=== PATIENT | male | born 1985 | race Caucasian/White ===

== ENCOUNTER 2023-01-31 13:05 | Outpatient (REF) | payer MEDICAID, SELFPAY | END 2023-01-31 13:06 | disposition home or self-care (01) | LOC: HO.HHCL 13:05 | PROVIDERS: Visit Provider Internal Medicine | DX: Z13.89 Encounter for screening for other disorder (principal) ==

== ENCOUNTER 2023-02-03 09:51 | Outpatient (REF) | payer MEDICAID, SELFPAY ==
[2023-02-03 11:49] LABS: MANUAL DIFF FLAG NO
[2023-02-03 12:18] LABS: Basophils Absolute Auto 0.1 X10*3/uL (0.0-0.2); Basophils Percent Auto 0.7 % (0-2); Eosinophils Absolute Auto 0.2 X10*3/uL (0.0-0.4); Eosinophils Percent Auto 1.9 % (0-4); Hematocrit 39.2 % (42.0-52.0); Hemoglobin 13.3 g/dl (14.0-18.0); Imm Gran Abs Auto 0.04 X10*3/uL (0.00-0.03); Imm Gran Pct Auto 0.3 % (0.0-0.4); Lymphocytes Absolute Auto 1.2 X10*3/uL (1.2-4.9); Mean Corpuscular HGB Conc 33.9 g/dl (31.0-36.0); Mean Corpuscular Volume 88.3 fL (80.0-98.0); Mean Platelet Volume 9.7 fL (9.4-12.4); Monocytes Absolute Auto 0.7 X10*3/uL (0.1-1.2); Neutrophils Absolute Auto 9.8 x10*3/uL (2.0-8.3); Neutrophils Percent Auto 81.1 % (45-73); Platelet Count 313 X10*3/uL (160-400); Red Blood Count 4.44 X10*6/uL (4.60-5.80); Red Cell Distribution Width 12.4 % (11.0-16.0); White Blood Count 12.1 X10*3/uL (4.8-10.8)
[2023-02-03 12:51] LABS: Alanine Aminotransferase 31 U/L (0-40); Albumin Level 4.6 g/dL (3.5-5.0); Alkaline Phosphatase 79 U/L (39-117); Anion Gap 15 (12-20); Aspartate Amino Transferase 34 U/L (5-37); Bilirubin Direct 0.1 mg/dL (0.0-0.5); Bilirubin Total 0.4 mg/dL (0.0-1.0); Blood Urea Nitrogen 9 mg/dL (9-16); Calcium 9.4 mg/dL (8.4-10.2); Carbon Dioxide 24 mmol/L (22-29); Chloride 104 mmol/L (96-108); Estimated Glomerular Filt Rate > 60; Glucose Random 86 mg/dL (60-115); Potassium 4.4 mmol/L (3.3-5.1); Sodium 139 mmol/L (135-145); Total Protein 7.5 g/dL (6.5-8.0)
[2023-02-03 13:10] LABS: Vitamin D 25-OH Total 78.5 ng/mL (>30)
[2023-02-04 03:43] LABS: Syphilis Screen Nonreactive (Nonreactive)
[2023-02-04 03:58] LABS: HIV AB/AG Nonreactive (Nonreactive); HIV Num 1 0.09 S/CO (0.00-0.99)
[2023-02-05 19:38] LABS: TS Negative Control Passed; TS Panel A 0; TS Panel B 0; TS Positive Control Passed; TSpotTB Negative (Negative)
== END 2023-02-03 09:52 | disposition home or self-care (01) ==
LOC: HO.HHCL 09:51
PROVIDERS: Visit Provider Internal Medicine
DX: J44.9 Chronic obstructive pulmonary disease, unspecified (principal); F41.1 Generalized anxiety disorder
CPT/HCPCS: 36415; 80053; 82248; 82306; 85025; 86481; 86780; 87389

== ENCOUNTER 2023-06-10 13:26 | Outpatient (AMB) | payer MEDICAID, SELFPAY ==
--- NOTE | 2023-06-10 13:08 | MHC.OFFVIS ---
Intake Vital Signs 06/10/23 13:34 Weight 125 lb BP 110/60 Blood Pressure Location Rt brachial Position Sitting Pulse 101 H Pulse Source Pulse Oximeter Pulse Oximetry (%) 92 Oxygen Delivery Method Nasal Cannula Oxygen Flow Rate 5 Intake Visit Reasons: COPD Business Reporting Developer Required: No Outside Cutter: Outside Cutter offered & declined Accompanied by: Celeste/ HUMAN RESOURCES PROFESSIONAL Allergies No Known Allergies [No Known Allergies*] Allergy (Unverified 06/10/23 13:39) Medication List - Last Reconciled 06/10/23 by Dolores Snow LPN albuterol sulfate 90 mcg/actuation 2 puffs inhalation Q4-6H PRN amlodipine 5 mg PO DAILY clonidine HCl 0.1 mg PO BID doxycycline hyclate 100 mg PO BID famotidine 20 mg PO DAILY nugniiqhcff-gbcbojtjj-gkngzyyp 200-62.5-25 mcg (Trelegy Ellipta) 1 inh inhalation DAILY hydromorphone (Dilaudid) 4 mg PO .Q12 hours ipratropium-albuterol 0.5 mg-3 mg(2.5 mg base)/3 mL 3 mL inhalation Q6H PRN lorazepam (Ativan) 0.5 mg PO TID PRN methadone (Methadone Intensol) 120 mg PO DAILY nicotine (Nicotrol) 1 inh inhalation Q2-4H PRN sertraline (Zoloft) 150 mg PO DAILY trazodone 75 mg PO BEDTIME PRN HPI COPD HPI Details Mat is a pleasant 37 year old male, former smoker with 30 pack year history, with underlying COPD requiring 5-6 L supplemental oxygen, h/o polysubstance abuse, h/o hepatitis B and C, pseudomonas PNA and h/o respiratory failure with prolonged hospitalization/intubation. He is accompanied by his HUMAN RESOURCES PROFESSIONAL. He was under the care of prior information technology administrator. There was question of pulmonary hypertension and possibility of referral for lung transplant once patient discontinued illicit substance use. He is currently on methadone. He was lost to follow up and presents today for pulmonary evaluation. He is suboptimally controlled on Dulera, duoneb TID-QID. He currently receives oxygen through [employer]. He reports history of asthma as a child. Father, smoker, had COPD and other underlying conditions, unknown. Denies any other pertinent family history. 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 Does admit to history of crack cocaine use as well as IV heroin and h/o homelessness. [facility] Social History (Updated 06/10/23 @ 13:45 by Dolores Snow LPN) Patient Tobacco Use Status: Former Tobacco user Tobacco use type: Cigarette Cigarette Packs Per Day: 2 Years Smoked: 15 Review of Systems Const Denies chills, Denies excessive sweating, Denies fever(s), Denies headache(s) and Denies night sweats Eyes Denies dry eyes, Denies irritation and Denies itchy eyes ENT Reports Normal hearing present, Denies headache(s), Reports nasal congestion, Denies nasal discharge, Reports post nasal drip and Denies sore throat Card Denies chest pain, Denies chest pain at rest, Denies chest pain with activity, Denies claudication, Denies leg edema, Reports dyspnea, Denies orthopnea and Denies paroxysmal nocturnal dyspnea Resp Reports chest congestion, Reports cough, Reports excessive phlegm production, Denies pain on inspiration, Denies pain with cough, Reports dyspnea, Denies stridor and Reports wheezing Neuro Reports Normal hearing present and Denies headache(s) Endo Denies excessive sweating Michael/Lymph Denies lymphadenopathy Aller/Immun Denies itchy eyes, Denies seasonal rhinorrhea and Reports wheezing Physical Exam Vital Signs: Last Vital Signs Pulse 101 H 06/10/23 13:34 BP 110/60 06/10/23 13:34 Pulse Ox 92 06/10/23 13:34 Oxygen Delivery Method Nasal Cannula 06/10/23 13:34 Oxygen Flow Rate 5 06/10/23 13:34 Const Other: wearing supplemental oxygen, ambulating with cane General: cooperative, comfortable, no acute distress and alert Nutritional Appearance: thin Orientation/consciousness: patient oriented x3 Limitations: ambulation with cane HEENT Head: Yes normal to inspection, Yes normocephalic and Yes atraumatic Ears: hearing grossly normal bilaterally and external ears normal Eyes General: appearance normal, both eyes and all related structures Eyelids: Yes eyelids normal Sclerae: sclerae normal EOM: EOMs intact bilaterally Neck Neck: Yes normal visual inspection and Yes no lymphadenopathy Lymphatic: no lymphadenopathy noted Chest Chest palpation & inspection: normal inspection of the chest Resp Effort & Inspection: normal respiratory effort, able to speak in complete sentences, no audible wheezes, no cough, no stridor, not tachypneic, no tripod positioning and no use of accessory muscles Auscultation: diminished lung sounds Cardio Jugular venous distension: no JVD Rate: regular rate Rhythm: regular rhythm Back/Spine/Pelvis Other: kyphosis Skin Other: warm, dry General skin exam: no rashes or lesions noted Neuro General: patient oriented x3 Cranial nerves: Yes Normal hearing present Cognition (Neuro): normal cognition Gait exam (Neuro): Normal gait present Extrem General: Yes normal to inspection, Yes capillary refill normal, Yes no clubbing, cyanosis or edema and Yes no pedal edema Psych Appearance: grossly normal and well kempt Speech and movement: Normal speech and movement present and Clear speech present Affect: normal affect Attitude: cooperative Thought process: Normal thought process present Thought content: Normal thought content present Insight: Good insight present (Psych) Judgement: Good judgement present (Psych) Assessment & Plan Assessment & Plan (1) COPD (chronic obstructive pulmonary disease): Code(s): J44.9 - Chronic obstructive pulmonary disease, unspecified (2) History of acute respiratory failure: Code(s): Z87.09 - Personal history of other diseases of the respiratory system (3) Supplemental oxygen dependent: Code(s): Z99.81 - Dependence on supplemental oxygen Plan Mat's symptoms are likely multifactorial with contribution from pulmonary, cardiac and deconditioning etiologies as well as history of polysubstance abuse. Will send for PFT to assess severity of COPD. Will change Dulera to Trelegy. Inhaler technique and importance of oral hygiene reviewed. Patient aware if unable to obtain, he will call the office. Patient also reported productive cough with yellow to brown sputum, will send doxycycline for bronchitic symptoms. Will send for chest CT to assess for parenchymal disease. Will send for echo to assess for pulmonary hypertension. Given patient's age and prior history of severe COPD with emphysema, will also evaluate for alpha-1 anti-trypsin deficiency. 6MWT attempted. When patient came off supplemental oxygen patient desaturated to 86%, with 2L of supplemental oxygen increased to 91%. However once he stood with 2L he desaturated to 84%. He then recovered while sitting with 3L supplemental oxygen to 93%. Patient with quite labored breathing, so did not ambulate and complete 6MWT. Will follow up to review results or sooner if needed. All questions were answered and patient is in agreement of plan. Orders: Orders Alpha 1 Anti-trypsin Today J44.9 - Chronic obstructive pulmonary disease, unspecified PFT pulmonary function test Today J44.9 - Chronic obstructive pulmonary disease, unspecified CT chest wo IV con Today J44.9 - Chronic obstructive pulmonary disease, unspecified, R06.09 - Other forms of dyspnea CA echo transthoracic complete Today R06.09 - Other forms of dyspnea, Z99.81 - Dependence on supplemental oxygen Medications: New doxycycline hyclate 100 mg PO BID 20 caps 0RF ipratropium-albuterol 0.5 mg-3 mg(2.5 mg base)/3 mL 3 mL inhalation Q6H PRN 180 mL 3RF wheezing whorpscudpu-onxxfoihk-vsstyctz 200-62.5-25 mcg (Trelegy Ellipta) 1 inh inhalation DAILY 60 ea 3RF albuterol sulfate 90 mcg/actuation 2 puffs inhalation Q4-6H PRN 1 ea 3RF shortness of breath or wheezing Coding Level of Care Code New Pt Level 5 (44552) Diagnoses COPD (chronic obstructive pulmonary disease) J44.9 History of acute respiratory failure Z87.09 Supplemental oxygen dependent Z99.81
[2023-06-10 13:34] VITALS: BP 110/60; PULSE 101; O2SAT 92
== END 2023-06-10 15:26 | disposition home or self-care (01) ==
PROVIDERS: PCP Internal Medicine; Referring Provider Internal Medicine; Visit Provider Nurse Practitioner Family
DX: J44.9 Chronic obstructive pulmonary disease, unspecified (principal); Z99.81 Dependence on supplemental oxygen; Z87.09 Personal history of other diseases of the respiratory system
CPT/HCPCS: 99204

== ENCOUNTER → 2023-06-10 13:26 | Outpatient (BNVA) | payer MEDICAID, SELFPAY | PROVIDERS: PCP Internal Medicine; Visit Provider Nurse Practitioner Family | DX: J44.9 Chronic obstructive pulmonary disease, unspecified (principal); Z87.09 Personal history of other diseases of the respiratory system; Z87.891 Personal history of nicotine dependence; Z99.81 Dependence on supplemental oxygen | CPT/HCPCS: 99212 ==

== ENCOUNTER → 2023-07-10 14:37 | Outpatient (REF) | payer MEDICAID, SELFPAY ==
--- NOTE | 2023-07-10 14:49 | CA_ITS ---
Transthoracic Echocardiogram Patient (Last, First, Middle): Mat Martin, Gender: Male Date of : 1985 Age: 37 Procedure Date: 07/10/2023 Procedure Type: Transthoracic Echocardiogram Location: OP Height: 162.56 cm Weight: 56.7 kg BSA: 1.60 m2 Heart Rate: bpm BP: 110 / 60 mmHg [employer] Operator: CLOVER Referring MD: Tanisha Smith SAPPHIRE STYLUS GRINDER Symptoms: R06.09 - Other forms of dyspnea Study Quality: Fair ECG Rhythm: Sinus tachycardia Conclusions: - The left ventricular systolic function is normal. The calculated ejection fraction is 68% by biplane method. - No obvious valvular pathology seen on this study. - There is no evidence of pulmonary hypertension. - There is no evidence of pericardial effusion. Findings Procedure Information The study quality is limited by patients body habitus. Left Ventricle Normal left ventricular cavity size. There is normal left ventricular wall thickness. The left ventricular systolic function is normal. The calculated ejection fraction is 68% by biplane method. There is no evidence of regional wall motion abnormalities. Diastolic function is normal for age. Normal left ventricular filling pressures. Right Ventricle Normal right ventricular cavity size and systolic function. Atria Both atria are normal in size. Aortic Valve The aortic valve was not well visualized. There is no aortic valve stenosis. There is no aortic valve regurgitation. Mitral Valve The mitral valve appears normal. There is no mitral valve regurgitation. There is no mitral valve stenosis. Pulmonic Valve The pulmonic valve is likely normal. Tricuspid Valve Normal tricuspid valve structure. There is trace tricuspid valve regurgitation. There is no evidence of pulmonary hypertension. Great Vessels The aorta was not well visualized. Venous The inferior vena cava is normal in size and collapses greater than 50% with inspiration. Pericardium/Pleural There is no evidence of pericardial effusion. Prior Study Comparison No prior study available for comparison. Recommendations, Care & Conclusions No obvious valvular pathology seen on this study. Measurements 2D Linear Measurements IVSd: 0.99 0.6-0.9/0.6-1.0 cm LVIDd: 3.72 3.9-5.3/4.2-5.9 cm LVIDd Index: 2.33 2.4-3.2/2.2-3.1 cm/m2 LVIDs: 2.44 2.0-3.6 cm LVPWd: 0.97 0.7-1.1 cm LA Diam: 2.80 2.7-3.8/3.0-4.0 cm LAIDs Index: 1.75 1.5-2.3 cm/m2 LV Mass: 137.45 67-162/88-224 g LV Mass Index: 85.90 43-95/49-115 g/m2 LVOT Diam: 1.90 3.0+(-)1.3 cm 2D Systolic Function EF 4C: 67.20 >55% EF 2C: 69.30 >55% EF BiP: 68.00 >55% Mitral Valve MV Pk E: 0.91 MV PK A: 0.99 MV Decel Time: 91.00 E/A: 0.90 E'Lateral: 14.50 E'Medial: 12.90 E/E' Med: 7.10 E/E' Lat: 6.30 PHT: 27.00 MVA PHT: 8.15 Decel Hinds: 10.02 Aortic Valve AoV Pk Margarito: 1.56 AoV Mn Margarito: 1.08 AoV VTI: 0.26 AoV Pk Grad: 10.00 Aov Mn Grad: 5.00 KAELYN Cont.VTI: 2.19 LVOT LVOT Pk Margarito: 1.28 LVOT Mn Margarito: 0.81 LVOT VTI: 0.20 LVOT Pk Grad: 7.00 LVOT Mn Grad: 3.00 LVOT Diam: 1.90 LVOT Area: 2.84 Diastolic Function MV Pk E: 0.91 MV Pk A: 0.99 E/A: 0.90 E'Medial: 12.90 E/E' Med: 7.10 E' Laterial: 14.50 E/E' Lat: 6.30 Right Ventricle TAPSE (mm): 20.40 TVS' Margarito: 14.30 Tricuspid Valve TR Pk Margarito: 2.40 TR Pk Grad: 23.00 RA Press: 8.00 RVSP: 31.00 Great Vessels Aorta Sinus of Valsalva: 3.71 2.0-3.5 cm Updated in Other Vendor System with Status of Final Claudio Cantor MD electronically signed on 07/11/2023 8:57:50 AM with status of Final
== END ==
LOC: HO.CARD 14:37
PROVIDERS: PCP Internal Medicine; Visit Provider Nurse Practitioner Family
DX: R06.09 Other forms of dyspnea (principal); Z99.81 Dependence on supplemental oxygen
CPT/HCPCS: 93306

== ENCOUNTER → 2023-07-10 14:49 | Outpatient (BNV) | payer MEDICAID, SELFPAY | PROVIDERS: PCP Internal Medicine; Visit Provider Internal Medicine | DX: R00.0 Tachycardia, unspecified (principal); R06.09 Other forms of dyspnea; Z99.81 Dependence on supplemental oxygen | CPT/HCPCS: 93306 ==

== ENCOUNTER 2023-07-22 15:32 | Outpatient (REF) | payer MEDICAID, SELFPAY ==
--- NOTE | ~2023-07-22 | CT_ITS ---
EXAMINATION: CT CHEST WITHOUT CONTRAST CLINICAL INFORMATION: COPD COMPARISON: None available. TECHNIQUE: Multidetector volumetric CT imaging of the chest was done. Axial MIP volume rendering provided. Sagittal and coronal reformatted images were obtained. This CT examination was performed using dose optimization techniques as appropriate, variously including the following: *Automated exposure control *Adjustment of mA and/or kV according to patient size (this includes techniques or standardized protocols for targeted exams where dose is matched to indication/reason for exam; i.e. extremities or head) *Use of iterative reconstruction technique DLP: 142 mGy-cm FINDINGS: LUNGS: Background parenchymal emphysema. Bronchial wall thickening of the bilateral lower lobes and left lingular region may reflect small airways inflammation or infection. Right upper lobe 3 mm nodule (5:211). Right upper lobe subpleural 3 mm nodule (5:214). Right upper lobe 4 mm nodule (5:273). Central airways are patent. PLEURA: No pleural effusion. MEDIASTINUM: No cardiomegaly. Aorta and pulmonary artery are normal in caliber. No mediastinal adenopathy. Lack of IV contrast limits evaluation for hilar adenopathy. CORONARY ARTERY CALCIFICATION: No coronary artery calcification appreciated. CHEST WALL/AXILLA: No axillary or internal mammary lymphadenopathy. UPPER ABDOMEN: Unremarkable. OSSEOUS STRUCTURES: Degenerative changes of the spine. CT/CT chest wo IV con IMPRESSION: * Background parenchymal emphysema. Bronchial wall thickening of the bilateral lower lobes and left lingular region may reflect small airways inflammation or infection. Right upper lobe pulmonary nodules measuring up to 4 mm. According to the UPDATED 2017 Fleischner Society recommendations, the advised followup imaging for solid nodules < 6 mm is: LOW RISK PATIENT: No routine follow up. HIGH RISK PATIENT: Optional CT at 12 months.
== END 2023-07-22 15:33 | disposition home or self-care (01) ==
LOC: HO.CT 15:32
PROVIDERS: PCP Internal Medicine; Visit Provider Nurse Practitioner Family
DX: J44.9 Chronic obstructive pulmonary disease, unspecified (principal); R06.09 Other forms of dyspnea
CPT/HCPCS: 71250

== ENCOUNTER → 2023-10-21 15:19 | Outpatient (BNVA) | payer MEDICAID, SELFPAY | PROVIDERS: PCP Internal Medicine; Visit Provider Nurse Practitioner Family | DX: J44.9 Chronic obstructive pulmonary disease, unspecified (principal); Z87.09 Personal history of other diseases of the respiratory system; Z99.81 Dependence on supplemental oxygen | CPT/HCPCS: 99212 ==

== ENCOUNTER 2023-10-21 15:20 | Outpatient (AMB) | payer MEDICAID, SELFPAY ==
--- NOTE | 2023-10-21 15:21 | A.OFFVIS_ITS ---
Vital Signs 10/21/23 15:22 Weight 110 lb 4 oz BP 140/80 H Blood Pressure Location Rt brachial Position Sitting Pulse 92 Pulse Source Pulse Oximeter Pulse Oximetry (%) 86 L Oxygen Delivery Method Nasal Cannula Oxygen Flow Rate 8 Intake Visit Reasons: COPD Allergies No Known Allergies [No Known Allergies*] Allergy (Unverified 10/21/23 15:26) HPI HPI COPD: Details: Mat is a pleasant 38 year old male, former smoker with 30 pack year history, with underlying COPD requiring 5-6 L supplemental oxygen, childhood asthma, h/o polysubstance abuse, h/o hepatitis B and C, pseudomonas PNA and h/o respiratory failure with prolonged hospitalization/intubation. He is accompanied by his COPY CUTTER and mother today. He was under the care of prior forensic psychologist and transferred care here. There was question of pulmonary hypertension, at the last visit patient sent for echo. Of note, prior pulmonary provider discussed possibility of referral for lung transplant once patient discontinued illicit substance use, however continues to be maintained on methadone and dilaudid. He was suboptimally controlled on Dulera, duoneb TID-QID and switched to Breo and Incruse with moderate improvements, however has difficulties with inspiratory effort, likely not receiving full dose of medication. Discussed switching to nebulized therapy to ensure optimal response to regimen. He continues to report significant dyspnea with any exertion, productive cough with clear to white sputum, intermittent wheezing and occasional chest tightness. He denies any visits to urgent care or hospitalizations since last visit. He was supposed to be evaluated shortly after his last appointment however continued to push appointments back. Today he presents to review PFT, chest CT and echo. Of note, sent for alpha 1 swab which was negative. Upon arrival to exam room, patient ambulated from waiting room to exam room approximately 15-20 yards, desatting to 86% on 8L supplemental oxygen. Heart rate elevated to 170s. After resting for 3-4 minutes patient's HR decreased to 100, staying between 90-110 the rest of the visit. With any continued talking p atient persisted to desaturate to 84-86%, lowest 78%. Instructed patient to cease talking and breathe through nose using nasal cannula. With continued rest, patient maintained 88-90% on 8L. Advised to be emergently evaluated and patient became anxious, stating he wanted to leave the office and go home. On exam patient tripod positioning, use of accessory muscles and tachypneic. Respiratory exam revealed significantly diminished lung sounds, no wheezing or crackles appreciated. Attempted to educate patient on importance of being evaluated in ED, need for ABGs, steroids and likely further respiratory support however he adamantly refused, stating he has PTSD from prior admission and would consider going at another time. [facility] Social History Patient Tobacco Use Status: Former Tobacco user Tobacco use type: Cigarette Cigarette Packs Per Day: 2 Years Smoked: 15 Review of Systems Const Denies chills, Denies excessive sweating, Denies fever(s), Denies headache(s) and Denies night sweats Eyes Denies dry eyes, Denies irritation and Denies itchy eyes ENT Reports Normal hearing present, Denies headache(s), Reports nasal congestion, Denies nasal discharge, Reports post nasal drip and Denies sore throat Card Denies chest pain, Denies chest pain at rest, Denies chest pain with activity, Denies claudication, Denies leg edema, Reports dyspnea, Denies orthopnea and Denies paroxysmal nocturnal dyspnea Resp Denies chest congestion, Reports cough, Denies excessive phlegm production, Denies pain on inspiration, Denies pain with cough, Reports dyspnea, Denies stridor and Reports wheezing Neuro Reports Normal hearing present and Denies headache(s) Endo Denies excessive sweating Michael/Lymph Denies lymphadenopathy Aller/Immun Denies itchy eyes, Denies seasonal rhinorrhea and Reports wheezing Physical Exam Vital Signs: Last Vital Signs Pulse 92 10/21/23 15:22 BP 140/80 H 10/21/23 15:22 Pulse Ox 86 L 10/21/23 15:22 Oxygen Delivery Method Nasal Cannula 10/21/23 15:22 Oxygen Flow Rate 8 10/21/23 15:22 Const Other: wearing supplemental oxygen, ambulating with wheelchair, oximyzer General: alert, awake, anxious and tired appearing; No diaphoretic Nutritional Appearance: thin Orientation/consciousness: patient oriented x3 Limitations: ambulation with cane and wheelchair HEENT Head: Yes normal to inspection, Yes normocephalic and Yes atraumatic Ears: hearing grossly normal bilaterally and external ears normal Eyes General: appearance normal, both eyes and all related structures Eyelids: Yes eyelids normal Sclerae: sclerae normal EOM: EOMs intact bilaterally Neck Neck: Yes normal visual inspection and Yes no lymphadenopathy Lymphatic: no lymphadenopathy noted Chest Chest palpation & inspection: normal inspection of the chest Resp Effort & Inspection: no audible wheezes, no cough, labored, no stridor, tachypneic, tripod positioning, uses accessory muscles and prolonged expiratory phase Auscultation: no crackles, no rales, no rhonchi, no wheezes and diminished lung sounds Cardio Jugular venous distension: no JVD Rate: regular rate Rhythm: regular rhythm Back/Spine/Pelvis Other: kyphosis Skin Other: warm, dry General skin exam: no rashes or lesions noted Neuro General: patient oriented x3 Cranial nerves: Yes Normal hearing present Cognition (Neuro): normal cognition Gait exam (Neuro): Normal gait present Extrem General: Yes normal to inspection, Yes capillary refill normal, Yes no clubbing, cyanosis or edema and Yes no pedal edema Psych Appearance: grossly normal Speech and movement: Normal speech and movement present and Clear speech present Affect: Anxious affect present Attitude: Guarded attititude/behavior present Thought process: Perseverating thought process present Insight: Limited insight present (Psych) Judgement: Limited judgement present (Psych) Results Reviewed Results Reviewed: [address] [address] [address] Scan Report Signed Patient: Mat Martin MR#: [id number] : 1985 Acct:[id number] Age/Sex: 37 / M ADM Date: 07/22/23 Loc: HO.CT Attending Dr: Tanisha Smith NP Ordering Physician: Tanisha Smith NP Date of Service: 07/22/23 Procedure(s): CT chest wo IV con Accession Number(s): [id number] cc: Quiana Giron MD; Tanisha Smith NP~ EXAMINATION: CT CHEST WITHOUT CONTRAST CLINICAL INFORMATION: COPD COMPARISON: None available. TECHNIQUE: Multidetector volumetric CT imaging of the chest was done. Axial MIP volume rendering provided. Sagittal and coronal reformatted images were obtained. This CT examination was performed using dose optimization techniques as appropriate, variously including the following: *Automated exposure control *Adjustment of mA and/or kV according to patient size (this includes techniques or standardized protocols for targeted exams where dose is matched to indication/reason for exam; i.e. extremities or head) *Use of iterative reconstruction technique DLP: 142 mGy-cm FINDINGS: LUNGS: Background parenchymal emphysema. Bronchial wall thickening of the bilateral lower lobes and left lingular region may reflect small airways inflammation or infection. Right upper lobe 3 mm nodule (5:211). Right upper lobe subpleural 3 mm nodule (5:214). Right upper lobe 4 mm nodule (5:273). Central airways are patent. PLEURA: No pleural effusion. MEDIASTINUM: No cardiomegaly. Aorta and pulmonary artery are normal in caliber. No mediastinal adenopathy. Lack of IV contrast limits evaluation for hilar adenopathy. CORONARY ARTERY CALCIFICATION: No coronary artery calcification appreciated. CHEST WALL/AXILLA: No axillary or internal mammary lymphadenopathy. UPPER ABDOMEN: Unremarkable. OSSEOUS STRUCTURES: Degenerative changes of the spine. CT/CT chest wo IV con IMPRESSION: * Background parenchymal emphysema. Bronchial wall thickening of the bilateral lower lobes and left lingular region may reflect small airways inflammation or infection. Right upper lobe pulmonary nodules measuring up to 4 mm. According to the UPDATED 2017 Fleischner Society recommendations, the advised followup imaging for solid nodules < 6 mm is: LOW RISK PATIENT: No routine follow up. HIGH RISK PATIENT: Optional CT at 12 months. Dictated By: Carlene Byrne MD Signed By: <Electronically signed by Carlene Byrne MD in OV> 07/30/23 0227 DD/ 1606 TD/TT: Network Support Analyst: Assessment & Plan Assessment & Plan (1) COPD (chronic obstructive pulmonary disease): Code(s): J44.9 - Chronic obstructive pulmonary disease, unspecified Category: Medical (2) History of acute respiratory failure: Code(s): Z87.09 - Personal history of other diseases of the respiratory system Category: Medical (3) Supplemental oxygen dependent: Code(s): Z99.81 - Dependence on supplemental oxygen Category: Medical Plan Mat presents with worsening respiratory status, requiring 8-10L of supplemental oxygen to maintain 88-90% and persistently desaturated with any exertion or continued talking. Explained to patient the adverse effects of not agreeing to emergent evaluation and likely need for further respiratory support, if not could result in respiratory failure and . He adamantly refused at this time but would consider going at another time. PFT revealed severe COPD, FEV1/FVC 47%, FEV1 16% , DLCO 17%, TCL 109% and RV 371%. Chest CT revealed extensive emphysema, with nodules <4mm. Will send for repeat chest CT in one year. Echo negative for pulmonary hypertension at this time, will reassess in one year. Alpha 1 swab negative. Patient with poor inspiratory effort, likely not receiving full dose of inhaled therapies. Discussed switching to all nebulized therapies to ensure optimal respiratory regimen. Advised to continue duoneb and will attempt to send in Yupelri. Had discussion regarding lung transplant reviewing criteria, including cessation of opioids and methadone versus a formal addiction medicine program. He expressed significant hesitancy and would like time to consider moving forward with the process. Will discuss again at next visit. All questions were answered and patient is in agreement of plan. Will plan for close follow up. Orders: Orders CT chest wo IV con 9 Months R91.1 - Solitary pulmonary nodule CA echo transthoracic complete 9 Months R06.09 - Other forms of dyspnea Medications: New revefenacin (Yupelri) 175 mcg (3 mL) inhalation DAILY 90 mL 3RF Refilled ipratropium-albuterol 0.5 mg-3 mg(2.5 mg base)/3 mL 3 mL inhalation Q6H PRN 180 mL 3RF wheezing Coding Level of Care Code Est Pt Level 5 (95384) Diagnoses COPD (chronic obstructive pulmonary disease) J44.9 History of acute respiratory failure Z87.09 Supplemental oxygen dependent Z99.81
[2023-10-21 15:22] VITALS: BP 140/80; PULSE 92; O2SAT 86
== END 2023-10-21 16:26 | disposition home or self-care (01) ==
PROVIDERS: PCP Internal Medicine; Visit Provider Nurse Practitioner Family
DX: J44.9 Chronic obstructive pulmonary disease, unspecified (principal); Z87.09 Personal history of other diseases of the respiratory system; Z99.81 Dependence on supplemental oxygen
CPT/HCPCS: 99215

== ENCOUNTER 2024-02-27 11:03 | Outpatient (AMB) | payer MEDICAID, SELFPAY ==
--- NOTE | 2024-02-27 11:06 | MHC.OFFVIS ---
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 He is accompanied by his cousin Camilo, his QUALITY REVIEW TRAINER. He was suboptimally controlled on Dulera, duoneb TID-QID and switched to Breo and Incruse with moderate improvements, however has difficulties with inspiratory effort, likely not receiving full dose of medication. Discussed switching to nebulized therapy to ensure optimal response to regimen however insurance denied. He continues to report significant dyspnea with any exertion, productive cough with clear to white sputum, intermittent wheezing and occasional chest tightness. He denies any visits to urgent care or hospitalizations since last visit. [facility] Social History Patient Tobacco Use Status: Former Tobacco user Tobacco use type: Cigarette Cigarette Packs Per Day: 2 Years Smoked: 15 Review of Systems Const Denies chills, Denies excessive sweating, Denies fever(s), Denies headache(s) and Denies night sweats Eyes Denies dry eyes, Denies irritation and Denies itchy eyes ENT Reports Normal hearing present, Denies headache(s), Reports nasal congestion, Denies nasal discharge, Reports post nasal drip and Denies sore throat Card Denies chest pain, Denies chest pain at rest, Denies chest pain with activity, Denies claudication, Denies leg edema, Reports dyspnea, Reports dyspnea on exertion, Denies orthopnea and Denies paroxysmal nocturnal dyspnea Resp Denies chest congestion, Reports cough, Denies excessive phlegm production, Denies pain on inspiration, Denies pain with cough, Reports dyspnea, Reports dyspnea on exertion, Denies stridor and Reports wheezing Neuro Reports Normal hearing present and Denies headache(s) Endo Denies excessive sweating Michael/Lymph Denies lymphadenopathy Aller/Immun Denies itchy eyes, Denies seasonal rhinorrhea and Reports wheezing Physical Exam Vital Signs: Last Vital Signs Pulse 96 02/27/24 11:22 BP 110/82 02/27/24 11:22 Pulse Ox 92 02/27/24 11:22 Oxygen Delivery Method Nasal Cannula 02/27/24 11:22 Oxygen Flow Rate 6 02/27/24 11:22 Const Other: wearing supplemental oxygen, ambulating with wheelchair General: cooperative, comfortable, no acute distress, alert, awake and tired appearing; No diaphoretic Nutritional Appearance: thin Orientation/consciousness: patient oriented x3 Limitations: wheelchair HEENT Head: Yes normal to inspection, Yes normocephalic and Yes atraumatic Ears: hearing grossly normal bilaterally and external ears normal Eyes General: appearance normal, both eyes and all related structures Eyelids: Yes eyelids normal Sclerae: sclerae normal EOM: EOMs intact bilaterally Neck Neck: Yes normal visual inspection and Yes no lymphadenopathy Lymphatic: no lymphadenopathy noted Chest Chest palpation & inspection: normal inspection of the chest Resp Effort & Inspection: no audible wheezes, no cough, labored, no stridor, not tachypneic, no tripod positioning, no use of accessory muscles and prolonged expiratory phase Auscultation: no crackles, no rales, no rhonchi, no wheezes and diminished lung sounds Cardio Jugular venous distension: no JVD Rate: regular rate Rhythm: regular rhythm Back/Spine/Pelvis Other: kyphosis Skin Other: warm, dry General skin exam: no rashes or lesions noted Neuro General: patient oriented x3 Cranial nerves: Yes Normal hearing present Cognition (Neuro): normal cognition Gait exam (Neuro): Normal gait present Extrem General: Yes normal to inspection, Yes capillary refill normal, Yes no clubbing, cyanosis or edema and Yes no pedal edema Psych Appearance: grossly normal Speech and movement: Normal speech and movement present and Clear speech present Affect: normal affect Attitude: cooperative Thought process: Normal thought process present Thought content: Normal thought content present Insight: Fair insight present (Psych) Judgement: Fair judgement present (Psych) Assessment & Plan Assessment & Plan (1) COPD (chronic obstructive pulmonary disease): Code(s): J44.9 - Chronic obstructive pulmonary disease, unspecified Category: Medical (2) Supplemental oxygen dependent: Code(s): Z99.81 - Dependence on supplemental oxygen Category: Medical (3) Chronic respiratory failure with hypoxia: Code(s): J96.11 - Chronic respiratory failure with hypoxia Category: Medical (4) Pulmonary nodule: Code(s): R91.1 - Solitary pulmonary nodule Category: Medical Plan Mat presents with suboptimal control on Breo and Incruse, will switch to Breztri and trial spacer to ensure optimal dose of medication. Advised to continue DuoNeb PRN and will trial acapella valve after nebulized therapy. We discussed attempting to trial other nebulized medications given poor inspiratory effort however he would like to hold off at this time. Today he reports symptoms suggestive of sinusitis, will treat with doxycyline. Again reviewed severity of COPD with prior PFT revealing severe COPD, FEV1/FVC 47%, FEV1 16% , DLCO 17%, TCL 109% and RV 371%. Chest CT revealed extensive emphysema, with nodules <4mm. Repeat chest CT ordered. Prior echo not suggestive of pulmonary HTN at this time, will repeat in one year. We had long discussion regarding need to pursue lung transplant reviewing criteria, including cessation of opioids and methadone versus a formal addiction medicine program. He previously expressed significant hesitancy but today was motivated to move forward with proceeding. Will gather information regarding criteria and further workup that needs to be performed. All questions were answered and patient is in agreement of plan. Will follow up in 4-6 weeks or sooner if needed. Medications: New grjzjarfxy-dtdspjws-szqxdymttq 160-9-4.8 mcg/actuation (Breztri Aerosphere) 2 inhalations inhalation BID 10.7 grams 6RF doxycycline hyclate 100 mg PO BID 20 caps 0RF Coding Level of Care Code Est Pt Level 4 (79267) Complex EM visit Add On G2211 Diagnoses COPD (chronic obstructive pulmonary disease) J44.9 Supplemental oxygen dependent Z99.81 Chronic respiratory failure with hypoxia J96.11 Pulmonary nodule R91.1
[2024-02-27 11:22] VITALS: BP 110/82; PULSE 96; O2SAT 92
== END 2024-02-27 12:07 | disposition home or self-care (01) ==
PROVIDERS: PCP Internal Medicine; Visit Provider Nurse Practitioner Family
DX: J44.9 Chronic obstructive pulmonary disease, unspecified (principal); Z99.81 Dependence on supplemental oxygen; J96.11 Chronic respiratory failure with hypoxia; R91.1 Solitary pulmonary nodule
CPT/HCPCS: 99214

== ENCOUNTER → 2024-02-27 11:03 | Outpatient (BNVA) | payer MEDICAID, SELFPAY | PROVIDERS: PCP Internal Medicine; Visit Provider Nurse Practitioner Family | DX: J44.9 Chronic obstructive pulmonary disease, unspecified (principal); J96.11 Chronic respiratory failure with hypoxia; R91.1 Solitary pulmonary nodule; Z99.81 Dependence on supplemental oxygen | CPT/HCPCS: 99212 ==

== ENCOUNTER 2024-04-23 13:03 | Outpatient (AMB) | payer MEDICAID, SELFPAY ==
--- NOTE | 2024-04-23 13:04 | A.OFFVIS_ITS ---
Vital Signs 04/23/24 13:06 Weight 109 lb 2 oz Pulse 71 Pulse Source Pulse Oximeter Pulse Oximetry (%) 84 L Oxygen Delivery Method Nasal Cannula Oxygen Flow Rate 8 Intake Visit Reasons: COPD Allergies No Known Allergies [No Known Allergies*] Allergy (Unverified 02/27/24 11:17) HPI HPI COPD: Details: Mat is a pleasant 38 year old male, former smoker with 30 pack year history, with underlying COPD requiring 5-6 L supplemental oxygen, childhood asthma, h/o polysubstance abuse, h/o hepatitis B and C, pseudomonas PNA and h/o respiratory failure with prolonged hospitalization/intubation. He is accompanied by his cousin Camilo, his PRINTER MAINTAINER. He reports moderate control of symptoms on Breo, Incruse, and Duoneb. Previously attempted to switch over to all nebulized therapies however insurance denied. At the last visit, an acapella valve was sent in however he has not used yet.He continues to report significant dyspnea with any exertion, productive cough with clear to white sputum, intermittent wheezing and occasional chest tightness. He denies any visits to urgent care or hospitalizations since last visit. [facility] Social History Patient Tobacco Use Status: Former Tobacco user Tobacco use type: Cigarette Cigarette Packs Per Day: 2 Years Smoked: 15 Review of Systems Const Denies chills, Denies excessive sweating, Denies fever(s), Denies headache(s) and Denies night sweats Eyes Denies dry eyes, Denies irritation and Denies itchy eyes ENT Reports Normal hearing present, Denies headache(s), Reports nasal congestion, Denies nasal discharge, Reports post nasal drip and Denies sore throat Card Denies chest pain, Denies chest pain at rest, Denies chest pain with activity, Denies claudication, Denies leg edema, Reports dyspnea, Reports dyspnea on exertion, Denies orthopnea and Denies paroxysmal nocturnal dyspnea Resp Denies chest congestion, Reports cough, Denies excessive phlegm production, Denies pain on inspiration, Denies pain with cough, Reports dyspnea, Reports dys pnea on exertion, Denies stridor and Reports wheezing Neuro Reports Normal hearing present and Denies headache(s) Endo Denies excessive sweating Michael/Lymph Denies lymphadenopathy Aller/Immun Denies itchy eyes, Denies seasonal rhinorrhea and Reports wheezing Physical Exam Vital Signs: Last Vital Signs Pulse 71 04/23/24 13:06 Pulse Ox 84 L 04/23/24 13:06 Oxygen Delivery Method Nasal Cannula 04/23/24 13:06 Oxygen Flow Rate 8 04/23/24 13:06 Const Other: wearing supplemental oxygen, ambulating with wheelchair General: cooperative, comfortable, no acute distress, alert, awake and tired appearing; No diaphoretic Nutritional Appearance: thin Orientation/consciousness: patient oriented x3 Limitations: wheelchair HEENT Head: Yes normal to inspection, Yes normocephalic and Yes atraumatic Ears: hearing grossly normal bilaterally and external ears normal Eyes General: appearance normal, both eyes and all related structures Eyelids: Yes eyelids normal Sclerae: sclerae normal EOM: EOMs intact bilaterally Neck Neck: Yes normal visual inspection and Yes no lymphadenopathy Lymphatic: no lymphadenopathy noted Chest Chest palpation & inspection: normal inspection of the chest Resp Effort & Inspection: no audible wheezes, no cough, labored, no stridor, not tachypneic, no tripod positioning, no use of accessory muscles and prolonged expiratory phase Auscultation: no crackles, no rales, no rhonchi, no wheezes and diminished lung sounds Cardio Jugular venous distension: no JVD Rate: regular rate Rhythm: regular rhythm Back/Spine/Pelvis Other: kyphosis Skin Other: warm, dry General skin exam: no rashes or lesions noted Neuro General: patient oriented x3 Cranial nerves: Yes Normal hearing present Cognition (Neuro): normal cognition Gait exam (Neuro): Normal gait present Extrem General: Yes normal to inspection, Yes capillary refill normal, Yes no clubbing, cyanosis or edema and Yes no pedal edema Psych Appearance: grossly normal Speech and movement: Normal speech and movement present and Clear speech present Affect: normal affect Attitude: cooperative Thought process: Normal thought process present Thought content: Normal thought content present Insight: Fair insight present (Psych) Judgement: Fair judgement present (Psych) Office Procedures Nebulizer Treatment Nebulizer Treatment [id number]-Afherczis/MDI RX initial, or Nebulizer Subsequent Treatment Office Meds ipratropium 0.5 mg-albuterol 3 mg (2.5 mg base)/3 mL nebulization soln Performing Provider: Tanisha Smith NP [place] [facility] Administered by: Dolores Snow LPN on 04/23/24 13:48 Dose Route Admin Location Dispensed Lot Number Expiration Date [facility] 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 mL inhalation 3 mL [id number] 08/09/25 77042-506-98 [employer] Assessment & Plan Assessment & Plan (1) COPD (chronic obstructive pulmonary disease): Code(s): J44.9 - Chronic obstructive pulmonary disease, unspecified Category: Medical (2) Supplemental oxygen dependent: Code(s): Z99.81 - Dependence on supplemental oxygen Category: Medical (3) Chronic respiratory failure with hypoxia: Code(s): J96.11 - Chronic respiratory failure with hypoxia Category: Medical (4) Pulmonary nodule: Code(s): R91.1 - Solitary pulmonary nodule Category: Medical Plan Mat presents with moderate control on current regimen, advised to continue and trial acapella valve after nebulized therapy. We again had long discussion regarding need to pursue lung transplant reviewing criteria, including cessation of opioids and methadone versus a formal addiction medicine program. At this time, he would like to defer moving forward with the process. He was agreeable to attempt pulmonary rehab, preferably at [facility] if possible, [facility]. Upon arrival to room patient 84% on 8L, when rechecked patient 90-96% on 5- 6L at rest. We have previously discussed need for ED evaluation given his increasing oxygen requirements, however he adamantly refuses going to the hospital. All questions were answered and patient is in agreement of plan. Will follow up in 4-6 weeks or sooner if needed. Orders: Orders AMB Nebulizer Treatment 04/23/24 J44.9 - Chronic obstructive pulmonary disease, unspecified Pulmonary Rehab Today J44.9 - Chronic obstructive pulmonary disease, unspecified, J96.11 - Chronic respiratory failure with hypoxia Medications: Discontinued glycopyrrolate-formoterol 9-4.8 mcg (Bevespi Aerosphere) Discontinued Reason: Patient Completed Course 2 puffs inhalation Q12H 10.7 grams 6RF fluticasone propionate 220 mcg/actuation Discontinued Reason: Patient Completed Course 2 puffs inhalation BID 12 grams 6RF doxycycline hyclate Discontinued Reason: Patient Completed Course 100 mg PO BID 20 caps 0RF Coding Level of Care Code Est Pt Level 4 (14381) Complex EM visit Add On G2211 Diagnoses COPD (chronic obstructive pulmonary disease) J44.9 Supplemental oxygen dependent Z99.81 Chronic respiratory failure with hypoxia J96.11 Pulmonary nodule R91.1 CPT Codes Nebulizer Treatment - Nebulizer Treatment, initial or subsequent: 16734- Nebulizer/MDI RX initial, or Nebulizer Subsequent Treatment ([id number])
[2024-04-23 13:06] VITALS: PULSE 71; O2SAT 84
--- OUTSIDE RECORDS SUMMARY | 2024-04-23 13:06 | XMS_ITS | Clinical Summary ---
Author Organization Unknown Care Team Providers Care Liquor Inspector Name Role Phone LUIS CARLOS MCCORD, ROBERTA Unavailable Unavailable ALYSE WOLF, GI Unavailable Unavailable TISH WOLF, RISHI Unavailable Unavailable Payers Payer Name Policy Type Policy Number Effective Date Expira tion Date MEDICAID [facility] [id number] Problems Condition Name Condition Details Condition Category Status Onset Date Resolution Date Last Treatment Date Treating Clinician Comments GENERALIZED ANXIETY DISORDER Active 05-30 00:00: 00 OPIOID ABUSE, UNCOMPLICATE D Active 2020-05 00:00: 00 CHRONIC OBSTRUCTIVE PULMONARY DISEASE, UNSPECIFIED Active 01-29 00:00: 00 Allergies, Adverse Reactions, Alerts Allergy Name Allergy Type Status Severity Reaction(s) Onset Date Inactive Date Treating Clinician Comments NKA Propensity to adverse reactions Active 2023-01 13:29:5 1 Medications Ordered Medication Name Filled Medication Name Start Date Stop Date Current Medication? Ordering Clinician Indication Dosage Frequency Signature (SIG) Comments Components acetaminoph en 325 mg capsule 02-03 00:00: 00 11-04 15:03 :21.2 73 No [id number] 2 capsule 4 TIMES A WEEK 2 capsule 4 TIMES A WEEK (route: oral) Med Classific ation: Analgesic , Anti-infl ammatory or Antipyret ic acetylcyste ine 200 mg/mL (20 %) solution 02-03 00:00: 00 07-01 23:59 :00 No [id number] 3 mL DAILY 3 mL DAILY (route: miscellane ous) Alternate Route: NEBULIZER . Med Classific ation: Respirato ry Therapy Agents albuterol sulfate 0.63 mg/3 mL solution for nebulizatio n 02-03 00:00: 00 09-14 23:59 :00 No [id number] 3 mL EVERY 4 HOURS 3 mL EVERY 4 HOURS (route: inhalation ) Alternate Route: NEBULIZER . Med Classific ation: Respirato ry Therapy Agents amlodipine 5 mg tablet 02-03 00:00: 00 Yes [id number] 5 mg DAILY 5 mg IAN Y (route: oral) Med Classific ation: Cardiovas cular Therapy Agents bisacodyl 10 mg rectal suppository 02-03 00:00: 00 09-14 23:59 :00 No [id number] 1 supposi tory, rectal DAILY 1 suppositor y, rectal DAILY (route: rectal) Med Classific ation: Gastroint estinal Therapy Agents clonidine HCl 0.1 mg tablet 02-03 00:00: 00 Yes [id number] 0.1 mg 2 TIMES DAILY 0.1 mg 2 TIMES DAILY (route: oral) Med Classific ation: Cardiovas cular Therapy Agents Dilaudid 2 mg tablet 02-03 00:00: 00 04-30 23:59 :00 No [id number] 2 mg DAILY 2 mg DAILY (route: oral) Med Classific ation: Analgesic , Anti-infl ammatory or Antipyret ic Dilaudid 2 mg tablet 02-03 00:00: 00 04-30 23:59 :00 No [id number] 2 mg 2 TIMES DAILY 2 mg 2 TIMES DAILY (route: oral) Med Classific ation: Analgesic , Anti-infl ammatory or Antipyret ic Dulera 200 mcg-5 mcg/actuati on HFA aerosol inhaler 02-03 00:00: 00 07-27 23:59 :00 No [id number] 2 puff EVERY 12 HOURS 2 puff EVERY 12 HOURS (route: inhalation ) Med Classific ation: Respirato ry Therapy Agents famotidine 20 mg tablet 02-03 00:00: 00 Yes [id number] 20 mg DAILY 20 mg DAILY (route: oral) Med Classific ation: Gastroint estinal Therapy Agents Fleet Enema 19 gram-7 gram/118 mL 02-03 00:00: 00 09-14 23:59 :00 No [id number] Per instruc tions DAILY Per instructio ns DAILY (route: rectal) Med Classific ation: Gastroint estinal Therapy Agents guaifenesin 400 mg tablet 02-03 00:00: 00 03-03 23:59 :00 No [id number] 400 mg 4 TIMES DAILY 400 mg 4 TIMES DAILY (route: oral) Med Classific ation: Respirato ry Therapy Agents ipratropium 0.5 mg-albutero l 3 mg (2.5 mg base)/3 mL nebulizatio n soln 02-03 00:00: 00 Yes [id number] 3 mL EVERY 6 HOURS 3 mL EVERY 6 HOURS (route: inhalation ) Med Classific ation: Respirato ry Therapy Agents lorazepam 0.5 mg tablet 02-03 00:00: 00 03-09 23:59 :00 No [id number] 0.5 mg DAILY 0.5 mg DAILY (route: oral) Med Classific ation: Central Nervous System Agents Methadose 10 mg/mL oral concentrate 02-03 00:00: 00 Yes [id number] 110 mg DAILY 110 mg DAILY (route: oral) Med Classific ation: Analgesic , Anti-infl ammatory or Antipyret ic naloxone 4 mg/actuatio n nasal spray 02-03 00:00: 00 Yes [id number] Per instruc tions NEEDED Per instructio ns NEEDED (route: nasal) Med Classific ation: Antidotes and other Reversal Agents Nicoderm CQ 21 mg/24 hr daily transdermal patch 02-03 00:00: 00 07-27 23:59 :00 No [id number] 1 patch, transde rmal 24 hours DAILY 1 patch, transderma l 24 hours DAILY (route: transderma l) Med Classific ation: Chemical Dependenc y, Agents to Treat Nicotrol 10 mg inhalation cartridge 02-03 00:00: 00 09-25 23:59 :00 No [id number] 10 mg EVERY 4 HOURS 10 mg EVERY 4 HOURS (route: inhalation ) Med Classific ation: Chemical Dependenc y, Agents to Treat sertraline 100 mg tablet 02-03 00:00: 00 03-11 14:40 :08 No [id number] 150 mg DAILY 150 mg DAILY (route: oral) Med Classific ation: Central Nervous System Agents trazodone 150 mg tablet 02-03 00:00: 00 04-30 23:59 :00 No [id number] 75 mg BEDTIME 75 mg BEDTIME (route: oral) Med Classific ation: Central Nervous System Agents trazodone 50 mg tablet 02-03 00:00: 00 Yes [id number] 25 mg 2 TIMES DAILY 25 mg 2 TIMES DAILY (route: oral) Med Classific ation: Central Nervous System Agents O2 - OXYGEN 02-03 00:00: 00 03-01 00:00 :00 No [id number] 5-6 Liter DAILY 5-6 Liter DAILY (route: Oxygen) Med Classific ation: Medical Oxygen lorazepam 0.5 mg tablet 01-10 00:00: 00 Yes [id number] 0.5 mg 4 TIMES DAILY 0.5 mg 4 TIMES DAILY (route: oral) Med Classific ation: Central Nervous System Agents sertraline 20 mg/mL oral concentrate 01-29 00:00: 00 Yes [id number] 7.5 mg DAILY 7.5 mg DAILY (route: oral) Med Classific ation: Central Nervous System Agents clotrimazol e-betametha sone 1 %-0.05 % topical cream 2022-05 00:00: 00 Yes [id number] Per instruc tions 2 TIMES DAILY Per instructio ns 2 TIMES DAILY (route: topical) Med Classific ation: Dermatolo gical triamcinolo ne acetonide 0.1 % topical cream 2022-05 00:00: 00 Yes [id number] Per instruc tions 2 TIMES DAILY Per instructio ns 2 TIMES DAILY (route: topical) Med Classific ation: Dermatolo gical Dilaudid 4 mg tablet 2022-05 00:00: 00 09-04 23:59 :00 No [id number] 2 tablet 2 TIMES DAILY 2 tablet 2 TIMES DAILY (route: oral) Med Classific ation: Analgesic , Anti-infl ammatory or Antipyret ic Dilaudid 4 mg tablet 2022-05 2- 00:00: 00 09-04 23:59 :00 No [id number] 2 tablet DAILY 2 tablet DAILY (route: oral) Med Classific ation: Analgesic , Anti-infl ammatory or Antipyret ic trazodone 150 mg tablet 2022-05 2- 00:00: 00 Yes [id number] 1 tablet BEDTIME 1 tablet BEDTIME (route: oral) Med Classific ation: Central Nervous System Agents Ventolin HFA 90 mcg/actuati on aerosol inhaler 1-30 00:00: 00 Yes [id number] 2 puff EVERY 4 HOURS 2 puff EVERY 4 HOURS (route: inhalation ) Med Classific ation: Respirato ry Therapy Agents fluticasone propionate 50 mcg/actuati on nasal spray,suspe nsion 2-05 00:00: 00 Yes [id number] 1 spray EVERY AM 1 spray EVERY AM (route: nasal) Med Classific ation: Respirato ry Therapy Agents acetylcyste ine 200 mg/mL (20 %) solution 07-01 00:00: 00 Yes [id number] 3 mL DAILY 3 mL IAN Y (route: miscellane ous) Alternate Route: NEBULIZER . Med Classific ation: Respirato ry Therapy Agents Breo Ellipta 200 mcg-25 mcg/dose powder for inhalation 18 00:00: 00 Yes [id number] 1 inhalat ion DAILY 1 inhalation DAILY (route: inhalation ) Med Classific ation: Respirato ry Therapy Agents Incruse Ellipta 62.5 mcg/actuati on powder for inhalation 18 00:00: 00 Yes [id number] 1 inhalat ion DAILY 1 inhalation DAILY (route: inhalation ) Med Classific ation: Respirato ry Therapy Agents nicotine 14 mg/24 hr daily transdermal patch 18 00:00: 00 Yes [id number] 1 patch, transde rmal 24 hours DAILY 1 patch, transderma l 24 hours DAILY (route: transderma l) Med Classific ation: Chemical Dependenc y, Agents to Treat duloxetine 20 mg capsule,del ayed release 4-12 00:00: 00 09-04 23:59 :00 No [id number] 1 capsule DAILY 1 capsule DAILY (route: oral) Med Classific ation: Central Nervous System Agents fluocinolon e 0.01 % scalp oil and shower cap 08-13 00:00: 00 Yes [id number] Per instruc tions DAILY Per instructio ns DAILY (route: scalp) Med Classific ation: Dermatolo gical ketoconazol e 2 % shampoo 08-13 00:00: 00 Yes [id number] Per instruc tions 3 TIMES A WEEK Per instructio ns 3 TIMES A WEEK (route: topical) Med Classific ation: Dermatolo gical duloxetine 20 mg capsule,del ayed release 09-05 00:00: 00 11-03 23:59 :00 No [id number] 1 capsule 2 TIMES DAILY 1 capsule 2 TIMES DAILY (route: oral) Med Classific ation: Central Nervous System Agents hydromorpho ne 8 mg tablet 09-04 00:00: 00 10-02 23:59 :00 No [id number] 1 tablet 3 TIMES DAILY 1 tablet 3 TIMES DAILY (route: oral) Med Classific ation: Analgesic , Anti-infl ammatory or Antipyret ic methocarbam ol 750 mg tablet 09-25 00:00: 00 Yes [id number] 1 tablet EVERY 12 HOURS 1 tablet EVERY 12 HOURS (route: oral) Med Classific ation: Locomotor System ondansetron HCl 4 mg tablet 09-25 00:00: 00 Yes [id number] 1 tablet EVERY 6 HOURS 1 tablet EVERY 6 HOURS (route: oral) Med Classific ation: Gastroint estinal Therapy Agents hydromorpho ne 4 mg tablet 10-02 00:00: 00 Yes [id number] 0.5 tablet 2 TIMES DAILY 0.5 tablet 2 TIMES DAILY (route: oral) Med Classific ation: Analgesic , Anti-infl ammatory or Antipyret ic acetaminoph en 500 mg tablet 11-04 00:00: 00 Yes [id number] for pain 2 tablet EVERY 8 HOURS 2 tablet EVERY 8 HOURS (route: oral) Med Classific ation: Analgesic , Anti-infl ammatory or Antipyret ic oxygen gas for inhalation 2023-05 0-21 00:00: 00 Yes [id number] 6 Liter O2 - CONTINUOUS 6 Liter O2 - CONTINUOUS (route: inhalation ) Med Classific ation: Medical Supplies and Durable Medical Equipment (DME) Vital Signs Vital Name Observation Time Observation Value Commen ts Pulse 2024-04-21 11:36:00.000 71 /min Pulse 2024-04-19 12:08:00.000 85 /min Pulse 2024-04-14 11:34:00.000 83 /min Pulse 2024-04-12 12:17:00.000 84 /min Pulse 2024-04-07 11:41:00.000 73 /min Pulse 2024-04-05 11:44:00.000 85 /min Pulse 2024-04-02 11:09:00.000 74 /min Pulse 2024-03-31 11:28:00.000 79 /min Pulse 2024-03-29 13:14:00.000 85 /min O2 Saturation (%) 2024-04-21 11:36:00.000 94 % O2 Saturation (%) 2024-04-19 12:08:00.000 91 % O2 Saturation (%) 2024-04-14 11:34:00.000 93 % O2 Saturation (%) 2024-04-12 12:17:00.000 94 % O2 Saturation (%) 2024-04-05 11:44:00.000 93 % O2 Saturation (%) 2024-04-02 11:10:00.000 90 % O2 Saturation (%) 2024-03-31 11:31:00.000 90 % O2 Saturation (%) 2024-03-29 13:14:00.000 93 % Systolic Blood Pressure 2024-04-21 11:36:00.000 129 mm [Hg] Systolic Blood Pressure 2024-04-19 12:08:00.000 130 mm [Hg] Systolic Blood Pressure 2024-04-14 11:34:00.000 115 mm [Hg] Systolic Blood Pressure 2024-04-12 12:17:00.000 112 mm [Hg] Systolic Blood Pressure 2024-04-07 11:41:00.000 103 mm [Hg] Systolic Blood Pressure 2024-04-05 11:44:00.000 116 mm [Hg] Systolic Blood Pressure 2024-04-02 11:09:00.000 130 mm [Hg] Systolic Blood Pressure 2024-03-31 11:28:00.000 127 mm [Hg] Systolic Blood Pressure 2024-03-29 13:17:00.000 109 mm [Hg] Diastolic Blood Pressure 2024-04-21 11:36:00.000 71 mm [Hg] Diastolic Blood Pressure 2024-04-19 12:08:00.000 78 mm [Hg] Diastolic Blood Pressure 2024-04-14 11:34:00.000 95 mm [Hg] Diastolic Blood Pressure 2024-04-12 12:17:00.000 92 mm [Hg] Diastolic Blood Pressure 2024-04-07 11:41:00.000 82 mm [Hg] Diastolic Blood Pressure 2024-04-05 11:44:00.000 96 mm [Hg] Diastolic Blood Pressure 2024-04-02 11:09:00.000 91 mm [Hg] Diastolic Blood Pressure 2024-03-31 11:28:00.000 76 mm [Hg] Diastolic Blood Pressure 2024-03-29 13:17:00.000 84 mm [Hg] Plan of Treatment Planned Activity Planned Date Details Comments Future Scheduled Test SKILLED NU RSE TO EVALUATE PATIENT, IDENTIFY PRIMARY AND CO-MORBID CONDITIONS CODED PER CODING GUIDELINES, AND DEVELOP PATIENT SPECIFIC PLAN OF CARE THAT INCLUDES PATIENT GOAL FOR HOME HEALTH. [code = SKILLED NURSE TO EVALUATE PATIENT, IDENTIFY PRIMARY AND CO-MORBID CONDITIONS CODED PER CODING GUIDELINES, AND DEVELOP PATIENT SPECIFIC PLAN OF CARE THAT INCLUDES PATIENT GOAL FOR HOME HEALTH.] Future Scheduled Test SKILLED NU RSE TO O/A OF PATIENTS MENTAL/BEHAVIORAL STATUS, ASSESS VITAL SIGNS THREE TIMES PER WEEK. ALLOW 2 PRNS FOR MEDICATION MANAGEMENT. [code = SKILLED NURSE TO O/A OF PATIENTS MENTAL/BEHAVIORAL STATUS, ASSESS VITAL SIGNS THREE TIMES PER WEEK. ALLOW 2 PRNS FOR MEDICATION MANAGEMENT.] Future Scheduled Test SKILLED NU RSE WILL MAINTAIN SITUATIONAL AWARENESS FOR SAFETY AND WILL NOTIFY CLINICAL CAFE TEAM MEMBER AND PHYSICIAN/PROVIDER WITH ANY CHANGE IN CONDITION. [code = SKILLED NURSE WILL MAINTAIN SITUATIONAL AWARENESS FOR SAFETY AND WILL NOTIFY CLINICAL CAFE TEAM MEMBER AND PHYSICIAN/PROVIDER WITH ANY CHANGE IN CONDITION.] Future Scheduled Test SKILLED NU RSE FOR O/A OF GENERAL HEALTH STATUS OF PAIN, CARDIAC, RESPIRATORY, GASTROINTESTINAL, GENITOURINARY, SKIN, NEUROLOGIC, ENDOCRINE SYSTEMS TO IDENTIFY CHANGES ASSOCIATED WITH EXACERBATION FOR EARLY INTERVENTION OF COMPLICATIONS [code = SKILLED NURSE FOR O/A OF GENERAL HEALTH STATUS OF PAIN, CARDIAC, RESPIRATORY, GASTROINTESTINAL, GENITOURINARY, SKIN, NEUROLOGIC, ENDOCRINE SYSTEMS TO IDENTIFY CHANGES ASSOCIATED WITH EXACERBATION FOR EARLY INTERVENTION OF COMPLICATIONS ] Future Scheduled Test SKILLED NU RSE TO REVIEW PATIENT MEDICATIONS. INSTRUCT PATIENT/CAREGIVER ON MONITORING OF EFFECTIVENESS, ADVERSE DRUG REACTIONS, SIDE EFFECTS OF ALL MEDICATIONS (PRESCRIPTION/-OTC), AND HOW AND WHEN TO REPORT PROBLEMS. [code = SKILLED NURSE TO REVIEW PATIENT MEDICATIONS. INSTRUCT PATIENT/CAREGIVER ON MONITORING OF EFFECTIVENESS, ADVERSE DRUG REACTIONS, SIDE EFFECTS OF ALL MEDICATIONS (PRESCRIPTION/-OTC), AND HOW AND WHEN TO REPORT PROBLEMS.] Future Scheduled Test SKILLED NU RSE TO PRE-POUR MEDICATION PER MEDICATION LIST THREE TIMES PER WEEK. [code = SKILLED NURSE TO PRE-POUR MEDICATION PER MEDICATION LIST THREE TIMES PER WEEK. ] Future Scheduled Test PATIENT MA Y HAVE ONE SET OF EMERGENCY MEDICATION NOT TO BE PRE-POURED ANY SOONER THAN 24 HOURS BEFORE SEVERE INCLEMENT WEATHER OR EMERGENT EVENT AND FOLLOWING SKILLED NURSE EVALUATION OF PATIENT SAFETY. [code = PATIENT MAY HAVE ONE SET OF EMERGENCY MEDICATION NOT TO BE PRE-POURED ANY SOONER THAN 24 HOURS BEFORE SEVERE INCLEMENT WEATHER OR EMERGENT EVENT AND FOLLOWING SKILLED NURSE EVALUATION OF PATIENT SAFETY.] Future Scheduled Test SKILLED NU RSE FOR O/A AND SKILLED TEACHING OF COPING SKILLS TO MANAGE ANXIETY AND MAINTAIN SAFETY. [code = SKILLED NURSE FOR O/A AND SKILLED TEACHING OF COPING SKILLS TO MANAGE ANXIETY AND MAINTAIN SAFETY.] Future Scheduled Test SKILLED NU RSE FOR O/A AND SKILLED TEACHING RELATED TO MANAGEMENT OF DEPRESSIVE SYMPTOMS AND/OR DEPRESSION. SN TO REPORT SIGNIFICANT CHANGE IN DEPRESSIVE SYMPTOMS TO CLINICAL PROVIDER FOR EARLY INTERVENTION. [code = SKILLED NURSE FOR O/A AND SKILLED TEACHING RELATED TO MANAGEMENT OF DEPRESSIVE SYMPTOMS AND/OR DEPRESSION. SN TO REPORT SIGNIFICANT CHANGE IN DEPRESSIVE SYMPTOMS TO CLINICAL PROVIDER FOR EARLY INTERVENTION.] Future Scheduled Test MEDICATION S WILL BE HELD AND STORED IN LOCKBOX [code = MEDICATIONS WILL BE HELD AND STORED IN LOCKBOX] Future Scheduled Test SKILLED NU RSE MAY PICKUP AND TRANSPORT MEDICATIONS [code = SKILLED NURSE MAY PICKUP AND TRANSPORT MEDICATIONS] Future Scheduled Test SKILLED NU RSE TO INSTRUCT PATIENT/CAREGIVER ON COPD TO INCLUDE TEACHING AND SELF-MANAGEMENT RELATED TO COPD DISEASE PROCESS, SIGNS AND SYMPTOMS, AND COMPLICATIONS. [code = SKILLED NURSE TO INSTRUCT PATIENT/CAREGIVER ON COPD TO INCLUDE TEACHING AND SELF-MANAGEMENT RELATED TO COPD DISEASE PROCESS, SIGNS AND SYMPTOMS, AND COMPLICATIONS.] Goal 2023-03-31 Patient Goal - TO STAY RITA NG ON MY OWN Goal 2023-05-30 Patient Goal - TO STAY RITA NG ON MY OWN Goal 2023-07-30 Patient Goal - TO STAY RITA NG ON MY OWN Goal 2023-11-27 Patient Goal - TO STAY RITA NG ON MY OWN Goal 2024-01-28 Patient Goal - TO STAY RITA NG ON MY OWN Goal 2024-03-24 Patient Goal - TO STAY RITA NG ON MY OWN Goal Patient Goal - TO STAY RITA NG ON MY OWN Goal 2023-09-26 Patient Goal - TO STAY RITA NG ON MY OWN Goal Provider Goal - A PLAN OF CARE WILL BE ESTABLISHED THAT MEETS PATIENT'S HALFWAY NEEDS AND INCLUDES PATIENT GOAL FOR HOME HEALTH. Goal Provider Goal - ALTERED MENTAL/BEHAVIORAL STATUS WILL BE IDENTIFIED PROMPTLY AND INTERVENTION INITIATED QUICKLY TO MINIMIZE ASSOCIATED RISKS THROUGHOUT CERTIFICATION PERIOD. Goal Provider Goal - PATIENT WILL REMAIN SAFE IN THE COMMUNITY AND WILL BE FREE OF DANGER TO SELF AND OTHERS THROUGHOUT THE CERTIFICATION PERIOD. Goal Provider Goal - CHANGE IN GENERAL HEALTH STATUS WILL BE IDENTIFIED AND REPORTED TO PHYSICIAN FOR PROMPT INTERVENTION TO MINIMIZE ASSOCIATED RISKS THROUGHOUT CERTIFICATION PERIOD. Goal Provider Goal - PATIENT/CAREGIVER WILL VERBALIZE UNDERSTANDING OF EDUCATION PROVIDED ON MEDICATIONS BY THE END OF THE CERTIFICATION PERIOD. Goal Provider Goal - PATIENT WILL COMPLY WITH MEDICATION WHEN SKILLED NURSE PRE-POURS MEDICATION THROUGHOUT CERTIFICATION PERIOD. Goal Provider Goal - MEDICATION WILL BE AVAILABLE DURING INCLEMENT WEATHER OR EMERGENT EVENT THROUGHOUT CERTIFICATION PERIOD. Goal Provider Goal - PATIENT WILL BE ABLE TO PERFORM DAILY FUNCTIONS AND HAVE OPTIMAL IMPROVEMENT IN LEVEL OF ANXIETY THROUGHOUT CERTIFICATION PERIOD. Goal Provider Goal - PATIENT WILL REMAIN SAFE WITHOUT DECOMPENSATION IN DEPRESSIVE CONDITION, WHILE MAINTAINING OPTIMAL LEVEL OF MENTAL HEALTH AND WELL BEING THROUGHOUT CERTIFICATION PERIOD. Goal Provider Goal - MEDICATION WILL BE STORED IN LOCKBOX FOR SAFETY. Goal Provider Goal - SKILLED NURSE PICKED UP AND TRANSPORTED MEDICATIONS FOR SAFETY. Goal Provider Goal - PATIENT/CAREGIVER WILL VERBALIZE/DEMONSTRATE KNOWLEDGE AND MANAGEMENT OF COPD BY END OF EPISODE. Progress Notes Progress Notes <paragraph>[Visit Date: 2023 by GI CULLEN RN]:</paragraph><paragraph>RN PREPOURED MEDIPLANNER THROUGH FRIDAY 12 NOON (NEXT SNV), NOT THROUGH BEDTIME. PTS MEDIPLANNER SLEEVE FOR TODAY EMPTY AT VISIT- EVENING AND BEDTIME DOSES MISSING. PT COULD NOT TELL RN WHAT HAPPENED TO THEM. DISCUSSED RISKS OF MEDICATION MISUSE, WITH RESPIRATORY DISEASE ON OXYGEN. PT VERBALIZED UNDERSTANDING. MAIRA ARROYO ACKNOWLEDGED UNDERSTANDING.</paragraph> Encounters Start Date/Time End Date/Time Encounter Type Admission Type Attending [facility] Care Department Encounter ID Discharge Date Discharge Status Discharge Condition Discharge Reason Percent Goals Met 2023-02-03 00:00:00 2024-05-27 00:00:00 Outpatient RECERTIFIC ATION GI CULLEN [facility] [id number] 37.04
== END 2024-04-23 20:01 | disposition home or self-care (01) ==
PROVIDERS: PCP Internal Medicine; Visit Provider Nurse Practitioner Family
DX: J44.9 Chronic obstructive pulmonary disease, unspecified (principal); Z99.81 Dependence on supplemental oxygen; J96.11 Chronic respiratory failure with hypoxia; R91.1 Solitary pulmonary nodule
CPT/HCPCS: 99214

== ENCOUNTER → 2024-04-23 13:03 | Outpatient (BNVA) | payer MEDICAID, SELFPAY | PROVIDERS: PCP Internal Medicine; Visit Provider Nurse Practitioner Family | DX: J44.9 Chronic obstructive pulmonary disease, unspecified (principal); J96.11 Chronic respiratory failure with hypoxia; R91.1 Solitary pulmonary nodule; Z99.81 Dependence on supplemental oxygen | CPT/HCPCS: 94640; 99212 ==

== ENCOUNTER 2024-08-27 12:50 | Outpatient (AMB) | payer MEDICAID, SELFPAY ==
--- NOTE | 2024-08-27 11:37 | MHC.OFFVIS ---
Vital Signs 08/27/24 13:05 Weight 112 lb BP 112/70 Pulse 88 Pulse Source Pulse Oximeter Pulse Oximetry (%) 90 L Oxygen Delivery Method Nasal Cannula Intake Visit Reasons: COPD recertify oxygen Hogshead Hand Required: No Accompanied by: Mother Allergies No Known Allergies [No Known Allergies*] Allergy (Unverified 08/27/24 13:07) Medication List - Last Reconciled 08/27/24 by Dolores Snow LPN acetaminophen 500 mg PO Q6H PRN albuterol sulfate 90 mcg/actuation (Ventolin HFA) 2 puffs inhalation Q4-6H PRN amlodipine 5 mg PO DAILY clonidine HCl 0.1 mg PO BID famotidine 20 mg PO DAILY fluticasone furoate-vilanterol 200-25 mcg/dose (Breo Ellipta) 1 inh inhalation DAILY hydromorphone (Dilaudid) 4 mg PO .Q12 hours ipratropium-albuterol 0.5 mg-3 mg(2.5 mg base)/3 mL 3 mL inhalation Q6H PRN lorazepam (Ativan) 0.5 mg PO TID PRN methadone (Methadone Intensol) 120 mg PO DAILY nicotine 1 patch topical ONCE nicotine (Nicotrol) 1 inh inhalation Q2-4H PRN ondansetron HCl 4 - 8 mg PO TID PRN sertraline (Zoloft) 150 mg PO DAILY trazodone 75 mg PO BEDTIME PRN umeclidinium 62.5 mcg/actuation (Incruse Ellipta) 1 inh inhalation DAILY HPI HPI COPD recertify oxygen: Details: Mat is a pleasant 38 year old male, former smoker with 30 pack year history, with underlying chronic respiratory failure, very severe COPD requiring 5-6 L supplemental oxygen, childhood asthma, h/o polysubstance abuse on methadone, h/o hepatitis B and C, pseudomonas PNA, colostomy s/p secondary to intestinal infection ?4yrs ago and h/o acute on chronic respiratory failure with prolonged hospitalization/intubation. We have discussed on multiple occasions lung transplant which he initially wanted to move forward with, referral had been entered to [facility] however he later called declining assessment for candidacy. PFT 09/2023 revealed very severe obstructive defect FEV1/FVC 40, FEV1 30, DLCO 17, with no response to bronchodilators. CT chest 08/02 revealed multiple pulmonary nodules <4mm with emphysematous changes. A chest CT was ordered to assess stability 07/2024, as well as echo to assess for pulmonary hypertension,patient no showed appointments. He states having issues with transportation. He is accompanied by his mother, ambulating with wheelchair. In the waiting room, his O2 tank ran out and switched over to a full tank, upon arrival to room he was 81% on 8L slowly recovering to 90%-93% on 8L. He reports using 8L continuously however can decrease if resting to 6L. He does not have a pulse oximeter at home, agreeable to obtain. He reports ongoing productive cough with hui tenacious sputum with associated dyspnea, wheezing and dry cough. He has been maintained on Breo, Incruse, DuoNeb q 6 hrs and flutter valve with suboptimal control of symptoms. Previously attempted to switch over to all nebulized therapies however insurance denied. We had discussed pulmonary rehab and referral was entered however never scheduled any appointments. Today he presents to recertify supplemental oxygen. DME is [facility]aim[facility]. [facility] Social History Patient Tobacco Use Status: Former Tobacco user Tobacco use type: Cigarette Cigarette Packs Per Day: 2 Years Smoked: 15 Review of Systems Const Denies chills, Denies excessive sweating, Denies fever(s), Denies headache(s) and Denies night sweats Eyes Denies dry eyes, Denies irritation and Denies itchy eyes ENT Reports Normal hearing present, Denies headache(s), Reports nasal congestion, Denies nasal discharge, Reports post nasal drip and Denies sore throat Card Denies chest pain, Denies chest pain at rest, Denies chest pain with activity, Denies claudication, Denies leg edema, Reports dyspnea, Reports dyspnea on exertion, Denies orthopnea and Denies paroxysmal nocturnal dyspnea Resp Reports change in phlegm color, Denies chest congestion, Reports cough, Denies hemoptysis, Denies excessive phlegm production, Denies pain on inspiration, Denies pain with cough, Reports dyspnea, Reports dyspnea on exertion, Denies stridor and Reports wheezing Neuro Reports Normal hearing present and Denies headache(s) Endo Denies excessive sweating Michael/Lymph Denies lymphadenopathy Aller/Immun Denies itchy eyes, Denies seasonal rhinorrhea and Reports wheezing Physical Exam Vital Signs: Last Vital Signs Pulse 88 08/27/24 13:05 BP 112/70 08/27/24 13:05 Pulse Ox 90 L 08/27/24 13:05 Oxygen Delivery Method Nasal Cannula 08/27/24 13:05 Const Other: wearing supplemental oxygen, ambulating with wheelchair General: cooperative, alert, awake and tired appearing; No diaphoretic Nutritional Appearance: thin Orientation/consciousness: patient oriented x3 Limitations: wheelchair HEENT Head: Yes normal to inspection, Yes normocephalic and Yes atraumatic Ears: hearing grossly normal bilaterally and external ears normal Eyes General: appearance normal, both eyes and all related structures Eyelids: Yes eyelids normal Sclerae: sclerae normal EOM: EOMs intact bilaterally Neck Neck: Yes normal visual inspection and Yes no lymphadenopathy Lymphatic: no lymphadenopathy noted Chest Chest palpation & inspection: normal inspection of the chest Resp Other: dry cough Effort & Inspection: no audible wheezes, no cough, labored, no stridor, tachypneic, no tripod positioning, no use of accessory muscles and prolonged expiratory phase Auscultation: no crackles, no rales, no rhonchi, no wheezes and diminished lung sounds Cardio Jugular venous distension: no JVD Rate: regular rate Rhythm: regular rhythm Back/Spine/Pelvis Other: kyphosis Skin Other: warm, dry Neuro General: patient oriented x3 Cranial nerves: Yes Normal hearing present Cognition (Neuro): normal cognition Extrem Other: increased erythema of BLE with trace BLE edema Psych Appearance: grossly normal Speech and movement: Normal speech and movement present and Clear speech present Affect: normal affect Attitude: cooperative Thought process: Normal thought process present Thought content: Normal thought content present Insight: Fair insight present (Psych) Judgement: Fair judgement present (Psych) Office Procedures Nebulizer Treatment Nebulizer Treatment [id number]/MDI RX initial, or Nebulizer Subsequent Treatment Office Meds ipratropium 0.5 mg-albuterol 3 mg (2.5 mg base)/3 mL nebulization teodoron Performing Provider: Tanisha Smith NP [place] [facility] Administered by: Dolores Snow LPN on 08/27/24 13:18 Dose Route Admin Location Dispensed Lot Number Expiration Date [facility] Content Editor 3 mL inhalation 3 mL [id number] 01/09/26 03345-624-28 [id number] Results Reviewed Results Reviewed: [address] [place] [address] CT Scan Report Signed Patient: Mat Martin MR#: [id number] : 1985 Acct:[id number] Age/Sex: 37 / M ADM Date: 07/22/23 Loc: HO.CT Attending Dr: Tanisha Smith NP Ordering Physician: Tanisha Smith NP Date of Service: 07/22/23 Procedure(s): CT chest wo IV con Accession Number(s): [id number] cc: Quiana Giron MD; Tanisha Smith NP~ EXAMINATION: CT CHEST WITHOUT CONTRAST CLINICAL INFORMATION: COPD COMPARISON: None available. TECHNIQUE: Multidetector volumetric CT imaging of the chest was done. Axial MIP volume rendering provided. Sagittal and coronal reformatted images were obtained. This CT examination was performed using dose optimization techniques as appropriate, variously including the following: *Automated exposure control *Adjustment of mA and/or kV according to patient size (this includes techniques or standardized protocols for targeted exams where dose is matched to indication/reason for exam; i.e. extremities or head) *Use of iterative reconstruction technique DLP: 142 mGy-cm FINDINGS: LUNGS: Background parenchymal emphysema. Bronchial wall thickening of the bilateral lower lobes and left lingular region may reflect small airways inflammation or infection. Right upper lobe 3 mm nodule (5:211). Right upper lobe subpleural 3 mm nodule (5:214). Right upper lobe 4 mm nodule (5:273). Central airways are patent. PLEURA: No pleural effusion. MEDIASTINUM: No cardiomegaly. Aorta and pulmonary artery are normal in caliber. No mediastinal adenopathy. Lack of IV contrast limits evaluation for hilar adenopathy. CORONARY ARTERY CALCIFICATION: No coronary artery calcification appreciated. CHEST WALL/AXILLA: No axillary or internal mammary lymphadenopathy. UPPER ABDOMEN: Unremarkable. OSSEOUS STRUCTURES: Degenerative changes of the spine. CT/CT chest wo IV con IMPRESSION: * Background parenchymal emphysema. Bronchial wall thickening of the bilateral lower lobes and left lingular region may reflect small airways inflammation or infection. Right upper lobe pulmonary nodules measuring up to 4 mm. According to the UPDATED 2017 Fleischner Society recommendations, the advised followup imaging for solid nodules < 6 mm is: LOW RISK PATIENT: No routine follow up. HIGH RISK PATIENT: Optional CT at 12 months. Dictated By: Carlene Byrne MD Signed By: <Electronically signed by Carlene Byrne MD in OV> 07/30/23 0227 DD/ 1606 TD/TT: Relations Mgr: Assessment & Plan Assessment & Plan (1) COPD (chronic obstructive pulmonary disease): Code(s): J44.9 - Chronic obstructive pulmonary disease, unspecified Category: Medical (2) Supplemental oxygen dependent: Code(s): Z99.81 - Dependence on supplemental oxygen Category: Medical (3) Chronic respiratory failure with hypoxia: Code(s): J96.11 - Chronic respiratory failure with hypoxia Category: Medical (4) Pulmonary nodule: Code(s): R91.1 - Solitary pulmonary nodule Category: Medical Plan Mat presents cachetic, frail and requiring increased supplemental oxygen to maintain 88-90% on 8L, previously 5-6L. Likely regimen is suboptimal despite his reports of moderate control, given the severity of his COPD and presentation. We again discussed the need for emergent evaluation however he adamantly refused and had recommended this at prior two visits. Reviewed the possibility of mucous plugs or PE contributing to symptoms. He also reports ongoing tenacious hui sputum with significant difficulty expectorating. Denies chest congestion, fevers or chills. He struggled to provide a sputum sample but was able to provide. We discussed the severity of condition his candidacy for lung transplant which he continues to decline, attending pulmonary rehab and obtaining repeat Chest CT/echo. He was agreeable to outpatient CT and echo. We also discussed NIV but unsure of ABGS and can not commit at this time to staying overnight for in lab sleep study, however agreeable to adding Ohtuvayre BID to regimen. Discussed potential side effects. All questions were answered and patient is in agreement of plan. Will follow up in 4-6 weeks or sooner if needed. Orders: Orders AMB Nebulizer Treatment Today J44.9 - Chronic obstructive pulmonary disease, unspecified, J96.11 - Chronic respiratory failure with hypoxia Sputum Cult + Gram stain Today J44.9 - Chronic obstructive pulmonary disease, unspecified Medications: New ensifentrine (Ohtuvayre) 3 mg (2.5 mL) inhalation BID 150 mL 6RF Refilled fluticasone furoate-vilanterol 200-25 mcg/dose (Breo Ellipta) 1 inh inhalation DAILY 60 ea 3RF ipratropium-albuterol 0.5 mg-3 mg(2.5 mg base)/3 mL 3 mL inhalation Q6H PRN 180 mL 3RF for wheezing Coding Diagnoses COPD (chronic obstructive pulmonary disease) J44.9 Supplemental oxygen dependent Z99.81 Chronic respiratory failure with hypoxia J96.11 Pulmonary nodule R91.1 CPT Codes Nebulizer Treatment - Nebulizer Treatment, initial or subsequent: [id number]/MDI RX initial, or Nebulizer Subsequent Treatment ([id number])
[2024-08-27 13:05] VITALS: BP 112/70; PULSE 88; O2SAT 90
--- OUTSIDE RECORDS SUMMARY | 2024-08-27 13:23 | XMS_ITS | Encounter Summary ---
Author Organization [employer] Address [address] [facility] 7t [place] [address] Care Team Providers Care Gypsum Block Setter Name Role Phone Quiana Giron MD Primary Care Provider + Reason for Visit * Reason Onset Date Comments PT1 06/10/2023 Encounter Details Date Type Department [facility] Team ([facility] Contact Info) Description 06/10/2023 Telephone [facility]INE [address] [place], [place] [phone] Quiana Giron MD [address] [place], [place] [phone] PT1 Social History Tobacco Use Types Packs/Day Years Used Date Smoking Tobacco: Never Smokeless Tobacco: Never Alcohol Use Standard Drinks/Week Comments Never 0 (1 standard drink = 0.6 oz pur e alcohol) PHQ-2 Answer Date Recorded Patient Health Questionnaire-2 Score 0 01/31/2023 Housing Stability Answer Date Recorded What is your housing situation today? I have jitendra ramsey 02/24/[address] you li ve. Do you have problems with any of the following? None of the above 02/24/2023 Food Insecurity Answer Date Recorded Within the past 12 months, y ou worried that your food would run out before you got money to buy more: Never True 02/24/2023 Within the past 12 months,th e food you bought just didn't last and you didn't have enough money to get more: Never True Transportation Answer Date Recorded In the past 12 months, has l ack of transportation kept you from medical appts, meetings, work or from getting things needed for daily living? Yes, it has kept me from medical appointments or getting medications. 03/11/2023 Utilities Answer Date Recorded In the past 12 months, has t he electric, gas, oil or water company threatened to shut off services in your home? No 02/24/2023 Depression Answer Date Recorded Patient Health Questionnaire-2 Score 0 01/31/2023 Sex and Gender Information Value Date Recorded Sex Assigned at Male 03/11/2022 10:35 AM EDT Legal Sex Male 10:35 AM EDT Gender Identity Male 03/11/2022 10:35 AM EDT Sexual Orientation Straight 03/11/2022 10 :35 AM EDT documented as of this encounter Miscellaneous Notes * Telephone Encounter - Roberto Wall - 06/10/2023 3:50 PM EST Tc from [facility] requesting separate and direct for all of pt's pt1's. If any questions please contact [facility]mina at [phone]. documented in this encounter Plan of Treatment Upcoming Encounters Date Type Department Care Team (Late st Contact Info) Description 11/05/2024 10:00 AM EDT Telemedicine [facility] MEDICINE [address] [place] [phone] Jackelin Nam RN 11/18/2024 11:45 AM EDT Office Visit [facility] [address] [place] [phone] Quiana Giron MD [address] [place] [phone] documented as of this encounter Visit Diagnoses Not on filedocumented in this encounter Care Teams Gypsum Block Setter Relationship Specialty Start Date End Date Quiana Giron MD [address] [place] [phone] PCP - General Family Medicine 11/09/18 Jackelin Perez Die Sinker Apprentice 03/25/23 06/25/23 Erasmo Martinez 02/03/23 documented as of this encounter
--- OUTSIDE RECORDS SUMMARY | 2024-08-27 13:23 | XMS_ITS | Encounter Summary ---
Author Organization [employer] Address [address] [place] [address] 7t [place] [address] Care Team Providers Care Supervisor Blueprinting And Photocopy Name Role Phone Quiana Giron MD Primary Care Provider + Reason for Visit * Reason Onset Date Comments Med Refill 02/10/2023 [facility] - [facility] plan 02/10/2023 Encounter Details Date Type Department Care Team ([facility] st Contact Info) Description 02/10/2023 Telephone [facility] MEDICINE [address] [place], [place] [phone] Quiana Giron MD [address] [place], [place] [phone] Med Refill; [facility] - [facility] plan Social History Tobacco Use Types Packs/Day Years Used Date Smoking Tobacco: Never Smokeless Tobacco: Never Alcohol Use Standard Drinks/Week Comments Never 0 (1 standard drink = 0.6 oz pur e alcohol) PHQ-2 Answer Date Recorded Patient Health Questionnaire-2 Score 0 01/31/2023 Depression Answer Date Recorded Patient Health Questionnaire-2 Score 0 01/31/2023 Sex and Gender Information Value Date Recorded Sex Assigned at Male 03/11/2022 10:35 AM EDT Legal Sex Male 10:35 AM EDT Gender Identity Male 03/11/2022 10:35 AM EDT Sexual Orientation Straight 03/11/2022 10 :35 AM EDT documented as of this encounter Miscellaneous Notes * Telephone Encounter - Jackelin Nam RN - 02/11/2023 12:22 PM EDT TC to [facility] Nurse/Erasmo Martinez - Thais @ [phone]. Thais will be seeing patient 3 x a week on Mondays, Friday and Fridays. She will be loading his pill box enough until his next appt with her. She states his medications are locked up and she accesses them. She will pickup his new RX's from [facility]. States that pt is currently taking his 6 pills of Dilaudid 4mg in a day. She also reports that patient has a NITRATE OPERATOR who is very active with assisting him in his care. * Telephone Encounter - Joselito Bailey - 02/10/2023 4:44 PM EDT Tc from [facility] with Erasmo Martinez requesting status on medication HYDROmorphone (Dilaudid) 4 MG tablet. She States pt is out of meds. Do see medication was requested today 02/10/2023 informed as well provider does have 72 hours to sent the script over to the pharmacy. Thais is requesting a call in regards to the status of the medication Please contact Thais at [phone] * Telephone Encounter - Annel Cruz - 02/10/2023 2:38 PM EDT TC from pt requesting med refill for medication HYDROmorphone (Dilaudid) 4 MG tablet. States is outof meds and would like a call back . documented in this encounter Plan of Treatment Upcoming Encounters Date Type Department Care Team (Late st Contact Info) Description 11/05/2024 10:00 AM EDT Telemedicine [facility] [address] [place] [phone] Jackelin Nam RN 11/18/2024 11:45 AM EDT Office Visit [facility] [address] [place] [phone] Quiana Giron MD [address] [place] [phone] documented as of this encounter Visit Diagnoses Not on filedocumented in this encounter Care Teams Supervisor Blueprinting And Photocopy Relationship Specialty Start Date End Date Quiana Giron MD [address] [place] [address] PCP - General Family Medicine 11/09/18 Jackelin Perez Curtain Supervisor 03/25/23 06/25/23 Erasmo Martinez 02/03/23 documented as of this encounter
--- OUTSIDE RECORDS SUMMARY | 2024-08-27 13:23 | XMS_ITS | Encounter Summary ---
Author Organization [employer] Address [address] [facility] [address]t [place] [address] Care Team Providers Care Emergency Dispatcher Name Role Phone Quiana Giron MD Primary Care Provider + Encounter Details Date Type Department Care Team ([facility] st Contact Info) Description 06/05/2023 Abstract [facility] MEDICINE [address] [place], [place] [phone] Quiana Giron MD [address] [place], [place] [phone] Social History Tobacco Use Types Packs/Day Years Used Date Smoking Tobacco: Never Smokeless Tobacco: Never Alcohol Use Standard Drinks/Week Comments Never 0 (1 standard drink = 0.6 oz pur e alcohol) PHQ-2 Answer Date Recorded Patient Health Questionnaire-2 Score 0 01/31/2023 Housing Stability Answer Date Recorded What is your housing situation today? I have jitendra braulio 02/24/[address] you li [...] AM EDT documented as of this encounter Plan of Treatment Upcoming Encounters Date Type Department Care Team (Late st Contact Info) Description 11/05/2024 10:00 AM EDT Telemedicine [facility] MEDICINE [address] [place] [phone] Jackelin Nam RN 11/18/2024 11:45 AM EDT Office Visit [facility] MEDICINE [address] [place] [phone] Quiana Giron MD [address] [place] [phone] documented as of this encounter Visit Diagnoses Not on filedocumented in this encounter Care Teams Emergency Dispatcher Relationship Specialty Start Date End Date Quiana Giron MD [address] [place] [phone] PCP - General Family Medicine 11/09/18 Jackelin Perez Surface Supply Breathing Apparatus 03/25/23 06/25/23 Erasmo Martinez 02/03/23 documented as of this encounter
--- OUTSIDE RECORDS SUMMARY | 2024-08-27 13:23 | XMS_ITS | Encounter Summary ---
Author Organization [employer] Address [address] [facility] [address] [place] [address] Care Team Providers Care Hog Sticker Name Role Phone Quiana Giron MD Primary Care Provider + Reason for Visit * Reason Comments Med Refill Encounter Details Date Type Department Care Team ([facility] Contact Info) Description 01/28/2024 Refill [facility] MEDICINE [address] [place], [place] [phone] Quiana Giron MD [address] [place], [place] [phone] Generalized anxiety disorder Social History Tobacco Use Types Packs/Day Years Used Date Smoking Tobacco: Never Smokeless Tobacco: Never Alcohol Use Standard Drinks/Week Comments Never 0 (1 standard drink = 0.6 oz pur e alcohol) Alcohol Answer Date Recorded Frequency of Alcohol Consumption Not on file 10/02/2023 Average Number of Drinks Not on file 024 Frequency of Binge Drinking Not on file 09/10 Score 0 10/02/2023 Depression Answer Date Recorded Patient Health Questionnaire-9 Score 9 07/23/2023 Patient Health Questionnaire-9 Score 9 07/23/2023 Last PHQ-9: Questionnaire Data Not on file 0 07/23/2023 Housing Stability Answer Date Recorded What is [...] Answer Date Recorded Patient Health Questionnaire-2 Score 4 07/23/2023 Sex and Gender Information Value Date Recorded Sex Assigned at Male 03/11/2022 10:35 AM EDT Legal Sex Male 10:35 AM EDT Gender Identity Male 03/11/2022 10:35 AM EDT Sexual Orientation Straight 03/11/2022 10 :35 AM EDT documented as of this encounter Plan of Treatment Upcoming Encounters Date Type Department Care Team (Late st Contact Info) Description 11/05/2024 10:00 AM EDT Telemedicine [facility] MEDICINE [address] [place] [phone] Jackelin Nam RN 11/18/2024 11:45 AM EDT Office Visit [facility] MEDICINE [address] [place] [phone] Quiana Giron MD [address] [place] [phone] documented as of this encounter Visit Diagnoses Diagnosis Generalized anxiety disorder documented in this encounter Additional Health Concerns Assessment Noted Time PHQ-9 Depression Total Score: 9 07/23/19 24 10:38 AM EDT documented as of this encounter Care Teams Hog Sticker Relationship Specialty Start Date End Date Quiana Giron MD [address] [place] [phone] PCP - General Family Medicine 11/09/18 Erasmo Martinez 02/03/23 documented as of this encounter
--- OUTSIDE RECORDS SUMMARY | 2024-08-27 13:23 | XMS_ITS | Encounter Summary ---
Author Organization [employer] Address [address] [facility] 7t [place] [address] Care Team Providers Care Cloud Administrator Name Role Phone Quiana Giron MD Primary Care Provider + Encounter Details Date Type Department Care Team (Late st Contact Info) Description 02/19/2023 Abstract [facility] MEDICINE [address] [place], [place] [phone] Quiana Giron MD 230 [place], [place] [phone] Social History Tobacco Use Types Packs/Day Years Used Date Smoking Tobacco: Never Smokeless Tobacco: Never Alcohol Use Standard Drinks/Week Comments Never 0 (1 standard drink = 0.6 oz pur e alcohol) PHQ-2 Answer Date Recorded Patient Health Questionnaire-2 Score 0 01/31/2023 Housing Stability Answer Date Recorded What is your housing situation today? I have jitendralori ramsey 02/18/[address] you li ve. Do you have problems with any of the following? None of the above 02/18/2023 Food Insecurity Answer Date Recorded Within the past 12 months, y ou worried that your food would run out before you got money to buy more: Never True 02/18/2023 Within the past 12 months,th e food you bought just didn't last and you didn't have enough money to get more: Never True 02/2023 Transportation Answer Date Recorded In the past 12 months, has l ack of transportation kept you from medical appts, meetings, work or from getting things needed for daily living? No 02/18/2023 Utilities Answer Date Recorded In the past 12 months, has t he electric, gas, oil or water company threatened to shut off services in your home? No 02/18/2023 Depression Answer Date Recorded Patient Health Questionnaire-2 [...] Info) Description 11/05/2024 10:00 AM EDT Telemedicine [facility] MEDICINE [address] [place] [address] Jackelin Nam RN 11/18/2024 11:45 AM EDT Office Visit [facility] MEDICINE [address] [place] [address] 29[address] Quiana Giron MD [address] [place] [address] documented as of this encounter Visit Diagnoses Not on filedocumented in this encounter Care Teams Cloud Administrator Relationship Specialty Start Date End Date Quiana Giron MD [address] [place] [address] [phone] PCP - General Family Medicine 11/09/18 Jackelin Perez Electrostatic Painter 03/25/23 06/25/23 Erasmo Martinez 02/03/23 documented as of this encounter
--- OUTSIDE RECORDS SUMMARY | 2024-08-27 13:23 | XMS_ITS | Encounter Summary ---
Author Organization [employer] Address [address] [place] [address] 7t [place] [address] Care Team Providers Care Entry Level Electrician Name Role Phone Quiana Giron MD Primary Care Provider + Reason for Visit * Reason Comments Med Refill Encounter Details Date Type Department Care Team (Late st Contact Info) Description 02/06/[address] [facility] MEDICINE [address] [place] [address] [phone] Quiana Giron MD [address] [place] [address] [phone] Generalized anxiety disorder; Body aches Social History Tobacco Use Types Packs/Day Years [...] Encounters Date Type Department Care Team (Late Contact Info) Description 11/05/2024 10:[address] [facility] MEDICINE [address] [place] [address] [phone] Jackelin Nam RN 11/18/2024 11:45 AM EDT Office Visit [facility] MEDICINE 230 [place] [address] Quiana Giron MD 230 [place], [place] [phone] documented as of this encounter Visit Diagnoses Diagnosis Generalized anxiety disorder Body aches Generalized pain documented in this encounter Care Teams Entry Level Electrician Relationship Specialty Start Date End Date Quiana Giron MD 230 [place] [address] PCP - General Family Medicine 11/09/18 Jackelin Perez Public Speaking Professor 03/25/23 06/25/23 Erasmo Martinez 02/03/23 documented as of this encounter
--- OUTSIDE RECORDS SUMMARY | 2024-08-27 13:23 | XMS_ITS | Encounter Summary ---
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[facility]) Social History Tobacco Use Types Packs/Day Years [...] the past 12 months, has t he [employer] gas, oil or water [employer] threatened to shut off services in your [...] Info) Description 11/05/2024 10:00 AM EDT Telemedicine [facility] MEDICINE [address] [place] [address] 8[address] Jackelin Nam RN 11/18/2024 11:45 AM EDT Office Visit [facility] MEDICINE [address] [place] [address] [phone] Quiana Giron MD [address] [place] [address] documented as of this encounter Visit Diagnoses Diagnosis Toxic megacolon (CMS/HCC) Unspecified ulcerative colitis documented in this encounter Additional Health Concerns Assessment Noted Time PHQ-9 Depression Total Score: 9 07/23/19 24 10:38 AM EDT documented as of this encounter Care Teams Branch Operations Coordinator Relationship Specialty Start Date End Date Quiana Giron MD [address] [place] [phone] PCP - General Family Medicine 11/09/18 Erasmo Martinez 02/03/23 documented as of this encounter
--- OUTSIDE RECORDS SUMMARY | 2024-08-27 13:23 | XMS_ITS | Encounter Summary ---
Author Organization [employer] Address [address] [facility] 7t [place] [address] Care Team Providers Care Bull Bucker Name Role Phone Quiana Giron MD Primary Care Provider + Reason for Visit * Reason Onset Date Comments Med Refill 07/07/2023 Encounter Details Date Type Department Care Team ([facility] st Contact Info) Description 07/07/2023 Telephone [facility] MEDICINE 230 [place], [place] [phone] Quiana Giron MD 230 [place], [place] [phone] Med Refill Social History Tobacco Use Types Packs/Day Years [...] encounter Miscellaneous Notes * Telephone Encounter - Cat Mendez - 07/07/2023 2:29 PM EST TC from pt requesting medication refill. Medications needing refill : LORazepam (Ativan) 0.5 MG tablet To be sent to: [facility]/pharmacy #[id number] - [place], [place] - [address] [facility] documented in this encounter Plan of Treatment Upcoming Encounters Date Type Department Care Team (Late st Contact Info) Description 11/05/2024 10:00 AM EDT Telemedicine [facility] MEDICINE [address] [place] [phone] Jackelin Nam RN 11/18/2024 11:45 AM EDT Office Visit [facility] MEDICINE [address] [place] [address] 477[address] Quiana Giron MD [address] [place] [address] documented as of this encounter Visit Diagnoses Not on filedocumented in this encounter Care Teams Bull Bucker Relationship Specialty Start Date End Date Quiana Giron MD [address] [place] [address] PCP - General Family Medicine 11/09/18 Erasmo Martinez 02/03/23 documented as of this encounter
--- OUTSIDE RECORDS SUMMARY | 2024-08-27 13:23 | XMS_ITS | Encounter Summary ---
Author Organization [employer] Address 75 [facility] 7t [place] [address] Care Team Providers Care Mammography Technician Name Role Phone Quiana Giron MD Primary Care Provider + Reason for Visit * Reason Onset Date Comments Durable Medical Equipment 05/20/2023 Nebuli zer Encounter Details Date Type Department Care Team ([facility] st Contact Info) Description 05/20/2023 Telephone [facility] MEDICINE 230 [place], [place] [phone] Quiana Giron MD 230 [place], [place] [phone] Durable Medical Equipment (Nebulizer) Social History Tobacco Use Types Packs/Day Years [...] encounter Miscellaneous Notes * Telephone Encounter - Jessica Wall - 05/21/2023 10:27 AM EST Order was generated and placed on provider desk for review and signature. * Telephone Encounter - Roberto Wall - 05/20/2023 2:41 PM EST Tc from [place] working with [facility] requesting Nebulizer machine and supplies. Piotr that faxed over to [employer] [facility]. Any questions please contact pt at [phone]. [facility] documented in this encounter Plan of Treatment Upcoming Encounters Date Type Department Care Team (Late st Contact Info) Description 11/05/2024 10:00 AM EDT Telemedicine [facility] MEDICINE [address] [place] [address] Jackelin Nam RN 11/18/2024 11:45 AM EDT Office Visit [facility] MEDICINE [address] [place] [phone] Quiana Giron MD 230 [place] [address] documented as of this encounter Visit Diagnoses Not on filedocumented in this encounter Care Teams Mammography Technician Relationship Specialty Start Date End Date Quiana Giron MD [address] [place] [address]285 PCP - General Family Medicine 11/09/18 Jackelin Perez Assistant Art Director 03/25/23 06/25/23 Erasmo Martinez 02/03/23 documented as of this encounter
--- OUTSIDE RECORDS SUMMARY | 2024-08-27 13:23 | XMS_ITS | Encounter Summary ---
Author Organization [employer] Address [address] [facility] 7t [place] [address] Care Team Providers Care Radiology Physician Assistant Name Role Phone Quiana Giron MD Primary Care Provider + Reason for Visit * Reason Onset Date Comments PT1 06/19/2023 Encounter Details Date Type Department Care Team ([facility] Contact Info) Description 06/19/2023 Telephone [facility] MEDICINE 230 [place], [place] [phone] Quiana Giron MD 230 [place], [place] [phone] PT1 Social History Tobacco Use Types Packs/Day [...] encounter Miscellaneous Notes * Telephone Encounter - Gypsyjewels Bird Lynn - 06/19/2023 3:48 PM EST PT1 needed Date: 07/10/2023 Time: 2:00 pm Visits: [facility] [employer] Address: [address] [place] [phone] Facility: [facility] Needed: YES Also requesting a Separate and direct transportation due to patient having the Oxygen. documented in this encounter Plan of Treatment Upcoming Encounters Date Type Department Care Team ([facility] Contact Info) Description 11/05/2024 10:00 AM EDT Telemedicine [facility] MEDICINE [address] [place] [address] [phone] Jackelin Nam RN 11/18/2024 11:45 AM EDT Office Visit [facility] MEDICINE [address] [place] [address] 10694 Quiana Giron MD [address] [place] [address] documented as of this encounter Visit Diagnoses Not on filedocumented in this encounter Care Teams Radiology Physician Assistant Relationship Specialty Start Date End Date Quiana Giron MD [address] [place] [address] 28033 PCP - General Family Medicine 11/09/18 Jackelin Cruz Manager 03/25/23 06/25/23 Er[facility] 02/03/23 documented as of this encounter
--- OUTSIDE RECORDS SUMMARY | 2024-08-27 13:23 | XMS_ITS | Encounter Summary ---
Author Organization [employer] Address [address] [facility] 7t [place] [address] Care Team Providers Care Sanitation Lead Name Role Phone Quiana Giron MD Primary Care Provider + Reason for Visit * Reason Comments Med Refill Encounter Details Date Type Department Care Team ([facility] Contact Info) Description 03/26/2024 Refill [facility] MEDICINE 230 [place], [place] [phone] Quiana Giron MD 230 [place] [address] Generalized anxiety disorder Social History Tobacco Use [...] Info) Description 11/05/2024 10:00 AM EDT Telemedicine [facility] MEDICINE [address] [place] [address]24 Jackelin Nam RN 11/18/2024 11:45 AM EDT Office Visit [facility] MEDICINE [address] [place] [address] 9[address] Quiana Giron MD [address] [place] [address] documented as of this encounter Visit Diagnoses Diagnosis Generalized anxiety disorder documented in this encounter Additional Health Concerns Assessment Noted Time PHQ-9 Depression Total Score: 9 07/23/19 24 10:38 AM EDT documented as of this encounter Care Teams Sanitation Lead Relationship Specialty Start Date End Date Quiana Giron MD [address] [place] [address]331 PCP - General Family Medicine 11/09/18 Erasmo Martinez 02/03/23 documented as of this encounter
--- OUTSIDE RECORDS SUMMARY | 2024-08-27 13:23 | XMS_ITS | Encounter Summary ---
Author Organization [employer] Address [address] [facility] 7t [place] [address] Care Team Providers Care Electrical Logger Name Role Phone Quiana Giron MD Primary Care Provider + Reason for Visit * Reason Onset Date Comments Appointment Request 08/16/2024 Encounter Details Date Type Department Care Team ([facility] Contact Info) Description 08/16/2024 Telephone [facility] MEDICINE 230 [place], [place] [phone] Quiana Giron MD 230 [place], [place] [phone] Appointment Request Social History Tobacco Use Types Packs/Day Years [...] the past 12 months, has t he [employer], gas, oil or water company threatened to [...] encounter Miscellaneous Notes * Telephone Encounter - Priya Allred - 08/16/2024 3:33 PM EDT Tc from pt visiting nurse Anna with [facility]. Requesting pt to follow up with provider. Denied triage. Contact Anna at [phone] documented in this encounter Plan of Treatment Upcoming Encounters Date Type Department Care Team (Late st Contact Info) Description 11/05/2024 10:00 AM EDT Telemedicine [facility] MEDICINE [address] [place] [address] 41610 Jackelin Nam RN 11/18/2024 11:45 AM EDT Office Visit [facility] MEDICINE [address] [place] [address] 15225 Quiana Giron MD [address] [place] [address] documented as of this encounter Visit Diagnoses Not on filedocumented in this encounter Additional Health Concerns Assessment Noted Time PHQ-9 Depression Total Score: 9 07/23/19 24 10:38 AM EDT documented as of this encounter Care Teams Electrical Logger Relationship Specialty Start Date End Date Quiana Giron MD [address] [place] [address] PCP - General Family Medicine 11/09/18 Erasmo Martinez 02/03/23 documented as of this encounter
--- OUTSIDE RECORDS SUMMARY | 2024-08-27 13:23 | XMS_ITS | Encounter Summary ---
Author Organization [facility] [employer] Address [address] [facility] 7t [place] [address] Care Team Providers Care Book Editor Name Role Phone Quiana Giron MD Primary Care Provider + Encounter Details Date Type Department Care Team (Late Contact Info) Description 02/10/2023 Telephone [facility] MEDICINE [address] [place] [address] [phone] Quiana Giron MD [address] [place] [address] [phone] Social History Tobacco Use Types Packs/Day Years [...] Info) Description 11/05/2024 10:00 AM EDT Telemedicine [address] [phone] Jackelin Nam RN 11/18/2024 11:45 AM EDT Office Visit [address] [phone] Quiana Giron MD 230 [place], [place] [phone] documented as of this encounter Visit Diagnoses Not on filedocumented in this encounter Care Teams Book Editor Relationship Specialty Start Date End Date Quiana Giron MD 230 [place] [address] PCP - General Family Medicine 11/09/18 Jackelin Perez Chief Juvenile Probation Officer 03/25/23 06/25/23 [facility] 02/03/23 documented as of this encounter
--- OUTSIDE RECORDS SUMMARY | 2024-08-27 13:23 | XMS_ITS | Encounter Summary ---
Author Organization [employer] Address [address] [facility] 7t [place] [address] Care Team Providers Care Car Jockey Name Role Phone Quiana Giron MD Primary Care Provider + Reason for Visit * Reason Comments Med Refill Encounter Details Date Type Department Care Team ([facility] Contact Info) Description 07/23/2023 Refill [facility] MEDICINE 230 [place], [place] [phone] Quiana Giron MD 230 [place] [address] Cigarette nicotine dependence with withdrawal Social History Tobacco Use Types Packs/Day Years Used Date Smoking Tobacco: Never Smokeless Tobacco: Never Alcohol Use Standard Drinks/Week Comments Never 0 (1 standard drink = 0.6 oz pur e alcohol) Depression Answer Date Recorded Patient Health Questionnaire-9 [...] Info) Description 11/05/2024 10:00 AM EDT Telemedicine [facility] MEDICINE [address] [place] [address] [phone] Jackelin Nam RN 11/18/2024 11:45 AM EDT Office Visit [facility] MEDICINE [address] [place] [address] 85822 Quiana Giron MD [address] [place] [phone] documented as of this encounter Visit Diagnoses Diagnosis Cigarette nicotine dependence with withdrawal documented in this encounter Additional Health Concerns Assessment Noted Time PHQ-9 Depression Total Score: 9 07/23/19 24 10:38 AM EDT documented as of this encounter Care Teams Car Jockey Relationship Specialty Start Date End Date Quiana Giron MD [address] [place] [address] 56277 PCP - General Family Medicine 11/09/18 Erasmo Martinez 02/03/23 documented as of this encounter
--- OUTSIDE RECORDS SUMMARY | 2024-08-27 13:23 | XMS_ITS | Encounter Summary ---
Author Organization [employer] Address [address] [place] [address] 7t [place] [address] Care Team Providers Care Instructional Support Specialist Name Role Phone Quiana Giron MD Primary Care Provider + Reason for Visit * Reason Comments Med Refill Encounter Details Date Type Department Care Team (Late st Contact Info) Description 02/05/2023 Refill [facility] MEDICINE [address] [place] [address] [phone] Quiana Giron MD [address] [place] [address] [phone] Generalized anxiety disorder Social History Tobacco Use [...] Description 11/05/2024 10:00 AM EDT Telemedicine [facility] MEDICINE [address] [place] [address] 50158 Jackelin Nam RN 11/18/2024 11:45 AM EDT Office Visit [facility] MEDICINE [address] [place] [address], [place] [address] Quiana Giron MD 230 [place] [address] documented as of this encounter Visit Diagnoses Diagnosis Generalized anxiety disorder documented in this encounter Care Teams Instructional Support Specialist Relationship Specialty Start Date End Date Quiana Giron MD 230 [place] [address] PCP - General Family Medicine 11/09/18 Jackelin Perez Binding Stitcher 03/25/23 06/25/23 Erasmo Martinez 02/03/23 documented as of this encounter
--- OUTSIDE RECORDS SUMMARY | 2024-08-27 13:23 | XMS_ITS | Clinical Summary ---
Author Organization [employer] Address [address] [place] [address] Care Team Providers Care Turning Sander Tender Name Role Phone Quiana Giron MD Primary Care Provider + Allergies No known active allergies Medications * This document contains information received from the source organization and may not represent a complete record from that organization. methadone (Dolophine) 10 MG/ML solution 110 mg DAILY (route: oral) 023 Active chlorhexidine (Peridex) 0.12 % solutionIndicat ions:Periodonta l disease SWISH 15 ML ONCE PER DAY FOR 1 MINUTE. SPIT, DO NOT SWALLOW. DO NOT EAT OR DRINK FOR 30 MINUTES FOLLOWING USE. DO NOT USE FOR MORE THAN 14 CONSECUTIVE DAYS. 473 mL 023 Active triamcinolone (Kenalog) 0.1 % cream Apply topically if needed in the morning and at bedtime (pain and swelling). 30 g 2 023 Active Hydrocortisone, Perianal, 1 % cream APPLY TO AFFECTED AREA TWICE A DAY NEEDED FOR ITCHING 28.4 g 1 024 Active Fluticasone Furoate-Vilante rol (Breo Ellipta) 200-25 MCG/ACT aerosol powder Inhale 1 Inhalation 2 times daily. Active Umeclidinium [place] (Incruse Ellipta) 62.5 MCG/ACT aerosol powder Inhale 1 Inhalation in the morning. Active ondansetron (Zofran) 4 MG tablet 1-2 tablets PO tid prn nausea/vomiting 42 tablet 024 Active methocarbamol (Robaxin) 750 MG tablet Take 1 tablet (750 mg) by mouth if needed in the morning, at noon, and at bedtime for muscle spasms for up to 20 days. 60 tablet 024 Active famotidine (Pepcid) 20 MG tabletIndicatio ns:Toxic megacolon (CMS/HCC) Take 1 tablet (20 mg) by mouth if needed each day for heartburn. 90 tablet 3 024 2024 Active ipratropium-alb uterol (Duo-Neb) 0.5-2.5 mg/3 mL nebulizer solutionIndicat ions:Advanced COPD (CMS/HCC) Take 3 mL by nebulization if needed in the morning, at noon, in the evening, and at bedtime for wheezing or shortness of breath. 360 mL 11 024 2024 Active amLODIPine (Norvasc) 5 MG tabletIndicatio ns:Primary hypertension TAKE 1 TABLET BY MOUTH EVERY DAY IN THE MORNING 90 tablet 1 025 Active nicotine (Nicoderm, Step 1) 21 MG/24HR patch PLACE 1 PATCH ON THE SKIN 1 TIME EACH DAY AT THE SAME TIME. 28 patch 3 025 Active traZODone (Desyrel) 150 MG tabletIndicatio ns:Generalized anxiety disorder TAKE 1 TABLET BY MOUTH EVERYDAY AT BEDTIME 90 tablet 1 025 Active ketoconazole (NIZOral) 2 % shampoo Apply topically 3 (three) times a week. 120 mL 3 025 Active triamcinolone (Kenalog) 0.1 % lotion Apply topically if needed at bedtime for irritation or rash (on scalp). 60 mL 2 025 Active naloxone (Narcan) 4 mg/0.1 mL nasal sprayIndication s:Uncomplicated opioid dependence (CMS/HCC) Administer 1 spray (4 mg) into affected nostril(s) if needed for opioid reversal. May repeat every 2-3 minutes if needed, alternating nostrils, until medical assistance becomes available. 2 each 11 025 2025 Active fluticasone (Flonase) 50 MCG/ACT nasal spray SPRAY 1 SPRAY INTO EACH NOSTRIL EVERY DAY 32 mL 1 025 Active traZODone (Desyrel) 50 MG tablet TAKE 1/2 TABLET (25MG) IN THE MORNING AND 1/2 TABLET WITH LUNCH (IN ADDITION TO AT BEDTIME DOSE) 90 tablet 3 025 Active sertraline (Zoloft) 20 MG/ML concentrated solutionIndicat ions:Generalize d anxiety disorder TAKE 7.5ML BY MOUTH IN THE MORNING. MIX WITH 4 OUNCES OF WATER. 240 mL 2 025 Active HYDROmorphone (Dilaudid) 4 MG tabletIndicatio ns:Multilevel degenerative joint disease of spine Take 0.5 tablets (2 mg) by mouth every 12 (twelve) hours if needed for severe pain for up to 28 days. 28 tablet 025 2024 Active LORazepam (Ativan) 0.5 MG tabletIndicatio ns:Generalized anxiety disorder TAKE 1 TABLET BY MOUTH 3 TIMES DAILY AND AN ADDITIONAL TABLET DAILY NEEDED 112 tablet 025 Active Acetaminophen Extra Strength 500 MG tablet TAKE 1 TABLET (500 MG) BY MOUTH EVERY 8 (EIGHT) HOURS IF NEEDED FOR MILD PAIN. 90 tablet 025 Active cloNIDine (Catapres) 0.1 MG tabletIndicatio ns:Generalized anxiety disorder TAKE 1 TABLET BY MOUTH 2 TIMES DAILY 120 tablet 025 Active acetaminophen (Tylenol Extra Strength) 500 MG tablet Take 1 tablet (500 mg) by mouth every 8 (eight) hours if needed for mild pain. 90 tablet 024 2024 Discontinued sertraline (Zoloft) 20 MG/ML concentrated solutionIndicat ions:Generalize d anxiety disorder TAKE 7.5ML BY MOUTH IN THE MORNING. MIX WITH 4 OUNCES OF WATER. 240 mL 2 024 2024 Discontinued(R eorder (will not trigger notification to Pharmacy)) cloNIDine (Catapres) 0.1 MG tabletIndicatio ns:Generalized anxiety disorder TAKE 1 TABLET BY MOUTH 2 TIMES DAILY 120 tablet 025 2024 Discontinued HYDROmorphone (Dilaudid) 4 MG tabletIndicatio ns:Multilevel degenerative joint disease of spine Take 0.5 tablets (2 mg) by mouth every 12 (twelve) hours if needed for severe pain for up to 28 days. Do not start before July 12, 2024. 28 tablet 025 2024 Discontinued(R eorder (will not trigger notification to Pharmacy)) LORazepam (Ativan) 0.5 MG tabletIndicatio ns:Generalized anxiety disorder Take 1 tablet by mouth 3 times daily and an additional tablet daily as needed. Do not start before July 21, 2024. 112 tablet 025 2024 Discontinued HYDROmorphone (Dilaudid) 4 MG tabletIndicatio ns:Multilevel degenerative joint disease of spine Take 0.5 tablets (2 mg) by mouth every 12 (twelve) hours if needed for severe pain for up to 28 days. 28 tablet 025 2024 Discontinued(R eorder (will not trigger notification to Pharmacy)) Active Problems Problem Noted Date Diagnosed Date Interstitial pulmonary disease, unspecified 04/11 Assessment & Plan (04/28/2024 2:15 PM EST): Due to toxic inhalation over time (smoking, drugs). He's O2 dependant, sees pulmonary Advised to use Inhalers as rx'd FU with pulmonary for lung rehab, he will be evaluated for lung transplant, will fu along pulmonary. Reminded to get updated Influenza and Covid vax. I advised to be evaluated CAROL at nearest Urgent care or ED duet o change in phlegm and recent fever. He agreed for me to call his mother or the VNAto fu on sxs. FU in 1m Viral upper respiratory tract infection 02/04/20 Assessment & Plan (02/04/2024 1:35 PM EDT): Advised to have covid test CAROL and call back prn POS results. Rest (sleep at least 8 hours a night). Use O2 as recommended. Hydrate with plenty of water (avoid caffeine and alcohol). Use saline nose drops to loosen mucus Take Acetaminophen (Tylenol??)/Ibuprofen as needed to reduce fever, headache, body aches or discomfort Gargle with salt water and use throat sprays/lozenges for throat pain. Use heated, humidified air. If you do not have a humidifier, take hot showers. Cover coughs and sneezes using the crook of your elbow. If you have a fever, stay home and away from others (self isolation) until fever-free for 72 hours (temperature should be less than 100??F without medication). We'll call VNA to fu on these measures and call back prn worsening sxs. Multilevel degenerative joint disease of spine 0 10/02/2023 Assessment & Plan (02/04/2024 12:26 PM EDT): - has significant pain due to this disease + kyphosis as above - it is treated with Dilaudid 2 mg BID which seems to be partially improve pain - symptoms have somewhat improved in the past 3 months which is consistent with a component of opiod hyperalgesia - pt has very limited ambulation due to kyphosis and oxygen requirement, needs walker for ambulation and wheelchair for longer transports Assessment & Plan (11/03/2023 5:14 PM EDT): Continue Dilaudid 2mg bid, he declined to be switched to fentanyl patch today. He's aware of Dilaudid shortage nationwide and agreed to be switched to what's available at next visit. He declined robaxin de to side effects, declined referral to chronic pain clinic (in house) today. He understands that pain could be exacerbated by chronic opiate use. Use tylenol prn pain He's due for Dilaudid next week, we'll send refill later this week. Assessment & Plan (10/09/2023 3:21 PM EDT): Advised to talk with the nurse about taking 2mg Dilaudid bid , not 1mg. Discussed again about future transition to fentanyl patch, likely 12.5 mg/72h once there's no more hydromorphone on the area bc of national shortage. His current MME = (total daily opioid dose in mg) x (conversion factor* for the particular opioid) is 20 (conversion factor for hydromorphone is 5 according to CDC guidelines). He will be switched to fentanyl patch 12 mcg/ 72 h (equianalgesic dose) once hydromorphone is exhausted in the area. The patch can be started 12h after last Dilaudid dose. He has a narcan rx at home. Take methocarbamol + Tylenol prn pain for now FU in 2-3w Assessment & Plan (10/02/2023 3:32 PM EDT): Will continue Tx with dilaudid 2mg twice /day, given that pt has not been using opioid for at least 2 days. POC discussed with Silvana Pfeiffer from [facility] service who will be picking up rx tomorrow at [facility] pharmacy and will coordinate with Mat's mom re future pick ups and management of daily pillboxes. She will continue with locked med box. I left a message at [facility] methadone program for his provider to call me back re POC (release of information had been obtained last month). He agreed to be referred to the chronic pain management clinic Continue using robaxin PRN for severe muscle spasms I discussed w/ pt importance of complying w/ opioid contract, I may decide to discontinue the contract if he breaks the contract once more. FU with me next week as scheduled, either TV or OV Opiate withdrawal 10/02/2023 Assessment & Plan (10/09/2023 3:22 PM EDT): Mild, he has mostly increased anxiety, back pain and nausea Use clonidine up to 4 x /day PRN anxiety Take zofran PRN nausea or vomiting Take robaxin PRN muscle spasm/pain along with tylenol Take Imodium PRN diarrhea (pt has liquid stools due to ileostomy). I told him to address opiate withdrawal with methadone program, I left a VM at [facility] program to speak with a clinician re potentially increasing methadone or opiate dependence so I can treat his pain only. Assessment & Plan (10/02/2023 3:33 PM EDT): Mild, he has mostly increased anxiety and nausea Use clonidine up to 4 x /day PRN anxiety Take zofran PRN nausea or vomiting Take robaxin PRN muscle spasm/pain Take Imodium PRN diarrhea (pt has liquid stools due to ileostomy) Anxiety attack 10/02/2023 Assessment & Plan (10/02/2023 2:44 PM EDT): Pt had an anxiety attack during the visit when he was unable to void urine and when we were talking about cutting down on opioids Tx w/ breathing techniques and visualizations Pt needed a brief albuterol Tx for less than 1 minute Acquired postural kyphosis 08/27/2023 Assessment & Plan (08/27/2023 3:43 PM EDT): - pt is given Dilaudid to treat back pain related to kyphosis and also OA - will switch from Dilaudid to Methadone for pain , will discuss with methadone program re a MED. Alternatively we may try [facility] [place] if Methadone not available - case was discussed with pt and his mother, questions were answered - will discuss with Methadone program Seborrheic dermatitis of scalp 08/14/2023 Assessment & Plan (06/17/2024 12:56 PM EST): Restart Nizoral shampoo + Fluocinolone solution/oil and re consult PRN. Assessment & Plan (08/14/2023 1:34 PM EDT): Start ketoconazole shampoo daily x 4 wks Use Fluocinolone oil on scalp PRN Eustachian tube dysfunction, bilateral Assessment & Plan (06/27/2023 3:53 PM EST): Use flonase prn Tinea corporis 04/09/2023 Assessment & Plan (04/09/2023 2:26 PM EST): On right leg/ankle Use lotrisone cream bid x 2w , fu prn Flexural eczema 04/09/2023 Assessment & Plan (06/27/2023 3:51 PM EST): Improving, continue Lac Hydrin + topical sterid Avoid constant hand washing, use moisturizer as above. Assessment & Plan (04/09/2023 2:27 PM EST): On both hands Counseled re moisturizer cream + triamcinolone cream bix x 1w then prn Wear gloves when outside in the cold weather. Decreased libido 04/09/2023 Assessment & Plan (06/27/2023 3:53 PM EST): I will order testosterone levels, however I discussed with patient that increased exertion may/not significantly affect oxygenation of vital organs. I advised to work on other risk factors for ED, including hypoxia, smoking, benzos and opiate use (prescription) and will address and w/u at future visits. I don't think he is a good candidate for viagra at this time. Assessment & Plan (04/09/2023 2:39 PM EST): It may be related to opiates? Opiate induced hypogonadism? Depression? I will check labs at future visits. Decreased appetite 04/09/2023 Assessment & Plan (04/09/2023 2:42 PM EST): Recommended to use nutritional supplement/Boost Nutrition referral either by VNA or here Cigarette nicotine dependence in remission 04/09 Assessment & Plan (04/28/2024 2:15 PM EST): Continues on nicotine patch 21 mg likely due to psychological dependence, hasn't smoked cigarettes in more than 3y. Will attempt again to cut down to 14 mg/d nicotine patch at next visit Assessment & Plan (06/27/2023 3:54 PM EST): Continue nicotine patch for now, dependence seems to be more psychological than physical as he ahs been using same patch dose for >3mo. Will fu prn Assessment & Plan (04/09/2023 2:43 PM EST): Cut down nicotine patch to 14mcg/d x 30d then 7mcg Use nicotrol inh prn Adjustment disorder with mix ed disturbance of emotions and conduct 03/13/2023 Assessment & Plan (07/23/2023 11:01 AM EDT): During IBH Consult Mat presenting with excessive worry/anxiety, difficulty controlling worry, restless/keyed up/On edge, difficulty concentrating/Mind going blank , and irritability; Mat has been in recovery for the last six years, for a period of 18+ mo, for all symptoms in the context of housing. Patient is currently doing the Methadone program in [place]. Patient reported having a hard time adjusting to new home setting environment after being in a custodial for three years. He reported this is the first time that he's living by himself. FANCY NEEDLEWORKER provides support and helps with medical appointments. PLAN: (check all that apply) New/Additional Services needed Off-site services for BH. Referral will be placed of OP individual therapy. Advanced COPD 01/31/2023 Assessment & Plan (06/17/2024 2:26 PM EST): He seems to be doing much better on Breo, Incruse and Duoneb nebs Continue O2 at 5-8L to keep O2 stat above 90%. FU with pulmonology for pulmonary rehab. He is a non-smoker and he is not inhaling any other recreational substances. Assessment & Plan (02/04/2024 12:24 PM EDT): - he is oxygen-dependent 6 liters NC, increases up to 8 PRN exertion - continue Incrus inhaler + Breo inhaler daily + Duo-Neb Q 6 hours PRN + Mucomyst inhaler nebs PRN congestion - .advised to have influenza and covid boosters and soon as URI symptoms are resolved - advised to avoid smoking, he insists on continuing to use nicotine patch Assessment & Plan (11/03/2023 5:10 PM EDT): Continue Breo inh bid They will fu with pulmonary this week re PA for inh solution instead of inh HFA device. He's not smoking, using nicotine patch. Continue O2 5-8 li NC and fu with pulmonary. We'll discuss about RSV at next appt. Assessment & Plan (10/02/2023 2:40 PM EDT): He's doing well on Breo + Incruse + albuterol PRN + nicotine patch Continue O2 6-8L NC Fu closely w/ pulmonology Albuterol updraft today Assessment & Plan (08/27/2023 3:34 PM EDT): FU by pulmonary. I will reorder PFTs which were scheduled for today and he will fu with pulmonary. Assessment & Plan (08/14/2023 1:32 PM EDT): Pt is O2 dependent, currently not smoking Continue Dulera (Breo may be covered by insurance) Continue combivent (may be better off on Spiriva, will call pulmonology office to verify medication dose) Assessment & Plan (06/27/2023 3:48 PM EST): Continue Trelegy (will call pulmonary for PA), use dulera for now. Use mucomyst 1x/d PRN only for increased phlegm/cough. Use O2 as above, 4-6 li NC FU with pulmonology Assessment & Plan (04/09/2023 2:16 PM EST): Continue Dulera + Duoneb or Albuterol prn. Add Acetylcystein x 1mo He quit smoking, continue O2 as above Referral info for pulmonary given to patient. I told him that if he wants to be seen by another specialist, he can call us with specialist infor and appt info so we can run it by his insurance. Counseled to get covid IZ today. Assessment & Plan (02/26/2023 1:36 PM EDT): Doing well On Dulera + Albuterol inh teodoro qid + O2 FU with pulmonology, infor for referral given to patient. Assessment & Plan (01/31/2023 2:44 PM EDT): Pt is oxygen dependent, history of long-term cig smoking + substance inhalation Refer to Pulmonary Cont O2 3-5L NC, to keep O2 sat 91%-95% Counseled to avoid relapsing cig Cont dulera 200 mg BID + albuterol 3 mL PRN FU 2-3 wks Requires daily assistance fo r activities of daily living (ADL) and comfort needs 01/31/2023 Assessment & Plan (04/09/2023 2:37 PM EST): Has SURFACE SUPERVISOR + transportation services arranged by [employer] 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 Patient wants Celeste to continue being his FANCY NEEDLEWORKER, he will address it with his company and CM. He felt safe to go home and figure things to as above. He will reach out to his mother if needed. Patient unable to drive at this time, needs meds and medical supplies delivered. Assessment & Plan (02/26/2023 1:40 PM EDT): Needs assistance for ADLs including cooking, grocery shopping, transportation etc. He would like his current FANCY NEEDLEWORKER to provider transportation, placard Handicap form to be filled out. I told him that I wouldn't know if insurance will directly pay his CPA for transportation services and time. We'll refer to CM to help manage this. PT1 With board certified behavioral analyst and space and time for special mobility needs (cane and O2 use) Assessment & Plan (01/31/2023 3:09 PM EDT): Pt is oxygen dependent with significantly decreased endurance Will evaluate home care and try to keep him independent May need PT/OT and will provide DME required to prevent falls. Ileostomy in place 01/31/2023 Assessment & Plan (06/17/2024 12:55 PM EST): Secondary to hemicolectomy. Continue ileostomy bags and supplies. Will consult with general surgery regarding possibility of ileocolic reconstruction, will review surgical hemicolectomy note. Assessment & Plan (01/31/2023 3:14 PM EDT): s/p hemicolectomy, procedure information not available Prescribed ostomy supplies PRN Body aches 01/31/2023 Assessment & Plan (11/03/2023 3:19 PM EDT): Multifactorial : chronic hypoxia, sedentarism, hyperalgesia from chronic opiate use, anxiety. We talked about alf management with pain and that I will not increase Dilaudid dose (also that he had previously broken narcotic contract x 2). He didn't want to change to Fentanyl patch yet, I will continue on Dilaudid 2mg bid until tablets are exhausted ion the area (he's aware of the national shortage of medication). He declined referral to in house chronic pain management clinic. He declined rx robaxin due to increased somnolence with recent use for withdrawals. He declined to use duloxetine, wants to continue on sertraline (liquid form is easier for him due to throat pain when swallowing many pills.). Use Tylenol tid prn Assessment & Plan (02/01/2023 2:42 PM EDT): May be because of oxygen dependence, multiple conditions, chronic O2 use, depression, ?hyperalgesia from opioids? Counseled to avoid recreational substances and use opiates as prescribed only Counseled to remain hydrated and will provide nutritional supplement for pulmonary condition. 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 Continue ileostomy care, must use a barrier cream to prevent zakia ostomal dermatitis, [facility]. Assessment & Plan (05/21/2023 12:30 PM EST): Pt has C.difficile while in hospital He had a hemicolectomy + Ileostomy In place Will obtain hospital information Dependence on supplemental oxygen 01/30/2023 Assessment & Plan (04/28/2024 12:24 PM EST): Continue O2 4-6 li NC and fu with pulmonary. He should use a concentrator/portable O2 when going out. He's not smoking for few years now. FU with pulmonary, advised to cutdown to off THC use Patient is aware of risk of smoking ANY substances when using O2, including risk of fire, burn or even . Assessment & Plan (06/27/2023 3:47 PM EST): Continue O2 4-6 li NC and fu with pulmonary. He should use a concentrator/portable O2 when going out. He's not smoking for few months now. Assessment & Plan (04/09/2023 2:13 PM EST): Due to ILD + advanced COPD, he quit smoking few months ago. Continue 4-5 li NC O2 at rest to keep O2 >90%, it can be increased up to 6li NC on ambulation. He needs to be on O2 permanently and needs a portable O2 for his medical appts and other outings (concentrator can be rx to improve patient's mobility). Counseled to avoid smoking FU with pulmonology Assessment & Plan (02/26/2023 1:35 PM EDT): Continue O2 at 3-5 li NC FU with pulmonology O2 concentrator apparently not covered by insurance. Assessment & Plan (01/31/2023 2:44 PM EDT): See above Continue O2 3-5L and keep O2 sat 91%-94% Will order evaluation by VNA for a portable oxygen concentration FU 2-3 wks Generalized anxiety disorder 01/30/2023 Assessment & Plan (06/17/2024 12:58 PM EST): Reminded pt about importance of scheduling appointment with mental health provider, I will mail information regarding [facility] clinic where he was referred to 2 months ago. Continue Sertraline 150 mg per day + Lorazepam 3 times per day + Trazodone PRN anxiety + QHS. Continue Methadone as per methadone clinic and reach out to recovery manager. He feels safe at home and he can reach out to safety to relatives or VNA. Continue medications administered by VNA in a locked box. Assessment & Plan (04/28/2024 12:30 PM EST): Fairly stable on Sertraline 150mg/d + Lorazepam, hasn't had recent panic attacks. Advised to cut down on THC use and connect with BH provider at [facility] or here who called him last month. Meds by VNA in a locked box Continue sertraline + lorazepam Assessment & Plan (02/04/2024 1:33 PM EDT): He didn't tolerate Duloxetine, doing better on sertraline dose of 150mg/d Use clonidine bid prn anxiety. Continue trazodone at night for insomnia and 25mg bid for anxiety. Continue lorazepam 4x/d, referral to team again as patient hasn't received calls from clinic ( referred to [facility] in [place] back on 10/2023) , needs long term care phlebotomist fu by therapist and a prescriber. He feels safe at home and is able to reach out for safety, they have crisis number. Meds are managed in a locked box by VNA. Corwin ross in . Advised to avoid using recreational drugs/meds not rx for him. Assessment & Plan (11/03/2023 5:18 PM EDT): He didn't tolerate Duloxetine, will dc and continue sertraline, consider maximizing up to 200mg/d next appt if needed Use clonidine bid prn anxiety. Continue trazodone at night for insomnia and 25mg bid for anxiety. Continue lorazepam 4x/d, referral to team, needs close fu by therapist and a prescriber. He feels safe at home and is able to reach out for safety, they have crisis number. Meds are managed in a locked box by VNA. Corwin ross in Assessment & Plan (10/02/2023 2:44 PM EDT): We had a lengthy discission about importance of psychotherapy and behavioral Tx of panic attacks including behavioral therapy, visualization (he will think about his kittens + will be able to pet his kittens PRN panic attacks), breathing, and advised to go to psychotherapy, will consult w/ BH Start duloxetine 20mg qHS Continue clonidine 0.1 mg BID Continue sertraline + trazodone same dose I will discuss case w/ Silvana Pfeiffer his visiting nurse Corwin w/ in one wk TV Assessment & Plan (08/14/2023 1:35 PM EDT): Pt needs to be seen by psychiatrist, I will check w/ regarding appropriate referral Continue lorazepam 0.5mg TID (Pt is benzodiazapine dependent) Continue Sertraline 150mg /day + trazadone 150mg qHS and 25mg BID + clonidine 0.5mg BID Assessment & Plan (07/23/2023 11:00 AM EDT): During IBH Consult Mat presenting with excessive worry/anxiety, difficulty controlling worry, restless/keyed up/On edge, difficulty concentrating/Mind going blank , and irritability; Mat has been in recovery for the last six years, for a period of 18+ mo, for all symptoms in the context of housing. Patient is currently doing the Methadone program in [place]. Patient reported having a hard time adjusting to new home setting environment after being in a custodial for three years. He reported this is the first time that he's living by himself. FANCY NEEDLEWORKER provides support and helps with medical appointments. PLAN: (check all that apply) New/Additional Services needed Off-site services for . Referral will be placed of OP individual therapy. Assessment & Plan (03/13/2023 4:07 PM EDT): Mat reports being in recovery for the past 6-8 years. He actively engaged in a Methadone clinic in [place]. Mat reports difficulty adjusting to new environment, on his own; and far from where he is accustom to living. He has contacted his FANCY NEEDLEWORKER in the night time, due to feeling alone and sad; especially when he is not taking Zoloft. FANCY NEEDLEWORKER Celeste, informed him, she cannot speak over the phone with him, when she is off work hours, but provided support at the moment. She has been supportive in finding alternatives for him to keep busy, even when no one is at his home. He has been increasingly anxious, not being able to control worrying, worrying about different things, trouble to relax, restlessness, irritability and fearfulness. He is currently on Zoloft and Lorazapam and reports it has been beneficial. When on medication he reports feeling better, and is able to manage symptoms. He would like to engage in f/u BE's and decide if he would like a referral for long term care phlebotomist OP therapy. Mat agrees to follow up 03/24 @ 1030am, via telehealth. GAD7: 19 Assessment & Plan (02/01/2023 2:39 PM EDT): Underline with previous PTSD, probably exacerbation from trauma of long hospitalization with severe conditions Cont clonidine 0.1 mg BID + trazodone 75 mg QHS + lorazepam 0.5 mg TID + sertraline 30 mg daily. Rx lorazepam sent to pharmacy x 4d only until VNA goes home for evaluation,, will need locked med box due to hx S.abuse/ODs. Dose was verified with Nurse supervisor cellars at [facility] and confirmed that they only gave him rx until today. Cont [facility] program Will refer to program Pt feels safe at home and is able to reach out to safety Edema of lower extremity 01/30/2023 Severe opioid use disorder, in sustained remissi on 10/19/2018 Assessment & Plan (02/04/2024 12:27 PM EDT): - pt currently on Methadone 120 mg a day, take home bottles - continue f/u closely with Methadone clinic Assessment & Plan (08/27/2023 12:29 PM EDT): - he is on Methadone 160 mg Assessment & Plan (07/23/2023 11:01 AM EDT): During IBH Consult Mat presenting with excessive worry/anxiety, difficulty controlling worry, restless/keyed up/On edge, difficulty concentrating/Mind going blank , and irritability; Mat has been in recovery for the last six years, for a period of 18+ mo, for all symptoms in the context of housing. Patient is currently doing the Methadone program in [place]. Patient reported having a hard time adjusting to new home setting environment after being in a custodial for three years. He reported this is the first time that he's living by himself. FANCY NEEDLEWORKER provides support and helps with medical appointments. PLAN: (check all that apply) New/Additional Services needed Off-site services for . Referral will be placed of OP individual therapy. Assessment & Plan (02/01/2023 2:41 PM EDT): On methdaone by [facility]. He's also on Diluadid daily, dose confirmed with nurse supervisor cellars at [facility] and that he was given rx until today only. New rx x 4d sent to pharmacy, VNA to reconciliate next week and put on locked box. Will eventually discuss with methadone program to address body aches/hyepralgesia from opioids Resolved Problems Problem Noted Date Diagnosed Date Resolved Date Cigarette nicotine dependence with withdrawal 02/01/20 23 04/09/2023 Assessment & Plan (01/31/2023 3:15 PM EDT): Pt still with nicotine withdrawal symptoms, unsure if pt ceased smoking Will prescribe nicotine patch 21 mg and will taper down over 3 months FU with him 2-3 weeks Elevated blood pressure reading 01/30/2023 06/16/2023 Assessment & Plan (02/26/2023 1:37 PM EDT): Repeated is 140/80 Continue to fu Recently quit smoking Encounters Date Type Department Care Team Description 08/18/2024 Refill [facility] MEDICINE [address] [place] [address] Quiana Giron MD Generalized anxiety disorder 08/18/2024 Refill [facility] MEDICINE [address] [place] [address] Quiana Giron MD Generalized anxiety disorder 08/17/2024 Telephone C MEDICINE [address] [place] [address] Quiana Giron MD Appointment Request 08/16/2024 Telephone C MEDICINE [address] [place] [address] Quiana Giron MD Appointment Request 08/09/2024 Refill [facility] [address] [place] [address] Quiana Giron MD Multilevel degenerative joint disease of spine 08/09/2024 Refill [facility] [address] [place] [address] Quiana Giron MD Multilevel degenerative joint disease of spine 08/05/2024 Telephone C MEDICINE [address] [place] [address] Quiana Giron MD telephone call 08/04/2024 Refill [facility] [address] [place] [address] Quiana Giron MD Multilevel degenerative joint disease of spine 08/04/2024 Refill [facility] MEDICINE [address] [place] [address] Quiana Giron MD Generalized anxiety disorder 07/23/2024 Population Health Risk Score [facility] (C3) Department [address] [place] [phone] Provider, Population Health Generic 07/22/2024 Refill [facility] [address] [place] [address] Quiana Giron MD 07/16/2024 Refill [facility] [address] [place] [address] Quiana Giron MD Generalized anxiety disorder 07/07/2024 Refill [facility] [address] [place] [address] Quiana iGron MD Multilevel degenerative joint disease of spine 07/03/2024 Refill [facility] [address] [place] [address] Quiana Giron MD 06/27/2024 Refill [facility] [address] [place] [address] Quiana Giron MD Generalized anxiety disorder 06/21/2024 Refill [facility] [address] [place] [address] Quiana Giron MD Generalized anxiety disorder 06/17/2024 11:45 AM EST Telemedicine [facility] MEDICINE [address] [place] [address] Quiana Giron MD Advanced COPD (CMS/HCC) (Primary Dx); Seborrheic dermatitis of scalp; Ileostomy in place (CMS/HCC); Generalized anxiety disorder; Uncomplicated opioid dependence (CMS/HCC) 06/16/2024 Telephone [facility] MEDICINE [address] [place] [address] Quiana Giron MD Medication Question; FYI 06/16/2024 Telephone [facility] MEDICINE [address] [place] [address] Kitty Pratt MA Chart prep 06/08/2024 Refill [facility] MEDICINE [address] [place] [address] Quiana Giron MD Multilevel degenerative joint disease of spine 06/04/2024 Refill [facility] MEDICINE [address] [place] [address] Quiana Giron MD Generalized anxiety disorder from Last 3 Months Immunizations Name Administration Dates Next Due Influenza injectable quadriv alent preservative free 02/26/2023,02/18/2022,02/07/2021,05/03 Influenza, IIV3, injectable 05/03/2019, 7 Elvie SARS-CoV-2 Vaccination 01/01/2021 Pfizer Covid-19 Vaccine 12+ 06/16/2023 Pfizer Covid-19 Vaccine 12+ Bivalent 04/17/2022 Pneumococcal Conjugate PCV 20 06/16/2023 Pneumococcal Polysaccharide PPSV23 06/08/2016 Td (adult), 5 Lf tetanus tox oid, preservative free, adsorbed 10/20/2014 Td (adult), unspecified 10/20/2014 Social History Tobacco Use Types Packs/Day Years Used Date Smoking Tobacco: Never Smokeless Tobacco: Never Tobacco Cessation:Counseling Given: Not Answered Alcohol Use Standard Drinks/Week Comments Never 0 [...] Orientation Straight 03/11/2022 10 :35 AM EDT Last Filed Vital Signs Vital Sign Reading Time Taken Comments Blood Pressure 126/92 10/02/2023 1:30 PM EDT Pulse 90 10/02/2023 1:30 PM EDT Temperature 36.4 ??C (97.5 ??F) 10/02/2023 1:30 PM ED T Respiratory Rate 20 10/02/2023 1:30 PM EDT Oxygen Saturation 82% 10/02/2023 1:30 PM EDT Inhaled Oxygen Concentration - - Weight 49.3 kg (108 lb 9.6 oz) 10/02/2023 1:30 P M EDT Height 161.3 cm (5' 3.5 ) 10/02/2023 1:30 PM EDT Body Mass Index 18.94 10/02/2023 1:30 PM EDT Plan of Treatment Upcoming Encounters Date Type Department Care Team (Late st Contact Info) Description 11/05/2024 10:00 AM EDT Telemedicine [facility] MEDICINE [address] [place] [address] [phone] Jackelin Nam RN 11/18/2024 11:45 AM EDT Office Visit [facility] MEDICINE [address] [place] [phone] Quiana Giron MD [address] [place] [phone] Health Maintenance Due Date Last Done Comments Dental Prophylaxis 1983 Lipid Panel 1983 Family Planning (PISQ) 10/02/1998 Hepatitis C Screening 10/02/2001 Hepatitis B Vaccines (1 of 3 - 19+ 3-dose series) 10/02/2002 DTaP/Tdap/Td Vaccines (1 - Tdap) 10/21/2014 10/20/2014, 10/20/2014 Dental Oral Exam 08/27/2023 02/24/2023 Depression Monitoring 01/23/2024 07/23/2023, 024 Dental X-Ray: Bitewings 02/26/2024 02/24/2023 SDOH Screening 03/11/2024 03/11/2023 Depression Screening 07/22/2024 07/23/2023, 07/23/19 24 Alcohol/Substance Use Screening 10/01/2024 10/02/2023 Tobacco Screening 10/01/2024 10/02/2023 Dental X-Ray: Full Mouth 02/25/2026 02/24/2023 Zoster Vaccines (1 of 2) 10/02/2033 RSV Patients and Patients Aged 60 years or older (1 - 1-dose 75+ series) 10/02/2058 HIV Screening Completed 02/03/2023 Pneumococcal Vaccine: Pediatrics (0 to 5 Years) and At-Risk Patients (6 to 49) Years) Completed 06/16/2023, 06/08/2016 COVID-19 Vaccine Completed 05/29/2024, 09/2023, 04/17/2022, Additional history exists Influenza Vaccine Completed 05/29/2024, , 02/18/2022, Additional history exists HIB Vaccines Aged Out No longer eligi ble based on patient's age to complete this topic HPV Vaccines Aged Out No longer eligi ble based on patient's age to complete this topic Hepatitis A Vaccines Aged Out No long er eligible based on patient's age to complete this topic IPV Vaccines Aged Out No longer eligi ble based on patient's age to complete this topic Meningococcal Vaccine Aged Out No kanwal xu eligible based on patient's age to complete this topic RSV under 20 months Aged Out No longe r eligible based on patient's age to complete this topic Rotavirus Vaccines Aged Out No longer eligible based on patient's age to complete this topic Procedures Procedure Name Priority Date/Time Associated Diagnosis Comments INTRAORAL - COMPLETE SERIES OF RADIOGRAPHIC IMAGES Routine 02/24/2023 10:00 AM EDT Periodontal disease Severe dental caries COMPREHENSIVE ORAL EVALUATION - NEW OR ESTABLISHED PATIENT Routine 02/24/2023 10:00 AM EDT Periodontal disease Severe dental caries HIV ANTIBODY/ANTIGEN ([place] DPH) Routine 02/03/2023 10:13 AM EDT from Last 3 Months or Most Recently Relevant to Health Maintenance Results * HIV Ab/Ag ([place] DPH) (02/03/2023 10:13 AM EDT) Pathologist [facility] HIV AB/AG Nonreactive Nonreactive [facility] Comment:HIV-1 p24 Ag and/or HIV-1/HIV-2 Ab not detected.A test result that is nonreactive does not exclude thepossibility of exposure to or infection with HIV-1 and/orHIV-2. Nonreactive results in this assay for individualswith prior exposure to HIV-1 and/or HIV-2 may be due toantigen and antibody levels that are below the limit ofdetection of this assay.The Vaccibody HIV Ag/Ab Combo assay result andsupplemental assay results should be interpreted inconjunction with the patient's clinical presentation,history and other laboratory results. If the results areinconsistent with clinical evidence, additional testing issuggested to confirm the result. 02/03/2023 10:1 3 AM EDT 02/03/2023 11:57 AM EDT us Quiana Giron MD LAB BLOOD ORDERABLES Fin al Result [facility] [address] [place] [phone] [phone] from Last 3 Months or Most Recently Relevant [place] [id number] [facility] C3 DENTAL-[facility] MEDICAID STAND ADULT Care Teams Turning Sander Tender Relationship Specialty Start Date End Date Quiana Giron MD [address] [place] [phone] PCP - General Family Medicine 11/09/18 Erasmo Martinez 02/03/23
--- OUTSIDE RECORDS SUMMARY | 2024-08-27 13:23 | XMS_ITS | Encounter Summary ---
Author Organization [employer] Address [address] [facility] 7t [place] [address] Care Team Providers Care Glass Mould Cleaner Name Role Phone Quiana Giron MD Primary Care Provider + Reason for Visit * Reason Onset Date Comments Error 06/10/2023 Encounter Details Date Type Department Care Team ([facility] Contact Info) Description 06/10/2023 Telephone [facility] MEDICINE [address] [place], [place] [phone] Quiana Giron MD [address] [place], [place] [phone] Error Social History Tobacco Use Types Packs/Day Years [...] Info) Description 11/05/2024 10:00 AM EDT Telemedicine [facility] MEDICINE [address] [place] [phone] Jackelin Nma RN 11/18/2024 11:45 AM EDT Office Visit [facility] MEDICINE [address] [place] [phone] Quiana Giron MD [address] [place] [address] documented as of this encounter Visit Diagnoses Not on filedocumented in this encounter Care Teams Glass Mould Cleaner Relationship Specialty Start Date End Date Quiana Giron MD [address] [place] [phone] PCP - General Family Medicine 11/09/18 Jackelin Perez Adjunct Communications Faculty Member 03/25/23 06/25/23 Erasmo Martinez 02/03/23 documented as of this encounter
--- OUTSIDE RECORDS SUMMARY | 2024-08-27 13:23 | XMS_ITS | Encounter Summary ---
Author Organization [employer] Address [address] [facility] 7t [place] [address] Care Team Providers Care Airline Radio Operator Name Role Phone Quiana Giron MD Primary Care Provider + Reason for Visit * Reason Onset Date Comments Med Refill 03/24/2024 Encounter Details Date Type Department Care Team ([facility] st Contact Info) Description 03/24/2024 Telephone [facility] MEDICINE [address] [place], [place] [phone] Quiana Giron MD [address] [place] [address] Med Refill Social History Tobacco Use Types [...] the past 12 months, has t he Versie Christian [employer]ion, [employer], oil or water [employer] threatened to shut off services in your [...] encounter Miscellaneous Notes * Telephone Encounter - Lindsey Rodriguez LPN - 03/24/2024 11:29 AM EST Medication pended to PCP. * Telephone Encounter - Priya Allred - 03/24/2024 11:25 AM EST TC from pt requesting medication refill. Medications needing refill : famotidine (Pepcid) 20 MG tablet To be sent to: [facility]/pharmacy #[id number] - [place] - [address] documented in this encounter Plan of Treatment Upcoming Encounters Date Type Department Care Team (Late st Contact Info) Description 11/05/2024 10:00 AM EDT Telemedicine [facility] MEDICINE [address] [place] [phone] Jackelin Nam RN 11/18/2024 11:45 AM EDT Office Visit [facility] MEDICINE [address] [place] [address] [phone] Quiana Giron MD [address] [place], [place] [phone] documented as of this encounter Visit Diagnoses Not on filedocumented in this encounter Additional Health Concerns Assessment Noted Time PHQ-9 Depression Total Score: 9 07/23/19 24 10:38 AM EDT documented as of this encounter Care Teams Airline Radio Operator Relationship Specialty Start Date End Date Quiana Giron MD [address] [place] [address] PCP - General Family Medicine 11/09/18 Erasmo Martinez 02/03/23 documented as of this encounter
--- OUTSIDE RECORDS SUMMARY | 2024-08-27 13:23 | XMS_ITS | Encounter Summary ---
Author Organization [employer] Address [address] [place] [address] 7t [place] [address] Care Team Providers Care Inspector Bullet Slugs Name Role Phone Quiana Giron MD Primary Care Provider + Reason for Visit * Reason Comments Med Refill Encounter Details Date Type Department Care Team (Late Contact Info) Description 02/07/2023 Refill [facility] MEDICINE [address] [place] [address] [phone] Quiana Giron MD [address] [place] [phone] Generalized anxiety disorder Social History Tobacco Use [...] Info) Description 11/05/2024 10:00 AM EDT Telemedicine [facility] MEDICINE [address] [place] [phone] Jackelin Nam RN 11/18/2024 11:45 AM EDT Office Visit [facility] MEDICINE [address] [place] [address], [place] [address] Quiana Giron MD [address] [place] [address] documented as of this encounter Visit Diagnoses Diagnosis Generalized anxiety disorder documented in this encounter Care Teams Inspector Bullet Slugs Relationship Specialty Start Date End Date Quiana Giron MD [address] [place] [address] PCP - General Family Medicine 11/09/18 Jackelin Perez Cnc Service Engineer 03/25/23 06/25/23 Erasmo Martinez 02/03/23 documented as of this encounter
--- OUTSIDE RECORDS SUMMARY | 2024-08-27 13:24 | XMS_ITS | Encounter Summary ---
Author Organization [employer] Address [address] [facility] 7t [place] [address] Care Team Providers Care Homemaking Rehabilitation Consultant Name Role Phone Quiana Giron MD Primary Care Provider + Encounter Details Date Type Department Care Team ([facility] st Contact Info) Description 08/06/2023 Telephone [facility] MEDICINE [address] [place], [place] [phone] Quiana Giron MD [address] [place], [place] [phone] Social History Tobacco Use Types Packs/Day Years [...] Info) Description 11/05/2024 10:00 AM EDT Telemedicine [facility] MEDICINE [address] [place] [phone] Jackelin Nam RN 11/18/2024 11:45 AM EDT Office Visit [facility] MEDICINE [address] [place] [address] Quiana Giron MD [address] [place] [phone] documented as of this encounter Visit Diagnoses Not on filedocumented in this encounter Additional Health Concerns Assessment Noted Time PHQ-9 Depression Total Score: 9 07/23/19 24 10:38 AM EDT documented as of this encounter Care Teams Homemaking Rehabilitation Consultant Relationship Specialty Start Date End Date Quiana Giron MD [address] [place] [phone] PCP - General Family Medicine 11/09/18 Erasmo Martinez 02/03/23 documented as of this encounter
--- OUTSIDE RECORDS SUMMARY | 2024-08-27 13:24 | XMS_ITS | Encounter Summary ---
Author Organization [employer] Address [address] [facility] 7t [place] [address] Care Team Providers Care Call Center Director Name Role Phone Quiana Giron MD Primary Care Provider + Reason for Visit * Reason Onset Date Comments Med Refill 07/28/2023 Encounter Details Date Type Department Care Team ([facility] st Contact Info) Description 07/28/2023 Telephone [facility] MEDICINE [address] [place], [place] [phone] Quiana Giron MD [address] [place], [place] [phone] Med Refill Social History Tobacco Use Types [...] Telephone Encounter - Lindsey Rodriguez LPN - 07/28/2023 1:35 PM EDT Medication sent to [facility] #[id number] today. * Telephone Encounter - Annel Cruz - 07/28/2023 12:04 PM EDT TC from pt requesting medication refill. Medications needing refill : nicotine (Nicoderm CQ) 14 MG/24HR patch To be sent to: [facility]/pharmacy #[id number] - [place] - [address] [facility] documented in this encounter Plan of Treatment Upcoming Encounters Date Type Department Care Team (Late st Contact Info) Description 11/05/2024 10:00 AM EDT Telemedicine [facility] MEDICINE [address] [place] [address] [phone] Jackelin Nam RN 11/18/2024 11:45 AM EDT Office Visit [facility] MEDICINE [address] [place] [address] Quiana Giron MD [address] [place], [place] [phone] documented as of this encounter Visit Diagnoses Not on filedocumented in this encounter Additional Health Concerns Assessment Noted Time PHQ-9 Depression Total Score: 9 07/23/19 24 10:38 AM EDT documented as of this encounter Care Teams Call Center Director Relationship Specialty Start Date End Date Quiana Giron MD [address] [place] [address] PCP - General Family Medicine 11/09/18 Erasmo Martinez 02/03/23 documented as of this encounter
--- OUTSIDE RECORDS SUMMARY | 2024-08-27 13:24 | XMS_ITS | Encounter Summary ---
Author Organization [employer] Address [address] [facility] 7t [place] [address] Care Team Providers Care Law Office Manager Name Role Phone Quiana Giron MD Primary Care Provider + Reason for Visit * Reason Comments Med Refill Encounter Details Date Type Department Care Team ([facility] Contact Info) Description 03/31/2023 Refill [facility] ADULT DENTAL [address] [place], [place] [phone] Lazaro Parker, ANETA [address] [place] [address] Periodontal disease Social History Tobacco Use Types Packs/Day Years [...] encounter Miscellaneous Notes * Telephone Encounter - Lazaro Parker DMD - 03/31/2023 3:55 PM EST Approving, but needs appt for additional refills. documented in this encounter Plan of Treatment Upcoming Encounters Date Type Department Care Team (Late st Contact Info) Description 11/05/2024 10:00 AM EDT Telemedicine [facility] MEDICINE [address] [place] [phone] Jackelin Nam RN 11/18/2024 11:45 AM EDT Office Visit [facility] MEDICINE [address] [place] [phone] Quiana Giron MD [address] [place] [phone] documented as of this encounter Visit Diagnoses Diagnosis Periodontal disease Unspecified gingival and periodontal disease documented in this encounter Care Teams Law Office Manager Relationship Specialty Start Date End Date Quiana Giron MD [address] [place] [phone] PCP - General Family Medicine 11/09/18 Jackelin Perez Magnetic Tape Composer Operator 03/25/23 06/25/23 Erasmo Martinez 02/03/23 documented as of this encounter
--- OUTSIDE RECORDS SUMMARY | 2024-08-27 13:24 | XMS_ITS | Encounter Summary ---
Author Organization [employer] Address [address] [facility] 7t [place] [address] Care Team Providers Care Electrical System Specialist Name Role Phone Quiana Giron MD Primary Care Provider + Reason for Visit * Reason Comments Med Refill Encounter Details Date Type Department Care Team ([facility] Contact Info) Description 05/07/2024 Refill [facility] MEDICINE [address] [place], [place] [phone] Quiana Giron MD [address] [place] [address] Generalized anxiety disorder Social History Tobacco Use [...] Info) Description 11/05/2024 10:00 AM EDT Telemedicine [facility] MEDICINE [address] [place] [address] [phone] Jackelin Nam RN 11/18/2024 11:45 AM EDT Office Visit [facility] MEDICINE [address] [place] [phone] Quiana Giron MD [address] [place] [phone] documented as of this encounter Visit Diagnoses Diagnosis Generalized anxiety disorder documented in this encounter Additional Health Concerns Assessment Noted Time PHQ-9 Depression Total Score: 9 07/23/19 24 10:38 AM EDT documented as of this encounter Care Teams Electrical System Specialist Relationship Specialty Start Date End Date Quiana Giron MD [address] [place] [address] PCP - General Family Medicine 11/09/18 Erasmo Martinez 02/03/23 documented as of this encounter
--- OUTSIDE RECORDS SUMMARY | 2024-08-27 13:24 | XMS_ITS | Encounter Summary ---
Author Organization [employer] Address [address] [facility] 7t [place] [address] Care Team Providers Care Spinning Lathe Operator Hydraulic Name Role Phone Quiana Giron MD Primary Care Provider + Encounter Details Date Type Department Care Team ([facility] st Contact Info) Description 05/08/2023 Abstract [facility] MED[facility]INE [address] [place], [place] [phone] Quiana Giron MD [address] [place], [place] [phone] Social History Tobacco Use Types Packs/Day Years [...] EDT Telemedicine [facility] MED[facility]INE [address] [place] [address] Jackelin Nam RN 11/18/2024 11:45 AM EDT Office Visit [facility]INE [address] [place] [address] Quiana Giron MD [address] [place] [address] documented as of this encounter Visit Diagnoses Not on filedocumented in this encounter Care Teams Spinning Lathe Operator Hydraulic Relationship Specialty Start Date End Date Quiana Giron MD [address] [place] [address] PCP - General Family Medicine 11/09/18 Jackelin Perez Pulley Worker 03/25/23 06/25/23 Erasmo Martinez 02/03/23 documented as of this encounter
--- OUTSIDE RECORDS SUMMARY | 2024-08-27 13:24 | XMS_ITS | Encounter Summary ---
Author Organization [employer] Address [address] [facility] 7t [place] [address] Care Team Providers Care Supervisor Pullet Farm Name Role Phone Quiana Giron MD Primary Care Provider + Reason for Visit * Reason Onset Date Comments Med Refill 05/17/2024 Encounter Details Date Type Department Care Team ([facility] st Contact Info) Description 05/17/2024 Telephone [facility] MED[facility]INE [address] [place], [place] [phone] Quiana Giron MD 230 [place], [place] [phone] Med Refill Social History Tobacco Use Types [...] the past 12 months, has t he [employer], gas, oil or water [employer] threatened to shut off services in your [...] Telephone Encounter - Jackelin Nam RN - 05/17/2024 10:59 AM EST TC to [facility], spoke with Gabriela confirmed Dilaudid RX sent 05/14/24 was filled and picked up same day@ 7:010pm. Spoke with pharmacist Julio Cesar, who also confirmed the RX was picked up. By someone withinitials M.catherine TC to patient, patient confirms that his mother did pickup his dilaudid refill on 05/14/24. Pt statedhe had his pain medication all weekend and has no issue currently. * Telephone Encounter - Raji Palencia - 05/17/2024 10:47 AM EST TC from pt requesting medication refill. Medications needing refill : HYDROmorphone (Dilaudid) 4 MG tablet To be sent to: [facility] documented in this encounter Plan of Treatment Upcoming Encounters Date Type Department Care Team (Late st Contact Info) Description 11/05/2024 10:00 AM EDT Telemedicine [facility] [address] [place] [address] Jackelin Nam RN 11/18/2024 11:45 AM EDT Office Visit [facility] [address] [place] [address] Quiana Giron MD [address] [place] [address] documented as of this encounter Visit Diagnoses Not on filedocumented in this encounter Additional Health Concerns Assessment Noted Time PHQ-9 Depression Total Score: 9 07/23/19 24 10:38 AM EDT documented as of this encounter Care Teams Supervisor Pullet Farm Relationship Specialty Start Date End Date Quiana Giron MD [address] [place] [address] PCP - General Family Medicine 11/09/18 Erasmo Martinez 02/03/23 documented as of this encounter
--- OUTSIDE RECORDS SUMMARY | 2024-08-27 13:24 | XMS_ITS | Encounter Summary ---
Author Organization [employer] Address [address] [facility] 7t [place] [address] Care Team Providers Care Rehabilitation Center Manager Name Role Phone Quiana Giron MD Primary Care Provider + Reason for Visit * Reason Comments Med Refill Encounter Details Date Type Department Care Team ([facility] Contact Info) Description 05/17/2024 Refill [facility] MED[facility]INE [address] [place], [place] [phone] Quiana Giron MD 230 [place], [place] [phone] Multilevel degenerative joint disease of spine Social History Tobacco Use Types Packs/Day Years [...] Description 11/05/2024 10:00 AM EDT Telemedicine [facility] [address] [place] [address] Jackelin Nam RN 11/18/2024 11:45 AM EDT Office Visit [facility] [address] [place] [address] Quiana Giron MD [address] [place] [address] documented as of this encounter Visit Diagnoses Diagnosis Multilevel degenerative joint disease of spine documented in this encounter Additional Health Concerns Assessment Noted Time PHQ-9 Depression Total Score: 9 07/23/19 24 10:38 AM EDT documented as of this encounter Care Teams Rehabilitation Center Manager Relationship Specialty Start Date End Date Quiana Giron MD [address] [place] [address]683 PCP - General Family Medicine 11/09/18 Erasmo Martinez 02/03/23 documented as of this encounter
--- OUTSIDE RECORDS SUMMARY | 2024-08-27 13:24 | XMS_ITS | Encounter Summary ---
Author Organization [employer] Address [address] [facility] 7t [place] [address] Care Team Providers Care Wireless Communications Engineer Name Role Phone Quiana Giron MD Primary Care Provider + Reason for Visit * Reason Onset Date Comments Med Refill 09/03/2023 Encounter Details Date Type Department Care Team ([facility] st Contact Info) Description 09/03/2023 Telephone [facility]INE 230 [place], [place] [phone] Quiana Giron MD 230 [place], [place] [phone] Med Refill Social History Tobacco Use Types [...] encounter Miscellaneous Notes * Telephone Encounter - Jing Norris - 09/03/2023 12:17 PM EDT TC from pt requesting medication refill. Pt will run out tomorrow Medications needing refill : LORazepam (Ativan) 0.5 MG tablet To be sent to: [facility] #[id number] - [place] - [address] [facility] documented in this encounter Plan of Treatment Upcoming Encounters Date Type Department Care Team (Late st Contact Info) Description 11/05/2024 10:00 AM EDT Telemedicine [facility] MED[facility]INE [address] [place] [address] Jackelin Nam RN 11/18/2024 11:45 AM EDT Office Visit [facility] [address] [place] [address] Quiana Giron MD [address] [place] [phone] documented as of this encounter Visit Diagnoses Not on filedocumented in this encounter Additional Health Concerns Assessment Noted Time PHQ-9 Depression Total Score: 9 07/23/19 10:38 AM EDT documented as of this encounter Care Teams Wireless Communications Engineer Relationship Specialty Start Date End Date Quiana Giron MD [address] [place] [phone] PCP - General Family Medicine 11/09/18 Erasmo Martinez 02/03/23 documented as of this encounter
--- OUTSIDE RECORDS SUMMARY | 2024-08-27 13:24 | XMS_ITS | Encounter Summary ---
Author Organization [employer] Address [address] [facility] 7t [place] [address] Care Team Providers Care Surgical Garment Assembler Name Role Phone Quiana Giron MD Primary Care Provider + Reason for Visit * Reason Comments Med Refill Encounter Details Date Type Department Care Team ([facility] Contact Info) Description 05/13/2024 Refill [facility]INE 230 [place], [place] [phone] Quiana Giron MD 230 [place], [place] [phone] Multilevel degenerative joint disease of spine Social [...] Description 11/05/2024 10:00 AM EDT Telemedicine [facility] [address] [place] [phone] Jackelin Nam RN 11/18/2024 11:45 AM EDT Office Visit [facility] [address] [place] [address] Quiana Giron MD [address] [place] [phone] documented as of this encounter Visit Diagnoses Diagnosis Multilevel degenerative joint disease of spine documented in this encounter Additional Health Concerns Assessment Noted Time PHQ-9 Depression Total Score: 9 07/23/19 24 10:38 AM EDT documented as of this encounter Care Teams Surgical Garment Assembler Relationship Specialty Start Date End Date Quiana Giron MD [address] [place] [address] PCP - General Family Medicine 11/09/18 Erasmo Martinez 02/03/23 documented as of this encounter
--- OUTSIDE RECORDS SUMMARY | 2024-08-27 13:24 | XMS_ITS | Encounter Summary ---
Author Organization [employer] Address [address] [facility] [address] 7t [place] [address] Care Team Providers Care Chain Builder Loom Control Name Role Phone Quiana Giron MD Primary Care Provider + Encounter Details Date Type Department Care Team ([facility] st Contact Info) Description 03/07/[address] [facility] MEDICINE 230 [place], [place] [phone] Quiana Giron MD 230 [place], [place] [phone] Social History Tobacco Use Types Packs/Day Years [...] 11/05/2024 10:00 AM EDT Telemedicine [facility] MEDICINE [address] [place] [phone] Jackelin Nam RN 11/18/2024 11:45 AM EDT Office Visit [facility]INE [address] [place] [address] Quiana Giron MD [address] [place] [address] documented as of this encounter Visit Diagnoses Not on filedocumented in this encounter Care Teams Chain Builder Loom Control Relationship Specialty Start Date End Date Quiana Giron MD [address] [place] [address] PCP - General Family Medicine 11/09/18 Jackelin Perez Insurance Inspector 03/25/23 06/25/23 Erasmo Martinez 02/03/23 documented as of this encounter
--- OUTSIDE RECORDS SUMMARY | 2024-08-27 13:24 | XMS_ITS | Encounter Summary ---
Author Organization [employer] Address [address] [facility] 7t [place] [address] Care Team Providers Care Mill And Coal Transport Operator Name Role Phone Quiana Giron MD Primary Care Provider + Reason for Visit * Reason Onset Date Comments PT 1 03/04/2023 Encounter Details Date Type Department Care Team ([facility] Contact Info) Description 03/04/2023 Telephone [facility] MEDICINE 230 [place], [place] [phone] Quiana Giron MD 230 [place], [place] [phone] PT 1 Social History Tobacco Use Types Packs/Day Years [...] getting things needed for daily living? No 02/24/2023 Utilities Answer Date Recorded In the past [...] encounter Miscellaneous Notes * Telephone Encounter - Angel Shi - 03/04/2023 12:20 PM EDT Tc from Maria from [facility] on [facility] the home care scheduler requesting script for PT 1. *Please call Maria at [phone] or at documented in this encounter Plan of Treatment Upcoming Encounters Date Type Department Care Team (Late st Contact Info) Description 11/05/2024 10:00 AM EDT Telemedicine [facility] MEDICINE [address] [place] [phone] Jackelin Nam RN 11/18/2024 11:45 AM EDT Office Visit [facility] MED[facility]INE [address] [place] [address] Quiana Giron MD [address] [place] [address] documented as of this encounter Visit Diagnoses Not on filedocumented in this encounter Care Teams Mill And Coal Transport Operator Relationship Specialty Start Date End Date Quiana Giron MD [address] [place] [phone] PCP - General Family Medicine 11/09/18 Jackelin Perez Salvage Laborer 03/25/23 06/25/23 Erasmo Martinez 02/03/23 documented as of this encounter
--- OUTSIDE RECORDS SUMMARY | 2024-08-27 13:24 | XMS_ITS | Encounter Summary ---
Author Organization [employer] Address [address] [facility] 7t [place] [address] Care Team Providers Care Clinical Operations Leader Name Role Phone Quiana Giron MD Primary Care Provider + Encounter Details Date Type Department Care Team ([facility] st Contact Info) Description 05/17/2024 Orders Only [facility] MEDICINE [address] [place], [place] [phone] Quiana Giron MD 230 [place], [place] [phone] Social History Tobacco Use Types Packs/Day Years [...] 11/05/2024 10:00 AM EDT Telemedicine [facility] MEDICINE [address] [place] [address] Jackelin Nam RN 11/18/2024 11:45 AM EDT Office Visit [facility] MEDICINE [address] [place] [address] Quiana Giron MD [address] [place] [address] documented as of this encounter Visit Diagnoses Not on filedocumented in this encounter Additional Health Concerns Assessment Noted Time PHQ-9 Depression Total Score: 9 07/23/19 24 10:38 AM EDT documented as of this encounter Care Teams Clinical Operations Leader Relationship Specialty Start Date End Date Quiana Giron MD [address] [place] [address]32 PCP - General Family Medicine 11/09/18 Erasmo Martinez 02/03/23 documented as of this encounter
--- OUTSIDE RECORDS SUMMARY | 2024-08-27 13:24 | XMS_ITS | Clinical Summary ---
Author Organization Unknown Care Team Providers Care Director Of Integrated Marketing Name Role Phone LUIS ACRLOS MCCORD, ROBERTA Unavailable Unavailable ALYSE WOLF, GI Unavailable Unavailable TISH WOLF, RISHI Unavailable Unavailable Payers Payer Name Policy Type Policy Number Effective Date Expira tion Date MEDICAID [facility] [id number] Problems Condition Name Condition Details Condition Category [...] 00:00: 00 11-04 15:03 :21.2 73 No [id number] 2 capsule 4 TIMES A WEEK 2 capsule 4 TIMES A WEEK (route: oral) Med Classific ation: Analgesic , Anti-infl ammatory or Antipyret ic acetylcyste ine 200 mg/mL (20 %) solution 02-03 00:00: 00 07-01 23:59 :00 No [id number] 3 mL DAILY 3 mL DAILY (route: miscellane ous) Alternate Route: NEBULIZER . Med Classific ation: Respirato ry Therapy Agents albuterol sulfate 0.63 mg/3 mL solution for nebulizatio n 02-03 00:00: 00 09-14 23:59 :00 No [id number] 3 mL EVERY 4 HOURS 3 mL EVERY 4 HOURS (route: inhalation ) Alternate Route: NEBULIZER . Med Classific ation: Respirato ry Therapy Agents amlodipine 5 mg tablet 02-03 00:00: 00 Yes [id number] 5 mg DAILY 5 mg IAN Y (route: oral) Med Classific ation: Cardiovas cular Therapy Agents bisacodyl 10 mg rectal suppository 02-03 00:00: 00 09-14 23:59 :00 No [id number] 1 supposi tory, rectal DAILY 1 suppositor y, rectal DAILY (route: rectal) Med Classific ation: Gastroint estinal Therapy Agents clonidine HCl 0.1 mg tablet 02-03 00:00: 00 Yes [id number] 0.1 mg 2 TIMES DAILY 0.1 mg 2 TIMES DAILY (route: oral) Med Classific ation: Cardiovas cular Therapy Agents Dilaudid 2 mg tablet 02-03 00:00: 00 04-30 23:59 :00 No [id number] 2 mg DAILY 2 mg DAILY (route: oral) Med Classific ation: Analgesic , Anti-infl ammatory or Antipyret ic Dilaudid 2 mg tablet 02-03 00:00: 00 04-30 23:59 :00 No [id number] 2 mg 2 TIMES DAILY 2 mg 2 TIMES DAILY (route: oral) Med Classific ation: Analgesic , Anti-infl ammatory or Antipyret ic Dulera 200 mcg-5 mcg/actuati on HFA aerosol inhaler 02-03 00:00: 00 07-27 23:59 :00 No [id number] 2 puff EVERY 12 HOURS 2 puff EVERY 12 HOURS (route: inhalation ) Med Classific ation: Respirato ry Therapy Agents famotidine 20 mg tablet 02-03 00:00: 00 Yes [id number] 20 mg DAILY 20 mg DAILY (route: oral) Med Classific ation: Gastroint estinal Therapy Agents Fleet Enema 19 gram-7 gram/118 mL 02-03 00:00: 00 09-14 23:59 :00 No [id number] Per instruc tions DAILY Per instructio ns DAILY (route: rectal) Med Classific ation: Gastroint estinal Therapy Agents guaifenesin 400 mg tablet 02-03 00:00: 00 03-03 23:59 :00 No [id number] 400 mg 4 TIMES DAILY 400 mg 4 TIMES DAILY (route: oral) Med Classific ation: Respirato ry Therapy Agents ipratropium 0.5 mg-albutero l 3 mg (2.5 mg base)/3 mL nebulizatio n soln 02-03 00:00: 00 Yes [id number] 3 mL EVERY 6 HOURS 3 mL EVERY 6 HOURS (route: inhalation ) Med Classific ation: Respirato ry Therapy Agents lorazepam 0.5 mg tablet 02-03 00:00: 00 03-09 23:59 :00 No [id number] 0.5 mg DAILY 0.5 mg DAILY (route: oral) Med Classific ation: Central Nervous System Agents Methadose 10 mg/mL oral concentrate 02-03 00:00: 00 Yes [id number] 110 mg DAILY 110 mg DAILY (route: oral) Med Classific ation: Analgesic , Anti-infl ammatory or Antipyret ic naloxone 4 mg/actuatio n nasal spray 02-03 00:00: 00 Yes [id number] Per instruc tions NEEDED Per instructio ns NEEDED (route: nasal) Med Classific ation: Antidotes and other Reversal Agents Nicoderm CQ 21 mg/24 hr daily transdermal patch 02-03 00:00: 00 07-27 23:59 :00 No [id number] 1 patch, transde rmal 24 hours DAILY 1 patch, transderma l 24 hours DAILY (route: transderma l) Med Classific ation: Chemical Dependenc y, Agents to Treat Nicotrol 10 mg inhalation cartridge 02-03 00:00: 00 09-25 23:59 :00 No [id number] 10 mg EVERY 4 HOURS 10 mg EVERY 4 HOURS (route: inhalation ) Med Classific ation: Chemical Dependenc y, Agents to Treat sertraline 100 mg tablet 02-03 00:00: 00 03-11 14:40 :08 No [id number] 150 mg DAILY 150 mg DAILY (route: oral) Med Classific ation: Central Nervous System Agents trazodone 150 mg tablet 02-03 00:00: 00 04-30 23:59 :00 No [id number] 75 mg BEDTIME 75 mg BEDTIME (route: oral) Med Classific ation: Central Nervous System Agents trazodone 50 mg tablet 02-03 00:00: 00 Yes [id number] 25 mg 2 TIMES DAILY 25 mg 2 TIMES DAILY (route: oral) Med Classific ation: Central Nervous System Agents O2 - OXYGEN 02-03 00:00: 00 03-01 00:00 :00 No [id number] 5-6 Liter DAILY 5-6 Liter DAILY (route: Oxygen) Med Classific ation: Medical Oxygen lorazepam 0.5 mg tablet 01-10 00:00: 00 07-27 23:59 :00 No [id number] 0.5 mg 4 TIMES DAILY 0.5 mg 4 TIMES DAILY (route: oral) Med Classific ation: Central Nervous System Agents sertraline 20 mg/mL oral concentrate 01-29 00:00: 00 Yes [id number] 7.5 mg DAILY 7.5 mg DAILY (route: oral) Med Classific ation: Central Nervous System Agents clotrimazol e-betametha sone 1 %-0.05 % topical cream 2022-05 00:00: 00 Yes [id number] Per instruc tions 2 TIMES DAILY Per instructio ns 2 TIMES DAILY (route: topical) Med Classific ation: Dermatolo gical triamcinolo ne acetonide 0.1 % topical cream 2022-05 00:00: 00 Yes [id number] Per instruc tions 2 TIMES DAILY Per instructio ns 2 TIMES DAILY (route: topical) Med Classific ation: Dermatolo gical Dilaudid 4 mg tablet 2022-05 00:00: 00 09-04 23:59 :00 No [id number] 2 tablet 2 TIMES DAILY 2 tablet 2 TIMES DAILY (route: oral) Med Classific ation: Analgesic , Anti-infl ammatory or Antipyret ic Dilaudid 4 mg tablet 2022-05 2- 00:00: 00 09-04 23:59 :00 No [id number] 2 tablet DAILY 2 tablet DAILY (route: oral) Med Classific ation: Analgesic , Anti-infl ammatory or Antipyret ic trazodone 150 mg tablet 2022-05 2- 00:00: 00 Yes [id number] 1 tablet BEDTIME 1 tablet BEDTIME (route: oral) Med Classific ation: Central Nervous System Agents Ventolin HFA 90 mcg/actuati on aerosol inhaler 1-30 00:00: 00 Yes [id number] 2 puff EVERY 4 HOURS 2 puff EVERY 4 HOURS (route: inhalation ) Med Classific ation: Respirato ry Therapy Agents fluticasone propionate 50 mcg/actuati on nasal spray,suspe nsion 205 00:00: 00 Yes [id number] 1 spray EVERY AM 1 spray EVERY AM (route: nasal) Med Classific ation: Respirato ry Therapy Agents acetylcyste ine 200 mg/mL (20 %) solution 07-01 00:00: 00 Yes [id number] 3 mL DAILY 3 mL IAN Y (route: miscellane ous) Alternate Route: NEBULIZER . Med Classific ation: Respirato ry Therapy Agents Breo Ellipta 200 mcg-25 mcg/dose powder for inhalation 07-27 00:00: 00 Yes [id number] 1 inhalat ion DAILY 1 inhalation DAILY (route: inhalation ) Med Classific ation: Respirato ry Therapy Agents Incruse Ellipta 62.5 mcg/actuati on powder for inhalation 07-27 00:00: 00 Yes [id number] 1 inhalat ion DAILY 1 inhalation DAILY (route: inhalation ) Med Classific ation: Respirato ry Therapy Agents nicotine 14 mg/24 hr daily transdermal patch 18 00:00: 00 Yes [id number] 1 patch, transde rmal 24 hours DAILY 1 patch, transderma l 24 hours DAILY (route: transderma l) Med Classific ation: Chemical Dependenc y, Agents to Treat duloxetine 20 mg capsule,del ayed release 08-21 00:00: 00 09-04 23:59 :00 No [id number] 1 capsule DAILY 1 capsule DAILY (route: oral) Med Classific ation: Central Nervous System Agents fluocinolon e 0.01 % scalp oil and shower cap 08-13 00:00: 00 Yes [id number] Per instruc tions DAILY Per instructio ns DAILY (route: scalp) Med Classific ation: Dermatolo gical ketoconazol e 2 % shampoo 08-13 00:00: 00 Yes [id number] Per instruc tions 3 TIMES A WEEK Per instructio ns 3 TIMES A WEEK (route: topical) Med Classific ation: Dermatolo gical duloxetine 20 mg capsule,del ayed release 09-05 00:00: 00 11-03 23:59 :00 No [id number] 1 capsule 2 TIMES DAILY 1 capsule 2 TIMES DAILY (route: oral) Med Classific ation: Central Nervous System Agents hydromorpho ne 8 mg tablet 09-04 00:00: 00 10-02 23:59 :00 No [id number] 1 tablet 3 TIMES DAILY 1 tablet 3 TIMES DAILY (route: oral) Med Classific ation: Analgesic , Anti-infl ammatory or Antipyret ic methocarbam ol 750 mg tablet 09-25 00:00: 00 Yes [id number] 1 tablet EVERY 12 HOURS 1 tablet EVERY 12 HOURS (route: oral) Med Classific ation: Locomotor System ondansetron HCl 4 mg tablet 09-25 00:00: 00 Yes [id number] 1 tablet EVERY 6 HOURS 1 tablet EVERY 6 HOURS (route: oral) Med Classific ation: Gastroint estinal Therapy Agents hydromorpho ne 4 mg tablet 10-02 00:00: 00 06-11 23:59 :00 No [id number] 0.5 tablet 2 TIMES DAILY 0.5 tablet 2 TIMES DAILY (route: oral) Med Classific ation: Analgesic , Anti-infl ammatory or Antipyret ic acetaminoph en 500 mg tablet 11-04 00:00: 00 Yes [id number] for pain 2 tablet EVERY 8 HOURS 2 tablet EVERY 8 HOURS (route: oral) Med Classific ation: Analgesic , Anti-infl ammatory or Antipyret ic oxygen gas for inhalation 2023-05 0 00:00: 00 Yes [id number] 6 Liter O2 - CONTINUOUS 6 Liter O2 - CONTINUOUS (route: inhalation ) Med Classific ation: Medical Supplies and Durable Medical Equipment (DME) hydromorpho ne 4 mg tablet - 00:00: 00 Yes 0.5 tablet EVERY 12 HOURS 0.5 tablet EVERY 12 HOURS (route: oral) Med Classific ation: Analgesic , Anti-infl ammatory or Antipyret ic lorazepam 0.5 mg tablet 07-27 00:00: 00 Yes anxiety 1 tablet 3 TIMES DAILY 1 tablet 3 TIMES DAILY (route: oral) Med Classific ation: Central Nervous System Agents Vital Signs Vital Name Observation Time Observation Value Commen ts Temperature 2024-08-06 16:39:00.000 98.2 [degF] Pulse 2024-08-26 12:26:00.000 81 /min Pulse 2024-08-25 12:36:00.000 80 /min Pulse 2024-08-23 13:03:00.000 71 /min Pulse 2024-08-20 12:33:00.000 85 /min Pulse 2024-08-18 12:47:00.000 84 /min Pulse 2024-08-15 12:38:00.000 85 /min Pulse 2024-08-11 12:51:00.000 72 /min Pulse 2024-08-09 12:45:00.000 71 /min Pulse 2024-08-06 16:39:00.000 78 /min Pulse 2024-08-04 11:13:00.000 86 /min Pulse 2024-08-02 12:18:00.000 86 /min Pulse 2024-07-30 13:01:00.000 76 /min Pulse 2024-07-28 12:34:00.000 85 /min O2 Saturation (%) 2024-08-26 12:26:00.000 91 % O2 Saturation (%) 2024-08-25 12:36:00.000 92 % O2 Saturation (%) 2024-08-23 13:03:00.000 92 % O2 Saturation (%) 2024-08-20 12:33:00.000 91 % O2 Saturation (%) 2024-08-18 12:50:00.000 90 % O2 Saturation (%) 2024-08-15 12:38:00.000 91 % O2 Saturation (%) 2024-08-11 12:51:00.000 91 % O2 Saturation (%) 2024-08-09 12:45:00.000 91 % O2 Saturation (%) 2024-08-06 16:39:00.000 92 % O2 Saturation (%) 2024-08-04 11:13:00.000 91 % O2 Saturation (%) 2024-08-02 12:18:00.000 93 % O2 Saturation (%) 2024-07-28 12:34:00.000 93 % Systolic Blood Pressure 2024-08-26 12:26:00.000 125 mm [Hg] Systolic Blood Pressure 2024-08-25 12:36:00.000 119 mm [Hg] Systolic Blood Pressure 2024-08-23 13:03:00.000 101 mm [Hg] Systolic Blood Pressure 2024-08-20 12:33:00.000 117 mm [Hg] Systolic Blood Pressure 2024-08-18 12:47:00.000 117 mm [Hg] Systolic Blood Pressure 2024-08-15 12:38:00.000 108 mm [Hg] Systolic Blood Pressure 2024-08-11 12:51:00.000 106 mm [Hg] Systolic Blood Pressure 2024-08-09 12:45:00.000 117 mm [Hg] Systolic Blood Pressure 2024-08-06 16:39:00.000 114 mm [Hg] Systolic Blood Pressure 2024-08-04 11:13:00.000 119 mm [Hg] Systolic Blood Pressure 2024-08-02 12:18:00.000 114 mm [Hg] Systolic Blood Pressure 2024-07-30 13:01:00.000 108 mm [Hg] Systolic Blood Pressure 2024-07-28 12:34:00.000 131 mm [Hg] Diastolic Blood Pressure 2024-08-26 12:26:00.000 88 mm [Hg] Diastolic Blood Pressure 2024-08-25 12:36:00.000 87 mm [Hg] Diastolic Blood Pressure 2024-08-23 13:03:00.000 78 mm [Hg] Diastolic Blood Pressure 2024-08-20 12:33:00.000 70 mm [Hg] Diastolic Blood Pressure 2024-08-18 12:47:00.000 98 mm [Hg] Diastolic Blood Pressure 2024-08-15 12:38:00.000 69 mm [Hg] Diastolic Blood Pressure 2024-08-11 12:51:00.000 80 mm [Hg] Diastolic Blood Pressure 2024-08-09 12:45:00.000 72 mm [Hg] Diastolic Blood Pressure 2024-08-06 16:39:00.000 91 mm [Hg] Diastolic Blood Pressure 2024-08-04 11:13:00.000 83 mm [Hg] Diastolic Blood Pressure 2024-08-02 12:18:00.000 84 mm [Hg] Diastolic Blood Pressure 2024-07-30 13:01:00.000 82 mm [Hg] Diastolic Blood Pressure 2024-07-28 12:34:00.000 88 mm [Hg] Plan of Treatment Planned Activity [...] OF PATIENTS MENTAL/BEHAVIORAL STATUS, ASSESS VITAL SIGNS ALLOW 2 PRNS FOR MEDICATION MANAGEMENT. [code = SKILLED NURSE TO O/A OF PATIENTS MENTAL/BEHAVIORAL STATUS, ASSESS VITAL SIGNS ALLOW 2 PRNS FOR MEDICATION MANAGEMENT.] Future Scheduled Test SKILLED NU RSE MAY PICKUP AND TRANSPORT MEDICATIONS [code = SKILLED NURSE MAY PICKUP AND TRANSPORT MEDICATIONS] Future Scheduled Test MEDICATION S WILL BE HELD AND STORED IN LOCKBOX [code = MEDICATIONS WILL BE HELD AND STORED IN LOCKBOX] Future Scheduled Test SKILLED NU RSE FOR [...] Future Scheduled Test SKILLED NU RSE TO ADMINISTER MEDICATIONS PRN AND PRE-POUR MEDICATIONS DAILY M-, COVER WEEKEND PER MEDICATION LIST. [code = SKILLED NURSE TO ADMINISTER MEDICATIONS PRN AND PRE-POUR MEDICATIONS DAILY M-F, COVER WEEKEND PER MEDICATION LIST.] Future Scheduled Test SKILLED NU RSE FOR O/A OF SIGNS AND SYMPTOMS OF SUBSTANCE USE INCLUDING PARTICIPATION IN [facility] SPECIALTY PROGRAM. NURSE TO COLLABORATE WITH PATIENT AND COMMUNITY PROVIDERS IN THE DEVELOPMENT AND IMPLEMENTATION OF A TARGETED RECOVERY PLAN. [code = SKILLED NURSE FOR O/A OF SIGNS AND SYMPTOMS OF SUBSTANCE USE INCLUDING PARTICIPATION IN [facility] SPECIALTY PROGRAM. NURSE TO COLLABORATE WITH PATIENT AND COMMUNITY PROVIDERS IN THE DEVELOPMENT AND IMPLEMENTATION OF A TARGETED RECOVERY PLAN.] Future Scheduled Test SKILLED NU RSE TO PERFORM HOME SAFETY AND FALL ASSESSMENT AND PROVIDE INSTRUCTION TO IMPLEMENT HOME SAFETY AND FALL PREVENTION STRATEGIES. [code = SKILLED NURSE TO PERFORM HOME SAFETY AND FALL ASSESSMENT AND PROVIDE INSTRUCTION TO IMPLEMENT HOME SAFETY AND FALL PREVENTION STRATEGIES.] Future Scheduled Test SKILLED NU RSE FOR OBSERVATION AND ASSESSMENT OF PATIENTS PAIN LEVEL AND EFFECTIVENESS OF PAIN MANAGEMENT REGIMEN. SKILLED NURSE TO INSTRUCT PATIENT/CAREGIVER REGARDING PHARMACOLOGIC AND NON-PHARMACOLOGIC PAIN CONTROL MEASURES. SKILLED NURSE TO REPORT TO PHYSICIAN IF PAIN IS UNCONTROLLED WITH CURRENT PAIN MANAGEMENT REGIMEN. [code = SKILLED NURSE FOR OBSERVATION AND ASSESSMENT OF PATIENTS PAIN LEVEL AND EFFECTIVENESS OF PAIN MANAGEMENT REGIMEN. SKILLED NURSE TO INSTRUCT PATIENT/CAREGIVER REGARDING PHARMACOLOGIC AND NON-PHARMACOLOGIC PAIN CONTROL MEASURES. SKILLED NURSE TO REPORT TO PHYSICIAN IF PAIN IS UNCONTROLLED WITH CURRENT PAIN MANAGEMENT REGIMEN.] Future Scheduled Test SKILLED NU RSE TO INSTRUCT PATIENT/CAREGIVER ON COPD TO INCLUDE TEACHING AND SELF-MANAGEMENT RELATED TO COPD DISEASE PROCESS, SIGNS AND SYMPTOMS, AND COMPLICATIONS. [code = SKILLED NURSE TO INSTRUCT PATIENT/CAREGIVER ON COPD TO INCLUDE TEACHING AND SELF-MANAGEMENT RELATED TO COPD DISEASE PROCESS, SIGNS AND SYMPTOMS, AND COMPLICATIONS.] Future Scheduled Test SKILLED NU RSE WILL MAINTAIN SITUATIONAL AWARENESS FOR SAFETY AND WILL NOTIFY CLINICAL CHIEF OF STAFF AND PHYSICIAN/PROVIDER WITH ANY CHANGE IN CONDITION. [code = SKILLED NURSE WILL MAINTAIN SITUATIONAL AWARENESS FOR SAFETY AND WILL NOTIFY CLINICAL CHIEF OF STAFF AND PHYSICIAN/PROVIDER WITH ANY CHANGE IN CONDITION.] Goal 2023-03-31 Patient Goal - TO STAY [...] STAY RITA NG ON MY OWN Goal 2024-05-24 Patient Goal - TO STAY RITA NG ON MY OWN Goal 2024-07-23 Patient Goal - TO STAY RITA NG ON MY OWN Goal Patient Goal - TO STAY RITA NG ON MY OWN Goal Provider Goal - A PLAN OF CARE WILL BE ESTABLISHED THAT MEETS PATIENT'S DETENTION NEEDS AND INCLUDES PATIENT GOAL FOR HOME HEALTH. Goal Provider Goal - ALTERED MENTAL/BEHAVIORAL STATUS WILL BE IDENTIFIED PROMPTLY AND INTERVENTION INITIATED QUICKLY TO MINIMIZE ASSOCIATED RISKS THROUGHOUT CERTIFICATION PERIOD. Goal Provider Goal - SKILLED NURSE PICKED UP AND TRANSPORTED MEDICATIONS FOR SAFETY. Goal Provider Goal - MEDICATION WILL BE STORED IN LOCKBOX FOR SAFETY. Goal Provider Goal - CHANGE IN GENERAL HEALTH STATUS WILL BE IDENTIFIED AND REPORTED TO PHYSICIAN FOR PROMPT INTERVENTION TO MINIMIZE ASSOCIATED RISKS THROUGHOUT CERTIFICATION PERIOD. Goal Provider Goal - PATIENT WILL COMPLY WITH MEDICATION WHEN SKILLED NURSE ADMINISTERS AND PRE-POURS MEDICATION THROUGHOUT CERTIFICATION PERIOD. Goal Provider Goal - PATIENT WILL ACTIVELY PARTICIPATE IN AN ONGOING TARGETED RECOVERY PLAN THROUGHOUT CERTIFICATION PERIOD. Goal Provider Goal - PATIENT/CAREGIVER WILL VERBALIZE/DEMONSTRATE EFFECTIVE HOME SAFETY AND FALL PREVENTION STRATEGIES THROUGHOUT CERTIFICATION PERIOD. Goal Provider Goal - PATIENT/CAREGIVER WILL DEMONSTRATE UNDERSTANDING OF PHARMACOLOGIC AND NONPHARMACOLOGIC PAIN CONTROL MEASURES AND PATIENT WILL HAVE IMPROVEMENT IN PAIN INTERFERING WITH ACTIVITY EVIDENCED BY PAIN CONTROLLED AT LEVEL OF 5 OR LESS BY END OF CERTIFICATION PERIOD. Goal Provider Goal - PATIENT/CAREGIVER WILL VERBALIZE/DEMONSTRATE KNOWLEDGE AND MANAGEMENT OF COPD BY END OF EPISODE. Goal Provider Goal - PATIENT WILL REMAIN SAFE IN THE COMMUNITY AND WILL BE FREE OF DANGER TO SELF AND OTHERS THROUGHOUT THE CERTIFICATION PERIOD. Progress Notes Progress Notes <paragraph>[Visit Date: 2024 by GI CULLEN RN]:</paragraph><paragraph>PULMONOLOGY APPT ON 08/27/24</paragraph> Encounters Start Date/Time End Date/Time Encounter Type Admission Type Attending [facility] Facility Care Department Encounter ID Discharge Date Discharge Status Discharge Condition Discharge Reason Percent Goals Met 2023-02-03 00:00:00 2024-09-24 00:00:00 Outpatient RECERTIFIC ATION GI CULLEN [facility] [id number] 37.50
--- OUTSIDE RECORDS SUMMARY | 2024-08-27 13:24 | XMS_ITS | Encounter Summary ---
Author Organization [employer] Address [address] [facility] [address] [place] [address] Care Team Providers Care Pre Wave Assembler Name Role Phone Quiana Giron MD Primary Care Provider + Reason for Visit * Reason Onset Date Comments Med Refill 05/07/2023 Encounter Details Date Type Department Care Team ([facility] st Contact Info) Description 05/07/2023 Telephone [facility] [address] [place], [place] [phone] Quiana Giron MD [address] [place], [place] [phone] Med Refill Social History Tobacco Use Types [...] Telephone Encounter - Lindsey Rodriguez LPN - 05/07/2023 1:10 PM EST Pended request to PCP to review. * Telephone Encounter - Joselito Bailey - 05/07/2023 12:34 PM EST TC from pt requesting medication refill. Medications needing refill : traZODone (Desyrel) 50 MG tablet traZODone (Desyrel) 150 MG tablet ( states that medication was increased from 1/2 a tablet toa Full Tablet) sertraline (Zoloft) 20 MG/ML concentrated solution To be sent to: [facility]/pharmacy #[id number] - [place] - [address] [facility] documented in this encounter Plan of Treatment Upcoming Encounters Date Type Department Care Team ([facility] st Contact Info) Description 11/05/2024 10:00 AM EDT Telemedicine [facility] [address] [place] [phone] Jackelin Nam RN 11/18/2024 11:45 AM EDT Office Visit [facility] [address] [place] [address] [phone] Quiana Giron MD [address] [place], [place] [phone] documented as of this encounter Visit Diagnoses Not on filedocumented in this encounter Care Teams Pre Wave Assembler Relationship Specialty Start Date End Date Quiana Giron MD [address] [place] [phone] PCP - General Family Medicine 11/09/18 Jackelin Perez Ampoule Examiner 03/25/23 06/25/23 Erasmo Martinez 02/03/23 documented as of this encounter
--- OUTSIDE RECORDS SUMMARY | 2024-08-27 13:24 | XMS_ITS | Encounter Summary ---
Author Organization [employer] Address [address] [facility] [address] [place] [address] Care Team Providers Care Customs Broker Name Role Phone Quiana Giron MD Primary Care Provider + Reason for Visit * Reason Comments Med Refill Encounter Details Date Type Department Care Team ([facility] Contact Info) Description 07/28/2023 Refill [facility] [address] [place], [place] [phone] Quiana Giron MD [address] [place] [phone] Cigarette nicotine dependence with withdrawal Social History [...] [facility] [address] [place] [phone] Jackelin Nam RN 11/18/2024 11:45 AM EDT Office Visit [facility] [address] [place] [phone] Quiana Giron MD [address] [place] [phone] documented as of this encounter Visit Diagnoses Diagnosis Cigarette nicotine dependence with withdrawal documented in this encounter Additional Health Concerns Assessment Noted Time PHQ-9 Depression Total Score: 9 07/23/19 24 10:38 AM EDT documented as of this encounter Care Teams Customs Broker Relationship Specialty Start Date End Date Quiana Giron MD [address] [place] [phone] PCP - General Family Medicine 11/09/18 Erasmo Martinez 02/03/23 documented as of this encounter
--- OUTSIDE RECORDS SUMMARY | 2024-08-27 13:24 | XMS_ITS | Encounter Summary ---
Author Organization [employer] Address [address] [facility] [address] [place] [address] Care Team Providers Care Rolled Gold Plater Name Role Phone Quiana Giron MD Primary Care Provider + Reason for Visit * Reason Onset Date Comments Medication Question 09/01/2023 Encounter Details Date Type Department Care Team ([facility] Contact Info) Description 09/01/2023 Telephone [facility] [address] [place], [place] [phone] Quiana Giron MD [address] [place], [place] [phone] Medication Question Social History Tobacco Use Types Packs/Day Years [...] Telephone Encounter - Jackelin Nam RN - 09/01/2023 11:45 AM EDT TC to Mat. Patient was reminded of our conversation Friday regarding Dilaudid RX being sent to [facility]. Notified that the pharmacy has Dilaudid RX #21 tablets ready for him to pickup, which should last him until 09/05/23. Patient stated he will call his [facility] nurse Rhiannon and discuss who will pick it up him or her. * Telephone Encounter - Jackelin Nam RN - 09/01/2023 11:37 AM EDT TC to pharmacy, spoke with Tanisha, confirmed that Dilaudid from 08/29/23 was filled on 08/29/23 # 21 pills and has not been picked up yet. Requested pharmacy alert patient RX is ready for pickup. * Telephone Encounter - Roberto Wall - 09/01/2023 11:16 AM EDT Tc from Rhiannon with [facility] requesting call back regarding Dilaudid RX. Rhiannon stated there is an outage on Dilaudid RX and is requesting approval for methadone (Dolophine) 10 MG/ML solution or an alternative. Rhiannon also stated she needs a call back by today wants to make sure thereis no lapse In medication. Please contact Rhiannon at [phone]. documented in this encounter Plan of Treatment Upcoming Encounters Date Type Department Care Team (Late st Contact Info) Description 11/05/2024 10:00 AM EDT Telemedicine [facility] [address] [place] [phone] Jackelin Nam RN 11/18/2024 11:45 AM EDT Office Visit [facility] [address] [place] [phone] Quiana Giron MD [address] [place] [phone] documented as of this encounter Visit Diagnoses Not on filedocumented in this encounter Additional Health Concerns Assessment Noted Time PHQ-9 Depression Total Score: 9 07/23/19 24 10:38 AM EDT documented as of this encounter Care Teams Rolled Gold Plater Relationship Specialty Start Date End Date Quiana Giron MD [address] [place] [phone] PCP - General Family Medicine 11/09/18 Erasmo Martinez 02/03/23 documented as of this encounter
--- OUTSIDE RECORDS SUMMARY | 2024-08-27 13:24 | XMS_ITS | Encounter Summary ---
Author Organization [email or web address] Address 75 [facility] 7t [place] [address] Care Team Providers Care Room Clerk Name Role Phone Quiana Giron MD Primary Care Provider + Reason for Visit * Reason Comments Med Refill Encounter Details Date Type Department Care Team ([facility] Contact Info) Description 08/09/[address] [facility] MEDICINE [address] [place], [place] [phone] Quiana Giron MD [address] [place] [address] Multilevel degenerative joint disease of spine Social [...] 11/05/2024 10:00 AM EDT Telemedicine [facility] MEDICINE [address] [place] [address] [phone] Jackelin Nam RN 11/18/2024 11:45 AM EDT Office Visit [facility] MEDICINE [address] [place] [address] [phone] Quiana Giron MD [address] [place] [address] documented as of this encounter Visit Diagnoses Diagnosis Multilevel degenerative joint disease of spine documented in this encounter Additional Health Concerns Assessment Noted Time PHQ-9 Depression Total Score: 9 07/23/19 24 10:38 AM EDT documented as of this encounter Care Teams Room Clerk Relationship Specialty Start Date End Date Quiana Giron MD [address] [place] [phone] PCP - General Family Medicine 11/09/18 Erasmo Martinez 02/03/23 documented as of this encounter
--- OUTSIDE RECORDS SUMMARY | 2024-08-27 13:24 | XMS_ITS | Encounter Summary ---
Author Organization [employer] Address 75 [facility] 7t [place] [address] Care Team Providers Care Audio Video Repairer Name Role Phone Quiana Giron MD Primary Care Provider + Reason for Visit * Reason Onset Date Comments Call Back Request 03/26/2023 Encounter Details Date Type Department Care Team ([facility] Contact Info) Description 03/26/2023 Telephone [facility] MEDICINE [address] [place], [place] [phone] Quiana Giron MD [address] [place] [address] Call Back Request Social History Tobacco Use Types Packs/Day [...] * Telephone Encounter - Cat Mendez - 03/26/2023 4:15 PM EST Tc from pt requesting a call back in regards paperwork. documented in this encounter Plan of Treatment Upcoming Encounters Date Type Department Care Team (Late st Contact Info) Description 11/05/2024 10:00 AM EDT Telemedicine [facility] MEDICINE [address] [place] [address] [phone] Jackelin Nam RN 11/18/2024 11:45 AM EDT Office Visit [facility] MEDICINE [address] [place] [phone] Quiana Giron MD [address] [place] [phone] documented as of this encounter Visit Diagnoses Not on filedocumented in this encounter Care Teams Audio Video Repairer Relationship Specialty Start Date End Date Quiana Giron MD [address] [place] [address] PCP - General Family Medicine 11/09/18 Jackelin Perez Technical Rep 03/25/23 06/25/23 Erasmo Martinez 02/03/23 documented as of this encounter
--- OUTSIDE RECORDS SUMMARY | 2024-08-27 13:24 | XMS_ITS | Clinical Summary ---
Author Organization Unknown Care Team Providers Care Rickshaw Driver Name Role Phone LUIS CARLOS MCCORD, ROBERTA Unavailable Unavailable ALYSE WOLF, GI Unavailable Unavailable TISH WOLF, RISHI Unavailable Unavailable Payers Payer Name Policy Type Policy Number Effective Date Expira tion Date MEDICAID [facility] [id number] Problems Condition Name Condition Details Condition Category [...] 00:00: 00 11-04 15:03 :21.2 73 No [id number] 2 capsule 4 TIMES A WEEK 2 capsule 4 TIMES A WEEK (route: oral) Med Classific ation: Analgesic , Anti-infl ammatory or Antipyret ic acetylcyste ine 200 mg/mL (20 %) solution 02-03 00:00: 00 07-01 23:59 :00 No [id number] 3 mL DAILY 3 mL DAILY (route: miscellane ous) Alternate Route: NEBULIZER . Med Classific ation: Respirato ry Therapy Agents albuterol sulfate 0.63 mg/3 mL solution for nebulizatio n 02-03 00:00: 00 09-14 23:59 :00 No [id number] 3 mL EVERY 4 HOURS 3 mL EVERY 4 HOURS (route: inhalation ) Alternate Route: NEBULIZER . Med Classific ation: Respirato ry Therapy Agents amlodipine 5 mg tablet 02-03 00:00: 00 Yes [id number] 5 mg DAILY 5 mg IAN Y (route: oral) Med Classific ation: Cardiovas cular Therapy Agents bisacodyl 10 mg rectal suppository 02-03 00:00: 00 09-14 23:59 :00 No [id number] 1 supposi tory, rectal DAILY 1 suppositor y, rectal DAILY (route: rectal) Med Classific ation: Gastroint estinal Therapy Agents clonidine HCl 0.1 mg tablet 02-03 00:00: 00 Yes [id number] 0.1 mg 2 TIMES DAILY 0.1 mg 2 TIMES DAILY (route: oral) Med Classific ation: Cardiovas cular Therapy Agents Dilaudid 2 mg tablet 02-03 00:00: 00 04-30 23:59 :00 No [id number] 2 mg DAILY 2 mg DAILY (route: oral) Med Classific ation: Analgesic , Anti-infl ammatory or Antipyret ic Dilaudid 2 mg tablet 02-03 00:00: 00 04-30 23:59 :00 No [id number] 2 mg 2 TIMES DAILY 2 mg 2 TIMES DAILY (route: oral) Med Classific ation: Analgesic , Anti-infl ammatory or Antipyret ic Dulera 200 mcg-5 mcg/actuati on HFA aerosol inhaler 02-03 00:00: 00 07-27 23:59 :00 No [id number] 2 puff EVERY 12 HOURS 2 puff EVERY 12 HOURS (route: inhalation ) Med Classific ation: Respirato ry Therapy Agents famotidine 20 mg tablet 02-03 00:00: 00 Yes [id number] 20 mg DAILY 20 mg DAILY (route: oral) Med Classific ation: Gastroint estinal Therapy Agents Fleet Enema 19 gram-7 gram/118 mL 02-03 00:00: 00 09-14 23:59 :00 No [id number] Per instruc tions DAILY Per instructio ns DAILY (route: rectal) Med Classific ation: Gastroint estinal Therapy Agents guaifenesin 400 mg tablet 02-03 00:00: 00 03-03 23:59 :00 No [id number] 400 mg 4 TIMES DAILY 400 mg 4 TIMES DAILY (route: oral) Med Classific ation: Respirato ry Therapy Agents ipratropium 0.5 mg-albutero l 3 mg (2.5 mg base)/3 mL nebulizatio n soln 02-03 00:00: 00 Yes [id number] 3 mL EVERY 6 HOURS 3 mL EVERY 6 HOURS (route: inhalation ) Med Classific ation: Respirato ry Therapy Agents lorazepam 0.5 mg tablet 02-03 00:00: 00 03-09 23:59 :00 No [id number] 0.5 mg DAILY 0.5 mg DAILY (route: oral) Med Classific ation: Central Nervous System Agents Methadose 10 mg/mL oral concentrate 02-03 00:00: 00 Yes [id number] 110 mg DAILY 110 mg DAILY (route: oral) Med Classific ation: Analgesic , Anti-infl ammatory or Antipyret ic naloxone 4 mg/actuatio n nasal spray 02-03 00:00: 00 Yes [id number] Per instruc tions NEEDED Per instructio ns NEEDED (route: nasal) Med Classific ation: Antidotes and other Reversal Agents Nicoderm CQ 21 mg/24 hr daily transdermal patch 02-03 00:00: 00 07-27 23:59 :00 No [id number] 1 patch, transde rmal 24 hours DAILY 1 patch, transderma l 24 hours DAILY (route: transderma l) Med Classific ation: Chemical Dependenc y, Agents to Treat Nicotrol 10 mg inhalation cartridge 02-03 00:00: 00 09-25 23:59 :00 No [id number] 10 mg EVERY 4 HOURS 10 mg EVERY 4 HOURS (route: inhalation ) Med Classific ation: Chemical Dependenc y, Agents to Treat sertraline 100 mg tablet 02-03 00:00: 00 03-11 14:40 :08 No [id number] 150 mg DAILY 150 mg DAILY (route: oral) Med Classific ation: Central Nervous System Agents trazodone 150 mg tablet 02-03 00:00: 00 04-30 23:59 :00 No [id number] 75 mg BEDTIME 75 mg BEDTIME (route: oral) Med Classific ation: Central Nervous System Agents trazodone 50 mg tablet 02-03 00:00: 00 Yes [id number] 25 mg 2 TIMES DAILY 25 mg 2 TIMES DAILY (route: oral) Med Classific ation: Central Nervous System Agents O2 - OXYGEN 02-03 00:00: 00 03-01 00:00 :00 No [id number] 5-6 Liter DAILY 5-6 Liter DAILY (route: Oxygen) Med Classific ation: Medical Oxygen lorazepam 0.5 mg tablet 01-10 00:00: 00 07-27 23:59 :00 No [id number] 0.5 mg 4 TIMES DAILY 0.5 mg 4 TIMES DAILY (route: oral) Med Classific ation: Central Nervous System Agents sertraline 20 mg/mL oral concentrate 01-29 00:00: 00 Yes [id number] 7.5 mg DAILY 7.5 mg DAILY (route: oral) Med Classific ation: Central Nervous System Agents clotrimazol e-betametha sone 1 %-0.05 % topical cream 2022-05 00:00: 00 Yes [id number] Per instruc tions 2 TIMES DAILY Per instructio ns 2 TIMES DAILY (route: topical) Med Classific ation: Dermatolo gical triamcinolo ne acetonide 0.1 % topical cream 2022-05 00:00: 00 Yes [id number] Per instruc tions 2 TIMES DAILY Per instructio ns 2 TIMES DAILY (route: topical) Med Classific ation: Dermatolo gical Dilaudid 4 mg tablet 2022-05 00:00: 00 09-04 23:59 :00 No [id number] 2 tablet 2 TIMES DAILY 2 tablet 2 TIMES DAILY (route: oral) Med Classific ation: Analgesic , Anti-infl ammatory or Antipyret ic Dilaudid 4 mg tablet 2022-05 2- 00:00: 00 09-04 23:59 :00 No [id number] 2 tablet DAILY 2 tablet DAILY (route: oral) Med Classific ation: Analgesic , Anti-infl ammatory or Antipyret ic trazodone 150 mg tablet 2022-05 2- 00:00: 00 Yes [id number] 1 tablet BEDTIME 1 tablet BEDTIME (route: oral) Med Classific ation: Central Nervous System Agents Ventolin HFA 90 mcg/actuati on aerosol inhaler 1-30 00:00: 00 Yes [id number] 2 puff EVERY 4 HOURS 2 puff EVERY 4 HOURS (route: inhalation ) Med Classific ation: Respirato ry Therapy Agents fluticasone propionate 50 mcg/actuati on nasal spray,suspe nsion 205 00:00: 00 Yes [id number] 1 spray EVERY AM 1 spray EVERY AM (route: nasal) Med Classific ation: Respirato ry Therapy Agents acetylcyste ine 200 mg/mL (20 %) solution 07-01 00:00: 00 Yes [id number] 3 mL DAILY 3 mL IAN Y (route: miscellane ous) Alternate Route: NEBULIZER . Med Classific ation: Respirato ry Therapy Agents Breo Ellipta 200 mcg-25 mcg/dose powder for inhalation 07-27 00:00: 00 Yes [id number] 1 inhalat ion DAILY 1 inhalation DAILY (route: inhalation ) Med Classific ation: Respirato ry Therapy Agents Incruse Ellipta 62.5 mcg/actuati on powder for inhalation 07-27 00:00: 00 Yes [id number] 1 inhalat ion DAILY 1 inhalation DAILY (route: inhalation ) Med Classific ation: Respirato ry Therapy Agents nicotine 14 mg/24 hr daily transdermal patch 18 00:00: 00 Yes [id number] 1 patch, transde rmal 24 hours DAILY 1 patch, transderma l 24 hours DAILY (route: transderma l) Med Classific ation: Chemical Dependenc y, Agents to Treat duloxetine 20 mg capsule,del ayed release 08-21 00:00: 00 09-04 23:59 :00 No [id number] 1 capsule DAILY 1 capsule DAILY (route: oral) Med Classific ation: Central Nervous System Agents fluocinolon e 0.01 % scalp oil and shower cap 08-13 00:00: 00 Yes [id number] Per instruc tions DAILY Per instructio ns DAILY (route: scalp) Med Classific ation: Dermatolo gical ketoconazol e 2 % shampoo 08-13 00:00: 00 Yes [id number] Per instruc tions 3 TIMES A WEEK Per instructio ns 3 TIMES A WEEK (route: topical) Med Classific ation: Dermatolo gical duloxetine 20 mg capsule,del ayed release 09-05 00:00: 00 11-03 23:59 :00 No [id number] 1 capsule 2 TIMES DAILY 1 capsule 2 TIMES DAILY (route: oral) Med Classific ation: Central Nervous System Agents hydromorpho ne 8 mg tablet 09-04 00:00: 00 10-02 23:59 :00 No [id number] 1 tablet 3 TIMES DAILY 1 tablet 3 TIMES DAILY (route: oral) Med Classific ation: Analgesic , Anti-infl ammatory or Antipyret ic methocarbam ol 750 mg tablet 09-25 00:00: 00 Yes [id number] 1 tablet EVERY 12 HOURS 1 tablet EVERY 12 HOURS (route: oral) Med Classific ation: Locomotor System ondansetron HCl 4 mg tablet 09-25 00:00: 00 Yes [id number] 1 tablet EVERY 6 HOURS 1 tablet EVERY 6 HOURS (route: oral) Med Classific ation: Gastroint estinal Therapy Agents hydromorpho ne 4 mg tablet 10-02 00:00: 00 06-11 23:59 :00 No [id number] 0.5 tablet 2 TIMES DAILY 0.5 tablet 2 TIMES DAILY (route: oral) Med Classific ation: Analgesic , Anti-infl ammatory or Antipyret ic acetaminoph en 500 mg tablet 11-04 00:00: 00 Yes [id number] pain 2 tablet EVERY 8 HOURS 2 tablet EVERY 8 HOURS (route: oral) Med Classific ation: Analgesic , Anti-infl ammatory or Antipyret ic oxygen gas for inhalation 2023-05 0 00:00: 00 Yes [id number] 6 Liter O2 - CONTINUOUS 6 Liter [...] SYMPTOMS OF SUBSTANCE USE INCLUDING PARTICIPATION IN [facility] SPECIALTY PROGRAM. NURSE TO COLLABORATE WITH PATIENT AND COMMUNITY PROVIDERS IN THE DEVELOPMENT AND IMPLEMENTATION OF A TARGETED RECOVERY PLAN. [code = SKILLED NURSE FOR O/A OF SIGNS AND SYMPTOMS OF SUBSTANCE USE INCLUDING PARTICIPATION IN [facility] SPECIALTY PROGRAM. NURSE TO COLLABORATE WITH PATIENT [...] AWARENESS FOR SAFETY AND WILL NOTIFY CLINICAL FIRE ENGINE PUMP OPERATOR AND PHYSICIAN/PROVIDER WITH ANY CHANGE IN CONDITION. [code = SKILLED NURSE WILL MAINTAIN SITUATIONAL AWARENESS FOR SAFETY AND WILL NOTIFY CLINICAL FIRE ENGINE PUMP OPERATOR AND PHYSICIAN/PROVIDER WITH ANY CHANGE IN CONDITION.] [...] CARE WILL BE ESTABLISHED THAT MEETS PATIENT'S JAIL NEEDS AND INCLUDES PATIENT GOAL FOR HOME [...] End Date/Time Encounter Type Admission Type Attending [facility] Facility Care Department Encounter ID Discharge Date Discharge Status Discharge Condition Discharge Reason Percent Goals Met 2023-02-03 00:00:00 2024-09-24 00:00:00 Outpatient RECERTIFIC ATION [facility] [id number] 37.50
--- OUTSIDE RECORDS SUMMARY | 2024-08-27 13:24 | XMS_ITS | Encounter Summary ---
Author Organization [employer] Address 75 [facility] 7t [place] [address] Care Team Providers Care Fiber Optic Technician Name Role Phone Quiana Giron MD Primary Care Provider + Reason for Visit * Reason Comments Med Refill Encounter Details Date Type Department Care Team ([facility] Contact Info) Description 11/27/2023 Refill [facility] MEDICINE [address] [place], [place] [phone] Quiana Giron MD [address] [place], [place] [phone] Generalized anxiety disorder Social History Tobacco Use [...] AM EDT Telemedicine [facility] MEDICINE [address] [place] [phone] Jackelin Nam RN 11/18/2024 11:45 AM EDT Office Visit [facility] MEDICINE [address] [place] [address] Quiana Giron MD [address] [place] [address] 6[address] documented as of this encounter Visit Diagnoses Diagnosis Generalized anxiety disorder documented in this encounter Additional Health Concerns Assessment Noted Time PHQ-9 Depression Total Score: 9 07/23/19 24 10:38 AM EDT documented as of this encounter Care Teams Fiber Optic Technician Relationship Specialty Start Date End Date Quiana Giron MD [address] [place] [address] [phone] PCP - General Family Medicine 11/09/18 Erasmo Martinez 02/03/23 documented as of this encounter
--- OUTSIDE RECORDS SUMMARY | 2024-08-27 13:24 | XMS_ITS | Encounter Summary ---
Author Organization [employer] Address 75 [facility] 7t [place] [address] Care Team Providers Care Shipping/Receiving Manager Name Role Phone Quiana Giron MD Primary Care Provider + Reason for Visit * Reason Comments Med Refill Encounter Details Date Type Department Care Team ([facility] Contact Info) Description 04/18/2023 Refill [facility] MEDICINE [address] [place], [place] [phone] Quiana Giron MD [address] [place] [address] Cigarette nicotine dependence in remission Social History Tobacco Use Types Packs/Day Years [...] Info) Description 11/05/2024 10:00 AM EDT Telemedicine [facility] MEDICINE [address] [place] [address] [phone] Jackelin Nam RN 11/18/2024 11:45 AM EDT Office Visit [facility] MEDICINE [address] [place] [address] 69859 Quiana Giron MD [address] [place] [address] 52817 documented as of this encounter Visit Diagnoses Diagnosis Cigarette nicotine dependence in remission documented in this encounter Care Teams Shipping/Receiving Manager Relationship Specialty Start Date End Date Quiana Giron MD [address] [place] [address] [phone] PCP - General Family Medicine 11/09/18 Jackelin Perez Field Training Manager 03/25/23 06/25/23 Erasmo Martinez 02/03/23 documented as of this encounter
--- OUTSIDE RECORDS SUMMARY | 2024-08-27 13:24 | XMS_ITS | Encounter Summary ---
Author Organization [employer] Address 75 [facility] 7t [place] [address] Care Team Providers Care Teachers Assistant Name Role Phone Quiana Giron MD Primary Care Provider + Reason for Visit * Reason Comments Med Refill Encounter Details Date Type Department Care Team ([facility] Contact Info) Description 04/26/2024 Refill [facility] MEDICINE [address] [place], [place] [phone] Quiana Giron MD [address] [place] [address] Generalized anxiety disorder Social History Tobacco Use [...] Info) Description 11/05/2024 10:00 AM EDT Telemedicine [facility] MEDICINE [address] [place] [phone] Jackelin Nam RN 11/18/2024 11:45 AM EDT Office Visit [facility] MEDICINE [address] [place] [address] Quiana Giron MD [address] [place] [address] 8[address] documented as of this encounter Visit Diagnoses Diagnosis Generalized anxiety disorder documented in this encounter Additional Health Concerns Assessment Noted Time PHQ-9 Depression Total Score: 9 07/23/19 24 10:38 AM EDT documented as of this encounter Care Teams Teachers Assistant Relationship Specialty Start Date End Date Quiana Giron MD [address] [place] [phone] PCP - General Family Medicine 11/09/18 Erasmo Martinez 02/03/23 documented as of this encounter
--- OUTSIDE RECORDS SUMMARY | 2024-08-27 13:24 | XMS_ITS | Encounter Summary ---
Author Organization [employer] Address 75 [facility] 7t [place] [address] Care Team Providers Care Diesel Tractor Engine Mechanic Name Role Phone Quiana Giron MD Primary Care Provider + Reason for Visit * Reason Comments Med Refill Encounter Details Date Type Department Care Team ([facility] st Contact Info) Description 03/07/2023 Refill [facility] [address] [place] [address] Reagan Espinoza, DMD [address] [place] [address] Periodontal disease Social History Tobacco Use Types [...] Telephone Encounter - Lazaro Parker DMD - 03/07/2023 1:02 PM EDT Approving, but needs appt for additional refills. documented in this encounter Plan of Treatment Upcoming Encounters Date Type Department Care Team (Late st Contact Info) Description 11/05/2024 10:00 AM EDT Telemedicine [facility] MEDICINE [address] [place] [address] [phone] Jackelin Nam RN 11/18/2024 11:45 AM EDT Office Visit [facility] MEDICINE [address] [place] [address] [phone] Quiana Giron MD [address] [place] [phone] documented as of this encounter Visit Diagnoses Diagnosis Periodontal disease Unspecified gingival and periodontal disease documented in this encounter Care Teams Diesel Tractor Engine Mechanic Relationship Specialty Start Date End Date Quiana Giron MD [address] [place] [phone] PCP - General Family Medicine 11/09/18 Jackelin Perez Teller Vault 03/25/23 06/25/23 Erasmo Martinez 02/03/23 documented as of this encounter
--- OUTSIDE RECORDS SUMMARY | 2024-08-27 13:24 | XMS_ITS | Encounter Summary ---
Author Organization [employer] Address 75 [facility] 7t [place] [address] Care Team Providers Care Player Piano Technician Name Role Phone Quiana Giron MD Primary Care Provider + Encounter Details Date Type Department Care Team (Late st Contact Info) Description 03/03/2023 Abstract [facility] MED[facility] 230 [place], [place] [phone] Quiana Giron MD [address] [place], [place] [phone] Social History Tobacco Use Types Packs/Day Years Used Date Smoking Tobacco: Never Smokeless Tobacco: Never Alcohol Use Standard Drinks/Week Comments Never 0 (1 standard drink = 0.6 oz pur e alcohol) PHQ-2 Answer Date Recorded Patient Health Questionnaire-2 Score 0 01/31/2023 Housing Stability Answer Date Recorded What is your housing situation today? I have jitendralori ramsey 02/24/[address] you [...] Info) Description 11/05/2024 10:00 AM EDT Telemedicine [facility] [address] [place] [phone] Jackelin Nam RN 11/18/2024 11:45 AM EDT Office Visit [facility] [address] [place] [phone] Quiana Giron MD [address] [place] [phone] documented as of this encounter Visit Diagnoses Not on filedocumented in this encounter Care Teams Player Piano Technician Relationship Specialty Start Date End Date Quiana Giron MD [address] [place] [address] [phone] PCP - General Family Medicine 11/09/18 Jackelin Perez Extension Edger 03/25/23 06/25/23 Erasmo Martinez 02/03/23 documented as of this encounter
== END 2024-08-27 14:03 | disposition home or self-care (01) ==
LOC: HO.HPSW 12:51
PROVIDERS: PCP Internal Medicine; Visit Provider Nurse Practitioner Family
DX: J96.11 Chronic respiratory failure with hypoxia (principal); J44.9 Chronic obstructive pulmonary disease, unspecified

== ENCOUNTER 2024-08-27 12:50 | Outpatient (REF) | payer MEDICAID, SELFPAY | END 2024-08-27 12:51 | disposition home or self-care (01) | LOC: HO.LNP 12:50 | PROVIDERS: PCP Internal Medicine; Visit Provider Nurse Practitioner Family | DX: J44.9 Chronic obstructive pulmonary disease, unspecified (principal); Z99.81 Dependence on supplemental oxygen; J96.11 Chronic respiratory failure with hypoxia; R91.1 Solitary pulmonary nodule | CPT/HCPCS: 87070; 87205; 94640; 99212 ==

== ENCOUNTER 2024-11-19 14:18 | Outpatient (REF) | payer MEDICAID, SELFPAY ==
--- OUTSIDE RECORDS SUMMARY | 2024-11-19 14:21 | XMS_ITS | Encounter Summary ---
Author Organization [employer] Address [address] [facility] 7t [place] [address] Care Team Providers Care Director Of Content And Programming Name Role Phone Quiana Giron MD Primary Care Provider + Reason for Visit * Reason Comments Med Refill Encounter Details Date Type Department Care Team ([facility] st Contact Info) Description 07/23/2023 Refill [facility] [address] [place], [place] [phone] Quiana Giron MD [address] [place], [place] [phone] Cigarette nicotine dependence with withdrawal Social History [...] AM EDT documented as of this encounter Functional Status * Over the past 2 weeks, how often have you been bothered by any of the following problems? Question Answer Date of Assessment Author Patient Health Questionnaire -2 Score 4 07/23/2023 10:38 AM EDT Satnam Morales * If you checked off any problems on this questionnaire so far, Question Answer Date of Assessment Author How difficult have these problems made it for you to do your work, take care of things at home, or get along with other people? Very difficult 07/23/2023 10:38 AM JASWINDERT Andree Morales * Over the past 2 weeks, how often have you been bothered by any of the following problems? Question Answer Date of Assessment Author Little interest or pleasure in doing things More than half the days 07/23/2023 10:38 AM Andree Agudelo Feeling down, depressed, or hopeless More than half the days 07/23/2023 10:38 AM Andree Agudelo Trouble falling or staying asleep, or sleeping too much Several days 07/23/2023 10:38 AM Andree Agudelo Feeling tired or having little energy More than half the days 07/23/2023 10:38 AM Andree Agudelo Poor appetite or overeating Not at all 07/23/2023 10:38 AM Andree Agudelo Feeling bad about yourself - or that you are a failure or have let yourself or your family down Not at all 07/23/2023 10:38 AM EDT Andree Morales Trouble concentrating on things, such as reading the newspaper or watching television Several days 07/23/2023 10:38 AM EDT Andree Morales Moving or speaking so slowly that other people could have noticed? Or the opposite - being so fidgety or restless that you have been moving around a lot more than usual. Several days 07/23/2023 10:38 AM EDT Andree Morales Thoughts that you would be better off or hurting yourself in some way Not at all 07/23/2023 10:38 AM EDT Andree Morales Patient Health Questionnaire-9 Score 9 07/23/2023 10:38 AM EDT Andree Morales documented as of this encounter Plan of Treatment Upcoming Encounters Date Type Department Care Team (Late st Contact Info) Description 12/20/2024 1:00 PM EDT Clinical Support [facility] [address] [place] [phone] Jackelin Nam RN 12/31/2024 9:15 AM EDT Office Visit [facility] [address] [place] [phone] Quiana Giron MD [address] [place] [phone] documented as of this encounter Visit Diagnoses Diagnosis Cigarette nicotine dependence with withdrawal documented in this encounter Additional Health Concerns Assessment Noted Time PHQ-9 Depression Total Score: 9 07/23/19 24 10:38 AM EDT documented as of this encounter Care Teams Director Of Content And Programming Relationship Specialty Start Date End Date Quiana Giron MD [address] [place] [address] PCP - General Family Medicine 11/09/18 Erasmo Martinez 02/03/23 documented as of this encounter
[2024-11-19 16:16] LABS: Hematocrit 35.3 % (42.0-52.0); Hemoglobin 11.6 g/dl (14.0-18.0); Mean Corpuscular HGB Conc 32.9 g/dl (31.0-36.0); Mean Corpuscular Hemoglobin 28.2 pg (27.0-33.0); Mean Corpuscular Volume 85.9 fL (80.0-98.0); NRBC Abs Auto 0.000 X10*3/uL (0.0-0.012); NRBC Pct Auto 0.0 /100WBC (0.0-0.2); Platelet Count 210 X10*3/uL (160-400); Red Blood Count 4.11 X10*6/uL (4.60-5.80); White Blood Count 6.0 X10*3/uL (4.8-10.8)
[2024-11-19 16:42] LABS: Alanine Aminotransferase 44 U/L (0-40); Albumin Level 4.4 g/dL (3.5-5.0); Alkaline Phosphatase 106 U/L (39-117); Anion Gap 9 (12-20); Aspartate Amino Transferase 39 U/L (5-37); Blood Urea Nitrogen 12 mg/dL (9-16); Calcium 9.0 mg/dL (8.4-10.2); Carbon Dioxide 37 mmol/L (22-29); Chloride 95 mmol/L (96-108); Estimated Glomerular Filt Rate > 60; Potassium 4.9 mmol/L (3.3-5.1); Sodium 136 mmol/L (135-145); Total Protein 7.4 g/dL (6.5-8.0)
[2024-11-20 08:27] LABS: Syphilis Screen Nonreactive (Nonreactive)
[2024-11-20 08:57] LABS: HBsAGNum1 0.29 S/CO (0.00-0.99); HIV Num 1 0.09 S/CO (0.00-0.99); Hepatitis B Surface Antigen Negative (Negative); ~HepC Num1 13.10 S/CO (0.00-0.79); ~Hepatitis C Antibody Reactive (Nonreactive)
[2024-11-22 16:51] LABS: Iron 31 mcg/dL (45-160); Percent Iron Saturation 11 % (15-50); Total Iron Binding Capacity 286 mcg/dL (228-428); Unsaturated Iron Binding 255 ug/dL
[2024-11-22 17:06] LABS: Ferritin 143 ng/mL (20-250)
[2024-11-22 18:48] LABS: Folate 12.4 ng/mL (> or = 4.0); Vitamin B12 453 pg/mL (200-900)
[2024-11-24 12:18] LABS: HCV Log PCR 3.99 Log IU/mL (NOT DETECTED); HepC Viral Load 9700 IU/mL (NOT DETECTED)
[2024-11-27 21:59] LABS: Varicella Zoster Rapid Culture NOT ISOLATED; Varicella Zoster Source SWAB
== END 2024-11-19 14:19 | disposition home or self-care (01) ==
LOC: HO.HHCL 14:18
PROVIDERS: PCP Internal Medicine; Visit Provider Student in an Organized Health Care Education/Training Program
DX: L13.0 Dermatitis herpetiformis (principal)
CPT/HCPCS: 36415; 80053; 82607; 82728; 82746; 83540; 85027; 86780; 86803; 87254; 87255; 87340; 87389; 87522

== ENCOUNTER 2024-12-20 13:47 | Outpatient (REF) | payer MEDICAID, SELFPAY ==
--- OUTSIDE RECORDS SUMMARY | 2024-12-20 14:12 | XMS_ITS | Encounter Summary ---
Author Organization [employer] Address [address] [facility] 7t [place] [address] Care Team Providers Care Instant Print Operator Name Role Phone Quiana Giron MD Primary Care Provider + Reason for Visit * Reason Comments Med Refill Encounter Details Date Type Department Care Team ([facility] st Contact Info) Description 07/23/2023 Refill [facility] [address] [place], [place] [phone] Quiana Giron MD [address] [place], [place] [phone] Cigarette nicotine dependence with withdrawal Social History [...] Care Team (Late st Contact Info) Description 12/31/2024 9:15 AM EDT Office Visit [facility] [address] [place] [phone] Quiana Giron MD [address] [place] [phone] 02/25/2025 10:30 AM EDT Telemedicine [facility] [address] [place] [phone] Jackelin Nam, RN documented as of this encounter Visit Diagnoses Diagnosis Cigarette nicotine dependence with withdrawal documented in this encounter Additional Health Concerns Assessment Noted Time PHQ-9 Depression Total Score: 9 07/23/19 24 10:38 AM EDT documented as of this encounter Care Teams Instant Print Operator Relationship Specialty Start Date End Date Quiana Giron MD [address] [place] [phone] PCP - General Family Medicine 11/09/18 Erasmo Martinez 02/03/23 documented as of this encounter
[2024-12-20 16:20] LABS: INTERNATIONAL NORM RATIO 0.9 (0.9-1.1); Prothrombin Time 10.6 SEC (10.9-12.4)
[2024-12-20 16:46] LABS: Iron 54 mcg/dL (45-160); Percent Iron Saturation 19 % (15-50); Total Iron Binding Capacity 289 mcg/dL (228-428); Unsaturated Iron Binding 235 ug/dL
[2024-12-20 16:48] LABS: Ferritin 122 ng/mL (20-250)
[2024-12-21 08:53] LABS: HBS Num1 442.86 mIU/mL (0-7.99); HBc Num1 0.25 S/CO (0.00-0.79); ~Hepatitis B Surface Antibody REACTIVE (Nonreactive)
[2024-12-24 03:35] LABS: ~Hepatitis A Antibody IgG 0.48 S/CO (0.00-0.99)
[2024-12-24 15:08] LABS: FIB-ALT 25 U/L (9-46); FIB-Alpha-2-Macroglobulin 137 mg/dL (106-279); FIB-Apolipoprotein A1 175 mg/dL (94-176); FIB-GGT 12 U/L (3-95); FIB-Haptoglobin 105 mg/dL (43-212); FIB-Total Bilirubin 0.3 mg/dL (0.2-1.2); Liver Fibrosis Score 0.04; Liver Fibrosis Stage F0; Nec Inflam Act Grade A0; Nec Inflam Act Score 0.08
--- OUTSIDE RECORDS SUMMARY | 2025-01-21 20:00 | XMS_ITS | Clinical Summary ---
Author Organization Unknown Care Team Providers Care Boiler Coverer Name Role Phone LUIS CARLOS MCCORD, ROBERTA Unavailable Unavailable ALYSE WOLF, GI Unavailable Unavailable TISH WOLF, RISHI Unavailable Unavailable Payers Payer Name Policy Type Policy Number Effective Date Expira tion Date MEDICAID [facility] [id number] Problems Condition Name Condition Details Condition Category [...] 00:00: 00 11-04 15:03 :21.2 73 No [id number] 2 capsule 4 TIMES A WEEK 2 capsule 4 TIMES A WEEK (route: oral) Med Classific ation: Analgesic , Anti-infl ammatory or Antipyret ic acetylcyste ine 200 mg/mL (20 %) solution 02-03 00:00: 00 07-01 23:59 :00 No [id number] 3 mL DAILY 3 mL DAILY (route: miscellane ous) Alternate Route: NEBULIZER . Med Classific ation: Respirato ry Therapy Agents albuterol sulfate 0.63 mg/3 mL solution for nebulizatio n 02-03 00:00: 00 09-14 23:59 :00 No [id number] 3 mL EVERY 4 HOURS 3 mL EVERY 4 HOURS (route: inhalation ) Alternate Route: NEBULIZER . Med Classific ation: Respirato ry Therapy Agents amlodipine 5 mg tablet 02-03 00:00: 00 Yes [id number] 5 mg DAILY 5 mg IAN Y (route: oral) Med Classific ation: Cardiovas cular Therapy Agents bisacodyl 10 mg rectal suppository 02-03 00:00: 00 09-14 23:59 :00 No [id number] 1 supposi tory, rectal DAILY 1 suppositor y, rectal DAILY (route: rectal) Med Classific ation: Gastroint estinal Therapy Agents clonidine HCl 0.1 mg tablet 02-03 00:00: 00 Yes [id number] 0.1 mg 2 TIMES DAILY 0.1 mg 2 TIMES DAILY (route: oral) Med Classific ation: Cardiovas cular Therapy Agents Dilaudid 2 mg tablet 02-03 00:00: 00 04-30 23:59 :00 No [id number] 2 mg DAILY 2 mg DAILY (route: oral) Med Classific ation: Analgesic , Anti-infl ammatory or Antipyret ic Dilaudid 2 mg tablet 02-03 00:00: 00 04-30 23:59 :00 No [id number] 2 mg 2 TIMES DAILY 2 mg 2 TIMES DAILY (route: oral) Med Classific ation: Analgesic , Anti-infl ammatory or Antipyret ic Dulera 200 mcg-5 mcg/actuati on HFA aerosol inhaler 02-03 00:00: 00 07-27 23:59 :00 No [id number] 2 puff EVERY 12 HOURS 2 puff EVERY 12 HOURS (route: inhalation ) Med Classific ation: Respirato ry Therapy Agents famotidine 20 mg tablet 02-03 00:00: 00 Yes [id number] 20 mg DAILY 20 mg DAILY (route: oral) Med Classific ation: Gastroint estinal Therapy Agents Fleet Enema 19 gram-7 gram/118 mL 02-03 00:00: 00 09-14 23:59 :00 No [id number] Per instruc tions DAILY Per instructio ns DAILY (route: rectal) Med Classific ation: Gastroint estinal Therapy Agents guaifenesin 400 mg tablet 02-03 00:00: 00 03-03 23:59 :00 No [id number] 400 mg 4 TIMES DAILY 400 mg 4 TIMES DAILY (route: oral) Med Classific ation: Respirato ry Therapy Agents ipratropium 0.5 mg-albutero l 3 mg (2.5 mg base)/3 mL nebulizatio n soln 02-03 00:00: 00 Yes [id number] 3 mL EVERY 6 HOURS 3 mL EVERY 6 HOURS (route: inhalation ) Med Classific ation: Respirato ry Therapy Agents lorazepam 0.5 mg tablet 02-03 00:00: 00 03-09 23:59 :00 No [id number] 0.5 mg DAILY 0.5 mg DAILY (route: oral) Med Classific ation: Central Nervous System Agents Methadose 10 mg/mL oral concentrate 02-03 00:00: 00 Yes [id number] 110 mg DAILY 110 mg DAILY (route: oral) Med Classific ation: Analgesic , Anti-infl ammatory or Antipyret ic naloxone 4 mg/actuatio n nasal spray 02-03 00:00: 00 Yes [id number] Per instruc tions NEEDED Per instructio ns NEEDED (route: nasal) Med Classific ation: Antidotes and other Reversal Agents Nicoderm CQ 21 mg/24 hr daily transdermal patch 02-03 00:00: 00 07-27 23:59 :00 No [id number] 1 patch, transde rmal 24 hours DAILY 1 patch, transderma l 24 hours DAILY (route: transderma l) Med Classific ation: Chemical Dependenc y, Agents to Treat Nicotrol 10 mg inhalation cartridge 02-03 00:00: 00 09-25 23:59 :00 No [id number] 10 mg EVERY 4 HOURS 10 mg EVERY 4 HOURS (route: inhalation ) Med Classific ation: Chemical Dependenc y, Agents to Treat sertraline 100 mg tablet 02-03 00:00: 00 03-11 14:40 :08 No [id number] 150 mg DAILY 150 mg DAILY (route: oral) Med Classific ation: Central Nervous System Agents trazodone 150 mg tablet 02-03 00:00: 00 04-30 23:59 :00 No [id number] 75 mg BEDTIME 75 mg BEDTIME (route: oral) Med Classific ation: Central Nervous System Agents trazodone 50 mg tablet 02-03 00:00: 00 Yes [id number] 25 mg 2 TIMES DAILY 25 mg 2 TIMES DAILY (route: oral) Med Classific ation: Central Nervous System Agents O2 - OXYGEN 02-03 00:00: 00 03-01 00:00 :00 No [id number] 5-6 Liter DAILY 5-6 Liter DAILY (route: Oxygen) Med Classific ation: Medical Oxygen lorazepam 0.5 mg tablet 01-10 00:00: 00 07-27 23:59 :00 No [id number] 0.5 mg 4 TIMES DAILY 0.5 mg 4 TIMES DAILY (route: oral) Med Classific ation: Central Nervous System Agents sertraline 20 mg/mL oral concentrate 01-29 00:00: 00 Yes [id number] 7.5 mg DAILY 7.5 mg DAILY (route: oral) Med Classific ation: Central Nervous System Agents clotrimazol e-betametha sone 1 %-0.05 % topical cream 2022-05 00:00: 00 Yes [id number] Per instruc tions 2 TIMES DAILY Per instructio ns 2 TIMES DAILY (route: topical) Med Classific ation: Dermatolo gical triamcinolo ne acetonide 0.1 % topical cream 2022-05 00:00: 00 Yes [id number] Per instruc tions 2 TIMES DAILY Per instructio ns 2 TIMES DAILY (route: topical) Med Classific ation: Dermatolo gical Dilaudid 4 mg tablet 2022-05 00:00: 00 09-04 23:59 :00 No [id number] 2 tablet 2 TIMES DAILY 2 tablet 2 TIMES DAILY (route: oral) Med Classific ation: Analgesic , Anti-infl ammatory or Antipyret ic Dilaudid 4 mg tablet 2022-05 2- 00:00: 00 09-04 23:59 :00 No [id number] 2 tablet DAILY 2 tablet DAILY (route: oral) Med Classific ation: Analgesic , Anti-infl ammatory or Antipyret ic trazodone 150 mg tablet 2022-05 2- 00:00: 00 Yes [id number] 1 tablet BEDTIME 1 tablet BEDTIME (route: oral) Med Classific ation: Central Nervous System Agents Ventolin HFA 90 mcg/actuati on aerosol inhaler 1-30 00:00: 00 Yes [id number] 2 puff EVERY 4 HOURS 2 puff EVERY 4 HOURS (route: inhalation ) Med Classific ation: Respirato ry Therapy Agents fluticasone propionate 50 mcg/actuati on nasal spray,suspe nsion 205 00:00: 00 Yes [id number] 1 spray EVERY AM 1 spray EVERY AM (route: nasal) Med Classific ation: Respirato ry Therapy Agents acetylcyste ine 200 mg/mL (20 %) solution 07-01 00:00: 00 Yes [id number] 3 mL DAILY 3 mL IAN Y (route: miscellane ous) Alternate Route: NEBULIZER . Med Classific ation: Respirato ry Therapy Agents Breo Ellipta 200 mcg-25 mcg/dose powder for inhalation 07-27 00:00: 00 Yes [id number] 1 inhalat ion DAILY 1 inhalation DAILY (route: inhalation ) Med Classific ation: Respirato ry Therapy Agents Incruse Ellipta 62.5 mcg/actuati on powder for inhalation 07-27 00:00: 00 Yes [id number] 1 inhalat ion DAILY 1 inhalation DAILY (route: inhalation ) Med Classific ation: Respirato ry Therapy Agents nicotine 14 mg/24 hr daily transdermal patch 18 00:00: 00 Yes [id number] 1 patch, transde rmal 24 hours DAILY 1 patch, transderma l 24 hours DAILY (route: transderma l) Med Classific ation: Chemical Dependenc y, Agents to Treat duloxetine 20 mg capsule,del ayed release 08-21 00:00: 00 09-04 23:59 :00 No [id number] 1 capsule DAILY 1 capsule DAILY (route: oral) Med Classific ation: Central Nervous System Agents fluocinolon e 0.01 % scalp oil and shower cap 08-13 00:00: 00 Yes [id number] Per instruc tions DAILY Per instructio ns DAILY (route: scalp) Med Classific ation: Dermatolo gical ketoconazol e 2 % shampoo 08-13 00:00: 00 Yes [id number] Per instruc tions 3 TIMES A WEEK Per instructio ns 3 TIMES A WEEK (route: topical) Med Classific ation: Dermatolo gical duloxetine 20 mg capsule,del ayed release 09-05 00:00: 00 11-03 23:59 :00 No [id number] 1 capsule 2 TIMES DAILY 1 capsule 2 TIMES DAILY (route: oral) Med Classific ation: Central Nervous System Agents hydromorpho ne 8 mg tablet 09-04 00:00: 00 10-02 23:59 :00 No 1 tablet 3 TIMES DAILY 1 tablet 3 TIMES DAILY (route: oral) Med Classific ation: Analgesic , Anti-infl ammatory or Antipyret ic methocarbam ol 750 mg tablet 09-25 00:00: 00 Yes [id number] 1 tablet EVERY 12 HOURS 1 tablet EVERY 12 HOURS (route: oral) Med Classific ation: Locomotor System ondansetron HCl 4 mg tablet 09-25 00:00: 00 Yes [id number] 1 tablet EVERY 6 HOURS 1 tablet EVERY 6 HOURS (route: oral) Med Classific ation: Gastroint estinal Therapy Agents hydromorpho ne 4 mg tablet 10-02 00:00: 00 06-11 23:59 :00 No [id number] 0.5 tablet 2 TIMES DAILY 0.5 tablet 2 TIMES DAILY (route: oral) Med Classific ation: Analgesic , Anti-infl ammatory or Antipyret ic acetaminoph en 500 mg tablet 11-04 00:00: 00 Yes [id number] for pain 2 tablet EVERY 8 HOURS 2 tablet EVERY 8 HOURS (route: oral) Med Classific ation: Analgesic , Anti-infl ammatory or Antipyret ic oxygen gas for inhalation 2023-05 0 00:00: 00 Yes [id number] 6 Liter O2 - CONTINUOUS 6 Liter O2 - CONTINUOUS (route: inhalation ) Med Classific ation: Medical Supplies and Durable Medical Equipment (DME) hydromorpho ne 4 mg tablet 1- 00:00: 00 Yes [id number] 0.5 tablet EVERY 12 HOURS 0.5 tablet EVERY 12 HOURS (route: oral) Med Classific ation: Analgesic , Anti-infl ammatory or Antipyret ic lorazepam 0.5 mg tablet 07-27 00:00: 00 Yes [id number] anxiety 1 tablet 3 TIMES DAILY 1 tablet 3 TIMES DAILY (route: oral) Med Classific ation: Central Nervous System Agents ferrous gluconate 324 mg (37.5 mg iron) tablet 12-13 00:00: 00 Yes [id number] 1 tablet DAILY 1 tablet DAILY (route: oral) Med Classific ation: Electroly te Balance-N utritiona l Products Vitamin C 250 mg tablet 12-13 00:00: 00 Yes [id number] 1 tablet DAILY 1 tablet DAILY (route: oral) Med Classific ation: Electroly te Balance-N utritiona l Products Vital Signs Vital Name Observation Time Observation Value Commen ts Temperature 2024-12-10 13:09:00.000 98.8 [degF] Pulse 2024-12-17 12:56:00.000 81 /min Pulse 2024-12-13 12:55:00.000 72 /min Pulse 2024-12-10 13:09:00.000 67 /min Pulse 2024-12-06 10:26:00.000 84 /min Pulse 2024-12-03 13:53:00.000 93 /min Pulse 2024-11-26 13:58:00.000 84 /min O2 Saturation (%) 2024-12-17 12:56:00.000 92 % O2 Saturation (%) 2024-12-13 12:55:00.000 93 % O2 Saturation (%) 2024-12-10 13:09:00.000 92 % O2 Saturation (%) 2024-12-03 13:52:00.000 98 % O2 Saturation (%) 2024-11-29 14:34:00.000 98 % O2 Saturation (%) 2024-11-26 13:58:00.000 94 % Respirations 2024-12-06 10:26:00.000 16 /min Respirations 2024-11-29 14:34:00.000 12 /min Respirations 2024-11-26 13:58:00.000 12 /min Systolic Blood Pressure 2024-12-17 12:56:00.000 107 mm [Hg] Systolic Blood Pressure 2024-12-13 12:55:00.000 106 mm [Hg] Systolic Blood Pressure 2024-12-10 13:09:00.000 99 mm[ Hg] Systolic Blood Pressure 2024-12-06 10:26:00.000 110 mm [Hg] Systolic Blood Pressure 2024-11-26 13:58:00.000 130 mm [Hg] Diastolic Blood Pressure 2024-12-17 12:56:00.000 81 mm [Hg] Diastolic Blood Pressure 2024-12-13 12:55:00.000 82 mm [Hg] Diastolic Blood Pressure 2024-12-10 13:09:00.000 76 mm [Hg] Diastolic Blood Pressure 2024-12-06 10:26:00.000 68 mm [Hg] Diastolic Blood Pressure 2024-11-26 13:58:00.000 80 mm [Hg] Plan of Treatment Planned Activity [...] Future Scheduled Test SKILLED NU RSE TO ASSESS PATIENT'S SKIN INTEGRITY AND INSTRUCT PATIENT/CAREGIVER ON MEASURES TO PREVENT PRESSURE ULCERS. [code = SKILLED NURSE TO ASSESS PATIENT'S SKIN INTEGRITY AND INSTRUCT PATIENT/CAREGIVER ON MEASURES TO PREVENT PRESSURE ULCERS.] Future Scheduled Test PATIENT MANCILLA S A RISK OF HOSPITALIZATION AND ED USE. SKILLED NURSE TO ESTABLISH SUPPORT MEASURES TO MINIMIZE RISK OF HOSPITALIZATION AND ED USE, AND INSTRUCT PATIENT/CAREGIVER ON METHODS TO REDUCE AVOIDABLE HOSPITALIZATION AND ED USE. [code = PATIENT HAS A RISK OF HOSPITALIZATION AND ED USE. SKILLED NURSE TO ESTABLISH SUPPORT MEASURES TO MINIMIZE RISK OF HOSPITALIZATION AND ED USE, AND INSTRUCT PATIENT/CAREGIVER ON METHODS TO REDUCE AVOIDABLE HOSPITALIZATION AND ED USE.] Future Scheduled Test SKILLED NU RSE TO O/A OF PATIENTS MENTAL/BEHAVIORAL STATUS, ASSESS VITAL SIGNS EVERY VISIT 2 TIMES A WEEK ALLOW 2 PRNS FOR MEDICATION MANAGEMENT. [code = SKILLED NURSE TO O/A OF PATIENTS MENTAL/BEHAVIORAL STATUS, ASSESS VITAL SIGNS EVERY VISIT 2 TIMES A WEEK ALLOW 2 PRNS FOR MEDICATION MANAGEMENT.] Future Scheduled Test SKILLED NU RSE WILL MAINTAIN SITUATIONAL AWARENESS FOR SAFETY AND WILL NOTIFY CLINICAL PIPE FITTINGS MOLDER AND PHYSICIAN/PROVIDER WITH ANY CHANGE IN CONDITION. [code = SKILLED NURSE WILL MAINTAIN SITUATIONAL AWARENESS FOR SAFETY AND WILL NOTIFY CLINICAL PIPE FITTINGS MOLDER AND PHYSICIAN/PROVIDER WITH ANY CHANGE IN CONDITION.] [...] PROBLEMS.] Future Scheduled Test SKILLED NU RSE PRE-POUR MEDICATIONS TWICE WEEKLY PER MEDICATION LIST. [code = SKILLED NURSE PRE-POUR MEDICATIONS TWICE WEEKLY PER MEDICATION LIST.] Future Scheduled Test PATIENT NAVI Y HAVE ONE SET OF EMERGENCY MEDICATION [...] SAFETY.] Future Scheduled Test SKILLED NU RSE TO ASSESS PATIENTS PSYCHOSOCIAL STATUS TO IDENTIFY POTENTIAL ISSUES THAT MAY COMPLICATE THE PROVISION OF THE PLAN OF CARE INCLUDING THE PATIENTS ABILITY TO ACCESS COMMUNITY RESOURCES AND PSYCHOSOCIAL SUPPORT SERVICES. [code = SKILLED NURSE TO ASSESS PATIENTS PSYCHOSOCIAL STATUS TO IDENTIFY POTENTIAL ISSUES THAT MAY COMPLICATE THE PROVISION OF THE PLAN OF CARE INCLUDING THE PATIENTS ABILITY TO ACCESS COMMUNITY RESOURCES AND PSYCHOSOCIAL SUPPORT SERVICES.] Future Scheduled Test MEDICATION S WILL BE HELD AND STORED IN LOCKBOX [code = MEDICATIONS WILL BE HELD AND STORED IN LOCKBOX] Future Scheduled Test OXYGEN VIA NASAL CANNULA @ 6L CONTINUOUS. SKILLED NURSE FOR O/A AND SKILLED TEACHING OF SAFE OXYGEN USE IN THE HOME. [code = OXYGEN VIA NASAL CANNULA @ 6L CONTINUOUS. SKILLED NURSE FOR O/A AND SKILLED TEACHING OF SAFE OXYGEN USE IN THE HOME.] Goal 2024-03-24 Patient Goal - TO STAY RITA NG ON MY OWN Goal 2024-05-24 Patient Goal - TO STAY RITA NG ON MY OWN Goal 2024-07-23 Patient Goal - TO STAY RITA NG ON MY OWN Goal 2024-09-20 Patient Goal - TO STAY RITA NG ON MY OWN Goal 2024-11-19 Patient Goal - TO STAY RITA NG [...] STAY RITA NG ON MY OWN Goal 2023-03-31 Patient Goal - TO STAY RITA NG ON MY OWN Goal Provider Goal - A PLAN OF CARE WILL BE ESTABLISHED THAT MEETS PATIENT'S INTERMEDIATE NEEDS AND INCLUDES PATIENT GOAL FOR HOME HEALTH. Goal Provider Goal - PATIENT/CAREGIVER WILL VERBALIZE/DEMONSTRATE EFFECTIVE HOME SAFETY AND FALL PREVENTION STRATEGIES THROUGHOUT CERTIFICATION PERIOD. Goal Provider Goal - PATIENT/CAREGIVER WILL DEMONSTRATE UNDERSTANDING OF PHARMACOLOGIC AND NONPHARMACOLOGIC PAIN CONTROL MEASURES AND PATIENT WILL HAVE IMPROVEMENT IN PAIN INTERFERING WITH ACTIVITY EVIDENCED BY PAIN AT A LEVEL THAT IS ACCEPTABLE TO THE PATIENT AND PAIN LEVEL WITHIN ESTABLISHED PARAMETERS BY END OF CERTIFICATION PERIOD. Goal Provider Goal - PATIENT/CAREGIVER WILL VERBALIZE UNDERSTANDING OF PRESSURE ULCER PREVENTION BY END OF THE EPISODE. Goal Provider Goal - PATIENT WILL HAVE SUPPORT MEASURES ESTABLISHED TO PREVENT HOSPITALIZATION AND ED USE AND PATIENT/CAREGIVER WILL VERBALIZE/DEMONSTRATE METHODS TO REDUCE AVOIDABLE HOSPITALIZATION AND ED USE BY END OF EPISODE. Goal Provider Goal - ALTERED MENTAL/BEHAVIORAL STATUS [...] THROUGHOUT CERTIFICATION PERIOD. Goal Provider Goal - PSYCHOSOCIAL NEEDS WILL BE IDENTIFIED AND PLAN IMPLEMENTED TO MINIMIZE RISK THROUGHOUT CERTIFICATION PERIOD. Goal Provider Goal - MEDICATION WILL BE STORED IN LOCKBOX FOR SAFETY. Goal Provider Goal - PATIENT/CAREGIVER WILL VERBALIZE/DEMONSTRATE UNDERSTANDING OF SAFE OXYGEN USE IN THE HOME THROUGHOUT THE EPISODE. Progress Notes Progress Notes <paragraph>[Visit Date: 2024 by GI CULLEN RN]:</paragraph><paragraph>RN CALLED [facility]QUESTING LORAZEPAM REFILL.</paragraph> Encounters Start Date/Time End Date/Time Encounter Type Admission Type Attending [facility] Care Department Encounter ID Discharge Date Discharge Status Discharge Condition Discharge Reason Percent Goals Met 2024-11-24 00:00:00 2025-01-22 00:00:00 Outpatient [facility] [id number] 33.33
== END 2024-12-20 13:48 | disposition home or self-care (01) ==
LOC: HO.HHCL 13:47
PROVIDERS: Student in an Organized Health Care Education/Training Program; PCP Internal Medicine; Visit Provider Internal Medicine
DX: Z11.59 Encounter for screening for other viral diseases (principal); B18.2 Chronic viral hepatitis C; L13.0 Dermatitis herpetiformis
CPT/HCPCS: 36415; 81596; 82728; 83540; 85610; 86704; 86706; 86708; 87902

== ENCOUNTER 2025-01-28 13:06 | Outpatient (AMB) | payer MEDICAID, SELFPAY ==
--- OUTSIDE RECORDS SUMMARY | 2025-01-25 11:00 | XMS_ITS | Encounter Summary ---
Author Organization [employer] Address [address] [facility] 7t [place] [address] Care Team Providers Care Importer Or Exporter Name Role Phone Quiana Giron MD Primary Care Provider + Encounter Details Date Type Department Care Team ([facility] st Contact Info) Description 01/25/2025 11:00 AM EDT Telemedicine [facility] MEDICINE [address] [place], [place] [phone] Margo Mclaughlin RN [address] [place] [address] Chronic hepatitis C without hepatic coma (CMS/HCC) Social History Tobacco Use Types Packs/Day Years [...] AM EDT documented as of this encounter Progress Notes * Margo Mclaughlin RN - 01/25/2025 11:00 AM EDT 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 Pt diagnosed: about 10 years ago, via sharing needles via IVDU. Diagnostics: HCV genotype: 1a HCV viral load: 9700 Fibrosis score: F0 Hep A status: NOT IMMUNE-needs IZ Hep B status (core antibody, surface antibody, core antigen): COMPLETED HIV ag/ab: Non-reactive PT/INR: PT 10.6 CBC, GFR, LFTs completed: test: N/A HLA [id number] if pt is F4, genotype 3: F0 Ultrasound completed: not needed Previous Hep C treatment: No hx, always wanted to, but always put it off Is willing to do tx now. 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 Uses condoms- N/A . Discussed safer sex with patient, pt encouraged to use condoms with partner prior to completion of treatment, condoms given today. current medications reviewed. Taking everything as prescribed, but occassionally misses Iron, has VNA- 3X/Week, helps manage medicine, Mom is also very supportive. Hep C Intake complete, pt reports understanding of treatment plan and importance of medication adherence. Pt is motivated to begin treatment. Plan: Message sent to Pharmacy to do med rec. Appointment with Dr. Suarez: televisit scheduled 02/07/25 1pm documented in this encounter Plan of Treatment Upcoming Encounters Date Type Department Care Team (Late st Contact Info) Description 02/07/2025 1:00 PM EDT Telemedicine [address] [address] Patt Suarez MD [address] [place] [phone] 02/25/2025 10:30 AM EDT Telemedicine [address] [address] Jackelin Nam RN 02/28/2025 1:30 PM EDT Office Visit [address] [address] Quiana Giron MD [address] [place] [phone] documented as of this encounter Visit Diagnoses Diagnosis Chronic hepatitis C without hepatic coma (CMS/HCC) documented in this encounter Additional Health Concerns Assessment Noted Time PHQ-9 Depression Total Score: 9 07/23/19 24 10:38 AM EDT documented as of this encounter Care Teams Importer Or Exporter Relationship Specialty Start Date End Date Quiana Giron MD [address] [place] [phone] PCP - General Family Medicine 11/09/18 Erasmo Martinez 02/03/23 documented as of this encounter
--- NOTE | 2025-01-28 13:08 | MHC.OFFVIS ---
Vital Signs 01/28/25 13:09 Weight 129 lb 6 oz BP 98/66 Blood Pressure Location Rt brachial Position Sitting Pulse 87 Pulse Source Pulse Oximeter Pulse Oximetry (%) 91 L Oxygen Delivery Method Nasal Cannula Oxygen Flow Rate 8 Intake Visit Reasons: COPD Allergies No Known Allergies (No Known Allergies*) Allergy (Unverified 01/28/25 13:19) HPI HPI COPD: Details: Mat is a pleasant 39 year old male, former 30 year smoker, with underlying chronic respiratory failure, very severe COPD requiring 5-6 L supplemental oxygen, childhood asthma, h/o polysubstance abuse on methadone, h/o hepatitis B and C, pseudomonas PNA, colostomy s/p secondary to intestinal infection ?4yrs ago and h/o acute on chronic respiratory failure with prolonged hospitalization/intubation. We have discussed on multiple occasions lung transplant which he initially wanted to move forward with, referral had been entered to [facility] however he later called declining assessment for candidacy, continues to refuse. PFT 09/2023 revealed very severe obstructive defect FEV1/FVC 40, FEV1 30, DLCO 17, with no response to bronchodilators. CT chest 08/02 revealed multiple pulmonary nodules <4mm with emphysematous changes. Echo 2023 revealed LVEF 68% without pulmonary hypertension. A chest CT was ordered to assess stability 07/2024, as well as echo to assess for pulmonary hypertension,patient no showed appointments. He states having issues with transportation.We also discussed sleep study with possible NIV as well as pulmonary rehab however patient declined. He is accompanied by his mother, ambulating without assistance. He reports that breathing is laborious and requires frequent breaks during activities. He has been using Incruse and Breo, recently has decreased excessive use of DuoNeb to only BID, suggestive of improved control. He reports ongoing productive cough for the last few weeks with tenacious hui sputum and difficulty exporating with associated intermittent chest congestion. Denies fevers or chills. He denies any recent abx/steroids or urgent care/hospitalizations related to respiratory distress. He continues to use 8L of supplemental oxygen continously. During visit, decreased to 4L with rest and patient was able to maintain oxygen saturation >90%. He expresses anxiety regarding decreased use and encouraged him to obtain pulse oximeter to ensure proper oxygenation.. The patient also reports symptoms suggestive of sleep apnea, including headaches upon waking and excessive daytime fatigue. He experiences difficulty staying awake during the day and feels unrefreshed after sleep. A sleep study has been recommended to further evaluate these symptoms which he was agreeable to. Chronic sinusitis is another concern, with the patient experiencing persistent headaches and facial pressure, particularly behind the nose and eyes. These symptoms have been ongoing for approximately three weeks, with some improvement noted recently. He continues with nasal congestion, which has been attributed to a deviated nasal septum however patient uses continuous oxygen and discussed need to use humidified oxygen. He reports humidifier at home however has had issues setting up. Encouraged patient to reach out to [facility] to set up. He has a referral placed to ENT scheduled for July 2025. Additionally, the patient has skin irritation and infection, particularly around the ears, with pus discharge noted in the past. This condition is exacerbated by the use of oxygen tubing, and he has been advised to use foam pads to alleviate pressure. [facility] Social History Patient Tobacco Use Status: Former Tobacco user Tobacco use type: Cigarette Cigarette Packs Per Day: 2 Years Smoked: 15 Review of Systems Const Denies chills, Denies excessive sweating, Denies fever(s), Denies headache(s) and Denies night sweats Eyes Denies dry eyes, Denies irritation and Denies itchy eyes ENT Reports Normal hearing present, Denies headache(s), Reports nasal congestion, Denies nasal discharge, Reports post nasal drip and Denies sore throat Card Denies chest pain, Denies chest pain at rest, Denies chest pain with activity, Denies claudication, Denies leg edema, Reports dyspnea, Reports dyspnea on exertion, Denies orthopnea and Denies paroxysmal nocturnal dyspnea Resp Reports change in phlegm color, Denies chest congestion, Reports cough, Denies hemoptysis, Denies excessive phlegm production, Denies pain on inspiration, Denies pain with cough, Reports dyspnea, Reports dyspnea on exertion, Denies stridor and Reports wheezing Neuro Reports Normal hearing present and Denies headache(s) Endo Denies excessive sweating Michael/Lymph Denies lymphadenopathy Aller/Immun Denies itchy eyes, Denies seasonal rhinorrhea and Reports wheezing Physical Exam Vital Signs: Last Vital Signs Pulse 87 01/28/25 13:09 BP 98/66 01/28/25 13:09 Pulse Ox 91 L 01/28/25 13:09 Oxygen Delivery Method Nasal Cannula 01/28/25 13:09 Oxygen Flow Rate 8 01/28/25 13:09 Const Other: wearing supplemental oxygen, ambulating with wheelchair General: cooperative, alert, awake and tired appearing; No diaphoretic Nutritional Appearance: thin Orientation/consciousness: patient oriented x3 Limitations: wheelchair HEENT Head: Yes normal to inspection, Yes normocephalic and Yes atraumatic Ears: hearing grossly normal bilaterally and external ears normal Eyes General: appearance normal, both eyes and all related structures Eyelids: Yes eyelids normal Sclerae: sclerae normal EOM: EOMs intact bilaterally Neck Neck: Yes normal visual inspection and Yes no lymphadenopathy Lymphatic: no lymphadenopathy noted Chest Chest palpation & inspection: normal inspection of the chest Resp Other: dry cough Effort & Inspection: no audible wheezes, no cough, labored, no stridor, tachypneic, no tripod positioning, no use of accessory muscles and prolonged expiratory phase Auscultation: no crackles, no rales, no rhonchi, no wheezes and diminished lung sounds Cardio Jugular venous distension: no JVD Rate: regular rate Rhythm: regular rhythm Back/Spine/Pelvis Other: kyphosis Skin Other: warm, dry Neuro General: patient oriented x3 Cranial nerves: Yes Normal hearing present Cognition (Neuro): normal cognition Extrem Other: increased erythema of BLE with trace BLE edema Psych Appearance: grossly normal Speech and movement: Normal speech and movement present and Clear speech present Affect: normal affect Attitude: cooperative Thought process: Normal thought process present Thought content: Normal thought content present Insight: Fair insight present (Psych) Judgement: Fair judgement present (Psych) Assessment & Plan Assessment & Plan (1) COPD (chronic obstructive pulmonary disease): Code(s): J44.9 - Chronic obstructive pulmonary disease, unspecified Category: Medical (2) Supplemental oxygen dependent: Code(s): Z99.81 - Dependence on supplemental oxygen Category: Medical (3) Chronic respiratory failure with hypoxia: Code(s): J96.11 - Chronic respiratory failure with hypoxia Category: Medical (4) Pulmonary nodule: Code(s): R91.1 - Solitary pulmonary nodule Category: Medical (5) Daytime somnolence: Code(s): R40.0 - Somnolence Category: Medical (6) Non-restorative sleep: Code(s): G47.8 - Other sleep disorders Category: Medical Plan Will treat bronchitic symptoms with Augmentin. Patient requesting chewable or liquid form as he notes when he has any pills they tend to be completely intact in colostomy bag. Will send chewable form. He is aware to call if symptoms do not improve or if worsen seek emergent care. Reviewed the possibility of mucous plugs contributing to symptoms and discussed importance of using flutter valve to improve airway clearance after using DuoNeb. Advised to continue Breo and Incruse. Previously had offered switching to all nebulized therapy vs trialing alternative medications such as theophylline however patient not interested. During visit, patient able to maintain oxygen saturation >90% with 4L at rest and discussed oxygen saturation goal of 90-92%. Will hold off on 6MWT today as patient expresses significant anxiety revolving around decreased oxygen use and will reattempt at the next visit. We did review the adverse effects of receiving too much supplemental oxygen given the severity of COPD and patient agreeable to obtain pulse oximeter to maintain oxygen saturation of 90-92%. We also talked about the importance of conducting a sleep study to evaluate for sleep apnea, emphasizing the benefits of obtaining accurate data for treatment planning with an in lab PSG given chronic respiratory failure. Advised on the use of foam pads to alleviate skin irritation caused by oxygen tubing and discussed the possibility of further dermatological evaluation if needed. In regards to ongoing nasal congestion discussed importance of reaching out to [employer] to set up humidified oxygen as he reports issues with supplies he has been given previously. We discussed the severity of condition his candidacy for lung transplant and pulmonary rehab which he continues to decline. He was agreeable to obtaining repeat Chest CT/echo. All questions were answered and patient is in agreement of plan. Will follow up in 4-6 weeks or sooner if needed. Orders: Orders CA echo transthoracic complete Today R06.09 - Other forms of dyspnea CT chest wo IV con Today R91.1 - Solitary pulmonary nodule RT PSG in-lab sleep study Today G47.8 - Other sleep disorders, R40.0 - Somnolence, Z99.81 - Dependence on supplemental oxygen Medications: New amoxicillin-pot clavulanate 400-57 mg 2 tabs PO BID 40 tabs 0RF amoxicillin-pot clavulanate 400-57 mg 2 tabs PO BID 20 tabs 0RF Coding Level of Care Code Est Pt Level 5 (60754) Complex EM visit Add On G2211 Diagnoses COPD (chronic obstructive pulmonary disease) J44.9 Supplemental oxygen dependent Z99.81 Chronic respiratory failure with hypoxia J96.11 Pulmonary nodule R91.1 Daytime somnolence R40.0 Non-restorative sleep G47.8 Time Spent (min) 50
[2025-01-28 13:09] VITALS: BP 98/66; PULSE 87; O2SAT 91
--- OUTSIDE RECORDS SUMMARY | 2025-01-28 13:10 | XMS_ITS | Encounter Summary ---
Author Organization [employer] Address [address] [place] [address] 7 [place] [address] Care Team Providers Care Acid Mixer Name Role Phone Quiana Giron MD Primary Care Provider + Reason for Visit * Reason Onset Date Comments Med Refill 02/10/2023 [facility] - [facility] plan 02/10/2023 Encounter Details Date Type Department Care Team (Late st Contact Info) Description 02/10/2023 Telephone [facility] MEDICINE [address] [place] [address] Quiana Giron MD [address] [place] [address] Med Refill; [facility] - [facility] plan Social [...] - 02/11/2023 12:22 PM EDT TC to [facility] Nurse/Erasmo Martinez - Thais @ [phone]. Thais will be seeing patient 3 x a week on Mondays, Friday and Fridays. She will be loading his pill box enough until his next appt with her. She states his medications are locked up and she accesses them. She will pickup his new RX's from [facility]. States that pt is currently taking his 6 pills of Dilaudid 4mg in a day. She also reports that patient has a TRACK MANAGER who is very active with assisting him in his care. * Telephone Encounter - Joselito Bailey - 02/10/2023 4:44 PM EDT Tc from [facility] with Erasmo Martinez requesting status on medication HYDROmorphone (Dilaudid) 4 MG tablet. She States pt is out of meds. Do see medication was requested today 02/10/2023 informed as well provider does have 72 hours to sent the script over to the pharmacy. Thais is requesting a call in regards to the status of the medication Please contact Thais at [phone] * Telephone Encounter - Annel Cruz - 02/10/2023 2:38 PM EDT TC from pt requesting med refill for medication HYDROmorphone (Dilaudid) 4 MG tablet. States is outof meds and would like a call back . documented in this encounter Plan of Treatment Upcoming Encounters Date Type Department Care Team (Late st Contact Info) Description 02/07/2025 1:00 PM EDT Telemedicine [facility] MEDICINE [address] [place] [phone] Patt Sosa MD [address] [place] [address] 02/25/2025 10:30 AM EDT Telemedicine [facility] MEDICINE [address] [place] [phone] Jackelin Nam, RN 02/28/2025 1:30 PM EDT Office Visit [facility] MEDICINE [address] [place] [address] Quiana Giron MD [address] [place] [address] documented as of this encounter Visit Diagnoses Not on filedocumented in this encounter Care Teams Acid Mixer Relationship Specialty Start Date End Date Quiana Giron MD [address] [place] [phone] PCP - General Family Medicine 11/09/18 Jackelin Perez Warping Mill Operator 03/25/23 06/25/23 Erasmo Martinez 02/03/23 documented as of this encounter
--- OUTSIDE RECORDS SUMMARY | 2025-01-28 13:10 | XMS_ITS | Encounter Summary ---
Author Organization [employer] Address [address] [place] [address] 7 [place] [address] Care Team Providers Care Dog Food Shredder Operator Name Role Phone Quinaa Giron MD Primary Care Provider + Encounter Details Date Type Department Care Team (Late Contact Info) Description 02/10/2023 Telephone [facility] MEDICINE [address] [place] [address] [phone] Quiana Giron MD [address] [place] [address] [phone] Social History Tobacco Use Types Packs/Day Years [...] Department Care Team (Late Contact Info) Description 02/07/2025 1:00 PM EDT Telemedicine [facility] MEDICINE [address] [place] [address] [phone] Patt Sosa MD [address] [place] [address] [phone] 02/25/2025 10:30 AM EDT Telemedicine [facility] MEDICINE [address] [place] [phone] Jackelin Nam, RN 02/28/2025 1:30 PM EDT Office Visit [facility] MEDICINE [address] [place] [address] Quiana Giron MD [address] [place] [address] [phone] documented as of this encounter Visit Diagnoses Not on filedocumented in this encounter Care Teams Dog Food Shredder Operator Relationship Specialty Start Date End Date Quiana Giron MD [address] [place] [phone] PCP - General Family Medicine 11/09/18 Jackelin Perez Rn Radiology 03/25/23 06/25/23 Erasmo Martinez 02/03/23 documented as of this encounter
--- OUTSIDE RECORDS SUMMARY | 2025-01-28 13:10 | XMS_ITS | Encounter Summary ---
Author Organization [employer] Address [address] [facility] 7t [place] [address] Care Team Providers Care Hospitality House Supervisor Name Role Phone Quiana Giron MD Primary Care Provider + Encounter Details Date Type Department Care Team ([facility] st Contact Info) Description 02/19/2023 Abstract [facility] MEDICINE [address] [place], [place] [phone] Quiana Giron MD [address] [place], [place] [phone] Social History Tobacco Use Types Packs/Day Years Used Date Smoking Tobacco: Never Smokeless Tobacco: Never Alcohol Use Standard Drinks/Week Comments Never 0 (1 standard drink = 0.6 oz pur e alcohol) PHQ-2 Answer Date Recorded Patient Health Questionnaire-2 Score 0 01/31/2023 Housing Stability Answer Date Recorded What is your housing situation today? I have jitendra ramsey 02/18/[address] you [...] Info) Description 02/07/2025 1:00 PM EDT Telemedicine [facility] MEDICINE [address] [place] [phone] Patt Sosa MD [address] [place] [phone] 02/25/2025 10:30 AM EDT Telemedicine [facility] MEDICINE [address] [place] [phone] Jackelin Nam, LUCIANO 02/28/2025 1:30 PM EDT Office Visit [facility] MEDICINE [address] [place] [address] Quiana Giron MD [address] [place] [phone] documented as of this encounter Visit Diagnoses Not on filedocumented in this encounter Care Teams Hospitality House Supervisor Relationship Specialty Start Date End Date Quiana Giron MD [address] [place] [phone] PCP - General Family Medicine 11/09/18 Jackelin Perez Patternmaker Metal Bench 03/25/23 06/25/23 Erasmo Martinez 02/03/23 documented as of this encounter
--- OUTSIDE RECORDS SUMMARY | 2025-01-28 13:10 | XMS_ITS | Encounter Summary ---
Author Organization [employer] Address [address] [place] [address] 7 [place] [address] Care Team Providers Care Orthopedic Nurse Practitioner Name Role Phone Quiana Giron MD Primary Care Provider + Reason for Visit * Reason Comments Med Refill Encounter Details Date Type Department Care Team (Late st Contact Info) Description 02/07/2023 Refill [facility] MEDICINE [address] [place] [address] [phone] Quiana Giron MD [address] [place] [address] [phone] Generalized anxiety disorder Social History Tobacco Use [...] Info) Description 02/07/2025 1:00 PM EDT Telemedicine [facility] MEDICINE [address] [place] [address] [phone] Patt Sosa MD [address] [place], [place] [phone] 02/25/2025 10:30 AM EDT Telemedicine [facility] MEDICINE [address] [place] [address] [phone] Jackelin Nam, RN 02/28/2025 1:30 PM EDT Office Visit [facility] MEDICINE [address] [place] [address] [phone] Quiana Giron MD [address] [place] [address] [phone] documented as of this encounter Visit Diagnoses Diagnosis Generalized anxiety disorder documented in this encounter Care Teams Orthopedic Nurse Practitioner Relationship Specialty Start Date End Date Quiana Giron MD [address] [place] [address] [phone] PCP - General Family Medicine 11/09/18 Jackelin Perez Template Inspector 03/25/23 06/25/23 Erasmo [facility] 02/03/23 documented as of this encounter
--- OUTSIDE RECORDS SUMMARY | 2025-01-28 13:10 | XMS_ITS | Encounter Summary ---
Author Organization [employer] Address [address] [place] [address] 7 [place] [address] Care Team Providers Care Honing Machine Operator Tool Name Role Phone Quiana Giron MD Primary Care Provider + Reason for Visit * Reason Comments Med Refill Encounter Details Date Type Department Care Team (Late st Contact Info) Description 02/06/2023 Refill [facility] MEDICINE [address] [place] [address] [phone] Quiana Giron MD [address] [place], [place] [phone] Generalized anxiety disorder; Body aches Social History [...] Info) Description 02/07/2025 1:00 PM EDT Telemedicine [facility] MEDICINE [address] [place] [address] [phone] Patt Sosa MD [address] [place], [place] [phone] 02/25/2025 10:30 AM EDT Telemedicine [facility] MEDICINE [address] [place] [address] [phone] Jackelin Nam, RN 02/28/2025 1:30 PM EDT Office Visit [facility] MEDICINE [address] [place] [phone] Quiana Giron MD [address] [place] [address] [phone] documented as of this encounter Visit Diagnoses Diagnosis Generalized anxiety disorder Body aches Generalized pain documented in this encounter Care Teams Honing Machine Operator Tool Relationship Specialty Start Date End Date Quiana Giron MD [address] [place] [phone] PCP - General Family Medicine 11/09/18 Jackelin Perez Contact Center Manager 03/25/23 06/25/23 Erasmo Martinez 02/03/23 documented as of this encounter
--- OUTSIDE RECORDS SUMMARY | 2025-01-28 13:10 | XMS_ITS | Encounter Summary ---
Author Organization [employer] Address [address] [place] [address] 7 [place] [address] Care Team Providers Care Insulation Engineman Name Role Phone Quiana Giron MD Primary Care Provider + Reason for Visit * Reason Comments Med Refill Encounter Details Date Type Department Care Team (Late st Contact Info) Description 02/05/2023 Refill [facility] [address] [place] [address] [phone] Quiana Giron MD [address] [place] [address] [phone] Generalized anxiety disorder Social History Tobacco Use [...] Info) Description 02/07/2025 1:00 PM EDT Telemedicine [facility] [address] [place] [address] [phone] Patt Sosa MD [address] [place], [place] [phone] 02/25/2025 10:30 AM EDT Telemedicine [facility] [address] [place] [address] [phone] Jackelin Nam, RN 02/28/2025 1:30 PM EDT Office Visit [facility] [address] [place] [address] [phone] Quiana Giron MD [address] [place] [address] [phone] documented as of this encounter Visit Diagnoses Diagnosis Generalized anxiety disorder documented in this encounter Care Teams Insulation Engineman Relationship Specialty Start Date End Date Quiana Giron MD [address] [place] [address] [phone] PCP - General Family Medicine 11/09/18 Jackelin Perez Director Of Early Childhood 03/25/23 06/25/23 [facility] 02/03/23 documented as of this encounter
--- OUTSIDE RECORDS SUMMARY | 2025-01-28 13:11 | XMS_ITS | Encounter Summary ---
Author Organization [employer] Address 75 [facility] 7t [place] [address] Care Team Providers Care Spool Sorter Name Role Phone Quiana Giron MD Primary Care Provider + Encounter Details Date Type Department Care Team ([facility] st Contact Info) Description 12/28/2024 Results Follow-Up [facility] MED[facility]INE 230 [place], [place] [phone] Quiana Giron MD 230 [place] [address] Prothrombin Time-INR, Iron And Total Iron Binding Capacity, Ferritin, Additional followed-up results: 5 Social History Tobacco Use Types Packs/Day Years [...] the past 12 months, has t he [employer], gas, oil or water [employer] threatened to shut off services in your [...] as of this encounter Miscellaneous Notes * Result Encounter Note - Quiana Giron MD - 12/28/2024 3:07 PM EDT Labs ordered by HCV treatment group, seen by Dr. Zuñiga on 11/19/2024 who will start treatment. documented in this encounter Plan of Treatment Upcoming Encounters Date Type Department Care Team (Late st Contact Info) Description 02/07/2025 1:00 PM EDT Telemedicine [facility] MEDICINE [address] [place] [address] [phone] Patt Sosa MD [address] [place] [phone] 02/25/2025 10:30 AM EDT Telemedicine [facility] MED[facility]INE [address] [place] [address] 19586 Jackelin Nam RN 02/28/2025 1:30 PM EDT Office Visit [facility] [address] [place] [address] 60[address] Quiana Giron MD 230 [place] [address] documented as of this encounter Visit Diagnoses Not on filedocumented in this encounter Additional Health Concerns Assessment Noted Time PHQ-9 Depression Total Score: 9 07/23/19 24 10:38 AM EDT documented as of this encounter Care Teams Spool Sorter Relationship Specialty Start Date End Date Quiana Giron MD 230 [place] [address] PCP - General Family Medicine 11/09/18 Erasmo Martinez 02/03/23 documented as of this encounter
--- OUTSIDE RECORDS SUMMARY | 2025-01-28 13:11 | XMS_ITS | Encounter Summary ---
Author Organization [employer] Address [address] [facility] 7t [place] [address] Care Team Providers Care Sales Superintendent Name Role Phone Quiana Giron MD Primary Care Provider + Reason for Visit * Reason Comments Med Refill Encounter Details Date Type Department Care Team ([facility] st Contact Info) Description 05/17/[address] [facility] 230 [place], [place] [phone] Quiana Giron MD 230 [place], [place] [phone] Multilevel degenerative joint disease of spine Social [...] Info) Description 02/07/2025 1:[address] [facility] [address] [place] [address] 7[address] Patt Sosa MD [address] [place] [address] 69[address] 02/25/2025 10:30 AM EDT Telemedicine [address] [address] Jackelin Nam RN 02/28/2025 1:30 PM EDT Office Visit [facility] [address] [place] [address] 87[address] Quiana Giron MD [address] [place] [address] [phone] documented as of this encounter Visit Diagnoses Diagnosis Multilevel degenerative joint disease of spine documented in this encounter Additional Health Concerns Assessment Noted Time PHQ-9 Depression Total Score: 9 07/23/19 24 10:38 AM EDT documented as of this encounter Care Teams Sales Superintendent Relationship Specialty Start Date End Date Quiana Giron MD [address] [place] [address] 56[address] PCP - General Family Medicine 11/09/18 Erasmo Martinez 02/03/23 documented as of this encounter
--- OUTSIDE RECORDS SUMMARY | 2025-01-28 13:11 | XMS_ITS | Encounter Summary ---
Author Organization [employer] Address 75 [facility] 7t [place] [address] Care Team Providers Care Christian Science Practitioner Name Role Phone Quiana Giron MD Primary Care Provider + Reason for Visit * Reason Onset Date Comments Medication Question 09/01/2023 Encounter Details Date Type Department Care Team ([facility] Contact Info) Description 09/01/2023 Telephone [facility] MEDICINE 230 [place], [place] [phone] Quiana Giron MD 230 [place], [place] [phone] Medication Question Social History Tobacco Use Types [...] Friday regarding Dilaudid RX being sent to [facility]. Notified that the pharmacy has Dilaudid RX [...] lapse In medication. Please contact Rhiannon at [phone]. documented in this encounter Plan of Treatment Upcoming Encounters Date Type Department Care Team (Late st Contact Info) Description 02/07/2025 1:00 PM EDT Telemedicine [facility] MEDICINE [address] [place] [address] 89[address] Patt Sosa MD [address] [place] [address] 02/25/2025 10:30 AM EDT Telemedicine [address] [address] Jackelin Nam RN 02/28/2025 1:30 PM EDT Office Visit [address] [address] Quiana Giron MD [address] [place] [address] documented as of this encounter Visit Diagnoses Not on filedocumented in this encounter Additional Health Concerns Assessment Noted Time PHQ-9 Depression Total Score: 9 07/23/19 24 10:38 AM EDT documented as of this encounter Care Teams Christian Science Practitioner Relationship Specialty Start Date End Date Quiana Giron MD [address] [place] [address] PCP - General Family Medicine 11/09/18 Erasmo Martinez 02/03/23 documented as of this encounter
--- OUTSIDE RECORDS SUMMARY | 2025-01-28 13:11 | XMS_ITS | Encounter Summary ---
Author Organization [employer] Address 75 [facility] 7t [place] [address] Care Team Providers Care Collections Attorney Name Role Phone Quiana Giron MD Primary Care Provider + Reason for Visit * Reason Comments Med Refill Encounter Details Date Type Department Care Team ([facility] st Contact Info) Description 07/28/2023 Refill [facility] MEDICINE 230 [place], [place] [phone] Quiana Giron MD 230 [place], [place] [phone] Cigarette nicotine dependence with withdrawal Social History [...] Info) Description 02/07/2025 1:00 PM EDT Telemedicine [facility] MEDICINE [address] [place] [address] [phone] Patt Sosa MD [address] [place] [phone] 02/25/2025 10:30 AM EDT Telemedicine [facility] MEDICINE [address] [place] [address] 84695 Jackelin Nam RN 02/28/2025 1:30 PM EDT Office Visit [facility] MEDICINE [address] [place] [phone] Quiana Giron MD [address] [place] [address] 9[address] documented as of this encounter Visit Diagnoses Diagnosis Cigarette nicotine dependence with withdrawal documented in this encounter Additional Health Concerns Assessment Noted Time PHQ-9 Depression Total Score: 9 07/23/19 24 10:38 AM EDT documented as of this encounter Care Teams Collections Attorney Relationship Specialty Start Date End Date Quiana Giron MD [address] [place] [phone] PCP - General Family Medicine 11/09/18 Erasmo Martinez 02/03/23 documented as of this encounter
--- OUTSIDE RECORDS SUMMARY | 2025-01-28 13:11 | XMS_ITS | Encounter Summary ---
Author Organization [employer] Address 75 [facility] 7t [place] [address] Care Team Providers Care Laboratory Monitor Name Role Phone Quiana Giron MD Primary Care Provider + Reason for Visit * Reason Onset Date Comments Error 06/10/2023 Encounter Details Date Type Department Care Team ([facility] Contact Info) Description 06/10/2023 Telephone [facility] MEDICINE 230 [place], [place] [phone] Quiana Giron MD 230 [place], [place] [phone] Error Social History Tobacco Use Types Packs/Day [...] Info) Description 02/07/2025 1:00 PM EDT Telemedicine [facility] MED[facility]INE [address] [place] [address] [phone] Patt Sosa MD [address] [place] [address] 02/25/2025 10:30 AM EDT Telemedicine [facility] [address] [place] [address] 399[address] Jackelin Nam, RN 02/28/2025 1:30 PM EDT Office Visit [facility] [address] [place] [address] 66614 Quiana Giron MD [address] [place] [address] 7[address] documented as of this encounter Visit Diagnoses Not on filedocumented in this encounter Care Teams Laboratory Monitor Relationship Specialty Start Date End Date Quiana Giron MD [address] [place] [address] [phone] PCP - General Family Medicine 11/09/18 Jackelin Perez Rn Oncology Clinical 03/25/23 06/25/23 Erasmo Martinez 02/03/23 documented as of this encounter
--- OUTSIDE RECORDS SUMMARY | 2025-01-28 13:11 | XMS_ITS | Encounter Summary ---
Author Organization [employer] Address 75 [facility] 7t [place] [address] Care Team Providers Care Fare Collector Name Role Phone Quiana Giron MD Primary Care Provider + Encounter Details Date Type Department Care Team (Latest Contact Info) Description 01/25/2025 Travel Social History Tobacco Use Types Packs/Day Years [...] Description 02/07/2025 1:[address] [facility] MEDICINE [address] [place] [address]250 Patt Sosa MD [address] [place] [address] 20[address] 02/25/2025 10:30 AM EDT Telemedicine [address] [address] Jackelin Nam, LUCIANO 02/28/2025 1:30 PM EDT Office Visit [facility] MED[facility]INE [address] [place] [address] 69[address] Quiana Giron MD [address] [place] [address] documented as of this encounter Visit Diagnoses Not on filedocumented in this encounter Additional Health Concerns Assessment Noted Time PHQ-9 Depression Total Score: 9 07/23/19 24 10:38 AM EDT documented as of this encounter Care Teams Fare Collector Relationship Specialty Start Date End Date Quiana Giron MD [address] [place] [address] [phone] PCP - General Family Medicine 11/09/18 Erasmo Martinez 02/03/23 documented as of this encounter
--- OUTSIDE RECORDS SUMMARY | 2025-01-28 13:11 | XMS_ITS | Encounter Summary ---
Author Organization [employer] Address 75 [facility] 7t [place] [address] Care Team Providers Care Mortgage Loan Assistant Name Role Phone Quiana Giron MD Primary Care Provider + Reason for Visit * Reason Onset Date Comments Med Refill 07/28/2023 Encounter Details Date Type Department Care Team ([facility] st Contact Info) Description 07/28/2023 Telephone [facility] MEDICINE 230 [place], [place] [phone] Quiana Giron MD 230 [place], [place] [phone] Med Refill Social History Tobacco Use Types [...] 07/28/2023 1:35 PM EDT Medication sent to [facility] #[id number] today. * Telephone Encounter - Annel Cruz - 07/28/2023 12:04 PM EDT TC from pt requesting medication refill. Medications needing refill : nicotine (Nicoderm CQ) 14 MG/24HR patch To be sent to: [facility]/pharmacy #[id number] - [place] - [address] [facility] documented in this encounter Plan of Treatment Upcoming Encounters Date Type Department Care Team (Late st Contact Info) Description 02/07/2025 1:00 PM EDT Telemedicine [facility] MEDICINE [address] [place] [address] 570[address] Patt Sosa MD 230 [place] [address] 02/25/2025 10:30 AM EDT Telemedicine [facility] MEDICINE [address] [place] [address] Jackelin Nam RN 02/28/2025 1:30 PM EDT Office Visit [facility] MEDICINE 230 [place] [address] Quiana Giron MD 230 [place] [address] documented as of this encounter Visit Diagnoses Not on filedocumented in this encounter Additional Health Concerns Assessment Noted Time PHQ-9 Depression Total Score: 9 07/23/19 24 10:38 AM EDT documented as of this encounter Care Teams Mortgage Loan Assistant Relationship Specialty Start Date End Date Quiana Giron MD 230 [place] [address] PCP - General Family Medicine 11/09/18 Erasmo Martinez 02/03/23 documented as of this encounter
--- OUTSIDE RECORDS SUMMARY | 2025-01-28 13:11 | XMS_ITS | Encounter Summary ---
Author Organization [employer] Address 75 [facility] 7t [place] [address] Care Team Providers Care Inspector Timers Name Role Phone Quiana Giron MD Primary Care Provider + Reason for Visit * Reason Onset Date Comments Med Refill 07/07/2023 Encounter Details Date Type Department Care Team ([facility] st Contact Info) Description 07/07/2023 Telephone [facility] MEDICINE 230 [place], [place] [phone] Quiana Giron MD 230 [place], [place] [phone] Med Refill Social History Tobacco Use Types [...] 0.5 MG tablet To be sent to: [facility]/pharmacy #[id number] - [place], [place] - [address] [facility] documented in this encounter Plan of Treatment Upcoming Encounters Date Type Department Care Team (Late st Contact Info) Description 02/07/2025 1:00 PM EDT Telemedicine [facility] MEDICINE [address] [place] [address]18 Patt Sosa MD [address] [place] [address] 02/25/2025 10:30 AM EDT Telemedicine [facility] MEDICINE [address] [place] [address] 27137 Jackelin Nam RN 02/28/2025 1:30 PM EDT Office Visit [facility] MED[facility]INE [address] [place] [address] Quiana Giron MD [address] [place] [address] documented as of this encounter Visit Diagnoses Not on filedocumented in this encounter Care Teams Inspector Timers Relationship Specialty Start Date End Date Quiana Giron MD [address] [place] [address] PCP - General Family Medicine 11/09/18 Erasmo Martinez 02/03/23 documented as of this encounter
--- OUTSIDE RECORDS SUMMARY | 2025-01-28 13:11 | XMS_ITS | Clinical Summary ---
Author Organization [employer] Address [address] [place] [address] Care Team Providers Care Armored Car Guard Name Role Phone Quiana Giron MD Primary [...] 14 CONSECUTIVE DAYS. 473 mL 023 Active Hydrocortisone, Perianal, 1 % cream APPLY TO AFFECTED AREA TWICE A DAY NEEDED FOR ITCHING 28.4 g 1 024 Active Fluticasone Furoate-Vilante rol (Breo Ellipta) 200-25 MCG/ACT aerosol powder Inhale 1 Inhalation 2 times daily. Active Umeclidinium Phoenix (Incruse Ellipta) 62.5 MCG/ACT aerosol powder Inhale [...] SAME TIME. 28 patch 3 025 Active ketoconazole (NIZOral) 2 % shampoo Apply topically 3 (three) times a week. 120 mL 3 025 Active triamcinolone (Kenalog) 0.1 % lotion Apply topically if needed at bedtime for irritation or rash (on scalp). 60 mL 2 025 Active Additional Information Patient not taking.Reported on 11/19/2024 naloxone (Narcan) 4 mg/0.1 mL nasal sprayIndication s:Uncomplicated opioid dependence (CMS/HCC) Administer 1 spray (4 mg) into affected nostril(s) if needed for opioid reversal. May repeat every 2-3 minutes if needed, alternating nostrils, until medical assistance becomes available. 2 each 025 2025 Active fluticasone (Flonase) 50 MCG/ACT nasal spray SPRAY 1 SPRAY INTO EACH NOSTRIL EVERY DAY 32 mL 1 025 Active traZODone (Desyrel) 50 MG tablet TAKE 1/2 TABLET (25MG) IN THE MORNING AND 1/2 TABLET WITH LUNCH (IN ADDITION TO AT BEDTIME DOSE) 90 tablet 3 025 Active ferrous gluconate (Fergon) 324 (38 Fe) MG tablet Take 1 tablet (324 mg) by mouth with breakfast. 30 tablet 2 025 2025 Active Ascorbic Acid (vitamin C) 250 MG tablet Take 1 tablet (250 mg) by mouth Once per day. 30 tablet 2 025 2025 Active psyllium (Metamucil Smooth Texture) 58.6 % powder Take 5.12 g (3 g of fiber) by mouth if needed in the morning and at bedtime (constipation). 283 g 2 025 2025 Active traZODone (Desyrel) 150 MG tabletIndicatio ns:Generalized anxiety disorder TAKE 1 TABLET BY MOUTH EVERYDAY AT BEDTIME 90 tablet 1 Active sertraline (Zoloft) 20 MG/ML concentrated solutionIndicat ions:Generalize d anxiety disorder TAKE 7.5ML BY MOUTH IN THE MORNING. MIX WITH 4 OUNCES OF WATER. 240 mL 2 Active cloNIDine (Catapres) 0.1 MG tabletIndicatio ns:Generalized anxiety disorder TAKE 1 TABLET BY MOUTH 2 TIMES DAILY 120 tablet Active Acetaminophen Extra Strength 500 MG tablet TAKE 1 TABLET BY MOUTH EVERY 8 HOURS NEEDED FOR MILD PAIN 90 tablet Active LORazepam (Ativan) 0.5 MG tabletIndicatio ns:Generalized anxiety disorder TAKE 1 TABLET BY MOUTH 3 TIMES DAILY AND AN ADDITIONAL TABLET DAILY NEEDED 112 tablet Active HYDROmorphone (Dilaudid) 4 MG tabletIndicatio ns:Multilevel degenerative joint disease of spine Take 0.5 tablets (2 mg) by mouth every 12 (twelve) hours if needed for severe pain for up to 28 days. Do not start before January 21, 2025. 28 tablet 025 2024 Active triamcinolone (Kenalog) 0.1 % cream Apply topically if needed in the morning and at bedtime (pain and swelling). 30 g 2 023 2024 Discontinued(D uplicate order (will not trigger notification to Pharmacy)) Acetaminophen Extra Strength 500 MG tablet TAKE 1 TABLET BY MOUTH EVERY 8 HOURS IF NEEDED FOR MILD PAIN. 90 tablet 025 2024 Discontinued LORazepam (Ativan) 0.5 MG tabletIndicatio ns:Generalized anxiety disorder TAKE 1 TABLET BY MOUTH 3 TIMES DAILY AND AN ADDITIONAL TABLET DAILY NEEDED 112 tablet 025 2024 Discontinued(R eorder (will not trigger notification to Pharmacy)) HYDROmorphone (Dilaudid) 4 MG tabletIndicatio ns:Multilevel degenerative joint disease of spine Take 0.5 tablets (2 mg) by mouth every 12 (twelve) hours if needed for severe pain for up to 28 days. Do not start before December 24, 2024. 28 tablet 025 2024 Discontinued(R eorder (will not trigger notification to Pharmacy)) Active Problems Problem Noted Date Diagnosed Date Skin rash 11/19/2024 Assessment & Plan (11/19/2024 10:00 PM EDT): Pt w Significant erythematous rash with scaly skin and noted some crusting lesions , no obvious vesicular rash noted ,lesions over almost all scalp ,forehead, cheeks ,nose ,chin ,ears ,mainly spearing small part of left forehead and cheek ,also small area affected in upper chest and noted few lesions in palms , no lesions in soles,rest of skin es normal . No oral lesions noted , no LDN Differential is extensive . There is no toxic appearance of pt and no oral involvement making Julio Cesar Saeed , toxic epidermal necrolysis ,DRESS syndrome, less likely Among infections rash currently is not suggestive of bacterial infection ,viral syndromes are more likely and given recent exposure an atypical HFMD is very possible ,generalized herpes simplex vs zoster is possible but seems less likely w no clear vesicular rash ,there is pain but seems mild , does not follows a dermatoma for zoster. Mpox,syphilis, HIV presentation not likely ,pt denies active sexual life for past 4 y and had neg testing for syphilis and HIV 2 y ago. -Given severity of lesions on his face ,and less over chest and hands recommenced pt for ER evaluation for acute labs, and consideration of skin Bx if uncertainty of dx but pt refuse to go to ED. -send today swab for herpes and zoster and send miscellaneous test for coxsackie IgM ( I confirmed w micro lab at [facility] and not able to do coxsackie PCR) -CBC,chem,STI panel -even though seems less likely to me given severity will empirically tx w valacyclovir for herpes or zoster w valacyclovir 1 gr TID for 7 days ( still in window for tx) -due to severity will give prednisone 20 mg 5 days -advised pt to hold on topical ketoconazole shampoo for now -alarm signs and symptoms discussed in length w pt and mother in case symptoms worsen and or having systemic symptoms to go to ED -in case there is no rapid improvement and given pt is refusing ED eval I am referring today for STAT dermatology eval in case needs Bx -has apt already schedueled w PCP for 12/31/2024 Nasal septal defect 11/19/2024 Assessment & Plan (11/19/2024 10:01 PM EDT): -pt reports chronic nasal septal discomfort ,scabbing ,reports years ago used to snort cocaine ,pt would like evaluation On exam noted scabbing ,dry nasal mucosa -continue using ocean nasal spray and advised vaseline use -referred today to ENT Long-term current use of opiate analgesic 2024 Long-term current use of benzodiazepine 11/06/19 25 Interstitial pulmonary disease, unspecified 04/11 Assessment & [...] nose drops to loosen mucus Take Acetaminophen (Tylenol )/Ibuprofen as needed to reduce fever, headache, body [...] 72 hours (temperature should be less than 100 F without medication). We'll call [facility] to fu [...] days. POC discussed with Silvana Pfeiffer from [facility] service who will be picking up rx tomorrow at [facility] pharmacy and will coordinate with Mat's mom re future pick ups and management of daily pillboxes. She will continue with locked med box. I left a message at [facility] methadone program for his provider to call [...] methadone program, I left a VM at [facility] program to speak with a clinician re [...] a MED. Alternatively we may try MS Contin if Methadone not available - case was [...] is currently doing the Methadone program in [place]. Patient reported having a hard time adjusting to new home setting environment after being in a senior living for three years. He reported this is the first time that he's living by himself. TREE EXPERT provides support and helps with medical appointments. [...] & Plan (04/09/2023 2:37 PM EST): Has BLOCK BREAKER OPERATOR + transportation services arranged by [employer].. I told patient to address with his [facility] re BLOCK BREAKER OPERATOR person that he will feel more comfortable being his primary caregiver, other than Luis Enrique. Patient wants Celeste to continue being his TREE EXPERT, he will address it with his company [...] transportation etc. He would like his current TREE EXPERT to provider transportation, placard Handicap form to be filled out. I told him that I wouldn't know if insurance will directly pay his CPA for transportation services and time. We'll refer to CM to help manage this. PT1 With mechanical estimator and space and time for special mobility [...] chronic opiate use, anxiety. 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 Continue Sertraline 150 mg per day + Lorazepam 3 times per day + Trazodone PRN anxiety + QHS. Continue Methadone as per methadone clinic and reach out to transition coach. He feels safe at home and he can reach out to safety to relatives or [facility]. Continue medications administered by [facility] in a locked box. Assessment & Plan (04/28/2024 12:30 PM EST): Fairly stable on Sertraline 150mg/d + Lorazepam, hasn't had recent panic attacks. Advised to cut down on THC use and connect with BH provider at [facility] or here who called him last [...] received calls from clinic ( referred to [facility] in [place] back on 10/2023) , needs fpc fu by therapist and a prescriber. He feels safe at home and is able to reach out for safety, they have crisis number. Meds are managed in a locked box by [facility]. Corwin ross in 3m. Advised to avoid using recreational drugs/meds not [...] locked box by [facility]. Corwin ross in 1m Assessment & Plan (10/02/2023 2:44 PM EDT): We had a lengthy discission about importance of psychotherapy and behavioral Tx of panic attacks including behavioral therapy, visualization (he will think about his kittens + will be able to pet his kittens PRN panic attacks), breathing, and advised to go to psychotherapy, will consult w/ Start duloxetine 20mg qHS Continue clonidine 0.1 mg BID Continue sertraline + trazodone same dose I will discuss case w/ Silvana Pfeiffer his visiting nurse Corwin w/ in one wk TV Assessment & Plan (08/14/2023 1:35 PM EDT): Pt needs to be seen by psychiatrist, I will check w/ BH regarding appropriate referral Continue lorazepam 0.5mg TID [...] is currently doing the Methadone program in [place]. Patient reported having a hard time adjusting to new home setting environment after being in a senior living for three years. He reported this is the first time that he's living by himself. TREE EXPERT provides support and helps with medical appointments. PLAN: (check all that apply) New/Additional Services needed Off-site services for . Referral will be placed of OP individual therapy. Assessment & Plan (03/13/2023 4:07 PM EDT): Mat reports being in recovery for the past 6-8 years. He actively engaged in a Methadone clinic in [place]. Mat reports difficulty adjusting to new environment, on his own; and far from where he is accustom to living. He has contacted his TREE EXPERT in the night time, due to feeling alone and sad; especially when he is not taking Zoloft. TREE EXPERT Celeste, informed him, she cannot speak over [...] if he would like a referral for fpc OP therapy. Mat agrees to follow up [...] hx S.abuse/ODs. Dose was verified with Nurse inside plant supervisor at [facility] and confirmed that they only gave him rx until today. Cont [facility] program Will refer to program Pt feels [...] is currently doing the Methadone program in [place]. Patient reported having a hard time adjusting to new home setting environment after being in a senior living for three years. He reported this is the first time that he's living by himself. TREE EXPERT provides support and helps with medical appointments. PLAN: (check all that apply) New/Additional Services needed Off-site services for . Referral will be placed of OP individual therapy. Assessment & Plan (02/01/2023 2:41 PM EDT): On methdaone by [facility]. He's also on Diluadid daily, dose confirmed with nurse inside plant supervisor at [facility] and that he was given rx until [...] Encounters Date Type Department Care Team Description 01/25/2025 11:00 AM EDT Telemedicine [facility] [address] [place] [phone] Margo Mclaughlin, permastone applicator hepatitis C without hepatic coma (CMS/HCC) 01/25/2025 Telephone [facility] [address] [place] [address] Margo Mclaughlin RN 01/25/2025 Travel 01/21/2025 Telephone [facility] [address] [place] [address] Margo Mclaughlin, LUCIANO 01/17/2025 Refill [facility] [address] [place] [address] Quiana Giron MD Multilevel degenerative joint disease of spine 01/17/2025 Refill [facility] [address] [place] [address] Quiana Giron MD Multilevel degenerative joint disease of spine; Generalized anxiety disorder 01/16/2025 Refill [facility] [address] [place] [address] Quiana Giron MD 01/14/2025 Telephone [facility] [address] [place] [address], [place] [address] Margo Mclaughlin RN 01/11/[address] [place] [address] Quiana Giron MD Call Back Request 12/31/[address] [place] [address] Quiana Giron MD No Show 12/30/2024 Telephone [facility] [address] [place] [address] Quiana Giron MD Chart Prep 12/30/[address] [address] Margo Mclaughlin RN 12/28/2024 Results Follow-Up [address] [address] Quiana Giron MD Prothrombin Time-INR, Iron And Total Iron Binding Capacity, Ferritin, Additional followed-up results: 5 12/23/2024 Refill [facility] [address] [place] [phone] Quiana Giron MD Generalized anxiety disorder 12/21/[address] [address] Quiana Giron MD Multilevel degenerative joint disease of spine 12/20/2024 1:00 PM EDT Clinical Support [address] [address] Jackelin Nam, RN Long-term current use of opiate analgesic (Primary Dx); Long-term current use of benzodiazepine 12/20/2024 Orders Only [address] [address] Quiana Giron MD 12/20/[address] [address] Jackelin Nam, RN PROGRAM DIRECTOR Agreement renewed today 12/20/2024 Travel 12/20/[address] [address] Quiana Giron MD 12/17/2024 Refill [facility] [address] [facility] [place] [address] Quiana Giron MD Generalized anxiety disorder 12/15/2024 Telephone [facility] [address] [facility] [place] [address] Quiana Giron MD Appointment Request 12/14/2024 Refill [facility] [address] [place] [address] [facility] 12/06/2024 Refill [facility] [address] [place] [address] Quiana Giron MD Multilevel degenerative joint disease of spine 12/03/2024 Telephone [facility] [address] [place] [address] Quiana Giron MD Medication Question; Prior Authorization (PA Request: Hydromorphone) 11/29/2024 Refill [facility] [address] [place] [address] Quiana Giron MD Multilevel degenerative joint disease of spine 11/27/2024 Refill [facility] [address] [place] [address] Quiana Giron MD Generalized anxiety disorder 11/25/2024 Telephone [facility] [address] [place] [address] Sujey Dallas, LUCIANO Hep C Management 11/25/2024 Orders Only [facility] [address] [place] [address] Zeenat Baez MD 11/23/2024 Results Follow-Up [facility] [address] [place] [address] Zeenat Baez MD Iron And Total Iron Binding Capacity, Ferritin, Herpes Simplex Virus Culture with Reflex Typing, Additional followed-up results: 2 11/22/2024 Orders Only [facility] [address] [place] [address] Zeenat Baez MD 11/22/2024 Results Follow-Up [facility] [address] [place] [phone] Zeenat Baez MD CBC, Comprehensive Metabolic Panel, Hepatitis B surface antigen, EIA, Additional followed-up results: 3 11/19/2024 1:00 PM EDT Office Visit [facility] [address] [place] [phone] Zeenat Baez MD Herpetiform eruption (Primary Dx); Abnormal nasal septum; Skin rash; Nasal septal defect 11/19/2024 Orders Only [facility] [address] [place] [address] Zeenat Baez MD 11/19/2024 Travel 11/19/[address] [address] Quiana Giron MD Nurse Triage 11/19/[address] [address] Quiana Giron MD Nurse Triage 11/15/[address] [address] Quiana Giron MD Prior Auth Prescription 11/14/2024 Refill [facility] [address] [place] [phone] Quiana Giron MD 11/10/2024 Refill [facility] [address] [place] [address] Quiana Giron MD Generalized anxiety disorder 11/05/2024 10:00 AM EDT Telemedicine [address] [address] Jackelin Nam RN Long-term current use of opiate analgesic; Long-term current use of benzodiazepine 11/05/2024 Telephone [facility] [address] [place] [address] Quiana Giron MD FYI? 11/01/2024 Refill [facility] [address] [place] [phone] Quiana Giron MD Multilevel degenerative joint disease of spine from Last 3 Months Immunizations Immunization Administration Dates Next Due Influenza injectable quadriv alent preservative free 02/26/2023,02/18/2022,02/07/2021,05/03 Influenza, IIV3, injectable 05/03/2019, 7 Influenza, Injectable, MDCK, preservative free 05/29/2024 Elvie SARS-CoV-2 Vaccination 01/01/2021 Pfizer Covid-19 Vaccine [...] Sign Reading Time Taken Comments Blood Pressure 100/80 11/19/2024 1:07 PM EDT Pulse 84 11/19/2024 1:07 PM EDT Temperature 36.7 C (98 F) 11/19/2024 1:07 PM EDT Respiratory Rate 20 10/02/2023 1:30 PM EDT Oxygen Saturation 96% 11/19/2024 1:07 PM EDT Inhaled Oxygen Concentration - - Weight 55.8 kg (123 lb) 11/19/2024 1:07 PM EDT Height 161.3 cm (5' 3.5 ) 11/19/2024 1:07 PM EDT Body Mass Index 21.45 11/19/2024 1:07 PM EDT Plan of Treatment Upcoming Encounters Date Type Department Care Team (Late st Contact Info) Description 02/07/2025 1:00 PM EDT Telemedicine [facility] [address] [place] [phone] Patt Sosa MD [address] [place] [phone] 02/25/2025 10:30 AM EDT Telemedicine [facility] [address] [place] [phone] Jackelin Nam RN 02/28/2025 1:30 PM EDT Office Visit [facility] [address] [place] [phone] Quiana Giron MD [address] [place] [phone] Health Maintenance Due Date Last Done Comments Dental Prophylaxis 1983 Lipid Panel 1983 Disability Screening 1983 Alcohol/Substance Use Screening 1995 Family Planning (PISQ) 10/02/1998 HPV Vaccines (1 - Male 3-dose series) 10/02/1998 Hepatitis A Vaccines (1 of 2 - Risk 2-dose series) 10/02/2002 Hepatitis B Vaccines (1 of 3 - 19+ 3-dose series) 10/02/2002 DTaP/Tdap/Td Vaccines (1 - Tdap) 10/21/2014 10/20/2014, 10/20/2014 Dental Oral Exam 08/27/2023 02/24/2023 Depression Monitoring 01/23/2024 07/23/2023, 024 Dental X-Ray: Bitewings 02/26/2024 02/24/2023 SDOH Screening 03/11/2024 03/11/2023 Tobacco Screening 10/01/2024 10/02/2023 Influenza Vaccine (#1) 2025 , 02/26/2023, 02/18/2022, Additional history exists Dental X-Ray: Full Mouth 02/25/2026 02/24/2023 Zoster Vaccines (1 of 2) 10/02/2033 RSV Patients and Patients Aged 60 years or older (1 - 1-dose 75+ series) 10/02/2058 Pneumococcal Vaccine: Pediatrics (0 to 5 Years) and At-Risk Patients (6 to 49) Years Completed 06/16/2023, 06/08/2016 COVID-19 Vaccine Completed 05/29/2024, 09/2023, 04/17/2022, Additional history exists HIV Screening Completed 11/19/2024, 02/03/2023 HIB Vaccines Aged Out No longer eligi ble based on patient's age to complete this topic IPV Vaccines Aged Out No longer eligi ble based on patient's age to complete this topic Meningococcal B Vaccine Aged Out No l onger eligible based on patient's age to complete [...] Procedure Name Priority Date/Time Associated Diagnosis Comments HEPATITIS C VIRAL RNA GENOTYPE, LIPA Routine 12/20/2024 1:59 PM EDT LIVER FIBROSIS, FIBROTEST ACTITEST PANEL Routine 12/20/2024 1:59 PM EDT HEPATITIS A ANTIBODY, TOTAL Routine 12/20/2024 1:59 PM EDT HEPATITIS B CORE AB TOTAL Routine 12/20/2024 1:59 PM EDT HEPATITIS B SURFACE ANTIBODY, QUALITATIVE Routine 12/20/2024 1:59 PM EDT FERRITIN Routine 12/20/2024 1:59 PM EDT IRON AND TOTAL IRON BINDING CAPACITY Routine 12/20/2024 1:59 PM EDT PROTHROMBIN TIME-INR Routine 12/20/2024 1:59 PM EDT POCT GIORGI-14 URINE DRUG SCREEN Routine 12/20/2024 1:49 PM EDT Long-term current use of benzodiazepine Long-term current use of opiate analgesic FERRITIN Routine 11/22/2024 Herpetiform eruption HEPATITIS C VIRAL RNA, QUANTITATIVE, REAL-TIME PCR Routine 11/19/2024 2:39 PM EDT FERRITIN Routine 11/19/2024 2:39 PM EDT IRON AND TOTAL IRON BINDING CAPACITY Routine 11/19/2024 2:39 PM EDT VITAMIN B12/FOLATE, SERUM PANEL Routine 11/19/2024 2:39 PM EDT Herpetiform eruption SYPHILIS SCREEN Routine 11/19/2024 2:39 PM EDT Herpetiform eruption HIV 1/2 ANTIGEN/ANTIBODY, FOURTH GENERATION W/RFL Routine 11/19/2024 2:39 PM EDT Herpetiform eruption HEPATITIS C AB W/REFL TO HCV RNA, QN, PCR Routine 11/19/2024 2:39 PM EDT Herpetiform eruption HEPATITIS B SURFACE ANTIGEN, EIA Routine 11/19/2024 2:39 PM EDT Herpetiform eruption COMPREHENSIVE METABOLIC PANEL Routine 11/19/2024 2:39 PM EDT Herpetiform eruption CBC Routine 11/19/2024 2:39 PM EDT Herpetiform eruption VARICELLA ZOSTER VIRUS CULTURE, RAPID METHOD Routine 11/19/2024 2:08 PM EDT HERPES CULTURE WITH REFLEX TYPING Routine 11/19/2024 2:08 PM EDT INTRAORAL - COMPLETE SERIES OF RADIOGRAPHIC IMAGES Routine 02/24/2023 10:00 AM EDT Periodontal disease Severe dental caries COMPREHENSIVE ORAL EVALUATION - NEW OR ESTABLISHED PATIENT Routine 02/24/2023 10:00 AM EDT Periodontal disease Severe dental caries from Last 3 Months or Most Recently Relevant to Health Maintenance Results * Liver Fibrosis (HCV), FibroTest-ActiTest Panel (12/20/2024 1:59 PM EDT) Liver Fibrosis Score 0.04 [facility] Liver Fibrosis Stage F0 [facility] Liver Fibrosis Interpretation SEE NOTE [facility] Comment:no fibrosisFibro Minerva t Score (f) Metavir Score f>=0 and f<=0.21 : F0 (no fibrosis)f>0.21 and f<=0.27 : F0-F1 (no fibrosis)f>0.27 and f<=0.31 : F1 (minimal fibrosis)f>0.31 and f<=0.48 : F1-F2 (minimal fibrosis)f>0.48 and f<=0.58 : F2 (moderate fibrosis)f>0.58 and f<=0.72 : F3 (advanced fibrosis)f>0.72 and f<=0.74 : F3-F4 (advanced fibrosis)f>0.74 and f<=1.00 : F4 (severe fibrosis) Nec Inflam Act Score 0.08 [facility] Nec Inflam Act Grade A0 [facility] Nec Inflam Act Interpretation SEE NOTE [facility] Comment:no activityActiTest Score (a) Metavir Score a>=0 and a<=0.17 : A0 (no activity)a>0.17 and a<=0.29 : A0-A1 (no activity)a>0.29 and a<=0.36 : A1 (minimal activity)a>0.36 and a<=0.52 : A1-A2 (minimal activity)a>0.52 and a<=0.60 : A2 (significant activity)a>0.60 and a<=0.62 : A2-A3 (significant activity)a>0.62 and a<=1.00 : A3 (severe activity) AQV-Byicw-0-Macroglo bulin 137 106 - 279 mg/dL [facility] FIB-Haptoglobin 105 43 - 212 mg/dL [facility] FIB-Apolipoprotein A1 175 94 - 176 mg/dL [facility] FIB-Total Bilirubin 0.3 0.2 - 1.2 mg/dL [facility] FIB-GGT 12 3 - 95 U/L [facility] FIB-ALT 25 9 - 46 U/L [facility] Reference ID [id number] [facility] Footnote SEE NOTE [facility] Comment: The reliability of results is dependent on compliance withthe preanalytical and analytical conditions recommended by[employer]ict[employer]. The tests have to be deferred for: acutehemolysis, acute hepatitis, acute inflammation, extrahepatic cholestasis. The advice of a specialist should besought for interpretation in chronic hemolysis and Gilbert'ssyndrome. The test interpretation is not validated in livertransplant patients. Isolated extreme values of one of thecomponents should lead to caution in interpreting theresults. In case of discordance between a biopsy result grace test, it is recommended to seek the advice of aspecialist. The causes of these discordances could be due toa flaw of the test or to a flaw in the biopsy: i.e. a liverbiopsy has a 33% variability rate for one fibrosis stage.FibroTest is interpretable for chronic hepatitis B and C,alcoholic and non alcoholic steatosis. ActiTest isinterpretable for chronic hepatitis B and C.The performance characteristics have been determined by[employer] [facility]. Ithas not been cleared or approved by the U.S. Food and DrugAdministration. Performance characteristics refer to theanalytical performance of the test.[employer], [employer], the associated logo, [facility] and all associated [employer] linder are theregistered trademarks of [employer]. All third partymarks - (R) and (TM) - are the property of their respectiveowners. (C) [id number] [employer]. Allrights reserved.THIS TEST WAS PERFORMED AT:[email or web address] [id number] [place] [address]EWWPJJOSE ELIAS WAGNER MD,PHD,DORIS 12/20/2024 1:59 PM EDT 12/20/2024 4:04 PM EDT us Quiana Giron MD LAB BLOOD ORDERABLES Fin al Result Performing Organization Address City/[facility]/ZIP Co de Phone Number [facility] [address] [place] [address] [phone] * Iron And Total Iron Binding Capacity (12/20/2024 1:59 PM EDT) Only the most recent of2 resultswithin the time period is included. Iron 54 45 - 160 mcg/dL [facility] Total Iron Binding Capacity 289 228 - 428 mcg/dL [facility] Percent Iron Saturation 19 15 - 50 % [facility] Unsaturated Iron Binding 235 ug/dL [facility] 12/20/2024 1:59 PM EDT 12/20/2024 4:04 PM EDT us Zeenat Avina MD LAB BLOOD ORDERAB LES Final Result Performing Organization Address [facility]/ZIP Co de Phone Number [facility] [address] [place] [phone] * Hepatitis A Antibody, Total (12/20/2024 1:59 PM EDT) Hepatitis A Antibody IgG Nonreactive Nonreactive [facility] 12/20/2024 1:59 PM EDT 12/20/2024 4:04 PM EDT Quiana Giron MD LAB BLOOD ORDERABLES Fin al Result Performing Organization Address City/[facility]/ZIP Co de Phone Number [facility] [address] [place] [phone] * Hepatitis B Core Antibody, Total (12/20/2024 1:59 PM EDT) Hepatitis B Core Antibody Nonreactive Nonreactive [facility] 12/20/2024 1:59 PM EDT 12/20/2024 4:04 PM EDT Quiana Giron MD LAB BLOOD ORDERABLES Fin al Result Performing Organization Address [facility] Co de Phone Number [facility] [address] [place] [address] [phone] * Hepatitis C Viral RNA, Genotype, LiPA (12/20/2024 1:59 PM EDT) Hepatitis C Genotype 1a Not Detected [facility] Comment:The methods used in this test are RT-PCR and DNASequencing of the 5' UTR and core region of the HCVgenome.For additional information, please refer [email or web address].[employer].Zuora/faq/HCVGenotyping(This link is being provided for informational/educational purposes only.)This test was developed and its analytical performancecharacteristics have been determined by [employer]. It has not been cleared or approved bythe FDA. The assay has been validated pursuant to theCLIA regulations and is used for clinical purposes.THIS TEST WAS PERFORMED AT:[employer]/[address] [place] [address]GOIIEQSISAIAH BILLS MD,PHD 12/20/2024 1:59 PM EDT 12/20/2024 4:04 PM EDT Quiana Giron MD LAB BLOOD ORDERABLES Fin al Result Performing Organization Address City/[facility]/ZIP Co de Phone Number [facility] [address] [place] [phone] * Hepatitis B Surface Antibody, Qualitative (12/20/2024 1:59 PM EDT) ~Hepatitis B Surface Antibody REACTIVE Nonreactive [facility] Comment:REACTIVE: > 11.99 mI U/mL 12/20/2024 1:59 PM EDT 12/20/2024 4:04 PM EDT Quiana Giron MD LAB BLOOD ORDERABLES Fin al Result Performing Organization Address [facility] Co de Phone Number [facility] [address] [place] [address] [phone] * (ABNORMAL) Prothrombin Time-INR (12/20/2024 1:59 PM EDT) Prothrombin Time 10.6(L) 10.9 - 12.4 SEC [facility] INTERNATIONAL NORM RATIO 0.9 0.9 - 1.1 [facility] Comment:INTERNATIONAL NORMAL IZED RATIO (INR) REFERENCE RANGES Reference RangeFor patients not on anticoagulant therapy: 0.9 - 1.1INR ranges for oral anticoagulanttherapy:For prevention and treatment of venous thrombosis and pulmonary embolism: 2.0 - 3.0For acute myocardial infarction with aspirin therapy: 2.0 - 3.0For acute myocardial infarction without aspirin therapy: 3.0 - 4.0For patients with mechanical prosthetic heart valves: 2.5 - 3.5 12/20/2024 1:59 PM EDT 12/20/2024 4:04 PM EDT us Quiana Giron MD LAB BLOOD ORDERABLES Fin al Result Performing Organization Address City/[facility]/ZIP Co de Phone Number [facility] [address] [place] [address] [phone] * Ferritin (12/20/2024 1:59 PM EDT) Only the most recent of3 resultswithin the time period is included. Pathologist [facility] Ferritin 122 20 - 250 ng/mL [facility] 12/20/2024 1:59 PM EDT 12/20/2024 4:04 PM EDT us Zeenat Avina MD LAB BLOOD ORDERAB LES Final Result Performing Organization Address [facility] Co de Phone Number [facility] [address] [place] [address] [phone] * POCT GIORGI-14 Urine Drug Screen (12/20/2024 1:49 PM EDT) [facility] THC Negative Negative Cocaine Screen, Urine Negative Negative Opiate Screen, Urine Positive Negative Methamphetamine Screen Urine Negative Negative Amphetamine Screen, Urine Negative Negative Benzodiazepines Screen, Urine Positive Negative Barbiturate Screen, Urine Negative Negative Methadone Screen, Urine Positive Negative Buprenophine Screen, Urine Negative Negative TCA, Urine Negative Negative MDMA Urine Negative Negative ng/mL Oxycodone Screen, Urine Negative Negative Phencyclidine (PCP), Urine Negative Negative Propoxyphene, Urine Negative Negative Fentanyl, Urine Negative Negative Urine Urine specimen obtained by clean catch procedure / Unknown 12/20/2024 1:49 PM EDT Jackelin Bravo RN - 12/20/2024 1:49 PM EDT UTO[employer] cup Lot#[id number] Exp. 02/15/26 Internal Pass Control Quiana Giron MD POINT OF CARE TEST ENTER /EDIT ORDERABLES Final Result * Syphilis Screen (11/19/2024 2:39 PM EDT) [facility] Syphilis Screen Nonreactive Nonreactive [facility] Blood 11/19/2024 2:39 PM EDT 11/19/2024 3:55 PM EDT Zeenat Avina MD LAB BLOOD ORDERAB LES Final Result Performing Organization Address [facility] Co de Phone Number [facility] [address] [place] [address] [phone] * Vitamin B12/Folate, Serum Panel (11/19/2024 2:39 PM EDT) [facility] Vitamin B12 453 200 - 900 pg/mL [facility] Comment:NORMAL 200-900 PG/ML INDETERMINATE 160-199 PG/ML DEFICIENT < 160 PG/ML Folate 12.4 > or = 4.0 ng/mL [facility] Comment:Reference Values:> o r = 4.0 ng/mL< 4.0 ng/mL suggests folate deficiency Methotrexate, aminopterin and folinic acid(leucovorin) are chemotherapeutic agents whose molecularstructures are similar to folate; therefore, the Architectfolate assay cannot be used for patients using these drugs. Blood Venous blood specimen / Unknown 11/19/2024 2:39 PM EDT 11/22/2024 6:00 PM EDT us Zeenat Avina MD LAB BLOOD ORDERAB LES Final Result Performing Organization Address [facility] Co de Phone Number [facility] [address] [place] [address] [phone] * (ABNORMAL) Hepatitis C Viral RNA, Quantitative, Real-Time PCR (11/19/2024 2:39 PM EDT) [facility] Hepatitis C Viral Load 9700(A) NOT DETECTED IU/mL [facility] HCV Log PCR 3.99(A) NOT DETECTED Log IU/mL [facility] Comment:For additional infor esequiel, please refer tohttp://education.Packetworx/faq/XWY37t4(This link is being provided for informational/educational purposes only.)THIS TEST WAS PERFORMED AT:[employer] [place] [id number] NUNN MD 11/19/2024 2:39 PM EDT 11/22/2024 3:07 PM EDT Zeenat Avina MD LAB BLOOD ORDERAB LES Final Result Performing Organization Address [facility]/ZIP Co de Phone Number [facility] [address] [place] [address] [phone] * (ABNORMAL) Hepatitis C Antibody with Reflex to HCV, RNA, Quantitative, Real- Time PCR (11/19/2024 2:39 PM EDT) Hepatitis C Antibody Reactive( A) Nonreactive [facility] Comment:Presumptive evidence of antibodies to HCV. Blood Venous blood specimen / Unknown 11/19/2024 2:39 PM EDT 11/19/2024 3:55 PM EDT Zeenat Avina MD LAB BLOOD ORDERAB LES Final Result Performing Organization Address [facility] Co de Phone Number [facility] [address] [place] [address] [phone] * Hepatitis B surface antigen, EIA (11/19/2024 2:39 PM EDT) Hepatitis B Surface Ag Negative Negative [facility] Blood Venous blood specimen / Unknown 11/19/2024 2:39 PM EDT 11/19/2024 3:55 PM EDT us Zeenat Avina MD LAB BLOOD ORDERAB LES Final Result Performing Organization Address [facility] Co de Phone Number [facility] [address] [place] [address] [phone] * HIV-1/2 Antigen and Antibodies, Fourth Generation, with Reflexes (11/19/2024 2:39 PM EDT) Pathologist [facility] HIV AB/AG Nonreactive Nonreactive [facility] Comment:HIV-1 p24 Ag and/or HIV-1/HIV-2 Ab not detected.A test result that is nonreactive does not exclude thepossibility of exposure to or infection with HIV-1 and/orHIV-2. Nonreactive results in this assay for individualswith prior exposure to HIV-1 and/or HIV-2 may be due toantigen and antibody levels that are below the limit ofdetection of this assay.The [employer] HIV Ag/Ab Combo assay result andsupplemental assay results should be interpreted inconjunction with the patient's clinical presentation,history and other laboratory results. If the results areinconsistent with clinical evidence, additional testing issuggested to confirm the result. Blood Venous blood specimen / Unknown 11/19/2024 2:39 PM EDT 11/19/2024 3:55 PM EDT us Zeenat Avina MD LAB BLOOD ORDERAB LES Final Result [facility] [address] [place] [address] [phone] * (ABNORMAL) CBC (11/19/2024 2:39 PM EDT) Pathologist [facility] White Blood Count 6.0 4.8 - 10.8 X10*3/uL [facility] Red Blood Count 4.11(L) 4.60 - 5.80 X10*6/uL [facility] Hemoglobin 11.6(L) 14.0 - 18.0 g/dl [facility] Hematocrit 35.3(L) 42.0 - 52.0 % [facility] Mean Corpuscular Volume 85.9 80.0 - 98.0 fL [facility] Mean Corpuscular Hemoglobin 28.2 27.0 - 33.0 pg [facility] Mean Corpuscular HGB Conc 32.9 31.0 - 36.0 g/dl [facility] Red Cell Distribution Width 12.9 11.0 - 16.0 % [facility] Platelet Count 210 160 - 400 X10*3/uL [facility] Mean Platelet Volume 9.4 9.4 - 12.4 fL [facility] NRBC Pct Auto 0.0 0.0 - 0.2 /100WBC [facility] NRBC Abs Auto 0.000 0.0 - 0.012 X10*3/uL [facility] Blood Venous blood specimen / Unknown 11/19/2024 2:39 PM EDT 11/19/2024 3:55 PM EDT us Zeenat Avina MD LAB BLOOD ORDERAB LES Final Result [facility] [address] [place] [phone] * (ABNORMAL) Comprehensive Metabolic Panel (11/19/2024 2:39 PM EDT) Sodium 136 135 - 145 mmol/L [facility] Potassium 4.9 3.3 - 5.1 mmol/L [facility] Chloride 95(L) 96 - 108 mmol/L [facility] Carbon Dioxide 37(H) 22 - 29 mmol/L [facility] Anion Gap 9(L) 12 - 20 [facility] Urea Nitrogen (BUN) 12 9 - 16 mg/dL [facility] Creatinine, Serum 0.74 0.5 - 1.4 mg/dL [facility] Estimated Glomerular Filt Rate >60 [facility] Comment:Chronic Kidney Disea se: Estimated GFR < 60 mL/min/1.89p8Gandng Kidney Disease: Estimated GFR < 15 mL/min/1.73m2 Glucose 86 60 - 115 mg/dL [facility] Calcium 9.0 8.4 - 10.2 mg/dL [facility] Bilirubin, Total 0.3 0.0 - 1.0 mg/dL [facility] Aspartate Amino Transferase 39(H) 5 - 37 U/L [facility] Alanine Aminotransferase 44(H) 0 - 40 U/L [facility] Total Protein 7.4 6.5 - 8.0 g/dL [facility] Albumin Level 4.4 3.5 - 5.0 g/dL [facility] Alkaline Phosphatase 106 39 - 117 U/L [facility] Blood Venous blood specimen / Unknown 11/19/2024 2:39 PM EDT 11/19/2024 3:55 PM EDT us Zeenat Avina MD LAB BLOOD ORDERAB LES Final Result Performing Organization Address [facility]/ZIP Co de Phone Number [facility] [address] [place] [address] [phone] * Varicella-Zoster Virus, Rapid Method,??Culture (11/19/2024 2:08 PM EDT) Varicella Zoster Rapid Culture NOT ISOLATED [facility] Comment:REFERENCE RANGE: NOT ISOLATEDTHIS TEST WAS PERFORMED AT:[email or web address] [id number] [facility] [place] [address]RNDRXJOSE ELIAS WAGNER MD,PHD,DORIS Varicella Zoster Source SWAB [facility] 11/19/2024 2:08 PM EDT 11/19/2024 4:47 PM EDT Narrative [facility] - 11/27/2024 9:59 PM EDT NOT GIVEN us Zeenat Avina MD LAB BODY FLUIDS A ND STOOLS ORDERABLES Final Result Performing Organization Address [facility]/ZIP Co de Phone Number [facility] [address] [place] [address] [phone] * Herpes Simplex Virus Culture with Reflex Typing (11/19/2024 2:08 PM EDT) HSV Culture/Type SEE NOTE [facility] Comment:HERPES SIMPLEX VIRUS CULTURE W/RFL TO TYPING Micro Number: [id number] Test Status: Final Specimen Source: Not given Specimen Quality: Adequate HSV Culture: Not IsolatedTHIS TEST WAS PERFORMED AT:[employer] [address] [address]GLMBAY MERATI,MD 11/19/2024 2:08 PM EDT 11/19/2024 4:17 PM EDT Zeenat Avina MD LAB MICROBIOLOGY - GENERAL ORDERABLES Final Result [facility] [address] [place] [phone] from Last [address] [facility] C[facility] STAND ADULT Care Teams Armored Car Guard Relationship Specialty Start Date End Date Quiana Giron MD [address] [place] [phone] PCP - General Family Medicine 11/09/18 Erasmo Martinez 02/03/23
--- OUTSIDE RECORDS SUMMARY | 2025-01-28 13:11 | XMS_ITS | Encounter Summary ---
Author Organization [employer] Address [address] [facility] 7t [place] [address] Care Team Providers Care Accounting Support Specialist Name Role Phone Quiana Giron MD Primary Care Provider + Reason for Visit * Reason Onset Date Comments Med Refill 05/17/2024 Encounter Details Date Type Department Care Team ([facility] st Contact Info) Description 05/17/[address] [facility] [address] [place], [place] [phone] Quiana Giron MD [address] [place], [place] [phone] Med Refill Social History Tobacco Use Types [...] the past 12 months, has t he [employer], gas, oil or water company threatened to [...] 4 MG tablet To be sent to: [facility] documented in this encounter Plan of Treatment Upcoming Encounters Date Type Department Care Team (Late st Contact Info) Description 02/07/2025 1:00 PM EDT Telemedicine [facility] [address] [place] [phone] Patt Sosa MD [address] [place] [address] 02/25/2025 10:30 AM EDT Telemedicine [address] [phone] Jackelin Nam, RN 02/28/2025 1:30 PM EDT Office Visit [address] [address] Quiana Giron MD [address] [place] [phone] documented as of this encounter Visit Diagnoses Not on filedocumented in this encounter Additional Health Concerns Assessment Noted Time PHQ-9 Depression Total Score: 9 07/23/19 24 10:38 AM EDT documented as of this encounter Care Teams Accounting Support Specialist Relationship Specialty Start Date End Date Quiana Giron MD [address] [place] [phone] PCP - General Family Medicine 11/09/18 Erasmo Martinez 02/03/23 documented as of this encounter
--- OUTSIDE RECORDS SUMMARY | 2025-01-28 13:11 | XMS_ITS | Encounter Summary ---
Author Organization [employer] Address [address] [facility] [address]t [place] [address] Care Team Providers Care Realtime Court Reporter Name Role Phone Quiana Giron MD Primary Care Provider + Reason for Visit * Reason Comments Med Refill Encounter Details Date Type Department Care Team ([facility] Contact Info) Description 05/07/2024 Refill [facility] [address] [place], [place] [phone] Quiana Giron MD [address] [place], [place] [phone] Generalized anxiety disorder Social History Tobacco Use [...] Info) Description 02/07/2025 1:00 PM EDT Telemedicine [facility] [address] [place] [phone] Patt Sosa MD [address] [place] [phone] 02/25/2025 10:30 AM EDT Telemedicine [address] [address] Jackelin Nam RN 02/28/2025 1:30 PM EDT Office Visit [facility] [address] [place] [phone] Quiana Giron MD [address] [place] [phone] documented as of this encounter Visit Diagnoses Diagnosis Generalized anxiety disorder documented in this encounter Additional Health Concerns Assessment Noted Time PHQ-9 Depression Total Score: 9 07/23/19 24 10:38 AM EDT documented as of this encounter Care Teams Realtime Court Reporter Relationship Specialty Start Date End Date Quiana Giron MD [address] [place] [phone] PCP - General Family Medicine 11/09/18 Erasmo Martinez 02/03/23 documented as of this encounter
--- OUTSIDE RECORDS SUMMARY | 2025-01-28 13:11 | XMS_ITS | Encounter Summary ---
Author Organization [employer] Address [address] [facility] 7t [place] [address] Care Team Providers Care After School Driver Name Role Phone Quiana Giron MD Primary Care Provider + Reason for Visit * Reason Onset Date Comments PT 1 03/04/2023 Encounter Details Date Type Department Care Team ([facility] Contact Info) Description 03/04/2023 Telephone [facility] [address] [place], [place] [phone] Quiana Giron MD [address] [place], [place] [phone] PT 1 Social History Tobacco Use Types [...] Miscellaneous Notes * Telephone Encounter - Angel Perez - 03/04/2023 12:20 PM EDT Tc from Maria from [facility][Note 3] on [facility] the home health care worker requesting script for PT 1. *Please call Maria at [phone] or at documented in this encounter Plan of Treatment Upcoming Encounters Date Type Department Care Team (Late st Contact Info) Description 02/07/2025 1:00 PM EDT Telemedicine [facility] [address] [place] [phone] Patt Sosa MD [address] [place] [phone] 02/25/2025 10:30 AM EDT Telemedicine [address] [address] Jackelin Nam RN 02/28/2025 1:30 PM EDT Office Visit [facility] [address] [place] [phone] Quiana Giron MD [address] [place] [phone] documented as of this encounter Visit Diagnoses Not on filedocumented in this encounter Care Teams After School Driver Relationship Specialty Start Date End Date Quiana Giron MD [address] [place] [phone] PCP - General Family Medicine 11/09/18 Jackelin Perez Caustic Room Attendant 03/25/23 06/25/23 Erasmo Martinez 02/03/23 documented as of this encounter
--- OUTSIDE RECORDS SUMMARY | 2025-01-28 13:11 | XMS_ITS | Encounter Summary ---
Author Organization [employer] Address [address] [facility] 7t [place] [address] Care Team Providers Care Public Space Attendant Name Role Phone Quiana Giron MD Primary Care Provider + Encounter Details Date Type Department Care Team ([facility] st Contact Info) Description 06/05/2023 Abstract [facility] [address] [place], [place] [phone] Quiana Giron MD [address] [place], [place] [phone] Social History Tobacco Use Types Packs/Day Years [...] Info) Description 02/07/2025 1:00 PM EDT Telemedicine [facility] [address] [place] [phone] Patt Sosa MD [address] [place] [phone] 02/25/2025 10:30 AM EDT Telemedicine [facility] [address] [place] [phone] Jackelin Nam, LUCIANO 02/28/2025 1:30 PM EDT Office Visit [facility] [address] [place] [phone] Quiana Giron MD [address] [place] [phone] documented as of this encounter Visit Diagnoses Not on filedocumented in this encounter Care Teams Public Space Attendant Relationship Specialty Start Date End Date Quiana Giron MD [address] [place] [phone] PCP - General Family Medicine 11/09/18 Jackelin Perez Clinical Documentation Clerk 03/25/23 06/25/23 Erasmo Martinez 02/03/23 documented as of this encounter
--- OUTSIDE RECORDS SUMMARY | 2025-01-28 13:11 | XMS_ITS | Encounter Summary ---
Author Organization [employer] Address 75 [facility] 7t [place] [address] Care Team Providers Care Clock And Watch Hands Mounter Name Role Phone Quiana Giron MD Primary Care Provider + Reason for Visit * Reason Comments Med Refill Encounter Details Date Type Department Care Team ([facility] st Contact Info) Description 07/23/2023 Refill [facility] 230 [place], [place] [phone] Quiana Giron MD 230 [place], [place] [phone] Cigarette nicotine dependence with withdrawal Social History [...] Info) Description 02/07/2025 1:00 PM EDT Telemedicine [facility] [address] [place] [address]233 Patt Sosa MD [address] [place] [address] 02/25/2025 10:30 AM EDT Telemedicine [address] [address] Jackelin Nam RN 02/28/2025 1:30 PM EDT Office Visit [facility] [address] [place] [address] Quiana Giron MD [address] [place] [address] documented as of this encounter Visit Diagnoses Diagnosis Cigarette nicotine dependence with withdrawal documented in this encounter Additional Health Concerns Assessment Noted Time PHQ-9 Depression Total Score: 9 07/23/19 24 10:38 AM EDT documented as of this encounter Care Teams Clock And Watch Hands Mounter Relationship Specialty Start Date End Date Quiana Giron MD [address] [place] [address] PCP - General Family Medicine 11/09/18 Erasmo Martinez 02/03/23 documented as of this encounter
--- OUTSIDE RECORDS SUMMARY | 2025-01-28 13:11 | XMS_ITS | Encounter Summary ---
Author Organization [employer] Address 75 [facility] 7t [place] [address] Care Team Providers Care Tile Presser Name Role Phone Quiana Giron MD Primary Care Provider + Encounter Details Date Type Department Care Team ([facility] st Contact Info) Description 05/08/2023 Abstract [facility] 230 [place], [place] [phone] Quiana Giron MD 230 [place], [place] [phone] Social History Tobacco Use Types Packs/Day Years [...] Description 02/07/2025 1:00 PM EDT Telemedicine [facility] [address] [place] [address] 9[address] Patt Sosa MD [address] [place] [address] 02/25/2025 10:30 AM EDT Telemedicine [facility] [address] [place] [address] Jackelin Nam, LUCIANO 02/28/2025 1:30 PM EDT Office Visit [facility] [address] [place] [address] Quiana Giron MD [address] [place] [address] documented as of this encounter Visit Diagnoses Not on filedocumented in this encounter Care Teams Tile Presser Relationship Specialty Start Date End Date Quiana Giron MD [address] [place] [address] PCP - General Family Medicine 11/09/18 Jackelin Perez Driver Supervisor 03/25/23 06/25/23 Erasmo Martinez 02/03/23 documented as of this encounter
--- OUTSIDE RECORDS SUMMARY | 2025-01-28 13:11 | XMS_ITS | Encounter Summary ---
Author Organization [employer] Address 75 [facility] 7t [place] [address] Care Team Providers Care Army Ranger Name Role Phone Quiana Giron MD Primary Care Provider + Reason for Visit * Reason Comments Med Refill Encounter Details Date Type Department Care Team ([facility] Contact Info) Description 09/17/[address] [facility] 230 [place], [place] [phone] Quiana Giron MD 230 [place], [place] [phone] Generalized anxiety disorder Social History Tobacco Use [...] Info) Description 02/07/2025 1:00 PM EDT Telemedicine [facility] [address] [place] [address] Patt Sosa MD [address] [place] [address] 02/25/2025 10:30 AM EDT Telemedicine [address] [address] Jackelin Nam RN 02/28/2025 1:30 PM EDT Office Visit [facility] [address] [place] [address] Quiana Giron MD [address] [place] [address] documented as of this encounter Visit Diagnoses Diagnosis Generalized anxiety disorder documented in this encounter Additional Health Concerns Assessment Noted Time PHQ-9 Depression Total Score: 9 07/23/19 24 10:38 AM EDT documented as of this encounter Care Teams Army Ranger Relationship Specialty Start Date End Date Quiana Giron MD [address] [place] [address] 18843 PCP - General Family Medicine 11/09/18 Erasmo Martinez 02/03/23 documented as of this encounter
--- OUTSIDE RECORDS SUMMARY | 2025-01-28 13:11 | XMS_ITS | Encounter Summary ---
Author Organization [employer] Address 75 [facility] 7t [place] [address] Care Team Providers Care Manager Books Name Role Phone Quiana Giron MD Primary Care Provider + Reason for Visit * Reason Onset Date Comments Med Refill 09/03/2023 Encounter Details Date Type Department Care Team ([facility] st Contact Info) Description 09/03/2023 Telephone [facility] MED[facility]INE 230 [place], [place] [phone] Quiana Giron MD 230 [place], [place] [phone] Med Refill Social History Tobacco Use Types [...] 0.5 MG tablet To be sent to: [facility]/pharmacy #[id number] - [place], [place] - [address] [facility] documented in this encounter Plan of Treatment Upcoming Encounters Date Type Department Care Team (Late st Contact Info) Description 02/07/2025 1:00 PM EDT Telemedicine [facility] MED[facility]INE [address] [place] [address] Patt Sosa MD [address] [place] [address] 28[address] 02/25/2025 10:30 AM EDT Telemedicine [facility]INE [address] [place] [address] Jackelin Nam RN 02/28/2025 1:30 PM EDT Office Visit [facility] [address] [place] [address] Quiana Giron MD [address] [place] [address] documented as of this encounter Visit Diagnoses Not on filedocumented in this encounter Additional Health Concerns Assessment Noted Time PHQ-9 Depression Total Score: 9 07/23/19 24 10:38 AM EDT documented as of this encounter Care Teams Manager Books Relationship Specialty Start Date End Date Quiana Giron MD 230 [facility] [place] [address] PCP - General Family Medicine 11/09/18 Erasmo Martinez 02/03/23 documented as of this encounter
--- OUTSIDE RECORDS SUMMARY | 2025-01-28 13:11 | XMS_ITS | Encounter Summary ---
Author Organization [employer] Address 75 [facility] 7t [place] [address] Care Team Providers Care Sausage Cutter Name Role Phone Quiana Giron MD Primary Care Provider + Reason for Visit * Reason Onset Date Comments PT1 06/19/2023 Encounter Details Date Type Department Care Team ([facility] st Contact Info) Description 06/19/2023 Telephone [facility] 230 [place], [place] [phone] Quiana Giron MD 230 [place], [place] [phone] PT1 Social History Tobacco Use Types Packs/Day [...] encounter Miscellaneous Notes * Telephone Encounter - Willielilia Pelon Bailey - 06/19/2023 3:48 PM EST PT1 needed Date: 07/10/2023 Time: 2:00 pm Visits: All Future Appt's Address: [address] [place] [address] Facility: [facility] Oxygen and Cane Smoking Pipe Mounter Needed: YES Also requesting a Separate and direct transportation due to patient having the Oxygen. documented in this encounter Plan of Treatment Upcoming Encounters Date Type Department Care Team ([facility] st Contact Info) Description 02/07/2025 1:00 PM EDT Telemedicine [facility] [address] [place] [address] Patt Sosa MD [address] [place] [address] 02/25/2025 10:30 AM EDT Telemedicine [facility] [address] [place] [address] Jackelin Nam RN 02/28/2025 1:30 PM EDT Office Visit [facility] [address] [place] [address] Quiana Giron MD [address] [place] [address] documented as of this encounter Visit Diagnoses Not on filedocumented in this encounter Care Teams Sausage Cutter Relationship Specialty Start Date End Date Quiana Giron MD 230 [place] [address] PCP - General Family Medicine 11/09/18 Jackelin Perez Sales And Service Agent 03/25/23 06/25/23 Erasmo Martinez 02/03/23 documented as of this encounter
--- OUTSIDE RECORDS SUMMARY | 2025-01-28 13:11 | XMS_ITS | Encounter Summary ---
Author Organization [employer] Address 75 [facility] 7t [place] [address] Care Team Providers Care Printed Products Assembler Name Role Phone Quiana Giron MD Primary Care Provider + Reason for Visit * Reason Comments Med Refill Encounter Details Date Type Department Care Team ([facility] Contact Info) Description 04/26/2024 Refill [facility] 230 [place], [place] [phone] Quiana Giron MD 230 [place], [place] [phone] Generalized anxiety disorder Social History Tobacco Use [...] Info) Description 02/07/2025 1:00 PM EDT Telemedicine [facility] [address] [place] [address] Patt Sosa MD [address] [place] [address] 02/25/2025 10:30 AM EDT Telemedicine [address] [address] Jackelin Nam RN 02/28/2025 1:30 PM EDT Office Visit [facility] [address] [place] [address]37 Quiana Giron MD [address] [place] [address] documented as of this encounter Visit Diagnoses Diagnosis Generalized anxiety disorder documented in this encounter Additional Health Concerns Assessment Noted Time PHQ-9 Depression Total Score: 9 07/23/19 24 10:38 AM EDT documented as of this encounter Care Teams Printed Products Assembler Relationship Specialty Start Date End Date Quiana Giron MD [address] [place] [address]26 PCP - General Family Medicine 11/09/18 Erasmo Martinez 02/03/23 documented as of this encounter
--- OUTSIDE RECORDS SUMMARY | 2025-01-28 13:11 | XMS_ITS | Encounter Summary ---
Author Organization [employer] Address 75 [facility] 7t [place] [address] Care Team Providers Care Forecast Analyst Name Role Phone Quiana Giron MD Primary Care Provider + Reason for Visit * Reason Onset Date Comments Durable Medical Equipment 05/20/2023 Nebuli zer Encounter Details Date Type Department Care Team ([facility] st Contact Info) Description 05/20/2023 Telephone [facility] 230 [place], [place] [phone] Quiana Giron MD 230 [place], [place] [phone] Durable Medical Equipment (Nebulizer) Social History Tobacco [...] PM EST Tc from [place] working with [facility] requesting Nebulizer machine and supplies. Jojos that faxed over to [employer]. Any questions please contact pt at [phone]. [email or web address] documented in this encounter Plan of Treatment Upcoming Encounters Date Type Department Care Team (Late st Contact Info) Description 02/07/2025 1:00 PM EDT Telemedicine [facility] [address] [place] [address] Patt Sosa MD [address] [place] [address] 02/25/2025 10:30 AM EDT Telemedicine [facility] [address] [place] [address] 8[address]53 Jackelin Nam RN 02/28/2025 1:30 PM EDT Office Visit [facility] [address] [place] [address] Quiana Giron MD 230 [place] [address] documented as of this encounter Visit Diagnoses Not on filedocumented in this encounter Care Teams Forecast Analyst Relationship Specialty Start Date End Date Quiana Giron MD 230 [place] [address] PCP - General Family Medicine 11/09/18 Jackelin Perez Registered Account Administrator 03/25/23 06/25/23 Erasmo Caring 02/03/23 documented as of this encounter
--- OUTSIDE RECORDS SUMMARY | 2025-01-28 13:11 | XMS_ITS | Encounter Summary ---
Author Organization [employer] Address 75 [facility] 7t [place] [address] Care Team Providers Care Tube And Manifold Builder Name Role Phone Quiana Giron MD Primary Care Provider + Reason for Visit * Reason Comments Med Refill Encounter Details Date Type Department Care Team ([facility] st Contact Info) Description 01/28/2024 Refill [facility] 230 [place], [place] [phone] Quiana Giron MD 230 [place], [place] [phone] Generalized anxiety disorder Social History Tobacco Use [...] 1:00 PM EDT Telemedicine [facility]INE [address] [place] [address] Patt Sosa MD [address] [place] [address] 90029 02/25/2025 10:30 AM EDT Telemedicine [address] [address] Jackelin Nam RN 02/28/2025 1:30 PM EDT Office Visit [facility] [address] [place] [address]15 Quiana Giron MD [address] [place] [address] documented as of this encounter Visit Diagnoses Diagnosis Generalized anxiety disorder documented in this encounter Additional Health Concerns Assessment Noted Time PHQ-9 Depression Total Score: 9 07/23/19 24 10:38 AM EDT documented as of this encounter Care Teams Tube And Manifold Builder Relationship Specialty Start Date End Date Quiana Giron MD [address] [place] [address] 18858 PCP - General Family Medicine 11/09/18 Erasmo Martinez 02/03/23 documented as of this encounter
--- OUTSIDE RECORDS SUMMARY | 2025-01-28 13:11 | XMS_ITS | Encounter Summary ---
Author Organization [employer] Address 75 [facility] 7t [place] [address] Care Team Providers Care Judicial Registrar Name Role Phone Quiana Giron MD Primary Care Provider + Encounter Details Date Type Department Care Team ([facility] st Contact Info) Description 08/06/2023 Telephone [facility] 230 [place], [place] [phone] Quiana Giron MD 230 [place], [place] [phone] Social History Tobacco Use Types Packs/Day Years [...] Info) Description 02/07/2025 1:00 PM EDT Telemedicine [facility] [address] [place] [address]327 Patt Sosa MD [address] [place] [address] 02/25/2025 10:30 AM EDT Telemedicine [facility] [address] [place] [address] 29[address] Jackelin Nam RN 02/28/2025 1:30 PM EDT Office Visit [facility] [address] [place] [address] Quiana Giron MD [address] [place] [address] documented as of this encounter Visit Diagnoses Not on filedocumented in this encounter Additional Health Concerns Assessment Noted Time PHQ-9 Depression Total Score: 9 07/23/19 24 10:38 AM EDT documented as of this encounter Care Teams Judicial Registrar Relationship Specialty Start Date End Date Quiana Giron MD [address] [place] [address] 26985 PCP - General Family Medicine 11/09/18 Erasmo Martinez 02/03/23 documented as of this encounter
--- OUTSIDE RECORDS SUMMARY | 2025-01-28 13:11 | XMS_ITS | Encounter Summary ---
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[facility]) Social History Tobacco Use Types Packs/Day Years [...] the past 12 months, has t he [employer], gas, oil or water company threatened to [...] Info) Description 02/07/2025 1:00 PM EDT Telemedicine [facility] [address] [place] [address] Patt Sosa MD [address] [place] [address] 24258 02/25/2025 10:30 AM EDT Telemedicine [facility] [address] [place] [address]55 Jackelin Nam RN 02/28/2025 1:30 PM EDT Office Visit [facility] [address] [place] [address] 59676 Quiana Giron MD [address] [place] [address] 13692 documented as of this encounter Visit Diagnoses Diagnosis Toxic megacolon (CMS/HCC) Unspecified ulcerative colitis documented in this encounter Additional Health Concerns Assessment Noted Time PHQ-9 Depression Total Score: 9 07/23/19 24 10:38 AM EDT documented as of this encounter Care Teams Rad Technologist Relationship Specialty Start Date End Date Quiana Giron MD 230 [place] [address] PCP - General Family Medicine 11/09/18 Erasmo Martinez 02/03/23 documented as of this encounter
--- OUTSIDE RECORDS SUMMARY | 2025-01-28 13:11 | XMS_ITS | Encounter Summary ---
Author Organization [employer] Address 75 [facility] 7t [place] [address] Care Team Providers Care Barge Worker Name Role Phone Quiana Giron MD Primary Care Provider + Encounter Details Date Type Department Care Team ([facility] st Contact Info) Description 05/17/2024 Orders Only [facility] MEDICINE 230 [place], [place] [phone] Quiana Giron MD 230 [place], [place] [phone] Social History Tobacco Use Types Packs/Day Years [...] 02/07/2025 1:00 PM EDT Telemedicine [facility] MEDICINE [address] [place] [address] Patt Sosa MD [address] [place] [address] 8[address]36 02/25/2025 10:30 AM EDT Telemedicine [address] [address] Jackelin Nam RN 02/28/2025 1:30 PM EDT Office Visit [facility] MED[facility]INE [address] [place] [address] 21881 Quiana Giron MD [address] [place] [address] 28488 documented as of this encounter Visit Diagnoses Not on filedocumented in this encounter Additional Health Concerns Assessment Noted Time PHQ-9 Depression Total Score: 9 07/23/19 24 10:38 AM EDT documented as of this encounter Care Teams Barge Worker Relationship Specialty Start Date End Date Quiana Giron MD [address] [place] [address] 9[address]62 PCP - General Family Medicine 11/09/18 Erasmo Martinez 02/03/23 documented as of this encounter
--- OUTSIDE RECORDS SUMMARY | 2025-01-28 13:11 | XMS_ITS | Encounter Summary ---
Author Organization [employer] Address 75 [facility] 7t [place] [address] Care Team Providers Care Creative Services Producer Name Role Phone Quiana Giron MD Primary Care Provider + Reason for Visit * Reason Comments Med Refill Encounter Details Date Type Department Care Team ([facility] st Contact Info) Description 08/09/2024 Refill [facility] MEDICINE 230 [place], [place] [phone] Quiana Giron MD 230 [place], [place] [phone] Multilevel degenerative joint disease of spine Social [...] Info) Description 02/07/2025 1:00 PM EDT Telemedicine [facility] MEDICINE [address] [place] [address]25 Patt Sosa MD [address] [place] [address] 91689 02/25/2025 10:30 AM EDT Telemedicine [address] [address] Jackelin Nam RN 02/28/2025 1:30 PM EDT Office Visit [facility] MED[facility]INE [address] [place] [address] Quiana Giron MD [address] [place] [address] documented as of this encounter Visit Diagnoses Diagnosis Multilevel degenerative joint disease of spine documented in this encounter Additional Health Concerns Assessment Noted Time PHQ-9 Depression Total Score: 9 07/23/19 24 10:38 AM EDT documented as of this encounter Care Teams Creative Services Producer Relationship Specialty Start Date End Date Quiana Giron MD [address] [place] [address] 14292 PCP - General Family Medicine 11/09/18 Ersamo Martinez 02/03/23 documented as of this encounter
--- OUTSIDE RECORDS SUMMARY | 2025-01-28 13:11 | XMS_ITS | Encounter Summary ---
Author Organization [email or web address] Address 75 [facility] 7t [place] [address] Care Team Providers Care Service Crew Leader Name Role Phone Quiana Giron MD Primary Care Provider + Reason for Visit * Reason Onset Date Comments PT1 06/10/2023 Encounter Details Date Type Department Care Team ([facility] st Contact Info) Description 06/10/2023 Telephone [facility] 230 [place], [place] [phone] Quiana Giron MD 230 [place], [place] [phone] PT1 Social History Tobacco Use Types Packs/Day [...] If any questions please contact Tahmina at [phone]. documented in this encounter Plan of Treatment Upcoming Encounters Date Type Department Care Team (Late st Contact Info) Description 02/07/2025 1:00 PM EDT Telemedicine [facility] [address] [place] [address] Patt Sosa MD [address] [place] [address] 02/25/2025 10:30 AM EDT Telemedicine [facility] [address] [place] [address] 6[address] Jackelin Nam RN 02/28/2025 1:30 PM EDT Office Visit [facility] [address] [place] [address] Quiana Giron MD [address] [place] [address] 31149 documented as of this encounter Visit Diagnoses Not on filedocumented in this encounter Care Teams Service Crew Leader Relationship Specialty Start Date End Date Quiana Giron MD [address] [place] [address]16 PCP - General Family Medicine 11/09/18 Jackelin Perez Web User Experience Strategist 03/25/23 06/25/23 Erasmo Martinez 02/03/23 documented as of this encounter
--- OUTSIDE RECORDS SUMMARY | 2025-01-28 13:11 | XMS_ITS | Encounter Summary ---
Author Organization [employer] Address 75 [facility] 7t [place] [address] Care Team Providers Care Clerk Entry Level Name Role Phone Quiana Giron MD Primary Care Provider + Encounter Details Date Type Department Care Team ([facility] st Contact Info) Description 03/03/2023 Abstract [facility] 230 [place], [place] [phone] Quiana Giron MD 230 [place], [place] [phone] Social History Tobacco Use Types Packs/Day Years [...] Description 02/07/2025 1:00 PM EDT Telemedicine [facility] [address] [place] [address] Patt Sosa MD [address] [place] [address] 7[address] 02/25/2025 10:30 AM EDT Telemedicine [facility] [address] [place] [address] 250[address] Jackelin Nma, LUCIANO 02/28/2025 1:30 PM EDT Office Visit [facility] [address] [place] [address] 23527 Quiana Giron MD [address] [place] [address] documented as of this encounter Visit Diagnoses Not on filedocumented in this encounter Care Teams Clerk Entry Level Relationship Specialty Start Date End Date Quiana Giron MD [address] [place] [address] 84544 PCP - General Family Medicine 11/09/18 Jackelin Perez Sight Effects Specialist 03/25/23 06/25/23 Erasmo Martinez 02/03/23 documented as of this encounter
--- OUTSIDE RECORDS SUMMARY | 2025-01-28 13:11 | XMS_ITS | Encounter Summary ---
Author Organization [employer] Address 75 [facility] 7t [place] [address] Care Team Providers Care Associate Professor Of Engineering Name Role Phone Quiana Giron MD Primary Care Provider + Reason for Visit * Reason Comments Med Refill Encounter Details Date Type Department Care Team ([facility] Contact Info) Description 03/26/2024 Refill [facility] 230 [place], [place] [phone] Quiana Giron MD 230 [place], [place] [phone] Generalized anxiety disorder Social History Tobacco Use [...] is your housing situation today? I have jitnedra ramsey 02/24/[address] you [...] Info) Description 02/07/2025 1:00 PM EDT Telemedicine [facility] [address] [place] [address] Patt Sosa MD [address] [place] [address] 02/25/2025 10:30 AM EDT Telemedicine [address] [address] Jackelin Nam RN 02/28/2025 1:30 PM EDT Office Visit [facility] [address] [place] [address] Quiana Giron MD [address] [place] [address] documented as of this encounter Visit Diagnoses Diagnosis Generalized anxiety disorder documented in this encounter Additional Health Concerns Assessment Noted Time PHQ-9 Depression Total Score: 9 07/23/19 24 10:38 AM EDT documented as of this encounter Care Teams Associate Professor Of Engineering Relationship Specialty Start Date End Date Quiana Giron MD [address] [place] [address] PCP - General Family Medicine 11/09/18 Erasmo Martinez 02/03/23 documented as of this encounter
--- OUTSIDE RECORDS SUMMARY | 2025-01-28 13:11 | XMS_ITS | Encounter Summary ---
Author Organization [employer] Address 75 [facility] 7t [place] [address] Care Team Providers Care Magnetic Prospecting Supervisor Name Role Phone Quiana Giron MD Primary Care Provider + Reason for Visit * Reason Onset Date Comments Med Refill 05/07/2023 Encounter Details Date Type Department Care Team ([facility] st Contact Info) Description 05/07/2023 Telephone [facility] 230 [place], [place] [phone] Quiana Giron MD 230 [place], [place] [phone] Med Refill Social History Tobacco Use Types [...] MG/ML concentrated solution To be sent to: [facility]/pharmacy #[id number] - [place] - [address] [facility] documented in this encounter Plan of Treatment Upcoming Encounters Date Type Department Care Team (Late st Contact Info) Description 02/07/2025 1:00 PM EDT Telemedicine [facility] [address] [place] [address] Patt Sosa MD 230 [place] [address] 02/25/2025 10:30 AM EDT Telemedicine [facility] [address] [place] [address] Jackelin Nam, RN 02/28/2025 1:30 PM EDT Office Visit [facility] [address] [place], [place] [phone] Quiana Giron MD [address] [place] [address] [phone] documented as of this encounter Visit Diagnoses Not on filedocumented in this encounter Care Teams Magnetic Prospecting Supervisor Relationship Specialty Start Date End Date Quiana Giron MD [address] [place] [address]190 PCP - General Family Medicine 11/09/18 Jackelin Perez Freight Broker Agent 03/25/23 06/25/23 Erasmo Martinez 02/03/23 documented as of this encounter
--- OUTSIDE RECORDS SUMMARY | 2025-01-28 13:11 | XMS_ITS | Encounter Summary ---
Author Organization [employer] Address [address] [facility] [address] 7t [place] [address] Care Team Providers Care At Risk Specialist Name Role Phone Quiana Giron MD Primary Care Provider + Reason for Visit * Reason Comments Med Refill Encounter Details Date Type Department Care Team ([facility] st Contact Info) Description 03/07/[address] [facility] ADULT DENTAL 230 [place] [address] Reagan Espinoza, ANETA 505 [place], [place] [phone] Periodontal disease Social History Tobacco Use Types [...] 1:00 PM EDT Telemedicine [facility] [address] [place] [address] 28377 Patt Sosa MD [address] [place] [address] 02/25/2025 10:30 AM EDT Telemedicine [address] [address] Jackelin Nam RN 02/28/2025 1:30 PM EDT Office Visit [facility] [address] [place] [address] Quiana Giron MD [address] [place] [address] documented as of this encounter Visit Diagnoses Diagnosis Periodontal disease Unspecified gingival and periodontal disease documented in this encounter Care Teams At Risk Specialist Relationship Specialty Start Date End Date Quiana Giron MD [address] [place] [address] PCP - General Family Medicine 11/09/18 Jackelin Perez Barrow Worker 03/25/23 06/25/23 Erasmo [facility] 02/03/23 documented as of this encounter
--- OUTSIDE RECORDS SUMMARY | 2025-01-28 13:11 | XMS_ITS | Encounter Summary ---
Author Organization [employer] Address [address] [facility] [address] 7t [place] [address] Care Team Providers Care Family Psychologist Name Role Phone Quiana Giron MD Primary Care Provider + Encounter Details Date Type Department Care Team ([facility] st Contact Info) Description 01/25/[address] 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 Thank you documented in this encounter Plan of Treatment Upcoming Encounters Date Type Department Care Team (Late st Contact Info) Description 02/07/2025 1:[address] [facility] [address] [place] [address] Patt Sosa MD [address] [place] [address] 02/25/2025 10:[address] [facility] [address] [place] [address] Jackelin Nam RN 02/28/2025 1:30 PM EDT Office Visit [facility] [address] [place] [address] Quiana Giron MD [address] [place] [address] documented as of this encounter Visit Diagnoses Not on filedocumented in this encounter Additional Health Concerns Assessment Noted Time PHQ-9 Depression Total Score: 9 07/23/19 24 10:38 AM EDT documented as of this encounter Care Teams Family Psychologist Relationship Specialty Start Date End Date Quiana Giron MD [address] [place] [address] PCP - General Family Medicine 11/09/18 Erasmo Martinez 02/03/23 documented as of this encounter
--- OUTSIDE RECORDS SUMMARY | 2025-01-28 13:11 | XMS_ITS | Encounter Summary ---
Author Organization [employer] Address 75 [facility] 7t [place] [address] Care Team Providers Care Shank Stapler Name Role Phone Quiana Giron MD Primary Care Provider + Reason for Visit * Reason Comments Med Refill Encounter Details Date Type Department Care Team ([facility] Contact Info) Description 11/27/2023 Refill [facility] 230 [place], [place] [phone] Quiana Giron MD 230 [place], [place] [phone] Generalized anxiety disorder Social History Tobacco Use [...] 1:00 PM EDT Telemedicine [facility] [address] [place] [address] Patt Sosa MD [address] [place] [address] 02/25/2025 10:30 AM EDT Telemedicine [address] [address] Jackelin Nam RN 02/28/2025 1:30 PM EDT Office Visit [facility] [address] [place] [address] Quiana Giron MD [address] [place] [address] documented as of this encounter Visit Diagnoses Diagnosis Generalized anxiety disorder documented in this encounter Additional Health Concerns Assessment Noted Time PHQ-9 Depression Total Score: 9 07/23/19 24 10:38 AM EDT documented as of this encounter Care Teams Shank Stapler Relationship Specialty Start Date End Date Quiana Giron MD [address] [place] [address] PCP - General Family Medicine 11/09/18 Erasmo Martinez 02/03/23 documented as of this encounter
--- OUTSIDE RECORDS SUMMARY | 2025-01-28 13:11 | XMS_ITS | Encounter Summary ---
Author Organization [employer] Address 75 [facility] 7t [place] [address] Care Team Providers Care Supervisor Asbestos Textile Name Role Phone Quiana Giron MD Primary Care Provider + Reason for Visit * Reason Comments Med Refill Encounter Details Date Type Department Care Team ([facility] st Contact Info) Description 05/13/2024 Refill [facility] 230 [place], [place] [phone] Quiana Giron MD 230 [place], [place] [phone] Multilevel degenerative joint disease of spine Social [...] Info) Description 02/07/2025 1:00 PM EDT Telemedicine [facility] [address] [place] [address] Patt Sosa MD [address] [place] [address] 02/25/2025 10:30 AM EDT Telemedicine [address] [address] Jackelin Nam RN 02/28/2025 1:30 PM EDT Office Visit [facility] [address] [place] [address] Quiana Giron MD [address] [place] [address] documented as of this encounter Visit Diagnoses Diagnosis Multilevel degenerative joint disease of spine documented in this encounter Additional Health Concerns Assessment Noted Time PHQ-9 Depression Total Score: 9 07/23/19 24 10:38 AM EDT documented as of this encounter Care Teams Supervisor [employer]ile Relationship Specialty Start Date End Date Quiana Giron MD [address] [place] [address] PCP - General Family Medicine 11/09/18 Erasmo Martinez 02/03/23 documented as of this encounter
--- OUTSIDE RECORDS SUMMARY | 2025-01-28 13:11 | XMS_ITS | Encounter Summary ---
Author Organization [employer] Address 75 [facility] 7t [place] [address] Care Team Providers Care Press Shop Supervisor Name Role Phone Quiana Giron MD Primary Care Provider + Reason for Visit * Reason Onset Date Comments Medication Question 12/03/2024 Prior Authorization 12/03/2024 PA Request: Hydromorphone Encounter Details Date Type Department Care Team ([facility] Contact Info) Description 12/03/2024 Telephone [facility] 230 [place], [place] [phone] Quiana Giron MD 230 [place], [place] [phone] Medication Question; Prior Authorization (PA Request: Hydromorphone) Social History Tobacco Use Types Packs/Day Years [...] * Telephone Encounter - Jessica Wall - 12/03/2024 3:05 PM EDT Call was Made to [facility] to see if Medication needed a PA the last time it was filled there. Pharmacy stated that they were able to fill last month with no issue and would be able to fill medication. Patient was called and given the option to garbage pick up worker here at [facility] and he agreed. Medication was queued to Provider with change of Pharmacy. * Telephone Encounter - Jatin Rabago - 12/03/2024 1:46 PM EDT Tc from pt requesting a call back in regards to medication. Pt states it needs a pa and would need it before the day ends. Contact pt at [phone] documented in this encounter Plan of Treatment Upcoming Encounters Date Type Department Care Team (Late st Contact Info) Description 02/07/2025 1:00 PM EDT Telemedicine [facility] [address] [place] [address] Patt Sosa MD 230 [place] [address] 02/25/2025 10:30 AM EDT Telemedicine [address] [address] Jackelin Nam, LUCIANO 02/28/2025 1:30 PM EDT Office Visit [address] [address] Quiana Giron MD [address] [place] [address] documented as of this encounter Visit Diagnoses Diagnosis Multilevel degenerative joint disease of spine documented in this encounter Additional Health Concerns Assessment Noted Time PHQ-9 Depression Total Score: 9 07/23/19 24 10:38 AM EDT documented as of this encounter Care Teams Press Shop Supervisor Relationship Specialty Start Date End Date Quiana Giron MD [address] [place] [address] PCP - General Family Medicine 11/09/18 Erasmo Martinez 02/03/23 documented as of this encounter
--- OUTSIDE RECORDS SUMMARY | 2025-01-28 13:11 | XMS_ITS | Encounter Summary ---
Author Organization [employer] Address [address] [facility] 7t [place] [address] Care Team Providers Care Utility Division Project Manager Name Role Phone Quiana Giron MD Primary Care Provider + Encounter Details Date Type Department Care Team ([facility] st Contact Info) Description 11/23/2024 Results Follow-Up [facility] 230 [place], [place] [phone] Zeenat Baez MD 230 [place] [address] Iron And Total Iron Binding Capacity, Ferritin, Herpes Simplex Virus Culture with Reflex Typing, Additional followed-up results: 2 Social History Tobacco Use Types Packs/Day Years [...] the past 12 months, has t he [employer], gas, oil or water company threatened to [...] this encounter Functional Status * Over the last 2 weeks, how often have you been bothered by any of the following problems? Question Answer Date of Assessment Author Feeling nervous, anxious, or on edge 3 12/10 1:52 PM EDT Jackelin Nam RN Not being able to stop or co ntrol worrying 3 12/20/2024 1:52 PM EDT Jackelin Nam RN Worrying too much about diff erent things 3 12/20/2024 1:52 PM EDT Jackelin Nam RN Trouble relaxing 3 12/20/2024 1:52 PM EDT Jackelin Queen ae, RN Being so restless that it is hard to sit still 3 12/20/2024 1:52 PM JASWINDERT Jackelin Nam RN Becoming easily annoyed or irritable 3 12/10 1:52 PM EDT Jackelin Nam RN Feeling afraid as if somethi ng awful might happen 3 12/20/2024 1:52 PM EDT Jackelin Nam RN SUZANNE-7 Total Score 21 12/20/2024 1:52 PM EDT Jackelin Nam RN documented as of this encounter Miscellaneous Notes * Result Encounter Note - Zeenat Avina MD - 11/25/2024 11:51 AM EDT Hi Quiana I saw this pt for sick visit and found to have active hep C -I referred pt already to start Tx w hep C team . Just sending as FYI * Result Encounter Note - Zeenat Avina MD - 11/23/2024 1:31 PM EDT Pd zoster result,herpes cx is neg documented in this encounter Plan of Treatment Upcoming Encounters Date Type Department Care Team (Late st Contact Info) Description 02/07/2025 1:00 PM EDT Telemedicine [facility] [address] [place] [address] Patt Sosa MD [address] [place] [address] 02/25/2025 10:30 AM EDT Telemedicine [facility] [address] [place] [address] Jackelin Nam, RN 02/28/2025 1:30 PM EDT Office Visit [facility] [address] [place] [address] Quiana Giron MD [address] [place] [address] documented as of this encounter Visit Diagnoses Not on filedocumented in this encounter Additional Health Concerns Assessment Noted Time PHQ-9 Depression Total Score: 9 07/23/19 24 10:38 AM EDT documented as of this encounter Care Teams Utility Division Project Manager Relationship Specialty Start Date End Date Quiana Giron MD [address] [place] [address] PCP - General Family Medicine 11/09/18 Erasmo Martinez 02/03/23 documented as of this encounter
--- OUTSIDE RECORDS SUMMARY | 2025-01-28 13:12 | XMS_ITS | Encounter Summary ---
Author Organization [employer] Address 75 [facility] 7t [place] [address] Care Team Providers Care Automobile Service Writer Name Role Phone Quiana Giron MD Primary Care Provider + Reason for Visit * Reason Onset Date Comments Call Back Request 03/26/2023 Encounter Details Date Type Department Care Team ([facility] Contact Info) Description 03/26/2023 Telephone [facility] 230 [place], [place] [phone] Quiana Giron MD 230 [place], [place] [phone] Call Back Request Social History Tobacco Use [...] Feeling nervous, anxious, or on edge 3 03/12 2:30 PM Jackelin Okeefe RN Not being able to stop or co ntrol worrying 3 03/28/2023 2:30 PM Jackelin Okeefe RN Worrying too much about diff erent things 3 03/28/2023 2:30 PM Jackelin Okeefe RN Trouble relaxing 2 03/28/2023 2:30 PM Jackelin DOUGHERTY ae, RN Being so restless that it is hard to sit still 3 03/28/2023 2:30 PM Jackelin Okeefe RN Becoming easily annoyed or irritable 3 03/12 2:30 PM Jackelin Okeefe RN Feeling afraid as if somethi ng awful might happen 2 03/28/2023 2:30 PM Jackelin Okeefe RN SUZANNE-7 Total Score 19 03/28/2023 2:30 PM Jackelin Okeefe RN documented as of this encounter Miscellaneous Notes * Telephone Encounter - Cat Mendez - 03/26/2023 4:15 PM EST Tc from pt requesting a call back in regards paperwork. documented in this encounter Plan of Treatment Upcoming Encounters Date Type Department Care Team (Late st Contact Info) Description 02/07/2025 1:00 PM EDT Telemedicine [facility] [address] [place] [address] Patt Sosa MD 230 [place] [address] 02/25/2025 10:30 AM EDT Telemedicine [address] [address] Jackelin Nam, RN 02/28/2025 1:30 PM EDT Office Visit [address] [address] Quiana Giron MD [address] [place] [address] [phone] documented as of this encounter Visit Diagnoses Not on filedocumented in this encounter Care Teams Automobile Service Writer Relationship Specialty Start Date End Date Quiana Giron MD [address] [place] [address]67 PCP - General Family Medicine 11/09/18 Jackelin Perez Precipitation Equipment Tender 03/25/23 06/25/23 Erasmo Martinez 02/03/23 documented as of this encounter
--- OUTSIDE RECORDS SUMMARY | 2025-01-28 13:12 | XMS_ITS | Encounter Summary ---
Author Organization [employer] Address 75 [facility] 7t [place] [address] Care Team Providers Care Brush Holder Inspector Name Role Phone Quiana Giron MD Primary Care Provider + Reason for Visit * Reason Comments Med Refill Encounter Details Date Type Department Care Team ([facility] st Contact Info) Description 04/18/2023 Refill [facility] MEDICINE 230 [place], [place] [phone] Quiana Giron MD [address], [place] [phone] Cigarette nicotine dependence in remission Social History [...] Info) Description 02/07/2025 1:00 PM EDT Telemedicine [facility]INE [address] [place] [address] Patt Sosa MD [address] [place] [address] 02/25/2025 10:30 AM EDT Telemedicine [facility]INE [address] [place] [address] Jackelin Nam, RN 02/28/2025 1:30 PM EDT Office Visit [facility] [address] [place] [address] Quiana Giron MD [address] [place] [address] documented as of this encounter Visit Diagnoses Diagnosis Cigarette nicotine dependence in remission documented in this encounter Care Teams Brush Holder Inspector Relationship Specialty Start Date End Date Quiana Giron MD [address] [place] [address] PCP - General Family Medicine 11/09/18 Jackelin Perez Dye Room Helper 03/25/23 06/25/23 Erasmo Martinez 02/03/23 documented as of this encounter
--- OUTSIDE RECORDS SUMMARY | 2025-01-28 13:12 | XMS_ITS | Encounter Summary ---
Author Organization [employer] Address 75 [facility] 7t [place] [address] Care Team Providers Care Transfer And Line Up Worker Name Role Phone Quiana Giron MD Primary Care Provider + Encounter Details Date Type Department Care Team ([facility] st Contact Info) Description 03/07/2023 Telephone [facility] 230 [place], [place] [phone] Quiana Giron MD 230 [place], [place] [phone] Social History Tobacco Use Types Packs/Day Years [...] PM EDT Telemedicine [facility] [address] [place] [address] Patt Sosa MD [address] [place] [address] 02/25/2025 10:30 AM EDT Telemedicine [facility] [address] [place] [address] Jackelin Nam, LUCIANO 02/28/2025 1:30 PM EDT Office Visit [facility] [address] [place] [address] Quiana Giron MD [address] [place] [address] 1948[address] documented as of this encounter Visit Diagnoses Not on filedocumented in this encounter Care Teams Transfer And Line Up Worker Relationship Specialty Start Date End Date Quiana Giron MD [address] [place] [address]698 PCP - General Family Medicine 11/09/18 Jackelin Perez Control Supervisor 03/25/23 06/25/23 Erasmo Martinez 02/03/23 documented as of this encounter
--- OUTSIDE RECORDS SUMMARY | 2025-01-28 13:12 | XMS_ITS | Encounter Summary ---
Author Organization [employer] Address 75 [facility] 7t [place] [address] Care Team Providers Care Dinkey Brakeman Name Role Phone Quiana Giron MD Primary Care Provider + Reason for Visit * Reason Comments Med Refill Encounter Details Date Type Department Care Team ([facility] st Contact Info) Description 03/31/2023 Refill [facility] ADULT DENTAL 230 [place], [place] [phone] Lazaro Parker, ANETA 230 [place], [place] [phone] Periodontal disease Social History Tobacco Use Types [...] 02/07/2025 1:00 PM EDT Telemedicine [facility] MED[facility]INE [address] [place] [address] Patt Sosa MD [address] [place] [address] 02/25/2025 10:30 AM EDT Telemedicine [address] [address] Jackelin Nam RN 02/28/2025 1:30 PM EDT Office Visit [facility] [address] [place] [address] Quiana Giron MD [address] [place] [address] documented as of this encounter Visit Diagnoses Diagnosis Periodontal disease Unspecified gingival and periodontal disease documented in this encounter Care Teams Dinkey Brakeman Relationship Specialty Start Date End Date Quiana Giron MD [address] [place] [address] PCP - General Family Medicine 11/09/18 Jackelin Perez Scientific Software Developer 03/25/23 06/25/23 Erasmo [facility] 02/03/23 documented as of this encounter
== END 2025-01-28 14:09 | disposition home or self-care (01) ==
LOC: HO.HPSW 13:07
PROVIDERS: PCP Internal Medicine; Visit Provider Nurse Practitioner Family
DX: J44.9 Chronic obstructive pulmonary disease, unspecified (principal); Z99.81 Dependence on supplemental oxygen; J96.11 Chronic respiratory failure with hypoxia; R91.1 Solitary pulmonary nodule; R40.0 Somnolence; G47.8 Other sleep disorders
CPT/HCPCS: 99215

== ENCOUNTER → 2025-01-28 13:06 | Outpatient (BNVA) | payer MEDICAID, SELFPAY | PROVIDERS: PCP Internal Medicine; Visit Provider Nurse Practitioner Family | DX: J96.11 Chronic respiratory failure with hypoxia (principal); J44.9 Chronic obstructive pulmonary disease, unspecified; Z99.81 Dependence on supplemental oxygen; R91.1 Solitary pulmonary nodule; R40.0 Somnolence; G47.8 Other sleep disorders | CPT/HCPCS: 99212 ==

== ENCOUNTER → 2025-05-06 14:54 | Outpatient (REF) | payer MEDICAID, SELFPAY ==
--- OUTSIDE RECORDS SUMMARY | 2025-05-06 14:56 | XMS_ITS | Encounter Summary ---
Author Organization [employer] Address 75 [facility] 7t [place] [address] Care Team Providers Care Note Specialist Name Role Phone Quiana Giron MD Primary Care Provider + Encounter Details Date Type Department Care Team ([facility] st Contact Info) Description 02/19/[address] [facility] MEDICINE 230 [place], [place] [phone] Quiana Giron MD 230 [place], [place] [phone] Social History Tobacco Use Types Packs/Day Years [...] Care Team (Late st Contact Info) Description 06/03/2025 11:[address] [facility] [address] [place] [address] Jackelin Nam RN 06/24/2025 11:15 AM EST Office Visit [facility] [address] [place] [address] Quiana Giron MD [address] [place] [address] 06/29/2025 10:15 AM EST Office Visit [address] [address] Quiana Giron MD [address] [place] [address] documented as of this encounter Visit Diagnoses Not on filedocumented in this encounter Care Teams Note Specialist Relationship Specialty Start Date End Date Quiana Giron MD [address] [place] [address] PCP - General Family Medicine 11/09/18 Jackelin Perez Linotypist 03/25/23 06/25/23 Erasmo Martinez 02/03/23 documented as of this encounter
--- OUTSIDE RECORDS SUMMARY | 2025-05-06 14:56 | XMS_ITS | Encounter Summary ---
Author Organization [employer] Address [address] [place] [address] 7 [place] [address] Care Team Providers Care Fusing Line Inspector Name Role Phone Quiana Giron MD Primary Care Provider + Reason for Visit * Reason Comments Med Refill Encounter Details Date Type Department Care Team (Late st Contact Info) Description 02/06/2023 Refill [facility] [address] [place] [address] [phone] Quiana Giron MD [address] [place] [address] [phone] Generalized anxiety disorder; Body aches Social History [...] Department Care Team (Late Contact Info) Description 06/03/2025 11:00 AM EST Telemedicine [address] [address] Jackelin Nam RN 06/24/2025 11:15 AM EST Office Visit [facility] [address] [place] [phone] Quiana Giron MD [address] [place] [address] 06/29/2025 10:15 AM EST Office Visit [facility] [address] [place] [address] Quiana Giron MD [address] [place], [place] [phone] documented as of this encounter Visit Diagnoses Diagnosis Generalized anxiety disorder Body aches Generalized pain documented in this encounter Care Teams Fusing Line Inspector Relationship Specialty Start Date End Date Quiana Giron MD [address] [place] [address] PCP - General Family Medicine 11/09/18 Jackelin Perez General Adjuster 03/25/23 06/25/23 Erasmo Martinez 02/03/23 documented as of this encounter
--- OUTSIDE RECORDS SUMMARY | 2025-05-06 14:56 | XMS_ITS | Encounter Summary ---
Author Organization [employer] Address [address] [place] [address] 7 [place] [address] Care Team Providers Care Insolvency Practitioner Name Role Phone Quiana Giron MD Primary Care Provider + Reason for Visit * Reason Comments Med Refill Encounter Details Date Type Department Care Team (Late st Contact Info) Description 02/07/2023 Refill [facility] [address] [place] [address] [phone] Quiana Giron MD [address] [place] [phone] Generalized anxiety disorder Social History Tobacco Use [...] Info) Description 06/03/2025 11:00 AM EST Telemedicine [facility] [address] [place] [address] Jackelin Nam RN 06/24/2025 11:15 AM EST Office Visit [facility] [address] [place] [address] [phone] Quiana Giron MD [address] [place], [place] [phone] 06/29/2025 10:15 AM EST Office Visit [facility] [address] [place], [place] [phone] Quiana Giron MD [address] [place], [place] [phone] documented as of this encounter Visit Diagnoses Diagnosis Generalized anxiety disorder documented in this encounter Care Teams Insolvency Practitioner Relationship Specialty Start Date End Date Quiana Giron MD [address] [place] [address] [phone] PCP - General Family Medicine 11/09/18 Jackelin Perez Youth Ministry Director 03/25/23 06/25/23 Erasmo Martinez 02/03/23 documented as of this encounter
--- OUTSIDE RECORDS SUMMARY | 2025-05-06 14:56 | XMS_ITS | Encounter Summary ---
Author Organization [employer] Address [address] [place] [address] 7 [place] [address] Care Team Providers Care Roller Coaster Operator Name Role Phone Quiana Giron MD Primary Care Provider + Encounter Details Date Type Department Care Team (Late Contact Info) Description 02/10/[address] [phone] Quiana Giron MD [address] [place] [address] [phone] Social History Tobacco Use Types Packs/Day Years [...] Info) Description 06/03/2025 11:00 AM EST Telemedicine [address] [phone] Jackelin Nam RN 06/24/2025 11:15 AM EST Office Visit [address] [phone] Quiana Giron MD [address] [place] [address] 06/29/2025 10:15 AM EST Office Visit [facility] [address] [place] [address] [phone] Quiana Giron MD [address] [place] [address] [phone] documented as of this encounter Visit Diagnoses Not on filedocumented in this encounter Care Teams Roller Coaster Operator Relationship Specialty Start Date End Date Quiana Giron MD [address] [place] [address] [phone] PCP - General Family Medicine 11/09/18 Jackelin Perez Laborer Shellfish Processing 03/25/23 06/25/23 Erasmo Martinez 02/03/23 documented as of this encounter
--- OUTSIDE RECORDS SUMMARY | 2025-05-06 14:56 | XMS_ITS | Encounter Summary ---
Author Organization [employer] Address [address] [place] [address] 7 [place] [address] Care Team Providers Care Director Of Early Childhood Name Role Phone Quiana Giron MD Primary Care Provider + Reason for Visit * Reason Onset Date Comments Med Refill 02/10/2023 [facility] - [facility] plan 02/10/2023 Encounter Details Date Type Department Care Team (Late st Contact Info) Description 02/10/2023 Telephone [facility] [address] [place] [address] Quiana Giron MD [address] [place] [address] Med Refill; [facility] - ELARA plan Social [...] to [place] Nurse/Erasmo Martinez - Thais @ [phone]. Thais will be seeing patient 3 x a week on Mondays, Friday and Fridays. She will be loading his pill box enough until his next appt with her. She states his medications are locked up and she accesses them. She will pickup his new RX's from [facility]. States that pt is currently taking his 6 pills of Dilaudid 4mg in a day. She also reports that patient has a PRODUCT MANAGER who is very active with assisting him in his care. * Telephone Encounter - Joselito Bailey - 02/10/2023 4:44 PM EDT Tc from [facility] with Erasmo Michelle requesting status on medication HYDROmorphone (Dilaudid) 4 MG tablet. She States pt is out of meds. Do see medication was requested today 02/10/2023 informed as well provider does have 72 hours to sent the script over to the pharmacy. Thais is requesting a call in regards to the status of the medication Please contact Eugene at [phone] * Telephone Encounter - Annel Cruz - 02/10/2023 2:38 PM EDT TC from pt requesting med refill for medication HYDROmorphone (Dilaudid) 4 MG tablet. States is outof meds and would like a call back . documented in this encounter Plan of Treatment Upcoming Encounters Date Type Department Care Team (Late st Contact Info) Description 06/03/2025 11:00 AM EST Telemedicine [facility] [address] [place] [phone] Jackelin Nam RN 06/24/2025 11:15 AM EST Office Visit [facility] [address] [place] [address] Quiana Giron MD [address] [place] [address] 06/29/2025 10:15 AM EST Office Visit [facility] [address] [place], [place] [phone] Quiana Giron MD [address] [place] [address] documented as of this encounter Visit Diagnoses Not on filedocumented in this encounter Care Teams Director Of Early Childhood Relationship Specialty Start Date End Date Quiana Giron MD [address] [place] [address] [phone] PCP - General Family Medicine 11/09/18 Jackelin Perez Renewable Energy Consultant 03/25/23 06/25/23 Erasmo Martinez 02/03/23 documented as of this encounter
--- OUTSIDE RECORDS SUMMARY | 2025-05-06 14:56 | XMS_ITS | Encounter Summary ---
Author Organization [employer] Address [address] [place] [address] 7 [place] [address] Care Team Providers Care Repairer Switchgear Name Role Phone Quiana Giron MD Primary Care Provider + Reason for Visit * Reason Comments Med Refill Encounter Details Date Type Department Care Team (Late st Contact Info) Description 02/05/2023 Refill [facility] [address] [place] [address] [phone] Quiana Giron MD [address] [place] [phone] Generalized anxiety disorder Social History Tobacco Use [...] Info) Description 06/03/2025 11:00 AM EST Telemedicine [facility] [address] [place] [address] Jackelin Nam RN 06/24/2025 11:15 AM EST Office Visit [facility] [address] [place] [address] [phone] Quiana Giron MD 230 [place], [place] [phone] 06/29/2025 10:15 AM EST Office Visit [facility] [address] [place], [place] [phone] Quiana Giron MD [address] [place], [place] [phone] documented as of this encounter Visit Diagnoses Diagnosis Generalized anxiety disorder documented in this encounter Care Teams Repairer Switchgear Relationship Specialty Start Date End Date Quiana Giron MD [address] [place] [address] [phone] PCP - General Family Medicine 11/09/18 Jackelin Perez Infection Control Specialist 03/25/23 06/25/23 Erasmo Martinez 02/03/23 documented as of this encounter
--- NOTE | 2025-05-06 14:57 | CA_ITS ---
Transthoracic Echocardiogram Patient (Last, First, Middle): Mta Martin, Gender: M Date of : 1985 Age: 39 Procedure Date: 05/06/2025 Procedure Type: Transthoracic Echocardiogram Location: OP Height: 172.72 cm Weight: 58.51 kg BSA: 1.70 m2 Heart Rate: 75 bpm BP: 98 / 66 mmHg Varnish Cooker: MIHAI Referring MD: Tanisha Smith MOLD YARD WORKER Scrap Preparation Supervisor: Matt Weeks MD Symptoms: R06.09 - Other forms of dyspnea Study Quality: Fair ECG Rhythm: Sinus Conclusions: - 1. Normal LV ejection fraction 60 65%. 2. Mildly dilated right-sided chambers with preserved RV contractility 3. Cardiac valvular Dopplers within normal limits 4. Upper limits of normal RV systolic pressure 5. No gross pericardial effusion Findings Procedure Information The quality of the study was technically difficult. The study quality is limited by the patients inability to tolerate the test. Left Ventricle Normal left ventricular size, thickness, and systolic function. The visually estimated ejection fraction is between 60-65%. Spectral Doppler is indicative of a normal filling pattern. Right Ventricle Mildly increased right ventricular cavity size. There is normal right ventricular systolic function. Atria The left atrium is normal in size. Interatrial shunt cannot be excluded. The right atrium is mildly dilated. Aortic Valve Normal aortic valve structure and function. There is no aortic valve stenosis. There is no aortic valve regurgitation. Mitral Valve Normal mitral valve structure and function. There is trace mitral valve regurgitation. There is no mitral valve stenosis. Pulmonic Valve The pulmonic valve is likely normal. There is trace pulmonic valve regurgitation. Tricuspid Valve Normal tricuspid valve structure. There is trace tricuspid valve regurgitation. The right ventricular systolic pressure is 37 mmHg. Normal right atrial pressure. There is no evidence of pulmonary hypertension. Great Vessels All visible segments of the aorta are normal in size. The pulmonary artery was not well visualized. Venous The inferior vena cava is mildly dilated and collapses greater than 50% with inspiration. Pericardium/Pleural There is no evidence of pericardial effusion. Measurements 2D Linear Measurements IVSd: 0.95 0.6-0.9/0.6-1.0 cm LVIDd: 4.40 3.9-5.3/4.2-5.9 cm LVIDd Index: 2.59 2.4-3.2/2.2-3.1 cm/m2 LVIDs: 3.14 2.0-3.6 cm LVPWd: 0.73 0.7-1.1 cm LA Diam: 3.00 2.7-3.8/3.0-4.0 cm LAIDs Index: 1.76 1.5-2.3 cm/m2 LV Mass: 144.69 67-162/88-224 g LV Mass Index: 85.11 43-95/49-115 g/m2 LVOT Diam: 2.20 3.0+(-)1.3 cm 2D Systolic Function EF 4C: 61.30 >55% EF 2C: 59.90 >55% EF BiP: 61.90 >55% Mitral Valve MV Pk E: 0.63 MV PK A: 0.55 MV Decel Time: 194.00 E/A: 1.10 E'Lateral: 15.00 E'Medial: 11.10 E/E' Med: 5.70 E/E' Lat: 4.20 PHT: 57.00 MVA PHT: 3.86 Decel Uvalde: 3.27 Aortic Valve AoV Pk Margarito: 1.18 AoV Mn Margarito: 0.81 AoV VTI: 0.26 AoV Pk Grad: 6.00 Aov Mn Grad: 3.00 KAELYN Cont.VTI: 3.46 LVOT LVOT Pk Margarito: 1.10 LVOT Mn Margarito: 0.80 LVOT VTI: 0.23 LVOT Pk Grad: 5.00 LVOT Mn Grad: 3.00 LVOT Diam: 2.20 LVOT Area: 3.80 Diastolic Function MV Pk E: 0.63 MV Pk A: 0.55 E/A: 1.10 E'Medial: 11.10 E/E' Med: 5.70 E' Laterial: 15.00 E/E' Lat: 4.20 Right Ventricle TAPSE (mm): 26.90 TVS' Margarito: 11.90 Tricuspid Valve TR Pk Margarito: 2.90 TR Pk Grad: 34.00 RA Press: 3.00 RVSP: 37.00 Great Vessels Aorta Sinus of Valsalva: 3.70 2.0-3.5 cm Ao Asc: 3.40 2.1-3.4 cm Pulmonary Valve PV Pk Margarito: 0.78 Peak PV Grad: 2.00 Updated in Other Vendor System with Status of Final Matt Weeks MD electronically signed on 05/07/2025 1:13:43 PM with status of Final
--- OUTSIDE RECORDS SUMMARY | 2025-05-06 14:57 | XMS_ITS | Encounter Summary ---
Author Organization [employer] Address [address] [facility] 7t [place] [address] Care Team Providers Care Disability Attorney Name Role Phone Quiana Giron MD Primary Care Provider + Reason for Visit * Reason Onset Date Comments Medication Question 12/03/2024 Prior Authorization 12/03/2024 PA Request: Hydromorphone Encounter Details Date Type Department Care Team ([facility] Contact Info) Description 12/03/2024 Telephone [facility] 230 [place], [place] [phone] Quiana Giron MD [address] [place], [place] [phone] Medication Question; Prior Authorization (PA Request: Hydromorphone) [...] 3:05 PM EDT Call was Made to [facility] to see if Medication needed a PA the last time it was filled there. Pharmacy stated that they were able to fill last month with no issue and would be able to fill medication. Patient was called and given the option to continuous pickling line pickler helper here at [facility] and he agreed. Medication was queued to Provider with change of Pharmacy. * Telephone Encounter - Jatin Rabago - 12/03/2024 1:46 PM EDT Tc from pt requesting a call back in regards to medication. Pt states it needs a pa and would need it before the day ends. Contact pt at [phone] documented in this encounter Plan of Treatment Upcoming Encounters Date Type Department Care Team (Late st Contact Info) Description 06/03/2025 11:00 AM EST Telemedicine [facility] [address] [place] [address] Jackelin Nam RN 06/24/2025 11:15 AM EST Office Visit [address] [address] Quiana Giron MD [address] [place] [address] 06/29/2025 10:15 AM EST Office Visit [address] [address] Quiana Giron MD [address] [place] [address] documented as of this encounter Visit Diagnoses Diagnosis Multilevel degenerative joint disease of spine documented in this encounter Additional Health Concerns Assessment Noted Time PHQ-9 Depression Total Score: 9 07/23/19 24 10:38 AM EDT documented as of this encounter Care Teams Disability Attorney Relationship Specialty Start Date End Date Quiana Giron MD [address] [place] [phone] PCP - General Family Medicine 11/09/18 Erasmo Martinez 02/03/23 documented as of this encounter
--- OUTSIDE RECORDS SUMMARY | 2025-05-06 14:57 | XMS_ITS | Encounter Summary ---
Author Organization [employer] Address [address] [facility] 7t [place] [address] Care Team Providers Care Principal Security Architect Name Role Phone Quiana Giron MD Primary Care Provider + Reason for Visit * Reason Comments Med Refill Encounter Details Date Type Department Care Team ([facility] st Contact Info) Description 01/28/2024 Refill [facility] 230 [place], [place] [phone] Quiana Giron MD 230 [place], [place] [phone] Generalized anxiety disorder Social History Tobacco Use [...] Info) Description 06/03/2025 11:00 AM EST Telemedicine [facility] [address] [place] [phone] Jackelin Nam RN 06/24/2025 11:15 AM EST Office Visit [facility] [address] [place] [address] 12[address] Quiana Giron MD [address] [place] [phone] 06/29/2025 10:15 AM EST Office Visit [facility] [address] [place] [address] Quiana Giron MD [address] [place] [phone] documented as of this encounter Visit Diagnoses Diagnosis Generalized anxiety disorder documented in this encounter Additional Health Concerns Assessment Noted Time PHQ-9 Depression Total Score: 9 07/23/19 24 10:38 AM EDT documented as of this encounter Care Teams Principal Security Architect Relationship Specialty Start Date End Date Quiana Giron MD [address] [place] [phone] PCP - General Family Medicine 11/09/18 Erasmo Martinez 02/03/23 documented as of this encounter
--- OUTSIDE RECORDS SUMMARY | 2025-05-06 14:57 | XMS_ITS | Encounter Summary ---
Author Organization [employer] Address [address] [facility] 7t [place] [address] Care Team Providers Care Turning Sander Tender Name Role Phone Quiana Giron MD Primary Care Provider + Reason for Visit * Reason Onset Date Comments Med Refill 07/07/2023 Encounter Details Date Type Department Care Team ([facility] st Contact Info) Description 07/07/2023 Telephone [facility] MED[facility]INE 230 [place], [place] [phone] Quiana Giron MD 230 [place], [place] [phone] Med Refill Social History Tobacco Use Types [...] 0.5 MG tablet To be sent to: [facility]/pharmacy #[id number] - [place], [place] - [address] [facility] documented in this encounter Plan of Treatment Upcoming Encounters Date Type Department Care Team (Late st Contact Info) Description 06/03/2025 11:00 AM EST Telemedicine [facility] MED[facility]INE [address] [place] [phone] Jackelin Nam RN 06/24/2025 11:15 AM EST Office Visit [address] [address] Quiana Giron MD [address] [place] [phone] 06/29/2025 10:15 AM EST Office Visit [facility] MED[facility]INE [address] [place] [phone] Quiana Giron MD [address] [place] [phone] documented as of this encounter Visit Diagnoses Not on filedocumented in this encounter Care Teams Turning Sander Tender Relationship Specialty Start Date End Date Quiana Giron MD [address] [place] [phone] PCP - General Family Medicine 11/09/18 Erasmo Martinez 02/03/23 documented as of this encounter
--- OUTSIDE RECORDS SUMMARY | 2025-05-06 14:57 | XMS_ITS | Encounter Summary ---
Author Organization [employer] Address [address] [facility] 7t [place] [address] Care Team Providers Care Equipment Superintendent Name Role Phone Quiana Giron MD Primary Care Provider + Reason for Visit * Reason Onset Date Comments Med Refill 03/28/2025 Encounter Details Date Type Department Care Team ([facility] st Contact Info) Description 03/28/2025 Telephone [facility] MEDICINE 230 [place], [place] [phone] Quiana Giron MD 230 [place], [place] [phone] Med Refill Social History Tobacco Use Types [...] Answer Date Recorded Patient Health Questionnaire-9 Score 8 02/28/2025 Patient Health Questionnaire-9 Score 8 02/28/2025 Last PHQ-9: Questionnaire Data Not on file 1 Housing Stability Answer Date Recorded What is your housing situation today? I have jitendra ramsey 02/28/[address] you li ve. Do you have problems with any of the following? None of the above 02/28/2025 Food Insecurity Answer Date Recorded Within the past 12 months, y ou worried that your food would run out before you got money to buy more: Never True 02/28/2025 Within the past 12 months,th e food you bought just didn't last and you didn't have enough money to get more: Never True Transportation Answer Date Recorded In the past 12 months, has l ack of transportation kept you from medical appts, meetings, work or from getting things needed for daily living? No 02/28/2025 Utilities Answer Date Recorded In the past 12 months, has t he electric, gas, oil or water company threatened to shut off services in your home? No 02/28/2025 Depression Answer Date Recorded Patient Health Questionnaire-2 Score 1 02/28/2025 Internet Access Answer Date Recorded Internet Access Q1 Yes 02/28/2025 Internet Access Q2 Not on file 02/28/2025 Sex and Gender Information Value Date Recorded Sex Assigned at Male 03/11/2022 10:35 AM EDT Legal Sex Male 10:35 AM EDT Gender Identity Male 03/11/2022 10:35 AM EDT Sexual Orientation Straight 03/11/2022 10 :35 AM EDT documented as of this encounter Miscellaneous Notes * Telephone Encounter - Lindsey Rodriguez LPN - 03/28/2025 3:18 PM EST Pepcid 40 mg was sent to [facility] #[id number] on 03/24/25 #90 with 3 refills and Ventolin isn't on active med list. * Telephone Encounter - Jatin Rabago - 03/28/2025 3:13 PM EST TC from pt requesting medication refill. Medications needing refill : famotidine (Pepcid) 40 MG tablet Ventolin To be sent to: [facility]/pharmacy #[id number] - [place] - [address] [facility] documented in this encounter Plan of Treatment Upcoming Encounters Date Type Department Care Team (Late st Contact Info) Description 06/03/2025 11:00 AM EST Telemedicine [facility] MED[facility]INE [address] [place] [address] Jackelin Nam RN 06/24/2025 11:15 AM EST Office Visit [address] [phone] Quiana Giron MD [address] [place] [phone] 06/29/2025 10:15 AM EST Office Visit [address] [address] Quiana Giron MD [address] [place] [phone] documented as of this encounter Visit Diagnoses Not on filedocumented in this encounter Additional Health Concerns Assessment Noted Time PHQ-9 Depression Total Score: 8 02/29/20 1:58 PM EDT documented as of this encounter Care Teams Equipment Superintendent Relationship Specialty Start Date End Date Quiana Giron MD [address] [place] [address] PCP - General Family Medicine 11/09/18 Erasmo Martinez 02/03/23 documented as of this encounter
--- OUTSIDE RECORDS SUMMARY | 2025-05-06 14:57 | XMS_ITS | Encounter Summary ---
Author Organization [employer] Address [address] [facility] 7t [place] [address] Care Team Providers Care Oracle Fusion Developer Name Role Phone Quiana Giron MD Primary Care Provider + Reason for Visit * Reason Comments Med Refill Encounter Details Date Type Department Care Team ([facility] Contact Info) Description 09/17/2024 Refill [facility] MEDICINE 230 [place], [place] [phone] Quiana Giron MD 230 [place], [place] [phone] Generalized anxiety disorder Social History Tobacco Use [...] Info) Description 06/03/2025 11:00 AM EST Telemedicine [facility] MEDICINE [address] [place] [phone] Jackelin Nam RN 06/24/2025 11:15 AM EST Office Visit [facility] [address] [place] [address] Quiana Giron MD [address] [place] [phone] 06/29/2025 10:15 AM EST Office Visit [facility] [address] [place] [address] Quiana Giron MD [address] [place] [address] documented as of this encounter Visit Diagnoses Diagnosis Generalized anxiety disorder documented in this encounter Additional Health Concerns Assessment Noted Time PHQ-9 Depression Total Score: 9 07/23/19 24 10:38 AM EDT documented as of this encounter Care Teams Oracle Fusion Developer Relationship Specialty Start Date End Date Quiana Giron MD [address] [place] [address] PCP - General Family Medicine 11/09/18 Erasmo Martinez 02/03/23 documented as of this encounter
--- OUTSIDE RECORDS SUMMARY | 2025-05-06 14:57 | XMS_ITS | Encounter Summary ---
Author Organization [employer] Address [address] [facility] [address] [place] [address] Care Team Providers Care Fashion Buyer Name Role Phone Quiana Giron MD Primary Care Provider + Reason for Visit * Reason Onset Date Comments Error 06/10/2023 Encounter Details Date Type Department Care Team ([facility] Contact Info) Description 06/10/2023 Telephone [facility] [address] [place], [place] [phone] Quiana Giron MD [address] [place], [place] [phone] Error Social History Tobacco Use Types Packs/Day [...] Info) Description 06/03/2025 11:00 AM EST Telemedicine [address] [address] Jackelin Nam RN 06/24/2025 11:15 AM EST Office Visit [address] [address] Quiana Giron MD [address] [place] [id number] 06/29/2025 10:15 AM EST Office Visit [address] [address] Quiana Giron MD [address] [place] [id number] documented as of this encounter Visit Diagnoses Not on filedocumented in this encounter Care Teams Fashion Buyer Relationship Specialty Start Date End Date Quiana Giron MD [address] [place] [id number] PCP - General Family Medicine 11/09/18 Jackelin Perez Electrical Manufacturing Technician 03/25/23 06/25/23 Erasmo Martinez 02/03/23 documented as of this encounter
--- OUTSIDE RECORDS SUMMARY | 2025-05-06 14:57 | XMS_ITS | Clinical Summary ---
Author Organization [employer] Address [address] [facility] [address] [place] [address] Care Team Providers Care Apartment Community Assistant Manager Name Role Phone Quiana Giron MD Primary Care Provider + Allergies No known active allergies Medications * This document contains information received from the source organization and may not represent a complete record from that organization. methadone (Dolophine) 10 MG/ML solution 110 mg DAILY (route: oral) 023 Active Fluticasone Furoate-Vilante rol (Breo Ellipta) 200-25 MCG/ACT aerosol powder Inhale 1 Inhalation 2 times daily. Active Umeclidinium Bucklin (Incruse Ellipta) 62.5 MCG/ACT aerosol powder Inhale 1 Inhalation in the morning. Active ipratropium-alb uterol (Duo-Neb) 0.5-2.5 mg/3 mL nebulizer solutionIndicat ions:Advanced COPD (HCC) Take 3 mL by nebulization if needed in the morning, at noon, in the evening, and at bedtime for wheezing or shortness of breath. 360 mL 11 024 Active naloxone (Narcan) 4 mg/0.1 mL nasal sprayIndication s:Uncomplicated opioid dependence (CMS/HCC) (HCC) Administer 1 spray (4 mg) into affected nostril(s) if needed for opioid reversal. May repeat every 2-3 minutes if needed, alternating nostrils, until medical assistance becomes available. 2 each 11 025 2025 Active traZODone (Desyrel) 50 MG tablet TAKE 1/2 TABLET (25MG) IN THE MORNING AND 1/2 TABLET WITH LUNCH (IN ADDITION TO AT BEDTIME DOSE) 90 tablet 3 025 Active psyllium (Metamucil Smooth Texture) 58.6 % powder Take 5.12 g (3 g of fiber) by mouth if needed in the morning and at bedtime (constipation). 283 g 2 025 2025 Active traZODone (Desyrel) 150 MG tabletIndicatio ns:Generalized anxiety disorder TAKE 1 TABLET BY MOUTH EVERYDAY AT BEDTIME 90 tablet 1 025 Active mupirocin (Bactroban) 2 % ointment apply topically 2 times per day for 7 days 025 Active amLODIPine (Norvasc) 5 MG tabletIndicatio ns:Primary hypertension TAKE 1 TABLET BY MOUTH EVERY DAY IN THE MORNING 90 tablet 1 025 Active Acetaminophen Extra Strength 500 MG tablet TAKE 1 TABLET BY MOUTH EVERY 8 HOURS NEEDED FOR MILD PAIN 90 tablet 025 Active sofosbuvir-velp atasvir (Epclusa) 400-100 MG tablet Take 1 tablet by mouth Once per day. 28 tablet 2 5 4:43 PM EST 025 Active cloNIDine (Catapres) 0.1 MG tabletIndicatio ns:Generalized anxiety disorder TAKE 1 TABLET BY MOUTH TWICE A DAY 120 tablet 025 Active ferrous gluconate (Fergon) 324 (38 Fe) MG tablet TAKE 1 TABLET BY MOUTH WITH BREAKFAST 90 tablet 1 025 Active Ascorbic Acid (vitamin C) 250 MG tablet TAKE 1 TABLET (250 MG) BY MOUTH ONCE PER DAY. 90 tablet 1 025 Active fluocinolone ([place]-Smoothe/ FS Body) 0.01 % external oil Apply topically 3 times daily. 118 mL 3 025 2025 Active sertraline (Zoloft) 20 MG/ML concentrated solutionIndicat ions:Generalize d anxiety disorder TAKE 5ML BY MOUTH IN THE MORNING. MIX WITH 4 OUNCES OF WATER. DOSE IS CHANGED 240 mL 11 025 Active Hydrocortisone, Perianal, 1 % cream APPLY TO AFFECTED AREA TWICE A DAY NEEDED FOR ITCHING 28.4 g 1 025 Active fluticasone (Flonase) 50 MCG/ACT nasal spray Administer 1 spray into each nostril Once per day. 48 g Active famotidine (Pepcid) 40 MG tabletIndicatio ns:Toxic megacolon (HCC) Take 1 tablet (40 mg) by mouth if needed each day for heartburn. 90 tablet 3 025 2025 Active HYDROmorphone (Dilaudid) 4 MG tabletIndicatio ns:Multilevel degenerative joint disease of spine Take 0.5 tablets (2 mg) by mouth every 12 (twelve) hours if needed for severe pain. Do not start before April 15, 2025. 28 tablet 4:05 PM EST 2025 Active LORazepam (Ativan) 0.5 MG tabletIndicatio ns:Generalized anxiety disorder TAKE 1 TABLET BY MOUTH 3 TIMES DAILY AND AN ADDITIONAL TABLET DAILY NEEDED Do not start before April 19, 2025. 112 tablet Active HYDROmorphone (Dilaudid) 4 MG tabletIndicatio ns:Multilevel degenerative joint disease of spine Take 0.5 tablets (2 mg) by mouth every 12 (twelve) hours if needed for severe pain for up to 28 days. Do not start before March 18, 2025. 28 tablet 025 2024 Discontinued(R eorder (will not trigger notification to Pharmacy)) LORazepam (Ativan) 0.5 MG tabletIndicatio ns:Generalized anxiety disorder TAKE 1 TABLET BY MOUTH 3 TIMES DAILY AND AN ADDITIONAL TABLET DAILY NEEDED Do not start before March 21, 2025. 112 tablet 025 2024 Discontinued(R eorder (will not trigger notification to Pharmacy)) Active Problems Problem Noted Date Diagnosed Date Hearing loss of right ear 03/01/2025 Assessment & Plan (03/01/2025 2:45 PM EDT): Patient has hemotympanums now, unclear if he has chronic otitis media? Referred to ENT and audiology Chronic otitis externa of right ear 03/01/2025 Assessment & Plan (03/01/2025 2:44 PM EDT): He may be related to eczematous dermatitis. Use Cortisporin eardrops x 7 to 10 days Patient will continue to use fluocinolone lotion (Rx for scalp dermatitis) around earlobes to prevent further dermatitis Hemotympanum, right 03/01/2025 Chronic respiratory failure with hypoxia (CMS/HC C) 02/28/2025 Assessment & Plan (03/01/2025 2:40 PM EDT): Due to interstitial lung disease plus COPD, see above Continue O2 supplementation as above Nasal polyp 02/28/2025 Assessment & Plan (03/01/2025 2:12 PM EDT): Patient has enlarged lesion on the floor of the left nostril. Refer to ENT Use Flonase Stoma dermatitis 02/28/2025 Assessment & Plan (03/01/2025 2:41 PM EDT): Use clotrimazole cream twice daily + Desitin paste x 1 to 2 weeks I will Rx ileostomy barrier ring to apply around ileostomy for protection Skin rash 11/19/2024 Assessment & Plan (11/19/2024 [...] ( I confirmed w micro lab at [facility] and not able to do coxsackie PCR) [...] Long-term current use of opiate analgesic 2024 Assessment & Plan (03/01/2025 2:14 PM EDT): Patient is on Dilaudid 2 mg twice daily, pain is fairly controlled, he is also on methadone and tennis program. We have done [employer] education re opiate side effects including dizziness, somnolence, constipation, urinary retention, dependance, etc. Patient is aware of the importance of avoiding any activity that requires vigilance while taking these meds including driving. We have discussed re avoiding diversion of medication, including giving pills to relatives. Patient is to keep medications in a safe place and is aware that rx will not be replaced if lost or stolen Rx Narcan is up-to-date Continue to follow-up with [employer] nurse program Long-term current use of benzodiazepine 11/06/19 25 Interstitial pulmonary disease, unspecified 04/11 Overview (03/01/2025): PFT 09/2023 revealed very severe obstructive defect FEV1/FVC 40, FEV1 30, DLCO 17, with no response to bronchodilators. CT chest 08/02 revealed multiple pulmonary nodules <4mm with emphysematous changes. Assessment & Plan (03/01/2025 2:38 PM EDT): Due to toxic inhalation over time (smoking, drugs). Patient has quit smoking for approximately 3 years now, off nicotine patch for 1 full year. Advised to avoid any recreational substances including THC He's O2 dependant, currently at 8 L, sees pulmonary. Advised to use 6 L at rest if tolerated and increase up to 8 units with activity Advised to use Breo, Incruse and DuoNeb daily FU with pulmonary for lung rehab, he he has declined evaluation for lung transplant. He received influenza immunization today, Follow-up with [facility] pulmonary Assessment & Plan (04/28/2024 2:15 PM EST): [...] days. POC discussed with Silvana Pfeiffer from [facility] service who will be picking up rx tomorrow at [facility] pharmacy and will coordinate with Mat's mom re future pick ups and management of daily pillboxes. She will continue with locked med box. I left a message at [facility] methadone program for his provider to call [...] scheduled, either TV or OV Opiate withdrawal ([facility]) 10/02/2023 Assessment & Plan (10/09/2023 3:22 PM [...] methadone program, I left a VM at [facility] program to speak with a clinician re [...] dermatitis of scalp 08/14/2023 Assessment & Plan (03/01/2025 2:42 PM EDT): Did not improve with ketoconazole shampoo, will DC. Restart fluocinolone scalp oil that can be extended around periauricular areas Assessment & Plan (06/17/2024 12:56 PM EST): [...] cream bid x 2w , fu prn Decreased libido 04/09/2023 Assessment & Plan (06/27/2023 [...] is currently doing the Methadone program in [place]. Patient reported having a hard time adjusting to new home setting environment after being in a chcf for three years. He reported this is the first time that he's living by himself. PLANER SETTER provides support and helps with medical appointments. [...] & Plan (04/09/2023 2:37 PM EST): Has FLOORING SALESPERSON + transportation services arranged by [employer].. I told patient to [facility] that he will feel more comfortable being his primary caregiver, other than Luis Enrique. Patient wants Celeste to continue being his PLANER SETTER, he will address it with his company [...] transportation etc. He would like his current PLANER SETTER to provider transportation, placard Handicap form to be filled out. I told him that I wouldn't know if insurance will directly pay his CPA for transportation services and time. We'll refer to CM to help manage this. PT1 With senior animal trainer and space and time for special mobility needs (cane and O2 use) Assessment & Plan (01/31/2023 3:09 PM EDT): Pt is oxygen dependent with significantly decreased endurance Will evaluate home care and try to keep him independent May need PT/OT and will provide DME required to prevent falls. Ileostomy in place ([facility]) 01/31/2023 Assessment & Plan (06/17/2024 12:55 PM [...] chronic opiate use, anxiety. We talked about shear operator helper management with pain and that I will [...] dilaudid same dose and will fu with 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 Continue ileostomy care, must use a barrier cream to prevent zakia ostomal dermatitis, will call [place] to help him with that. Assessment & Plan (05/21/2023 12:30 PM EST): Pt has C.difficile while in hospital He had a hemicolectomy + Ileostomy In place Will obtain hospital information Dependence on supplemental oxygen 01/30/2023 Assessment & Plan (03/01/2025 2:39 PM EDT): Continue O2 4-6 li NC to keep O2 sat and fu 90-92%. He can increase up to 8 L with activity, always mindful of not keeping O2 sat above 93% Follow-up with pulmonary. He should use a concentrator/portable O2 when going out. He's not smoking for few years now, advised to avoid THC use Patient is aware of risk of smoking ANY substances when using O2, including risk of fire, burn or even . Assessment & Plan (04/28/2024 12:24 PM EST): [...] Generalized anxiety disorder 01/30/2023 Assessment & Plan (03/01/2025 2:31 PM EDT): Patient is doing remarkably better although still with anxiety attacks. He declines a referral to [facility] clinic. Given that he has been off sertraline for a month, I will restart it at 100 mg/day and continue lorazepam 3 times per day + trazodone as Rx. Safety and feels safe at home. Follow-up with me in 6 weeks Assessment & Plan (06/17/2024 12:58 PM EST): Reminded pt about importance of scheduling appointment with mental health provider, I will mail information regarding holistic [facility] clinic where he was referred to 2 months ago. Continue Sertraline 150 mg per day + Lorazepam 3 times per day + Trazodone PRN anxiety + QHS. Continue Methadone as per methadone clinic and reach out to recovery collector. He feels safe at home and he can reach out to safety to relatives or VNA. Continue medications administered by VNA in a locked box. Assessment & Plan (04/28/2024 12:30 PM EST): Fairly stable on Sertraline 150mg/d + Lorazepam, hasn't had recent panic attacks. Advised to cut down on THC use and connect with provider at [facility] or here who called him [...] received calls from clinic ( referred to [facility] in [place] back on 10/2023) , needs shear operator helper fu by therapist and a prescriber. He [...] same dose I will discuss case w/ Kimberly his visiting nurse Corwin sebastian/ in one wk TV Assessment & Plan [...] is currently doing the Methadone program in [place]. Patient reported having a hard time adjusting to new home setting environment after being in a chcf for three years. He reported this is the first time that he's living by himself. PLANER SETTER provides support and helps with medical appointments. PLAN: (check all that apply) New/Additional Services needed Off-site services for BH. Referral will be placed of OP individual therapy. Assessment & Plan (03/13/2023 4:07 PM EDT): Mat reports being in recovery for the past 6-8 years. He actively engaged in a Methadone clinic in [place]. Mat reports difficulty adjusting to new environment, on his own; and far from where he is accustom to living. He has contacted his PLANER SETTER in the night time, due to feeling alone and sad; especially when he is not taking Zoloft. PLANER SETTER Celeste, informed him, she cannot speak over [...] if he would like a referral [facility]. Mat agrees to follow up [...] hx S.abuse/ODs. Dose was verified with Nurse film editor supervisor at [facility] and confirmed that they only gave him rx until today. Cont [facility] program Will refer to program Pt feels safe at home and is able to reach out to safety Edema of lower extremity 01/30/2023 Severe opioid use disorder, in sustained remission (CMS/HCC) 10/19/2018 Assessment & Plan (02/04/2024 12:27 PM [...] is currently doing the Methadone program in [place]. Patient reported having a hard time adjusting to new home setting environment after being in a chcf for three years. He reported this is the first time that he's living by himself. PLANER SETTER provides support and helps with medical appointments. PLAN: (check all that apply) New/Additional Services needed Off-site services for . Referral will be placed of OP individual therapy. Assessment & Plan (02/01/2023 2:41 PM EDT): On methdaone by [facility]. He's also on Diluadid daily, dose confirmed with nurse film editor supervisor at [facility] and that he was given rx until today only. New rx x 4d sent to pharmacy, VNA to reconciliate next week and put on locked box. Will eventually discuss with methadone program to address body aches/hyepralgesia from opioids Resolved Problems Problem Noted Date Diagnosed Date Resolved Date Flexural eczema 04/09/2023 03/01/2025 Assessment & Plan (06/27/2023 3:51 PM EST): Improving, continue Lac Hydrin + topical sterid Avoid constant hand washing, use moisturizer as above. Assessment & Plan (04/09/2023 2:27 PM EST): On both hands Counseled re moisturizer cream + triamcinolone cream bix x 1w then prn Wear gloves when outside in the cold weather. Cigarette nicotine dependence with withdrawal 02/01/20 23 [...] Encounters Date Type Department Care Team Description 05/03/2025 Telephone [facility] [address] [place] [phone] Margo Mclaughlin, RN 04/22/2025 Telephone [facility] [address] [place] [address] Adrien Walden, PharmD 04/15/2025 Refill [facility] [address] [place] [address] [phone] Quiana Giron MD Generalized anxiety disorder 04/12/2025 Refill [facility] [address] [place] [address] [phone] Quiana Giron MD Multilevel degenerative joint disease of spine 04/11/2025 Telephone [facility] [address] [place] [address] [phone] Quiana Giron MD recall 04/04/2025 Refill [facility] [address] [place] [address] [phone] Quiana Giron MD Toxic megacolon (HCC) 04/04/2025 Telephone [facility] [address] [place] [address] [phone] Quiana Giron MD Referral 04/04/2025 Telephone [facility] [address] [place] [address] [phone] Quiana Giron MD Nurse Triage 03/28/2025 Telephone [facility] [address] [place] [address] [phone] Quiana Giron MD Med Refill 03/28/2025 Telephone [facility] [address] [place] [address] [phone] Quiana Giron MD 03/28/2025 Telephone [facility] [address] [place] [address] [phone] Quiana Giron MD FYI 03/28/2025 Telephone [facility] [address] [place] [address] [phone] Quiana Giron MD Referral 03/24/2025 Telephone [facility] [address] [place] [address] [phone] Adrien Walden, PharmD 03/23/2025 Refill [facility] [address] [place] [address] [phone] Quiana Giron MD Toxic megacolon (HCC) 03/23/2025 Telephone [facility] [address] [place] [address] [phone] Quiana Giron MD Referral 03/23/2025 Refill [facility] [address] [place] [address] [phone] Quiana Giron MD 03/15/2025 Refill [facility] [address] [place] [address] [phone] Quiana Giron MD Generalized anxiety disorder 03/14/2025 Refill [facility] [address] [place] [address] [phone] Quiana Giron MD Multilevel degenerative joint disease of spine 03/10/2025 Telephone [facility] [address] [place] [address] [phone] Quiana Giron MD ENT referral 03/03/2025 Telephone [facility] [address] [place] [address] [phone] Quiana Giron MD Durable Medical Equipment (DME: Ileostomy barrier ring) 03/02/2025 Telephone [facility] [address] [place] [address] [phone] Quiana Giron MD Care Coordination 02/28/2025 1:30 PM EDT Office Visit [facility] [address] [place] [address] [phone] Quiana Giron MD Generalized anxiety disorder (Primary Dx); Long-term current use of opiate analgesic; Interstitial pulmonary disease, unspecified (HCC); Chronic respiratory failure with hypoxia (CMS/HCC) (HCC); Dependence on supplemental oxygen; Seborrheic dermatitis of scalp; Stoma dermatitis; Hearing loss of right ear, unspecified hearing loss type; Encounter for immunization; Nasal polyp; Chronic otitis externa of right ear, unspecified type; Hemotympanum, right 02/28/2025 Travel 02/25/2025 10:30 AM EDT Telemedicine [facility] [address] [place] [address] Jackelin Nam, LUCIANO Long-term current use of opiate analgesic; Long-term current use of benzodiazepine 02/25/2025 Telephone [facility] [address] [place] [address] Quiana Giron MD Chart Prep 02/25/2025 Refill [facility] [address] [place] [address] Zeenat Baez MD 02/25/2025 Travel 02/24/2025 Telephone [facility] [address] [place] [address] Steve Temple 02/23/2025 Refill [facility] [address] [place] [address] Lindsey Rojas DO Generalized anxiety disorder 02/21/2025 Orders Only [facility] [address] [place] [address] Margo Mclaughlin, LUCIANO 02/18/2025 Telephone [facility] [address] [place] [address] Margo Mclaughlin, LUCIANO hep C 02/17/2025 4:15 PM EDT Telemedicine [facility] [address] [place] [address] Patt Sosa MD Chronic hepatitis C without hepatic coma (HCC) (Primary Dx) 02/17/2025 Travel 02/15/2025 Refill [facility] [address] [place] [address] Quiana Giron MD 02/14/2025 Refill [facility] [address] [place] [address] Quiana Giron MD Generalized anxiety disorder 02/14/2025 Refill [facility] [address] [place] [address] Quiana Giron MD Multilevel degenerative joint disease of spine 02/10/2025 Refill [facility] [address] [place] [address] Quiana Giron MD Primary hypertension 02/07/2025 Telephone [facility] [address] [place], [place] [phone] Sujey Dallas RN Hep C Management 02/07/2025 Telephone [facility] [address] [place], [place] [phone] Patt Sosa MD 02/07/2025 Travel from Last 3 Months Immunizations Immunization Administration Dates Next Due Influenza injectable quadriv alent preservative free 02/26/2023,02/18/2022,02/07/2021,05/03 Influenza, IIV3, injectable 05/03/2019, 7 Influenza, Injectable, MDCK, preservative free 05/29/2024 Influenza, seasonal, injecta ble, preservative free 02/28/2025 Elvie SARS-CoV-2 Vaccination 01/01/2021 Pfizer Covid-19 Vaccine 12+ 06/16/2023 Pfizer Covid-19 Vaccine 12+ Bivalent 04/17/2022 Pneumococcal Conjugate PCV 20 06/16/2023 Pneumococcal Polysaccharide PPSV23 06/08/2016 Td (adult), 5 Lf tetanus tox oid, preservative free, adsorbed 10/20/2014 Td (adult), unspecified 10/20/2014 Tdap 02/28/2025 Social History Tobacco Use Types Packs/Day Years [...] housing situation today? I have jitendralori ramsey 02/28/[address] you [...] Sign Reading Time Taken Comments Blood Pressure 120/90 02/28/2025 1:39 PM EDT Pulse 86 02/28/2025 1:39 PM EDT Temperature 36.4 C (97.5 F) 02/28/2025 1:39 PM EDT Respiratory Rate 16 02/28/2025 1:39 PM EDT Oxygen Saturation 95% 02/28/2025 1:39 PM EDT Inhaled Oxygen Concentration - - Weight 58.9 kg (129 lb 12.8 oz) 02/28/2025 1:39 PM EDT Height 156.2 cm (5' 1.5 ) 02/28/2025 1:39 PM EDT Body Mass Index 24.13 02/28/2025 1:39 PM EDT Plan of Treatment Upcoming Encounters Date Type Department Care Team (Late st Contact Info) Description 06/03/2025 11:00 AM EST Telemedicine [facility] [address] [place] [address] [phone] Jackelin Nam, RN 06/24/2025 11:15 AM EST Office Visit [facility] [address] [place], [place] [phone] Quiana Giron MD [address] [place], [place] [phone] 06/29/2025 10:15 AM EST Office Visit [facility] [address] [place], [place] [phone] Quiana Giron MD [address] [place], [place] [phone] Health Maintenance Due Date Last Done Comments Dental Prophylaxis 1983 Lipid Panel 1983 Family Planning (PISQ) 10/02/1998 HPV Vaccines (1 - Male 3-dose series) 10/02/1998 Hepatitis A Vaccines (1 of 2 - Risk 2-dose series) 10/02/2002 Hepatitis B Vaccines (1 of 3 - 19+ 3-dose series) 10/02/2002 Dental Oral Exam 08/27/2023 02/24/2023 Dental X-Ray: Bitewings 02/26/2024 02/24/2023 COVID-19 Vaccine ( season) 2025 05/29/2024, 06/16/2023, 04/17/2022, Additional history exists Alcohol/Substance Use Screening 02/28/2026 02/28/2025 Depression Screening 02/28/2026 02/28/2025, 02/29/20 25 Disability Screening 02/28/2026 02/28/2025 SDOH Screening 02/28/2026 02/28/2025 Tobacco Screening 02/28/2026 02/28/2025 Dental X-Ray: Full Mouth 11/03/2027 11/01/2024, 02/09 Zoster Vaccines (1 of 2) 10/02/2033 DTaP/Tdap/Td Vaccines (2 - Td or Tdap) 02/28/2035 02/28/2025, 10/20/2014, 10/20/2014 RSV Patients and Patients Aged 60 years or older (1 - 1-dose 75+ series) 10/02/2058 Pneumococcal Vaccine: Pediatrics (0 to 5 Years) and At-Risk Patients (6 to 49) Years Completed 06/16/2023, 06/08/2016 HIV Screening Completed 11/19/2024, 02/03/2023 Influenza Vaccine Completed 02/28/2025, , 02/26/2023, Additional history exists HIB Vaccines Aged Out [...] Procedure Name Priority Date/Time Associated Diagnosis Comments HIV 1/2 ANTIGEN/ANTIBODY, FOURTH GENERATION W/RFL Routine 11/19/2024 2:39 PM EDT Herpetiform eruption INTRAORAL - COMPLETE SERIES OF RADIOGRAPHIC IMAGES Routine 02/24/2023 10:00 AM EDT Periodontal disease Severe dental caries COMPREHENSIVE ORAL EVALUATION - NEW OR ESTABLISHED PATIENT Routine 02/24/2023 10:00 AM EDT Periodontal disease Severe dental caries from Last 3 Months or Most Recently Relevant to Health Maintenance Results * HIV-1/2 Antigen and Antibodies, Fourth Generation, with Reflexes (11/19/2024 2:39 PM EDT) HIV AB/AG Nonreactive Nonreactive [facility] Comment:HIV-1 p24 Ag and/or HIV-1/HIV-2 Ab not detected.A test result that is nonreactive does not exclude thepossibility of exposure to or infection with HIV-1 and/orHIV-2. Nonreactive results in this assay for individualswith prior exposure to HIV-1 and/or HIV-2 may be due toantigen and antibody levels that are below the limit ofdetection of this assay.[facility] HIV Ag/Ab Combo assay result andsupplemental assay results should be interpreted inconjunction with the patient's clinical presentation,history and other laboratory results. If the results areinconsistent with clinical evidence, additional testing issuggested to confirm the result. Blood Venous blood specimen / Unknown 11/19/2024 2:39 PM EDT 11/19/2024 3:55 PM EDT Zeenat Avina MD LAB BLOOD ORDERAB LES Final Result [facility] [address] [place] [phone] from Last 3 Months or Most Recently Relevant to Health Maintenance Insurance [facility] C3 DENTAL-[facility] MEDICAID STAND ADULT Care Teams Apartment Community Assistant Manager Relationship Specialty Start Date End Date Quiana Giron MD [address] [place] [address] PCP - General Family Medicine 11/09/18 Erasmo Martinez 02/03/23
--- OUTSIDE RECORDS SUMMARY | 2025-05-06 14:57 | XMS_ITS | Encounter Summary ---
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[facility]) Social History Tobacco Use Types Packs/Day Years [...] the past 12 months, has t he Medicine in Practice, gas, oil or water company threatened to [...] Info) Description 06/03/2025 11:00 AM EST Telemedicine [address] [address] Jackelin Nam RN 06/24/2025 11:15 AM EST Office Visit [address] [address] Quiana Giron MD [address] [place] [address] 06/29/2025 10:15 AM EST Office Visit [address] [address] Quiana Giron MD [address] [place] [address] documented as of this encounter Visit Diagnoses Diagnosis Toxic megacolon (HCC) Unspecified ulcerative colitis documented in this encounter Additional Health Concerns Assessment Noted Time PHQ-9 Depression Total Score: 9 07/23/19 24 10:38 AM EDT documented as of this encounter Care Teams Architect Intern Relationship Specialty Start Date End Date Quiana Giron MD [address] [place] [address] PCP - General Family Medicine 11/09/18 Erasmo Martinez 02/03/23 documented as of this encounter
--- OUTSIDE RECORDS SUMMARY | 2025-05-06 14:57 | XMS_ITS | Encounter Summary ---
Author Organization [employer] Address 75 [facility] 7t [place] [address] Care Team Providers Care Supervisor Steffen House Name Role Phone Quiana Giron MD Primary Care Provider + Reason for Visit * Reason Onset Date Comments Referral 03/28/2025 Encounter Details Date Type Department Care Team ([facility] Contact Info) Description 03/28/2025 Telephone [facility] MEDICINE 230 [place], [place] [phone] Quiana Giron MD 230 [place], [place] [phone] Referral Social History Tobacco Use Types Packs/Day Years [...] encounter Miscellaneous Notes * Telephone Encounter - Jatin Rabago - 03/28/2025 3:03 PM EST Tc from Rhiannon DONAHUE reporting that pt wants a referral for [facility] [place]. Any questions contact Rhiannon at [phone] documented in this encounter Plan of Treatment Upcoming Encounters Date Type Department Care Team (Late st Contact Info) Description 06/03/2025 11:00 AM EST Telemedicine [address] [address] Jackelin Nam RN 06/24/2025 11:15 AM EST Office Visit [address] [address] Quiana Giron MD [address] [place] [address] 06/29/2025 10:15 AM EST Office Visit [address] [address] Quiana Giron MD 230 [place] [address] documented as of this encounter Visit Diagnoses Not on filedocumented in this encounter Additional Health Concerns Assessment Noted Time PHQ-9 Depression Total Score: 8 02/29/20 25 1:58 PM EDT documented as of this encounter Care Teams Supervisor Steffen House Relationship Specialty Start Date End Date Quiana Giron MD 230 [place] [address] PCP - General Family Medicine 11/09/18 Erasmo Martinez 02/03/23 documented as of this encounter
--- OUTSIDE RECORDS SUMMARY | 2025-05-06 14:57 | XMS_ITS | Encounter Summary ---
Author Organization [employer] Address 75 [facility] 7t [place] [address] Care Team Providers Care Histological Illustrator Name Role Phone Quiana Giron MD Primary Care Provider + Reason for Visit * Reason Onset Date Comments Durable Medical Equipment 05/20/2023 Nebuli zer Encounter Details Date Type Department Care Team ([facility] st Contact Info) Description 05/20/2023 Telephone [facility] 230 [place], [place] [phone] Quiana Giron MD 230 [place], [place] [phone] Durable Medical Equipment (Nebulizer) Social History Tobacco [...] PM EST Tc from Rhiannon working with [facility] requesting Nebulizer machine and supplies. Jojos that faxed over to [employer]. Any questions please contact pt at [phone]. [employer] documented in this encounter Plan of Treatment Upcoming Encounters Date Type Department Care Team (Late st Contact Info) Description 06/03/2025 11:00 AM EST Telemedicine [facility] [address] [place] [address] Jackelin Nam RN 06/24/2025 11:15 AM EST Office Visit [facility] [address] [place] [address] Quiana Giron MD [address] [place] [address] 06/29/2025 10:15 AM EST Office Visit [facility] [address] [place] [address] Quiana Giron MD 230 [place], [place] [phone] documented as of this encounter Visit Diagnoses Not on filedocumented in this encounter Care Teams Histological Illustrator Relationship Specialty Start Date End Date Quiana Giron MD 230 [place] [address] PCP - General Family Medicine 11/09/18 Jackelin Perez Carton Forming Machine Helper 03/25/23 06/25/23 Erasmo Caring 02/03/23 documented as of this encounter
--- OUTSIDE RECORDS SUMMARY | 2025-05-06 14:57 | XMS_ITS | Encounter Summary ---
Author Organization [employer] Address [address] [facility] [address] 7t [place] [address] Care Team Providers Care Cornetist Name Role Phone Quiana Giron MD Primary Care Provider + Encounter Details Date Type Department Care Team ([facility] st Contact Info) Description 03/24/2025 Telephone [facility] MEDICINE 230 [place], [place] [phone] Adrien Walden, AdelaD Social History Tobacco Use Types Packs/Day Years [...] encounter Miscellaneous Notes * Telephone Encounter - Adrien Walden PharmD - 03/24/2025 4:17 PM EST Patient picked up second refill of Epclusa on 03/24/25. Patient Reported the following CINDY: nausea , headache and heart burn. Adherence was discussed with patient and they reported Patient reported strict adherence to medication, denies missing any doses Cortez Culp documented in this encounter Plan of Treatment Upcoming Encounters Date Type Department Care Team (Late st Contact Info) Description 06/03/2025 11:00 AM EST Telemedicine [facility] MEDICINE [address] [place] [address] Jackelin Nam RN 06/24/2025 11:15 AM EST Office Visit [facility] MEDICINE [address] [place] [address] Quiana Giron MD [address] [place] [address] 06/29/2025 10:15 AM EST Office Visit [facility] MEDICINE [address] [place] [address] Quiana Giron MD [address] [place] [address] documented as of this encounter Visit Diagnoses Not on filedocumented in this encounter Additional Health Concerns Assessment Noted Time PHQ-9 Depression Total Score: 8 02/29/20 25 1:58 PM EDT documented as of this encounter Care Teams Cornetist Relationship Specialty Start Date End Date Quiana Giron MD [address] [place] [address] PCP - General Family Medicine 11/09/18 Erasmo Martinez 02/03/23 documented as of this encounter
--- OUTSIDE RECORDS SUMMARY | 2025-05-06 14:57 | XMS_ITS | Encounter Summary ---
Author Organization [employer] Address [address] [facility] 7t [place] [address] Care Team Providers Care Operating Engineer Apprentice Name Role Phone Quiana Giron MD Primary Care Provider + Reason for Visit * Reason Onset Date Comments PT1 06/10/2023 Encounter Details Date Type Department Care Team ([facility] st Contact Info) Description 06/10/2023 Telephone [facility] MEDICINE 230 [place], [place] [phone] Quiana Giron MD 230 [place], [place] [phone] PT1 Social History Tobacco Use Types Packs/Day [...] If any questions please contact Tahmina at [phone]. documented in this encounter Plan of Treatment Upcoming Encounters Date Type Department Care Team (Late st Contact Info) Description 06/03/2025 11:00 AM EST Telemedicine [facility] MEDICINE [address] [place] [address] Jackelin Nam RN 06/24/2025 11:15 AM EST Office Visit [facility] [address] [place] [address] Quiana Giron MD [address] [place] [address] 06/29/2025 10:15 AM EST Office Visit [facility] [address] [place] [address] Quiana Giron MD [address] [place] [address] documented as of this encounter Visit Diagnoses Not on filedocumented in this encounter Care Teams Operating Engineer Apprentice Relationship Specialty Start Date End Date Quiana Giron MD [address] [place] [address] PCP - General Family Medicine 11/09/18 Jackelin Perez Meat Cutting Block Repairer 03/25/23 06/25/23 Erasmo Martinez 02/03/23 documented as of this encounter
--- OUTSIDE RECORDS SUMMARY | 2025-05-06 14:57 | XMS_ITS | Encounter Summary ---
Author Organization [employer] Address [address] [facility] [address] 7t [place] [address] Care Team Providers Care Allocations Clerk Name Role Phone Quiana Giron MD Primary Care Provider + Encounter Details Date Type Department Care Team ([facility] st Contact Info) Description 04/22/2025 Telephone [facility] MEDICINE 230 [place], [place] [phone] Adrien Walden, AdelaD Social History Tobacco Use [...] Telephone Encounter - Adrien Walden PharmD - 04/22/2025 4:35 PM EST Patient picked up last refill of Epclusa on 04/22/2025. Patient Reported the following CINDY: increase in changing of the colostomy bag from every 3 days to daily. Adherence was discussed with patient and they reported Patient reported strict adherence to medication, denies missing any doses Cortez Culp documented in this encounter Plan of Treatment Upcoming Encounters Date Type Department Care Team (Late st Contact Info) Description 06/03/2025 11:00 AM EST Telemedicine [address] [address] Jackelin Nam RN 06/24/2025 11:15 AM EST Office Visit [address] [address] Quiana Giron MD [address] [place] [address] [phone] 06/29/2025 10:15 AM EST Office Visit [address] [address] Quiana Giron MD [address] [place] [address] documented as of this encounter Visit Diagnoses Not on filedocumented in this encounter Additional Health Concerns Assessment Noted Time PHQ-9 Depression Total Score: 8 02/29/20 25 1:58 PM EDT documented as of this encounter Care Teams Allocations Clerk Relationship Specialty Start Date End Date Quiana Giron MD 230 [place] [address] PCP - General Family Medicine 11/09/18 Erasmo Martinez 02/03/23 documented as of this encounter
--- OUTSIDE RECORDS SUMMARY | 2025-05-06 14:57 | XMS_ITS | Encounter Summary ---
Author Organization [employer] Address [address] [facility] 7t [place] [address] Care Team Providers Care Clearance Coordinator Name Role Phone Quiana Giron MD Primary Care Provider + Reason for Visit * Reason Comments Med Refill Encounter Details Date Type Department Care Team ([facility] Contact Info) Description 03/26/2024 Refill [facility]INE 230 [place], [place] [phone] Quiana Giron MD 230 [place], [place] [phone] Generalized anxiety disorder Social History Tobacco Use [...] Info) Description 06/03/2025 11:00 AM EST Telemedicine [facility] MED[facility]INE [address] [place] [address] Jackelin Nam RN 06/24/2025 11:15 AM EST Office Visit [facility] [address] [place] [address] Quiana Giron MD [address] [place] [address] 06/29/2025 10:15 AM EST Office Visit [facility] [address] [place] [address] Quiana Giron MD [address] [place] [address] documented as of this encounter Visit Diagnoses Diagnosis Generalized anxiety disorder documented in this encounter Additional Health Concerns Assessment Noted Time PHQ-9 Depression Total Score: 9 07/23/19 24 10:38 AM EDT documented as of this encounter Care Teams Clearance Coordinator Relationship Specialty Start Date End Date Quiana Giron MD [address] [place] [address] PCP - General Family Medicine 11/09/18 Erasmo Martinez 02/03/23 documented as of this encounter
--- OUTSIDE RECORDS SUMMARY | 2025-05-06 14:57 | XMS_ITS | Encounter Summary ---
Author Organization [employer] Address [address] [facility] [address] 7t [place] [address] Care Team Providers Care Production Control Expert Name Role Phone Quiana Giron MD Primary Care Provider + Encounter Details Date Type Department Care Team ([facility] st Contact Info) Description 05/03/2025 Telephone [facility] MEDICINE 230 [place], [place] [phone] Margo Mclaughlin RN 230 [place] [address] Social History Tobacco Use Types Packs/Day Years [...] Telephone Encounter - Margo Mclaughlin RN - 05/03/2025 10:43 AM EST SVR due 08/12/25-RN will remind pt. documented in this encounter Plan of Treatment Upcoming Encounters Date Type Department Care Team (Late st Contact Info) Description 06/03/2025 11:00 AM EST Telemedicine [address] [address] Jackelin Nam RN 06/24/2025 11:15 AM EST Office Visit [address] [address] Quiana Giron MD [address] [place] [address] 06/29/2025 10:15 AM EST Office Visit [address] [address] Quiana Girno MD [address] [place] [address] documented as of this encounter Visit Diagnoses Not on filedocumented in this encounter Additional Health Concerns Assessment Noted Time PHQ-9 Depression Total Score: 8 02/29/20 25 1:58 PM EDT documented as of this encounter Care Teams Production Control Expert Relationship Specialty Start Date End Date Quiana Giron MD [address] [place] [address] PCP - General Family Medicine 11/09/18 Erasmo Martinez 02/03/23 documented as of this encounter
--- OUTSIDE RECORDS SUMMARY | 2025-05-06 14:57 | XMS_ITS | Encounter Summary ---
Author Organization [employer] Address [address] [facility] 7t [place] [address] Care Team Providers Care Supervisor Policy Change Clerks Name Role Phone Quiana Giron MD Primary Care Provider + Encounter Details Date Type Department Care Team ([facility] st Contact Info) Description 06/05/2023 Abstract [facility] MED[facility]INE 230 [place], [place] [phone] Quiana Giron MD 230 [place], [place] [phone] Social History Tobacco Use Types Packs/Day Years [...] 11:00 AM EST Telemedicine [facility] MED[facility]INE [address] [place] [address] Jackelin Nam RN 06/24/2025 11:15 AM EST Office Visit [facility] [address] [place] [address] Quiana Giron MD [address] [place] [address] 06/29/2025 10:15 AM EST Office Visit [address] [address] Quiana Giron MD [address] [place] [address] documented as of this encounter Visit Diagnoses Not on filedocumented in this encounter Care Teams Supervisor Policy Change Clerks Relationship Specialty Start Date End Date Quiana Giron MD [address] [place] [address] PCP - General Family Medicine 11/09/18 Jackelin Perez Jewelry Sorter 03/25/23 06/25/23 Erasmo Martinez 02/03/23 documented as of this encounter
--- OUTSIDE RECORDS SUMMARY | 2025-05-06 14:57 | XMS_ITS | Encounter Summary ---
Author Organization [employer] Address [address] [facility] 7t [place] [address] Care Team Providers Care Consumer Insights Intern Name Role Phone Quiana Giron MD Primary Care Provider + Encounter Details Date Type Department Care Team ([facility] st Contact Info) Description 03/28/[address] [facility] MEDICINE 230 [place], [place] [phone] Quiana Giron MD 230 [place], [place] [phone] Social History Tobacco Use Types Packs/Day Years [...] AM EST Telemedicine [facility] [address] [place] [address] Jackelin Nam RN 06/24/2025 11:15 AM EST Office Visit [facility] [address] [place] [address] Quiana Giron MD [address] [place] [address] 06/29/2025 10:15 AM EST Office Visit [facility] [address] [place] [address] Quiana Giron MD [address] [place] [address] documented as of this encounter Visit Diagnoses Not on filedocumented in this encounter Additional Health Concerns Assessment Noted Time PHQ-9 Depression Total Score: 8 02/29/20 25 1:58 PM EDT documented as of this encounter Care Teams Consumer Insights Intern Relationship Specialty Start Date End Date Quiana Giron MD [address] [place] [address] [place] [address] PCP - General Family Medicine 11/09/18 Erasmo Martinez 02/03/23 documented as of this encounter
--- OUTSIDE RECORDS SUMMARY | 2025-05-06 14:57 | XMS_ITS | Encounter Summary ---
Author Organization [employer] Address [address] [facility] 7t [place] [address] Care Team Providers Care Operations Team Leader Name Role Phone Quiana Giron MD Primary Care Provider + Reason for Visit * Reason Comments Med Refill Encounter Details Date Type Department Care Team ([facility] st Contact Info) Description 08/09/2024 Refill [facility]INE 230 [place], [place] [phone] Quiana Giron MD 230 [place], [place] [phone] Multilevel degenerative joint disease of spine Social [...] 06/03/2025 11:00 AM EST Telemedicine [facility] MED[facility]INE [address] [place] [address] Jackelin Nam RN 06/24/2025 11:15 AM EST Office Visit [facility] [address] [place] [address] Quiana Giron MD [address] [place] [address] 06/29/2025 10:15 AM EST Office Visit [address] [address] Quiana Giron MD [address] [place] [address] documented as of this encounter Visit Diagnoses Diagnosis Multilevel degenerative joint disease of spine documented in this encounter Additional Health Concerns Assessment Noted Time PHQ-9 Depression Total Score: 9 07/23/19 24 10:38 AM EDT documented as of this encounter Care Teams Operations Team Leader Relationship Specialty Start Date End Date Quiana Giron MD [address] [place] [address] PCP - General Family Medicine 11/09/18 Erasmo Martinez 02/03/23 documented as of this encounter
--- OUTSIDE RECORDS SUMMARY | 2025-05-06 14:57 | XMS_ITS | Encounter Summary ---
Author Organization [employer] Address [address] [facility] 7t [place] [address] Care Team Providers Care Railroad Surveyor Name Role Phone Quiana Giron MD Primary Care Provider + Reason for Visit * Reason Comments Med Refill Encounter Details Date Type Department Care Team ([facility] st Contact Info) Description 07/23/2023 Refill [facility] MEDICINE 230 [place], [place] [phone] Quiana Giron MD 230 [place], [place] [phone] Cigarette nicotine dependence with withdrawal Social History [...] Info) Description 06/03/2025 11:00 AM EST Telemedicine [address] [address] Jackelin Nam RN 06/24/2025 11:15 AM EST Office Visit [facility] MEDICINE [address] [place] [address] Quiana Giron MD [address] [place] [address] 06/29/2025 10:15 AM EST Office Visit [address] [address] Quiana Giron MD [address] [place] [address] documented as of this encounter Visit Diagnoses Diagnosis Cigarette nicotine dependence with withdrawal documented in this encounter Additional Health Concerns Assessment Noted Time PHQ-9 Depression Total Score: 9 07/23/19 24 10:38 AM EDT documented as of this encounter Care Teams Railroad Surveyor Relationship Specialty Start Date End Date Quiana Giron MD [address] [place] [address] PCP - General Family Medicine 11/09/18 Erasmo Martinez 02/03/23 documented as of this encounter
--- OUTSIDE RECORDS SUMMARY | 2025-05-06 14:57 | XMS_ITS | Data Portability ---
Author Organization [facility] [place] [employer] [facility], Main Office Address [address], [address] [place] [address] Care Team Providers Care Cell Tender Name Role Phone LUIS CARLOS ROBERTA Primary Care Provider [phone] [facility] ([facility] OTHER Assessment Encounter Date Assessment Date Assessment LastModified by Organization Details LastModified Time 01/29/2023 01/29/2023 He last received methadone 110 mg on 01/29/2023 greater than 30 minutes was spent on discharge. [email or web address] Not available 01/29/2023 11:06:54 Plan of Treatment Reminders Order Date Submit Date Provider Last Modified By Organization Details Last Modified Time Details Appointments None recorded. Lab None recorded. Referral None recorded. Procedures None recorded. Surgeries None recorded. Imaging None recorded. Medication Orders Dilaudid 4 mg tablet 2022 023 [facility], [address], [address], [place], [address], 3 22:37:50 Dilaudid 4 mg tablet 2022 023 [facility], [address], [address], [place], [address], 3 14:11:05 Patient TargetsNo targets recorded. Patient InstructionsNo instructions recorded. Reason for Referral None Reported. Problems Name Problem SNOMED Code Status Onset Date Resolution Date Notes Provider Name and Address Organization Details Recorded Time Severe chronic obstructi ve pulmonary disease 400351811 Active 2020 Eliecer Ortiz MD [address], [address], [place], [address], [facility] 13:21:06 Harmful pattern of use of multiple substance s 577631870 Active 2020 Eliecer Ortiz MD [address], [address], [place], [address], [facility] 13:21:14 Harmful pattern of use of alcohol 45548341 Active 2020 Eliecer Ortiz MD [address], [address], [place], [address], [facility] 13:21:21 Tobacco dependenc e syndrome 68967088 Active 2020 Eliecer Ortiz MD [address], [address], [place], [address], [facility] 13:21:28 Pulmonary hypertens ion 49606719 Active 2020 Eliecer Ortiz MD [address], [address], [place], [address], [facility] 13:21:42 Patent foramen ovale 809763817 Active 2020 Eliecer Ortiz MD [address], [address], [place], [address], [facility] 13:21:48 Chronic hepatitis C 089290500 Active 2020 Eliecer Ortiz MD [address], [address], [place], [address], [facility] 13:21:57 Essential hypertens ion 36123841 Active 2020 Eliecer Ortiz MD [address], [address], [place], [address], [facility] 13:24:24 Gastroeso phageal reflux disease 695795222 Active 2020 Eliecer Ortiz MD [address], [address], [place], [address], [facility] 13:28:24 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 ANABELA DOMINGUEZ PA-C [address], [address], [place], [address], [facility] 2 22:26:07 Acute on chronic hypoxemic respirato ry failure 337781081320 88541 Active 2021 prolonged intubatio n 03/2021 s/p tracheost jonah, since removed ANABELA DOMINGUEZ PA-C [address], [address], [place], [address], [facility] 2 22:27:05 Pneumonia 387004813 Active 2021 Elis Hernandez MD [address], [address], [place], [address], [facility] 2 14:51:34 Acute hypoxemic respirato ry failure 196428521 Active 2021 Elis Hernandez MD [address], [address], [place], [address], [facility] 2 15:16:51 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 210326768 Active 2021 Elis Hernandez MD [address], [address], [place], [address], [facility] 2 15:17:18 Ileostomy present 242087197 Active 2021 Elis Hernandez MD [address] [place] [address], [address], [place], [address], [facility] 2 15:17:22 Critical illness myopathy 383113031 Active 2021 Elis Hernandez MD [address], [address], [place], [address], [facility] 2 15:17:41 Mixed anxiety and depressiv e disorder 313866501 Active 2021 Elis Hernandez MD [address] [facility] [address], [address], [place], [address], [facility] 2 15:35:40 SARS-CoV- 2 Active 2021 Raven rashid null, [facility] 2 15:12:10 Acute COVID-19 8450385636 Active 2021 Elis Hernandez MD [address], [address], [place], [address], [facility] 2 01:40:34 [facility] 548864325 Active 2021 Elis Hernandez MD [address], [address], [place], [address], [facility] 2 01:56:39 Secondary pulmonary hypertens ion 98639828 Active 2021 Elis Hernandez MD [address], [address], [place], [address], [facility] 2 02:11:29 Chronic pain 02839096 Active 2021 Eliecer Ortiz MD [address], [address], [place], [address], [facility] 2 09:44:31 Primary insomnia 0361404 Active 2022 Eliecer Ortiz MD [address], [address], [place], [address], [facility] 3 13:04:34 Problem Notes None recorded. Medical Equipment None Reported. Allergies No known drug allergies Medications Name Sig Start Date Stop Date Status Note LastModified by Organization Details LastModified Time Dilaudid 2 mg tablet 4 tabs BID and 2 tabs PO daily pRN pain 023 active Not Available Not Available Not Avai lable Dilaudid 4 mg tablet 2 tabs (8 mg) po BID and 1 tab po q 24 hrs prn pain may give within 2 hrs of scheduled dose 023 active Not Available Not Available Not Avai lable Ativan 0.5 mg tablet 1 po TID and 1 po q 24 hrs prn anxiety 023 active Not Available Not Available Not Avai lable Vitals Date Recorded Body height Heart rate Respiratory rate Body temperature Oxygen saturation Inhaled oxygen flow rate Systolic And Diastolic Provider Name and Address Organization Details Last Updated DateTime 3 170.18 cm 76 /min 18 /min 98 [degF] 96 % 5 L/min 126/78 mm[Hg] DENZEL CALLOWAY NP [address] [facility], [address], [place], [address], [facility] 3 12:00:37 Date Recorded Body height Systolic And Diastolic Provider Name and Address Organization Details Last Updated DateTime 10/11/2022 170.18 cm 138/74 mm[Hg] Eliecer Ortiz MD [address] [facility] [address] [facility], [address], [place], [address], [facility] 10/11/2022 13:02:15 Date Recorded Body height Oxygen saturation Inhaled oxygen flow rate Respiratory rate Provider Name and Address Organization Details Last Updated DateTime 11/19/2022 170.18 cm 95 % 5 L/min 18 /min JATIN Malhotra [address], [facility] [address], [place], [address] , [facility] 3 10:47:39 Date Recorded Body height Heart rate Respiratory rate Oxygen saturation Inhaled oxygen flow rate Provider Name and Address Organization Details Last Updated DateTime 12/16/2022 170.18 cm 80 /min 18 /min 96 % 5 L/min JATIN Malhotra [address] [facility], [facility] [address], [place], [address], [facility] 3 15:53:39 Social History Question Answer Notes LastModified by Organizat ion Details LastModified Time Tobacco Smoking Status Former Smoker recently quit DENZEL CALLOWAY NP [address] [facility] [address], [place], [address], [facility] 07/04/2022 12:25:44 Do You Have An Advance Directive? Yes Full Code; Ok For Dialysis Artificial Nutrition, And Artificial Hydration Information not available 03/12/2021 How Many Years Have You Consumed Alcohol? 25 Information not available 06/03/2021 What Is Your Code Status? Full Code Information not available 03/12/2021 Which Illicit Or Recreational Drugs Have You Used? Cocaine, Heroin, Cannabis Information not available 06/03/2021 How Many Years Have You Used Illicit Or Recreational Drugs? 16 Information not available 06/03/2021 Where Do You Live? Other Homeless Information not available 06/03/2021 Legal Guardian? No Informati on not available 06/03/2021 Do You Have A Medical Power Of Web Development Instructor? Yes Information not available 06/03/2021 What Was The Date Of Your Most Recent Tobacco Screening? 05/28/2021 Information not available 06/03/2021 Do You Have An Out Of Hospital DNR? No Information not available 06/03/2021 Have You Ever Been Counseled For Unhealthy Alcohol Use? Yes Information not available 06/03/2021 What Is Your Relationship Status? Single Information not available 06/03/2021 How Much Tobacco Do You Smoke? 1 PPD [email or web address] Information not available 03/06/2021 Has Tobacco Cessation Counseling Been Provided? Yes Using Nicotine Inhaler Information not available 06/03/2021 On What Date Was Tobacco Cessation Counseling Provided? 05/28/2021 Information not available 06/03/2021 Have You Used IV Drugs? Yes Information not available 06/03/2021 How Many Days In The Past Year Have You Consumed 5 Or More Drinks? 360 Information not available 06/03/2021 Sex: Unknown Functional Status Question Answer Note LastModified by Organizat ion Details LastModified Time How many times per week do you consume alcohol? 5-7 times per week Information not available 06/03/2021 Do you use any illicit or recreational drugs? Yes Information not available 06/03/2021 Do you or have you ever used any other forms of tobacco or nicotine? Yes Information not available 06/03/2021 What is your level of alcohol consumption? None prior heavy use [email or web address] Information not available 07/04/2022 Do you or have you ever used smokeless tobacco? Never used smokeless tobacco Information not available 06/03/2021 Do you or have you ever used e-cigarettes or vape? Former user of electronic cigarettes Information not available 06/03/2021 Mental Status None recorded. Family History Relationship Description Onset Age of this Age Resolved Age Notes LastModified by Organization Details LastModified Time Paternal Uncle Hypertensive disorder Not available 2020 15:10:17 Medical History No medical history recorded. Immunizations Vaccine Type Date Status Note Provider Nam e and Address Organization Details Recorded Time COVID-19 vaccine, vector-nr, rS-Ad26, PF, 0.5 mL 1 completed ANABELA DOMINGUEZ PA-C [address] [place] [address], [address], [place], [address], [facility] 04/09/2021 09:22:27 Influenza, split virus, trivalent, PF 1 completed ANABELA DOMINGUEZ PA-C [address] [place] [address], [address], [place], [address], [facility] 04/09/2021 09:23:08 pneumococcal polysaccharide PPV23 7 completed ANABELA DOMINGUEZ PA-C [address] [place] [address], [address], [place], [address], [facility] 04/09/2021 09:23:22 Td (adult), 5 Lf tetanus toxoid, preservative free, adsorbed 5 completed ANABELA DOMINGUEZ PA-C [address] [place] [address], [address], [place], [address], [facility] 04/09/2021 09:23:39 Influenza, split virus, quadrivalent, preservative 2 completed Mirian smith, [facility] 02/20/2022 16:24:51 COVID-19, mRNA, LNP-S, bivalent, PF, 30 mcg/0.3 mL dose 2 [facility] 13:49:38 Influenza, adjuvanted, quadrivalent, PF 3 [facility] 07/17/2023 12:06:10 Pneumococcal conjugate PCV20, polysaccharide FIQ878 conjugate, adjuvant, PF 4 completed [facility] 07/17/2023 12:06:46 COVID-19, mRNA, LNP-S, PF, venkatesh-sucrose, 30 mcg/0.3 mL 4 completed Kallie smith [place] - [facility] 07/17/2023 12:07:16 Past Encounters Encounter ID Performer Location Encounter Start Date Encounter Closed Date Diagnosis/Indication Diagnosis SNOMED-CT Code Diagnosis ICD10 Code Diagnosis IMO Codes Diagnosis Note [id number] Eliecer Ortiz MD [facility] [address] [place] [address] 03/06/2021 13:07:27 03/14/2021 11:08:08 Harmful pattern of use of multiple substances 697020336 F19.121 restarted on methadone 65 mg qd at hospital by addiction medical teamcompli cated by maddison ss with social work to assist with services in community Severe chr onic obstructive pulmonary disease 399531185 J44.1 see HPIsevere at baseline maintained on 5 liters A6astexq pulmonary recs and update with concernsno w onpredison e taperalbut lizet neb q 4 prnduoneb q 6dulera 200/5 2 puffs bid Essential hypertension 09495564 I10 clonidine 0.1 mg q 8norvasc 5 mg qdmonitor bp and need to titrate Harmful pa ttern of use of alcohol 81912656 F10.10 thiamine 100 mg qdciwa protocol in hospitalad ded to PMH Tobacco de pendence syndrome 63677541 F17.218 nicotine replacemen t as neededenco urage quitting Pulmonary hypertension 25436791 I27.23 severe pulmonary htn secondary to lung diseasePFO discovered on echo bubble studystart ed on sildenafil by cards Patent foramen ovale 204 645226 Q21.1 see above Chronic hepatitis C 1283 02351 B18.2 added to PMH Gastroesop hageal reflux disease 364368593 K21.9 pantoprazo le 40 mg qd Asthenia 45315515 R53.1 PT OT eval and treatmonit or fall risk Leukocytosis 909652537 D 72.828 see HPIappears secondary to steroid utilizatio ncontinue to monitor for signs of infectionm onitor cbc [id number] ANABELA DOMINGUEZ PA-C [facility] [address] [place] [address] 03/08/2021 15:03:19 03/14/2021 11:09:26 Secondary pulmonary hypertension 80820170 I27.21 Severe Correct sildenafil orders so that dose goes to 20 mg po tid after completes 7-day course of bid Severe chr onic obstructive pulmonary disease 989360160 J44.9 O2-depende nt at 5 lpmFinish Prednisone taperd/c Dulera 200--5 mcg 2 puffs bid since not available from pharmacy and start Advair 500-50 mcg 2 puffs bidContinu e Duoneb q 6 hand Albuterol neb prnClarify pulm f/u Essential hypertension 27046093 I10 Continue Norvasc 5 mg po q amSuspect not on B-lashon due to severity of COPD and cocaine use d/o-defer to cardsMonit or BPs and adjust meds prn [id number] ANABELA DOMINGUEZ PA-C [facility] on [address] [place] [address] 03/12/2021 17:36:39 03/14/2021 11:22:51 Secondary pulmonary hypertension 83231703 I27.21 SevereSild enafil scheduled to increased to 20 mg po tidf/u pulm-defer concerns about needing CPAP to pulmNot sure that peripheral pulse oximeter reliable in this patientFol low clinically [id number] ANABELA DOMINGUEZ PA-C [facility] on [address] [place] [address] 03/15/2021 10:22:05 03/19/2021 15:50:58 Secondary pulmonary hypertension 51868371 I27.21 SevereCont inue sildenafil 20 mg po tid-no PT/OT until med available- nursing to implement par level monitoring No other changes at this time Underweight 043430278 R6 3.6 Ensure tid with meals Tobacco de pendence syndrome 43803441 F17.200 Nicotrol inhalers prn-d/c patches when these arriveEnco urage abstinence f/u prn [id number] ANABELA DOMINGUEZ PA-C [facility] on [address] [place] [address] 03/27/2021 13:45:32 03/29/2021 12:34:37 Infection of tooth 220824530 K04.7 Amoxicilli n 1 g po x 1 then 500 mg po tid x 3 days-start when available- benefits of antibiotic therapy outweigh risks of non-treatm ent in this patientPro biotic bid x 7 daysDental consultOra gel prnf/u prn [id number] ANABELA DOMINGUEZ PA-C [facility] on [address] [place] [address] 03/30/2021 08:52:44 04/03/2021 12:35:37 Weight gain 2649581 R63.5 Desirable in this patientMon itor weightsRD also following Secondary pulmonary hypertension 13349488 I27.21 SevereCont inue sildenafil 20 mg po tidContinu e continuous supplement al O2f/u prn Infection of tooth 55292 8007 K04.7 Finish Amox and ProbioticA wait dental consultf/u prn Altered mental status 41 0088748 R41.82 Discussed with pt the following: -Anxiety -- based on pattern of prn Ativan use, would suggest adding a scheduled dose in the evening. He isn't sure and wants to think about it. Will renew prn Ativan 0.5 mg po daily prn anxiety x 6 months then review again; schedule an evening dose if pt decides he is in agreement- reviewed recommenda tion from psych PA with pt about increasing sertraline from 100 mg to 125 mg. Discussed idea that, at his age, it would also be appropriat e to increase to 150 mg. He would also like to think about this and isn't totally sure he wants any increase in the sertraline . Appreciate psych PA's recommenda tion to check BMP due to risk of hyponatrem ia with SSRIs, particular ly sertraline (and citalopram ); however, will consider this in the future but not perfunctor yNo changes in Ativan or sertraline at this time - will wait for pt to decide how he wants to proceed. [id number] ANABELA DOMINGUEZ PA-C [facility] on [address] [place] [address] 04/06/2021 12:18:07 04/10/2021 15:14:52 Acute respiratory distress 716858013 R06.03 pt agreeable to go to the ED for further eval-expre ssed fear of being intubatedT ransferred to [facility] via EMS 911Report given to [facility] ED Altered mental status 41 4365230 R41.82 Responded to naloxone; however, is on chronic agonist therapy with methadoneU tox -- see if can also screen for fentanyl-o nly Rx methadone so should only be positive for that [id number] ANABELA DOMINGUEZ PA-C [facility] [address] [place] [address] 05/25/2021 13:12:41 06/06/2021 10:57:22 Acute on chronic hypoxemic respiratory failure 3194739861 5055231 J96.21 decannulat ed prior to discharge- monitor siteSchedu led and prn nebs/inhal ers-Change admin time of Dulera from 0800 and 1700 to 0800 and 1999-Rinse mouth after Dulera useRRT consultPul m f/u (has telehealth with Dr. Chavez)Sup plemental H6Pgjopiz and f/u prn Cavitary pneumonia 96988 2000 J18.8 Pseudomona sFinish CiproAdd probioticF ollow clinically Shine out when abx complete Weight gain 5630681 R63. 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 422936821 A04.72 s/p total colectomy with ileostomy Severe chr onic obstructive pulmonary disease 348978932 J44.9 O2-depende nt at 5 lpmSchedul ed and prn nebs/inhal ersf/u pulmprn Ativan for anxiety-Sc ript for Ativan 0.5 mg #90 with 5 refills given to nurse Essential hypertension 88512994 I10 Continue Norvasc 10 mg po q am, which was increased from 5 mg during antecedent hospitaliz ation and clonidine 0.1 mg po q 8 hSuspect not on B-lashon due to severity of COPD and cocaine use d/o-defer to cardsMonit or BPs and adjust meds prn Opioid dependence 417538 00 F11.20 On agonist therapy with methadone Tobacco de pendence syndrome 15436920 F17.200 Counseled 5 minutes on the importance of cesstionNi cotrol inhalersEn courage abstinence f/u prn Viral hepatitis C 569222 07 B19.20 Outpatient f/u after d/c with GI/ID for possible tx Critical i llness myopathy 020392075 G72.81 PT/OT [id number] Elis Hernandez MD [facility] on [address] [place] [address] 05/28/2021 13:59:54 06/05/2021 13:00:51 Acute hypoxemic respiratory failure 946520911 J96.21 J96.22 Back to baseline.W as supposed to be on dulera (mometason e/formoter ol) per d/c summary, but put on plain mometasone on admission here. Will restart dulera 200-5 mcg 2 puffs BID.Contin ue duonebs q 6 hrs and albuterol nebs q 4 hrs prn.Contin ue supplement al O2, on 5L by NC at baseline, titrate to maintain sats 88-92%.Mon itor resp. status.F/U with pulmonary as planned Pneumonia 284403281 J15. 1 Resp status back to baseline.C ontinue cipro 400 mg q 8 hrs until 06/03.Monit or resp status.Has f/u with pulmonary on 06/13, may need f/u CT. 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 Tolerating well.Monit or for recurrence . Ileostomy present 590486 002 Z93.2 As above. Critical i llness myopathy 405892970 G72.81 Severely deconditio josé miguel.Needs PT/OT for strengthen ing, balance, gait training, safety and function.W ill likely need prolonged rehab for recovery adequate to care for self as outpt.Cont inue fall precaution s.Monitor for safety. Severe chr onic obstructive pulmonary disease 729061701 J44.1 As above. Harmful pa ttern of use of multiple substances 532635738 F19.121 Had been on 65 mg methadone qd, lowered to 50 mg qd inpt.Hx of OD in past.Susan nue to encourage abstinence .Provide support services, consider 1/[address] on d/c as pt has been homeless. Essential hypertension 18197815 I10 In good control on clonidine 0.1 mg q 8 hrs and amlodipine 5 mg qd.Monitor BP and labs. Harmful pa ttern of use of alcohol 45303651 F10.10 Continue to encourage cessation/ abstinence .Provide support services. Tobacco de pendence syndrome 11502837 F17.218 Using nicotine inhaler.Tr carmen to quit. Pulmonary hypertension 55013807 I27.23 Sildefanil stopped inpt.F/U with cardio/pul monary as planned. Patent foramen ovale 204 755619 Q21.1 Not seen on right heart cath.When initially found was called hemodynami theodore significan t.F/U with cardio as planned. Chronic hepatitis C 1283 74987 B18.2 F/U with ID/GI as planned.Mo nitor labs. Gastroesop hageal reflux disease 094815191 K21.9 Continue pantoprazo le 40 mg qdMonitor for sxs. Mixed anxi ety and depressive disorder 803634583 F41.8 F33.1 Mood ok today.Cont inue sertraline 100 mg qd., trazadone 50 mg qhs and lorazepam 0.5 mg qg prn.Monito r mood.Psych consult. 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 99950974 F06.4 Renew Ativan 0.5 mg po q 8 h prn anxiety x 6 months since has been effective and then review with provider to determine ongoing need [id number] JATIN WOODARD [facility] on [address] [place] [address] 06/06/2021 15:05:06 06/11/2021 15:45:00 SARS-CoV-2 927312206 U07.1 Given underlying comorbidit ies and associated increased risk of progressio n to severe disease, will treat with remdesivir Supportive care Follow clinically Precaution s per facility protocol [id number] JATIN WOODARD [facility] on [address] [place] [address] 06/08/2021 09:14:56 06/12/2021 14:00:40 SARS-CoV-2 250002684 U07.1 Given underlying comorbidit ies and associated increased risk of progressio n to severe disease, will treat with remdesivir - dosing has started already, pt feeling ok Supportive care Follow clinically Precaution s per facility protocolmo nitor resp status closelymon itor vs closely [id number] JATIN WOODARD [facility] on [address] [place] [address] 06/13/2021 11:54:27 06/18/2021 16:24:44 SARS-CoV-2 117235170 U07.1 Given underlying comorbidit ies and associated increased risk of progressio n to severe disease, will treat with remdesivir - recently completed remdesivir dosing - tolerated wellSuppor tive careFollow clinically Precaution s per facility protocolmo nitor resp status closely - doing wellmonito r vs closely Acute hypo xemic respiratory failure [id number] J96.21 J96.22 dulera 200-5 mcg 2 puffs BID.duoneb s q 6 hrs and albuterol nebs q 4 hrs prn.Contin ue supplement al O2, on 5L by NC at baseline, titrate to maintain sats 88-92%.Mon itor resp. status.F/U with pulmonary as planned - pt had f/u today, nsg reports he is to have another f/u in 2 mos. - no further rec's Gastroesop hageal reflux disease 037543038 K21.9 pt has been asking for tums most recentlywi ll trial omeprazole 20mg daily and monitor for resolution of s/smonitor [id number] ANABELA DOMINGUEZ PA-C [facility] on [address] [place] [address] [id number] 3 06/21/2021 12:19:24 07/05/2021 14:19:18 Dysphagia 20031794 R13.10 d/c tube feeds per pt requestMon itor weightsRD also following [id number] NAABELA DOMINGUEZ PA-C [facility] on [address] [place] [address] [phone] 3 07/03/2021 13:45:47 07/17/2021 15:34:13 Secondary pulmonary hypertension 08179568 I27.21 SevereMoni tor and f/u prn Acute COVID-19 929879629 8 U07.1 s/p remdesivir clinically recovered Dysphagia 14476458 R13.1 0 TF d/c'dRefer back to IR for PEG removal Severe chr onic obstructive pulmonary disease 581304046 J44.9 O2-depende nt at 5 lpmChange Dulera from q 0900 and 1700 to q 12 h-add order to rinse mouth after use to mitigate developmen t of thrush Anxiety 38275745 F41.9 Consider scheduling Ativan at hs based on pattern of use Opioid dependence 642093 00 F11.20 On agonist therapy with methadoneO k to continue potentiall y addictive meds despite substance use d/o hx. Pt's methadone or Suboxone provider is aware of concomitan t use; meds are managed and administer ed by nursing in a controlled and supervised setting. [id number] Elis Hernandez MD [facility] on [address] [place] [address] [phone] 3 08/02/2021 14:07:17 08/10/2021 10:29:29 Secondary pulmonary hypertension 39507613 I27.21 SevereNo longer on sidefanil. Monitor and F/U with cardio/pul monary as planned.. Acute COVID-19 383179081 8 U07.1 Tested + on 06/06Now recovered. Monitor for sequelae. Dysphagia 49010022 R13.1 9 Back to eating regular food.Robe schuster IR referral for PEG removal Severe chr onic obstructive pulmonary disease 253822526 J43.8 Continue O2 by NC 5 L, monitor O2 sats.Susan nue Dulera 200/5, 2 puffs BID, duonebs QID, and albuterol nebs q 4 hrs prn.Monito r resp. status. Opioid dependence 311698 00 F11.20 Continue methadone 60 mg qdF/U with clinic as planned. Pneumonia 100054757 J15. 1 Had recurrent PNA during rehospital ization.No w recovered. F/U wiht pulmonary as planned. 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 Tolerating well.Monit or for recurrence . Ileostomy present 323284 002 Z93.2 As above. Critical i llness myopathy 644450882 G72.81 Severely deconditio josé miguel.Needs PT/OT for strengthen ing, balance, gait training, safety and function.C ontinues to need prolonged rehab for recovery adequate to care for self as outpt.Cont inue fall precaution s.Monitor for safety. Harmful pa ttern of use of multiple substances 593627334 F19.121 Continue methadone as above.Hx of OD in past.Susan nue to encourage abstinence .Provide support services, consider 1/[address] house on d/c as pt has been homeless. Essential hypertension 23342790 I10 In good control on clonidine 0.1 mg q 8 hrs and amlodipine 5 mg qd.Monitor BP and labs. Harmful pa ttern of use of alcohol 59561185 F10.10 Continue to encourage cessation/ abstinence .Provide support services. Tobacco de pendence syndrome 14376192 F17.218 Using nicotine inhaler. He says 10 mg isn't enough , he says he is getting cravings back.Incre ased nicotine inhaler to 10 mg q 4 hrs prn.Contin ue to encourage abstinence . Patent foramen ovale 204 442611 Q21.1 Not seen on right heart cath.When initially found was called hemodynami theodore combs.F/U with cardio as planned. Chronic hepatitis C 1283 56834 B18.2 F/U with ID/GI as planned.Mo nitor labs. Gastroesop hageal reflux disease 905137627 K21.9 Continue pantoprazo le 40 mg qdMonitor for sxs. Mixed anxi ety and depressive disorder 673436933 F41.8 F33.1 Mood a little anxious today.Cont inue sertraline 100 mg qd., trazodone 50 mg qhs and lorazepam 0.5 mg q 8 hrs prn.Monito r mood.Psych involved. [id number] ANABELA DOMINGUEZ PA-C [facility] on [address] [place] [address] [phone] 3 08/07/2021 11:52:05 08/10/2021 11:16:39 Hyperprolactinemia 428485655 E22.1 r/o sarcoid (DIYA level)Not on any antipsycho tics or other dopamine antagonist sIs on sertraline but SSRIs historical ly do not significan tly elevate ProlactinI s on amlodipine but verapamil typically the only Ca++ lashon that raises ProlactinA lthough chronic opiates can affect the HPA axis and pt is on chronic methadone, this is typically a diagnosis of exclusion, especially in the context of his complex comorbidit iesThe elevated macroprola ctin suggests that elevated Prolactin is genuine and not spurious.D oes not have hypothyroi dism but will update TSH for completene ssNo pituitary adenoma on Brain CT- in Apr 2021-consi kay MRI to further eval but not sure he would tolerate it despite pre-med Hypercalcemia 71269608 E 83.52 Still elevated with correction Not on exogenous Vit DCheck intact PTH, Ical, Total Vit DFurther underscore s need to r/o sarcoid Hypomagnesemia 053152841 E83.42 RepletingL ast level therapeuti cRemains on PPIWill update level since ordering other labs Hyperphosphatemia E83.39 Update level [id number] ANABELA DOMINGUEZ PA-C [facility] on [address] [place] [address] [phone] 3 08/10/2021 10:01:14 08/14/2021 10:31:47 Hypercalcemia 53667210 E83.52 low PTH suggests non-parath yroid hormone mediated hypercalce scout-await DIYA level to r/o sarcoidPt is immobile per his choice as evidenced by refusal to get out of bed-immobi lization can be a cause of hypercalce Gino longer utilizing PEG tube and has not had parenteral nutrition since before the 1st of the yearTSH minimally elevated-p cheri not significan t enough to be clinically relevantVi t D level on low end of normal range so not likely contributo ryCheck:-S PEP-UPEP-P TH-related Protein (PTHrP)-1, 25-dihydro xyvitamin DDiscussed this with pt Hypomagnesemia 748473088 E83.42 Therapeuti c levelConti nue mag oxide Subclinica l hypothyroidism 74510983 E02 TSH very minimally elevatedDi scussed this with pt Secondary pulmonary hypertension 36469344 I27.21 Fax results of echo to Dr. Nelson Chavez, who has also been updated re: pt's declinatio n of chest CT and echo scheduled at [facility] today [id number] ANABELA DOMINGUEZ PA-C [facility] on [address] [place] [address] [phone] 3 08/13/2021 13:24:32 08/16/2021 15:36:44 Hypercalcemia 38091545 E83.52 DIYA level slightly elevated - probably not clinically relevantAw ait labsCheck spot urine calcium for completene ss non-urgent CXR - AP/lat - to eval status of RUL nodule and scattered R lung opacities previously seen on chest CT-will also ask radiologis t to specifical ly look for signs of sarcoid Hyperprolactinemia 154422004 E22.1 As above [id number] ANABELA DOMINGUEZ PA-C [facility] on [address] [place] [address] [phone] 3 08/14/2021 09:29:53 08/16/2021 15:56:55 Nodule of lung 057630479 R91.[address] would be a better test, the portable plain film appears to demonstrat e resolution Encourage pt to attend chest CT in the future and to f/u with pulm Abnormal i ntestinal absorption 73461397 K90.9 Because the small bowel is the most important site of drug absorption , patients with ileostomy are at risk for suboptimal drug absorption . Need to change meds to liquid, gelatin capsule, and uncoated tablets where possible-m ethadone already liquid-Nor vasc does not appear to be available in an alternativ e form-Dougherty e Prilosec from tablet to either cap or ODT, whichever is available- Change Zoloft to solution (20 mg/ml)-Tra zodone does not appear to be available in an alternativ e form-cloni dine can be changed to transderma l-start 0.3 mg/24 h and change weekly; d/c po clonidine 24 hours after 1st patch is applied-At hubert can be crushed in slurry or changed to oral concentrat e-confirm Zofran is ODT formulatio n Hypercalcemia 48982383 E 83.52 Await rest of labs-SPEP- UPEP-PTH-r elated Protein (PTHrP)-1, 25-dihydro xyvitamin DAsymptoma tic [id number] ANABELA DOMINGUEZ PA-C [facility] on [address] [place] [address] [phone] 3 08/20/2021 10:22:04 08/24/2021 15:28:25 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 Pt is not interested in going out for a heme/onc consult-wi ll defer until such time as he is feeling better and willing to go-consult would not be urgent anywayclar braxton status of the following outstandin g labs (for completene ss):-Parat hyroid hormone-re lated protein (PTHrP)-1, 25-dihydro xyvitamin D Severe pul monary hypertension 656494723 I27.20 implement pulm recommenda tions Tobacco de pendence syndrome 18732695 F17.200 Has been having increased urge to smokePeak tobacco use was >2 ppdCurrent Nicotrol inhalers are not as effective as he had hopedWill add Nicoderm 14 mg patch as recommende d by pulmDoes not appear that Nicotrol has any higher dose than what he is currently onOk to continue Nicotrol inhalers despite also being on the Nicoderm-N icoderm is not at highest available dose (21 mg)-Benefi ts of continued abstinence from smoking outweighs risks of adverse reactions from excessive NRT [id number] ANABELA DOMINGUEZ PA-C [facility] on [address] [place] [address] [phone] 3 08/31/2021 11:00:36 09/04/2021 17:02:54 Weight gain 7187463 R63.5 DesirableM onitor weightsRD also following Polyclonal hypergammaglobulinemi a 920620048 D89.0 Pt is not interested in going out for a heme/onc consult-wi ll defer until such time as he is feeling better and willing to go-consult would not be urgent anyway Hypercalcemia 16826910 E 83.52 Associated with the polyclonal hypergamma globulinem iaExtensiv e w/u undertaken -still trying to clarify status of the following outstandin g labs (for completene ss):-Parat hyroid hormone-re lated protein (PTHrP)-1, 25-dihydro xyvitamin D Hypoparathyroidism 45474 004 E20.9 Likely just secondary to hypercalce scout Indigestion 192328028 K3 0 Trial change PPI to H2-lashon Essential hypertension 51979843 I10 BPs low at times-decr ease Norvasc from 10 to [address] not on B-lashon due to severity of COPD and cocaine use d/o-defer to cardsMonit or BPs and adjust meds prn Acute COVID-19 324583146 8 U07.1 s/p remdesivir clinically recovered Opioid dependence 600750 00 F11.20 On agonist therapy with methadone- feels better since dose increasedO k to continue potentiall y addictive meds despite substance use d/o hx. Pt's methadone provider is aware of concomitan t use; meds are managed and administer ed by nursing in a controlled and supervised setting. Secondary pulmonary hypertension 15783775 I27.[address] pend as requested by pulm-high likelihood that pt will decline to attend, especially because nebs/inhal ers need to be held prior to PFTs and this will cause him significan t anxietyPul m following Severe chr onic obstructive pulmonary disease 333829695 J44.9 O2-depende nt at 5 lpm Tobacco de pendence syndrome 55645767 F17.200 Improved with addition of Nicoderm [id number] ANABELA DOMINGUEZ PA-C [facility] on [address] [place] [address] [phone] 3 09/03/2021 16:45:59 09/05/2021 12:53:24 Tobacco dependence syndrome 03003346 F17.200 Increase Nicoderm from 14 to 21 mgOk to continue scheduled and prn Nicotrol inhalersBe nefits of abstinence from tobacco significan tly outweigh any risks of high-dose NRTMonitor and f/u prnTotal time spent 10 minutes, >50% in face-to-fa ce counseling and coordinati on of care [id number] ANABELA DOMINGUEZ PA-C [facility] on [address] [place] [address] [phone] 3 09/12/2021 16:08:18 09/17/2021 15:03:55 Hypercalcemia 89113215 E83.52 Associated with the polyclonal hypergamma globulinem iaExtensiv e w/u undertaken -Parathyro id hormone-re lated protein (PTHrP) still seems to be pending?-l ow intact PTH suggestive of secondary hyperparat hyroidism- pt has had normal renal functionNo further w/u or interventi on is needed at this time-pt refuses to attend an outside consult with heme/onc or endocrine [id number] Elis Hernandez MD [facility] on [address] [place] [address] [phone] 3 10/25/2021 17:30:22 11/07/2021 14:41:21 Hypercalcemia 99752985 E83.52 PTHrP still pending?-l ow intact PTH suggestive of secondary hyperparat hyroidism- pt has had normal renal functionNo further w/u or interventi on is needed at this time-pt refuses to attend an outside consult with heme/onc or endocrine Tobacco de pendence syndrome 99955298 F17.210 Continue Nicoderm 21 mg qd and nicotrol inhaler QID and q 4 hrs prn.Contin ue to encourage abstinence . Weight gain 1222697 R63. 5 Wt. has been up and down a little, but essentiall y stable over past several months. WOuld benefit from further wt. gain.Monit or weightsRD also following Polyclonal hypergammaglobulinemi a 983059396 D89.0 Discussed heme/onc consult again.He is willing to go if it can be arranged at a time his mother can bring him.WIll be arranged. Hypoparathyroidism 35072 004 E20.8 Likely just secondary to hypercalce miaMonitor . Indigestion 653774578 K3 0 No sxs.Contin ue famotidine 20 mg qd.Monitor sxs Essential hypertension 07507903 I10 Good control on amlodipine 5 mg qd.Monitor BP and labs. Acute COVID-19 111501423 8 U07.1 Now recovered. Monitor for sequelae. Opioid dependence 195674 00 F11.20 Continue methadone 60 mg qdF/U with clinic as planned. Secondary pulmonary hypertension 41729588 I27.21 CT scheduled for 7/7F/U with pulmonary after. Severe chr onic obstructive pulmonary disease 809394422 J43.8 Continue O2 by NC 5 L, monitor O2 sats.Susan nue Dulera 200/5, 2 puffs BID, duonebs QID, and albuterol nebs q 4 hrs prn.Monito r resp. status. Critical i llness myopathy 656300788 G72.81 Improving, but still deconditio josé miguel.Needs PT/OT for strengthen ing, balance, gait training, safety and function.C ontinues to need prolonged rehab for recovery adequate to care for self as outpt.Cont inue fall precaution s.Monitor for safety. Mixed anxi ety and depressive disorder 939426703 F41.8 F33.1 Mood good today.Cont inue sertraline 100 mg qd., trazodone 50 mg qhs and lorazepam 0.5 mg q 8 hrs prn.Monito r mood.Psych involved. 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 Tolerating well.Monit or for recurrence . Chronic hepatitis C 1283 62809 B18.2 F/U with ID/GI as planned.Mo nitor labs. Ileostomy present 138115 002 Z93.2 As above. Harmful pa ttern of use of multiple substances 836522384 F19.121 Continue methadone as above.Hx of OD in past.Susan nue to encourage abstinence .Provide support services, consider 1/[address] house on d/c as pt has been homeless. Harmful pa ttern of use of alcohol 15608146 F10.10 Continue to encourage cessation/ abstinence .Provide support services. [id number] ANABELA DOMINGUEZ PA-C [facility] on [address] [place] [address] [phone] 3 01/01/2022 14:05:46 01/16/2022 11:24:58 Weight gain 2713016 R63.5 No evidence of volume overload on examDesira bleMonitor weightsRD also following Severe chr onic obstructive pulmonary disease 426480151 J44.9 O2-depende nt at 5 lpmHas pulmRRT followingN o recent exacerbati onsChange admin time of Dulera from 0800 and 1700 to q 12h Tobacco de pendence syndrome 40334935 F17.200 Ok to continue Nicoderm at 21 mg despite length of tx; pt has severe tobacco use d/o and requires this degree of NRT; benefits of ongoing high-dose NRT significan tly outweigh risks of relapse and pt is monitored by nursing 02/12.Ok to continue Nicotine inhaler despite concomitan t transderma l Nicotine for same reasons that Nicoderm dose is not going to be changed in the near future Attention to gastrostomy 844800746 Z43.1 PEG removed. Tolerated procedure well. See procedure note.Total time spent on this in addition to routine visit was 18 minutesPEG site to be monitored by nursing.f/ u prn [id number] ANABELA DOMINGUEZ PA-C [facility] on [address] [place] [address] [phone] 3 01/02/2022 14:35:18 01/16/2022 11:55:23 Attention to gastrostomy 340552678 Z43.1 Removed yesterdayN o complicati onsf/u prn [id number] ANABELA DOMINGUEZ PA-C [facility] [address] [place] [address] [phone] 3 02/12/2022 15:35:22 02/25/2022 15:32:28 Chronic pain syndrome 397588530 G89.4 Dilaudid 2 mg po q 4 h prn mod-severe pain-scrip ts for Dilaudid 2 mg #60 no refills and for up to #8 from ekit given to nurseOk to continue potentiall y addictive meds despite substance use d/o hx. Pt's methadone provider is aware of concomitan t use; meds are managed and administer ed by nursing in a controlled and supervised setting.Ph ysiatry consult End stage chronic obstructive pulmonary disease 447557268 J44.9 CBCD, CMP, TSH, Mg in richard-urge nt 2-V CXR r/o PNA; dx cough and pleuritic CP Hospice informatio nal Incentive spirometer - keep at bedside Mucomyst 20% 3 ml via neb q 6 h prn increased mucus/phle gm-MUST PREMEDICAT E WITH ALBUTEROL OR DUONEB TO PREVENT BRONCHOSPA SM Anxiety 22567952 F41.9 Renew prn Ativan x 6 months since has been effective and then review to determine ongoing need [id number] ANABELA DOMINGUEZ PA-C [facility] on [address] [place] [address] [phone] 3 02/15/2022 16:16:10 02/25/2022 16:09:36 Chronic pain syndrome 307285899 G89.4 Change Dilaudid from 2 mg po q 4 h prn to 4 mg po q 6 h prn-may use 2 mg #2 to make new dose while supplies last-Scrip t for Dilaudid 4 mg #60 no refills given to nurse Tobacco de pendence syndrome 30387751 F17.200 Change Nicotrol from qid to q 4 h scheduled- pt may be given 6 inhalers each morning to keep at bedside-ok despite any recommenda tions for max dosing and concomitan t transderma l nicotine since benefits of therapy significan tly outweigh risks of relapse Anxiety 65675531 F41.9 Renew Ativan 0.5 mg po q 8 h prn anxiety x 6 months then review with provider to determine ongoing need since has been effective [id number] ANABELA DOMINGUEZ PA-C [facility] on [address] [place] [address] [phone] 3 02/21/2022 16:32:19 02/27/2022 14:02:55 Chronic pain syndrome 115828284 G89.4 Change Dilaudid from 4 mg po q 6 h prn to 8 mg po q 6 h prn-may use 4 mg #2 to make new dose while supplies lastFollow clinically Ok to continue potentiall y addictive meds despite substance use d/o hx. Pt's methadone provider is aware of concomitan t use; meds are managed and administer ed by nursing in a controlled and supervised setting. Persistent cough 0547190 02 R05.3 Schedule Mucomyst neb q am-pt reminded to premedicat e with his DuonebCont inue prn MucomystAd d Mucinex IR 400 mg po qidFollow clinically [employer] also following [id number] Rupal Ohara MD [facility] on [address] [place] [address] [phone] 3 02/22/2022 07:38:30 02/25/2022 16:25:37 Severe chronic obstructive pulmonary disease 115633557 J43.8 albuterol via nebulizer q4h prnDuoneb via nebulizer [id number] ysteine 20% solution: inhalation once daily after updraft treatmentD ulera 200-5: 2 puffs q12 Chronic pain 87400010 G8 9.29 hydromorph one 8 mg [id number] 650 mg q6h prnmethado ne 110 mg dailyPT/OT prnwill monitor Mixed anxi ety and depressive disorder 288691864 F41.8 trazodone 50 mg at hssertrali ne 100 mg daiylloraz epam 0.5 mg q8h prnwill monitor Opioid dependence 464419 00 F11.20 methadone 110 mg dailyfu methadone clinicwill monitor Gastroesop hageal reflux disease 832022016 K21.9 famotidine 20 mg dailywill monitor Tobacco de pendence syndrome 45145854 F17.210 nicoderm patch 21 mg dailynicot ine inhaler 10 mg y5xioao monitor Essential hypertension 35109377 I10 clonidine patch 0.3 mg/24 hr weeklywill monitor [id number] Eliecer Ortiz MD [facility] on [address] [place] [address] [phone] 3 04/01/2022 09:40:36 04/09/2022 09:28:04 Chronic pain 76840551 G89.29 complaints of chronic pain in patient with substance abuse hx maintained on methadone anddilaudi d 8 mg q 6 prnwill change prn todilaudid 2 mg q 6 prn pain4 mg q 6 prn mod pain8 mg q 6 prn severe painmonito r utilizatio n and will attempt to wean Severe chr onic obstructive pulmonary disease 637411209 J43.8 severe at baseline maintained on O2 by NCcontinue medication scurrently at baselinemo nitor respirator y functionup date pulmonolog y with concerns Harmful pa ttern of use of multiple substances 099429784 F19.121 see abovecurre ntly moving towards return to [facility] oordinate with [id number] JATIN Malhotra [facility] on [address] [place] [address] [phone] 3 04/12/2022 15:20:46 04/15/2022 16:17:55 Severe chronic obstructive pulmonary disease 460906201 J43.8 stablealbu terol via nebulizer q4h prnDuoneb via nebulizer [id number] ysteine 20% solution qd prnDulera 200-5: 2 puffs d01oleebfo resp status Chronic pain 81654312 G8 9.29 hydromorph one 8 mg q 8 hrs prn or 4-6 mg q 6 hrs prnmethado ne 110 mg dailyPT/OT prnno change to meds at this time Mixed anxi ety and depressive disorder 331217046 F41.8 trazodone 50 mg qhssertral ine 100 mg qdlorazepa m 0.5 mg q8h prnmonitor mood Opioid dependence 241792 00 F11.20 methadone 110 mg dailyf/u methadone clinicmoni tor Essential hypertension 27632181 I10 clonidine patch 0.3 mg/24 hr weeklymoni tor [id number] JATIN Malhotra [facility] on [address] [place] [address] [phone] 3 06/10/2022 14:48:16 06/12/2022 12:26:44 Chronic pain 31652227 G89.29 dc all dilaudid ordersdila udid 2 mg 4 tabs (8 mg) q am and qhsdilaudi d 2 mg 2 tabs (4 mg) q 24 hrs prn pain may give within 2 hrs of scheduled dosept has 300 + 2 mg tabswhen he runs low on 2 mg tabs will change to 4 mg tabsmethad one 110 mg dailyPT/OT prnmonitor for pain relief [id number] Rupal Ohara MD [facility] on [address] [place] [address] [phone] 3 06/19/2022 14:05:55 06/21/2022 11:28:44 Severe chronic obstructive pulmonary disease 537730153 J43.8 albuterol via nebulizer q6h prnDuoneb via nebulizer h7domhruge ysteine 20% solution: inhalation once daily after updraft treatmentD ulera 200-5: 2 puffs m27fput monitor Essential hypertension 08356786 I10 clonidine patch 0.3 mg/24 hr weeklyamlo dipine 5 mg dailywill monitor Chronic pain 83576091 G8 9.29 hydromorph one 8 mg bid and 4 mg daily prnAPAP 650 mg q6h prnmethado ne 110 mg dailyPT/OT prnwill monitor Mixed anxi ety and depressive disorder 335844876 F41.8 trazodone 50 mg at hssertrali ne 100 mg dailyloraz epam 0.5 mg q8h prnwill monitor Opioid dependence 192482 00 F11.20 methadone 110 mg dailyfu methadone clinicwill monitor Gastroesop hageal reflux disease 682409837 K21.9 famotidine 20 mg dailywill monitor [id number] DENZEL CALLOWAY NP [facility] on [address] [place] [address] [phone] 3 07/04/2022 12:21:43 07/08/2022 14:36:15 Severe chronic obstructive pulmonary disease 577893548 J43.8 Doing well on current tx.Continu e O2 5L at rest, 6L with activity.N o change with meds -albuterol via nebulizer q4h prnDuoneb via nebulizer q4wQkebin inhaler 2 inh. bidacetylc ysteine 20% solution daily prnmucinex 400 mg qidmonitor closely for decompensa tion Essential hypertension 33895372 I10 VSSContinu e:clonidin e patch 0.3 mg/24 hr weeklyamlo dipine 5 mg dailymonit or VS, adjust meds prn Chronic pain 32589396 G8 9.29 Donig well on current meds -hydromorp mireya 8 mg bid and 4 mg daily prnAPAP 650 mg q6h prnmethado ne 110 mg dailyPT/OT prn Mixed anxi ety and depressive disorder 699307002 F41.8 Continue:t razodone 50 mg at hssertrali ne 100 mg dailyloraz epam 0.5 mg q8h prnmonitor mood, behaviors, adjust meds prn Opioid dependence 602501 00 F11.20 continue methadone 110 mg dailyfu methadone clinic Gastroesop hageal reflux disease 718610260 K21.9 continue famotidine 20 mg dailywill monitor Tobacco de pendence syndrome 04655853 F17.200 maintained on 21 mg patch as well as inhaler q 4 hrs 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 denies anorexia or GI issues at this time. [id number] DENZEL CALLOWAY NP [facility] on [address] [place] [address] [phone] 3 08/08/2022 11:59:23 08/12/2022 16:01:14 Severe chronic obstructive pulmonary disease 893612152 J43.8 Doing well on current tx.Continu e O2 5L at rest, 6L with activity.N o change with meds -albuterol via nebulizer q4h prnDuoneb via nebulizer t0mBhbctp inhaler 2 inh. bidacetylc ysteine 20% solution daily prnmucinex 400 mg qidmonitor closely for decompensa tionReatte mpt labs (CBC, CMP) next wednesday 08/16 - d/w pt., agrees at this time to have labs checked. Essential hypertension 04658374 I10 No recent VS, requesting monthly VS, start todayConti nue:clonid ine patch 0.3 mg/24 hr weeklyamlo dipine 5 mg dailymonit or VS, adjust meds prn Chronic pain 52767669 G8 9.29 Doing well on current meds -hydromorp mireya 8 mg bid and 4 mg daily prn - taper discussed - not quite ready to taper, but says he will be agreeable in the futureAPAP 650 mg q6h prnmethado ne 110 mg dailyPT/OT prn Mixed anxi ety and depressive disorder 448404470 F41.8 Anxiety remains problemati c at timesConti nue:trazod one 50 mg at hssertrali ne 100 mg dailyloraz epam 0.5 mg q8h prn - used 6 x this month - will extend use for 6 months, then re-eval (February)E xpected to have continued issues with anxiety in light of other med dx., will not schedule as wish to keep use to a minimum to avoid oversedati on.monitor mood, behaviors, adjust meds prn Opioid dependence 937883 00 F11.20 continue methadone 110 mg dailyfu methadone clinic Gastroesop hageal reflux disease 682280631 K21.9 continue famotidine 20 mg dailywill monitor Tobacco de pendence syndrome 51807103 F17.200 maintained on 21 mg patch as well as inhaler q 4 hrsWill try to taper patch when pt. more agreeable. Toxic megacolon 20409664 K59.31 Healed well.Ostom y working well.G tube removed in December 2021Encour age po, continue supplement s.Recent weight gain, monitor closely.Pt . denies anorexia or GI issues at this time. [id number] Eliecer Ortiz MD [facility] on [address] [place] [address] [phone] 3 10/11/2022 13:01:32 10/16/2022 11:36:03 Severe chronic obstructive pulmonary disease 280188293 J43.8 severe at baseline maintained on O2 by SD currently 5 1/2 literstitr ate to keep sats 88-93%dane tor respirator y functionup date pulmonolog y with concerns Mixed anxi ety and depressive disorder 005600509 F41.8 appreciate psych evalmonito r for change in sxno change in medication s at this time Primary insomnia 1920345 F51.01 will add trazodone 50 mg qhs scheduledm onitor for effect [id number] JATIN Malhotra [facility] on [address] [place] [address] [phone] 3 11/19/2022 10:45:53 11/25/2022 16:17:26 Mixed anxiety and depressive disorder 944424064 F41.8 increase trazodone to 75 mg qhsincreas e sertraline to 150 mg qdschedule lorazepam 0.5 mg tid and 1 qd prnmonitor moodHDBH following Acute on c hronic hypoxemic respiratory failure 0957699843 7761563 J96.21 rx for portable oxygen concentrat or writtenmon itor resp status Chronic pain 98548196 G8 9 continue current dosedilaud id 4 mg 2 tabs (8 mg) bid and 1 tab qd prn [id number] Jenny Solis [facility] on [address] [place] [address] [phone] 3 12/16/2022 15:51:57 12/18/2022 12:11:46 Mixed anxiety and depressive disorder 599855338 F41.8 stabletraz odone 75 mg qhssertral ine 150 mg qdlorazepa m 0.5 mg tid and 1 qd prnmonitor moodHDBH following Acute on c hronic hypoxemic respiratory failure 0339015071 7344947 J96.21 oxygen at 5 LPM baselinemo nitor resp status Chronic pain 57013041 G8 9 continue current dosedilaud id 4 mg 2 tabs (8 mg) bid and 1 tab qd prn Essential hypertension 14130229 I10 clonidine 0.1 mg bidnorvasc 5 mg qdmonitor [id number] REDDY CORONA [facility] on [address] [place] [address] [phone] 3 01/29/2023 07:38:44 02/04/2023 21:01:36 Mixed anxiety and depressive disorder 219179145 F41.8 continuetr azodone 25 mg daily and 75 mg qhssertral ine 150 mg qdlorazepa m 0.5 mg tidlorazep am 1 mg every 24 hrs as neededfoll ow up with PCP on 01/31 Acute on c hronic hypoxemic respiratory failure 0677233621 5391605 J96.21 oxygen at 5 LPM baselinemo nitor resp status Chronic pain 60697352 G8 02.07 continue current dosedilaud id 8 mg biddilaudi d 4mg every 24 hours prnmay take prn Dilaudid w/in 4 hours of scheduled dosefollow up with PCP on 01/31 Essential hypertension 72646079 I10 clonidine 0.1 mg bidnorvasc 5 mg qdfollow up with PCP on 01/31 Severe chr onic obstructive pulmonary disease 040692896 J43.8 guaiFENesi n Tablet 400 MG- Give 1 tablet by mouth four times a dayIpratro pium-Albut lizet Solution 0.5-2.5 q 6 hourslbute rol Sulfate Nebulizati on Solution 0.63 MG/3ML prnDulera Aerosol 200-5 MCG/ACT r90ugdve Harmful pa ttern of use of multiple substances 852249457 F19.121 continue methadone 110 mg daily Gastroesop hageal reflux disease 313595110 K21.9 Famotidine Tablet 20 MG Give 1 tablet by mouth one time a day Tobacco de pendence syndrome 65155579 F17.200 Nicotine Inhaler 10 mg inhale orally every 4 hoursNicod erm CQ Patch 24 Hour- Apply 21 mg transderma lly one time a day for smoking Health Concerns Section Related Observation LastModified by Organization Detai ls LastModified Time None Recorded Concern Status LastModified by Organization Details LastModified Time None Recorded Advance Directives Directive Y: full code; ok for dialysi s artificial nutrition, and artificial hydration Payers Insurance Date Sequence Insurance Name Policy Number Policy Obrien Covered Member ID Obrien Member ID Guarantor Name 01/29/2023 1 [place] [facility] Mat Martin [id number] Mat Mujicaelaina Notes Date Note Type Note Provider Name and Address Organization Details Recorded Time 08/08/2022 text/html ROS as noted in the HPI Mat is seen today for a routine visit. Since his last routine visit, he was seen for an annual exam. Since that time, he has remained stable, no new concerns or issues. In good spirits, feeling well.No recent VSHas been gaining weight recently, up to 145 lbs. Thinks he has been eating better, able to get food from home which has helped. Resp. status stable - remains on O2, inhalers. No use of prn albuterol this month. Due to chronic pain, remains on dilaudid bid with 1 prn dose daily which is working well at this time. Trial of a taper discussed, and he is not ready for that yet. He is feeling really well right now and has been stable, and doesn't want to rock the boat. He is agreeable to considering a taper in the future. Anxiety remains problematic at times, also followed by psych, meds adjusted and now on zoloft, trazodone, and prn ativan. He continues to use prn ativan, used x 4 this month. Continues with nicoderm patch and inhalers to manage nicotine cravings, happy he has been smoke free and intends on staying this way. Refusing dose taper of patchat this time. HTN - on norvasc and clonidine TTS3. No recent VS, will request q month to trend. Remains on methadone for opioid dependence. Labs ordered in Jun., no results, most likely refused draw. 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 He is now agreeable to having labs done next Friday, requesting the time to ready himself for the lab draw. Medical history is remarkable for severe COPD on oxygen, substance use disorder, history of alcohol use disorder, hypertension, GERD, depression, anxiety, pulmonary hypertension, polyclonal hypergammaglobumin emia, history ileostomy MOLST: full code - signed 03/10/22 DENZEL CALLOWAY NP [address] [facility], [facility] [address], [place], [address], [facility] [employer] 08/08/2022 12:32:24 10/11/2022 text/html Patient is a 37 yo male LTC resident due for routine rounding visit. Patient also seen for acute rounding with complaint of poor sleep, with trazodone used with good effect in past. On 5 1/2 liters of O2 by SD at baseline Eliecer Ortiz MD [address] [facility], [address], [place], [address], [facility] [employer] 10/11/2022 13:07:24 11/19/2022 text/html pt seen today for acute visit. pt was seen by [facility] who are recommending changes in his ativan, trazodone and zoloft. pt tends to be very anxious. is on chronic oxygen at 5 LPM. pt is also for rx for portable oxygen concentrator to make it easier for him to go out to family functions. JATIN Malhotra [address] [facility], [address], [place], [address], [facility] [employer] 11/19/2022 10:59:19 12/16/2022 text/html ROS as noted in the HPI pt seen today for routine FARM MACHINERY ASSEMBLER rounding visit. pt remains on oxygen at 5 LPM with sats in mid 90s. pt had ativan scheduled TID as he was taken the prn that often. pt continues with dilaudid scheduled at 8 mg bid with 4 mg qd prn. pt is currently lying in bed, has no complaints. no concerns per nursing. Medical history is remarkable for severe COPD on oxygen, substance use disorder, history of alcohol use disorder, hypertension, GERD, depression, anxiety, pulmonary hypertension, polyclonal hypergammaglobumin emia, history ileostomy MOLST: full code - signed 03/10/22 Jenny Solis, SENIOR CREDIT ANALYST [address] [facility], [address], [place], [address], [facility] [employer] [facility] 12/16/2022 16:00:03 01/29/2023 text/html ROS as noted in the HPI Mat is seen today for discharge. PMH: Nqiwv-el-soncpad hypoxic respiratory failure with prolonged intubation and tracheostomy 03/2021; Hx aspiration PNA; Hx H. 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; Hx PEG tube placement; COPD, O2-dependent with hx acute exacerbation; Severe secondary pulmonary HTN with metabolic alkalosis; Opiate use d/o (heroin, fentanyl) with hx OD, on agonist therapy with methadone; Cocaine use d/o; EtOH use d/o; Depression; Insomnia; Tobacco use d/o; HTN; Hep B; Hep C; Cannabis use d/o; Likely PFO on echo 02/2021 but not found on R heart cath; Anemia; Leukocytosis; Hx hyperphosphatemia; Anxiety; Acute dental infection 03/2021 Initially admitted to [facility] May 2021 from [facility] where he was hospitalized 04/06/21-05/24/21 for hqbkh-sb-djsexbn hypoxic respiratory failure,complicate d by aspiration, durin g that stay he was diagnosed and treated foraspiration PNA; H. influenza PNA; Pseudomonas PNA with lung abscess; C-diff with toxic megacolon requiring total colectomy and ileostomy; PEG-tube placement. He is oxygen dependent on 5 LPM with sats in mid 90s. For the last several months there has been no major acute medical concerns. He is stable and can be discharge to home with oxygen and medications to include dilaudid and ativan, enough for 2.5 day. He has a PCP appointment on 01/31/23. He last received methadone 110 mg on 01/29/2023 MOLST: full code - signed 03/10/22 JAT[address]IA [address] [place] [address], [address], [place], [address], [facility] - [employer] 01/29/2023 11:07:22
--- OUTSIDE RECORDS SUMMARY | 2025-05-06 14:57 | XMS_ITS | Encounter Summary ---
Author Organization [employer] Address [address] [facility] 7t [place] [address] Care Team Providers Care Barrel Endshake Adjuster Name Role Phone Quiana Giron MD Primary Care Provider + Reason for Visit * Reason Onset Date Comments Referral 03/23/2025 Encounter Details Date Type Department Care Team ([facility] Contact Info) Description 03/23/2025 Telephone [facility] [address] [place], [place] [phone] Quiana Giron MD [address] [place], [place] [phone] Referral Social History Tobacco Use Types Packs/Day [...] * Telephone Encounter - Jatin Rabago - 03/23/2025 3:26 PM EST Tc from [facility] reporting that the ENT surgeon is not available until August of 2025. [facility] isrequesting to be referred somewhere else or maybe a general surgeon Contact pt maddison [phone] documented in this encounter Plan of Treatment Upcoming Encounters Date Type Department Care Team (Late st Contact Info) Description 06/03/2025 11:00 AM EST Telemedicine [facility] [address] [place] [address]71 Jackelin Nam, LUCIANO 06/24/2025 11:15 AM EST Office Visit [address] [address] Quiana Giron MD [address] [place] [address] 06/29/2025 10:15 AM EST Office Visit [address] [phone] Quiana Giron MD [address] [place], [place] [phone] documented as of this encounter Visit Diagnoses Not on filedocumented in this encounter Additional Health Concerns Assessment Noted Time PHQ-9 Depression Total Score: 8 02/29/20 25 1:58 PM EDT documented as of this encounter Care Teams Barrel Endshake Adjuster Relationship Specialty Start Date End Date Quiana Giron MD [address] [place] [address] PCP - General Family Medicine 11/09/18 Erasmo Martinez 02/03/23 documented as of this encounter
--- OUTSIDE RECORDS SUMMARY | 2025-05-06 14:57 | XMS_ITS | Encounter Summary ---
Author Organization [employer] Address [address] [facility] 7t [place] [address] Care Team Providers Care Door Opener Name Role Phone Quiana Giron MD Primary Care Provider + Reason for Visit * Reason Onset Date Comments PT1 06/19/2023 Encounter Details Date Type Department Care Team ([facility] st Contact Info) Description 06/19/2023 Telephone [facility] 230 [place], [place] [phone] Quiana Giron MD [address] [place], [place] [phone] PT1 Social History Tobacco Use Types Packs/Day [...] encounter Miscellaneous Notes * Telephone Encounter - Joselito Bailey - 06/19/2023 3:48 PM EST PT1 needed Date: 07/10/2023 Time: 2:00 pm Visits: [facility] [employer] Address: [address] [place] [address] Facility: [facility] Oxygen and Cane Excavating Contractor Needed: YES Also requesting a Separate and direct transportation due to patient having the Oxygen. documented in this encounter Plan of Treatment Upcoming Encounters Date Type Department Care Team ([facility] st Contact Info) Description 06/03/2025 11:00 AM EST Telemedicine [facility] [address] [place] [address] Jackelin Nam RN 06/24/2025 11:15 AM EST Office Visit [facility] [address] [place] [address] Quiana Giron MD [address] [place] [address] 06/29/2025 10:15 AM EST Office Visit [facility] [address] [place] [address] Quiana Giron MD [address] [place] [address] documented as of this encounter Visit Diagnoses Not on filedocumented in this encounter Care Teams Door Opener Relationship Specialty Start Date End Date Quiana Giron MD [address] [place] [address] PCP - General Family Medicine 11/09/18 Jackelin Perez Ground Wirer 03/25/23 06/25/23 Erasmo Martinez 02/03/23 documented as of this encounter
--- OUTSIDE RECORDS SUMMARY | 2025-05-06 14:58 | XMS_ITS | Encounter Summary ---
Author Organization [employer] Address [address] [facility] 7t [place] [address] Care Team Providers Care [employer] Distillery Name Role Phone Quiana Giron MD Primary Care Provider + Encounter Details Date Type Department Care Team ([facility] st Contact Info) Description 03/03/2023 Abstract [facility] [address] [place], [place] [phone] Quiana Giron MD [address] [place], [place] [phone] Social History Tobacco Use Types Packs/Day Years [...] Info) Description 06/03/2025 11:00 AM EST Telemedicine [facility] [address] [place] [address] Jackelin Nam RN 06/24/2025 11:15 AM EST Office Visit [facility] [address] [place] [address] 285[address] Quiana Giron MD [address] [place] [address] 06/29/2025 10:15 AM EST Office Visit [address] [address] Quiana Giron MD [address] [place] [address] documented as of this encounter Visit Diagnoses Not on filedocumented in this encounter Care Teams [employer] Distillery Relationship Specialty Start Date End Date Quiana Giron MD [address] [place] [address] PCP - General Family Medicine 11/09/18 Jackelin Perez Chief Lock Operator 03/25/23 06/25/23 Erasmo Martinez 02/03/23 documented as of this encounter
--- OUTSIDE RECORDS SUMMARY | 2025-05-06 14:58 | XMS_ITS | Encounter Summary ---
Author Organization [employer] Address [address] [facility] 7t [place] [address] Care Team Providers Care Public Health Dietitian Name Role Phone Quiana Giron MD Primary Care Provider + Encounter Details Date Type Department Care Team ([facility] st Contact Info) Description 08/06/2023 Telephone [facility] 230 [place], [place] [phone] Quiana Giron MD 230 [place], [place] [phone] Social History Tobacco Use Types Packs/Day Years [...] Info) Description 06/03/2025 11:00 AM EST Telemedicine [facility] [address] [place] [address] Jackelin Nam RN 06/24/2025 11:15 AM EST Office Visit [facility] [address] [place] [address] 14[address] Quiana Giron MD [address] [place] [address] 06/29/2025 10:15 AM EST Office Visit [address] [address] Quiana Giron MD [address] [place] [address] documented as of this encounter Visit Diagnoses Not on filedocumented in this encounter Additional Health Concerns Assessment Noted Time PHQ-9 Depression Total Score: 9 07/23/19 24 10:38 AM EDT documented as of this encounter Care Teams Public Health Dietitian Relationship Specialty Start Date End Date Quiana Giron MD [address] [place] [address] PCP - General Family Medicine 11/09/18 Erasmo Martinez 02/03/23 documented as of this encounter
--- OUTSIDE RECORDS SUMMARY | 2025-05-06 14:58 | XMS_ITS | Encounter Summary ---
Author Organization [employer] Address [address] [facility] 7t [place] [address] Care Team Providers Care Tongue Stitcher Name Role Phone Quiana Giron MD Primary Care Provider + Reason for Visit * Reason Onset Date Comments Med Refill 05/17/2024 Encounter Details Date Type Department Care Team ([facility] st Contact Info) Description 05/17/2024 Telephone [facility] 230 [place], [place] [phone] Quiana Giron MD 230 [place], [place] [phone] Med Refill Social History Tobacco Use Types [...] the past 12 months, has t he HSystem, gas, oil or water company threatened to [...] 4 MG tablet To be sent to: [facility] documented in this encounter Plan of Treatment Upcoming Encounters Date Type Department Care Team (Late st Contact Info) Description 06/03/2025 11:00 AM EST Telemedicine [facility] [address] [place] [address] Jackelin Nam, LUCIANO 06/24/2025 11:15 AM EST Office Visit [address] [address] Quiana Giron MD [address] [place] [address] 06/29/2025 10:15 AM EST Office Visit [address] [address] Quiana Giron MD [address] [place] [address] documented as of this encounter Visit Diagnoses Not on filedocumented in this encounter Additional Health Concerns Assessment Noted Time PHQ-9 Depression Total Score: 9 07/23/19 24 10:38 AM EDT documented as of this encounter Care Teams Tongue Stitcher Relationship Specialty Start Date End Date Quiana Giron MD [address] [place] [address] PCP - General Family Medicine 11/09/18 Erasmo Martinez 02/03/23 documented as of this encounter
--- OUTSIDE RECORDS SUMMARY | 2025-05-06 14:58 | XMS_ITS | Encounter Summary ---
Author Organization [employer] Address [address] [facility] [address] 7t [place] [address] Care Team Providers Care District Manager Postal Service Name Role Phone Quiana Giron MD Primary Care Provider + Reason for Visit * Reason Comments Med Refill Encounter Details Date Type Department Care Team ([facility] st Contact Info) Description 03/07/2023 Refill [facility] 230 [place] [address] Reagan Espinoza, ANETA [address] [place], [place] [phone] Periodontal disease Social History Tobacco Use Types [...] 11:00 AM EST Telemedicine [facility] [address] [place] [address] Jackelin Nam RN 06/24/2025 11:15 AM EST Office Visit [address] [address] Quiana Giron MD [address] [place] [address] 06/29/2025 10:15 AM EST Office Visit [address] [address] Quiana Giron MD [address] [place] [address] documented as of this encounter Visit Diagnoses Diagnosis Periodontal disease Unspecified gingival and periodontal disease documented in this encounter Care Teams District Manager Postal Service Relationship Specialty Start Date End Date Quiana Giron MD [address] [place] [address] PCP - General Family Medicine 11/09/18 Jackelin Perez Negative Restorer 03/25/23 06/25/23 Erasmo [facility] 02/03/23 documented as of this encounter
--- OUTSIDE RECORDS SUMMARY | 2025-05-06 14:58 | XMS_ITS | Encounter Summary ---
Author Organization [employer] Address [address] [facility] 7t [place] [address] Care Team Providers Care Car Checker Name Role Phone Quiana Giron MD Primary Care Provider + Reason for Visit * Reason Comments Med Refill Encounter Details Date Type Department Care Team ([facility] st Contact Info) Description 03/31/2023 Refill [facility] 230 [place], [place] [phone] Lazaro Parker, ANETA [address] [place], [place] [phone] Periodontal disease Social History Tobacco Use Types [...] Info) Description 06/03/2025 11:00 AM EST Telemedicine [address] [address] Jackelin Nam RN 06/24/2025 11:15 AM EST Office Visit [address] [address] Quiana Giron MD [address] [place] [address] 06/29/2025 10:15 AM EST Office Visit [address] [address] Quiana Giron MD [address] [place] [address] documented as of this encounter Visit Diagnoses Diagnosis Periodontal disease Unspecified gingival and periodontal disease documented in this encounter Care Teams Car Checker Relationship Specialty Start Date End Date Quiana Giron MD [address] [place] [address] PCP - General Family Medicine 11/09/18 Jackelin Cruz Manager 03/25/23 06/25/23 Erasmo [facility] 02/03/23 documented as of this encounter
--- OUTSIDE RECORDS SUMMARY | 2025-05-06 14:58 | XMS_ITS | Encounter Summary ---
Author Organization [employer] Address 75 [facility] 7t [place] [address] Care Team Providers Care Latex Ribbon Machine Operator Name Role Phone Quiana Giron MD Primary Care Provider + Reason for Visit * Reason Comments Med Refill Encounter Details Date Type Department Care Team ([facility] Contact Info) Description 11/27/2023 Refill [facility] 230 [place], [place] [phone] Quiana Giron MD 230 [place], [place] [phone] Generalized anxiety disorder Social History Tobacco Use [...] Info) Description 06/03/2025 11:00 AM EST Telemedicine [facility] [address] [place] [phone] Jackelin Nam RN 06/24/2025 11:15 AM EST Office Visit [facility] [address] [place] [address] Quiana Giron MD [address] [place] [address] 06/29/2025 10:15 AM EST Office Visit [facility] [address] [place] [address] Quiana Giron MD [address] [place] [address] documented as of this encounter Visit Diagnoses Diagnosis Generalized anxiety disorder documented in this encounter Additional Health Concerns Assessment Noted Time PHQ-9 Depression Total Score: 9 07/23/19 24 10:38 AM EDT documented as of this encounter Care Teams Latex Ribbon Machine Operator Relationship Specialty Start Date End Date Quiana Giron MD [address] [place] [address] PCP - General Family Medicine 11/09/18 Erasmo Martinez 02/03/23 documented as of this encounter
--- OUTSIDE RECORDS SUMMARY | 2025-05-06 14:58 | XMS_ITS | Encounter Summary ---
Author Organization [employer] Address 75 [facility] 7t [place] [address] Care Team Providers Care Ergonomics Technician Name Role Phone Quiana Giron MD Primary Care Provider + Reason for Visit * Reason Comments Med Refill Encounter Details Date Type Department Care Team ([facility] st Contact Info) Description 07/28/2023 Refill [facility] 230 [place], [place] [phone] Quiana Giron MD 230 [place], [place] [phone] Cigarette nicotine dependence with withdrawal Social History [...] Info) Description 06/03/2025 11:00 AM EST Telemedicine [address] [address] Jackelin Nam RN 06/24/2025 11:15 AM EST Office Visit [facility] [address] [place] [phone] Quiana Giron MD [address] [place] [address] 06/29/2025 10:15 AM EST Office Visit [address] [address] Quiana Giron MD [address] [place] [address] documented as of this encounter Visit Diagnoses Diagnosis Cigarette nicotine dependence with withdrawal documented in this encounter Additional Health Concerns Assessment Noted Time PHQ-9 Depression Total Score: 9 07/23/19 24 10:38 AM EDT documented as of this encounter Care Teams Ergonomics Technician Relationship Specialty Start Date End Date Quiana Giron MD [address] [place] [address] PCP - General Family Medicine 11/09/18 Erasmo Martinez 02/03/23 documented as of this encounter
--- OUTSIDE RECORDS SUMMARY | 2025-05-06 14:58 | XMS_ITS | Encounter Summary ---
Author Organization [employer] Address 75 [facility] 7t [place] [address] Care Team Providers Care Touch Up Edger Name Role Phone Quiana Giron MD Primary Care Provider + Reason for Visit * Reason Onset Date Comments Med Refill 09/03/2023 Encounter Details Date Type Department Care Team ([facility] st Contact Info) Description 09/03/2023 Telephone [facility] 230 [place], [place] [phone] Quiana Giron MD 230 [place], [place] [phone] Med Refill Social History Tobacco Use Types [...] MG tablet To be sent to: [id number] [place] [facility] [address] [facility] documented in this encounter Plan of Treatment Upcoming Encounters Date Type Department Care Team (Late st Contact Info) Description 06/03/2025 11:00 AM EST Telemedicine [facility] [address] [place] [address] Jackelin Nam RN 06/24/2025 11:15 AM EST Office Visit [address] [address] Quiana Giron MD [address] [place] [address] 06/29/2025 10:15 AM EST Office Visit [address] [address] Quiana Giron MD [address] [place] [address] documented as of this encounter Visit Diagnoses Not on filedocumented in this encounter Additional Health Concerns Assessment Noted Time PHQ-9 Depression Total Score: 9 07/23/19 24 10:38 AM EDT documented as of this encounter Care Teams Touch Up Edger Relationship Specialty Start Date End Date Quiana Giron MD 230 [place] [address] PCP - General Family Medicine 11/09/18 Erasmo Martinez 02/03/23 documented as of this encounter
--- OUTSIDE RECORDS SUMMARY | 2025-05-06 14:58 | XMS_ITS | Encounter Summary ---
Author Organization [employer] Address 75 [facility] 7t [place] [address] Care Team Providers Care Electrical Technician Name Role Phone Quiana Giron MD Primary Care Provider + Reason for Visit * Reason Onset Date Comments PT 1 03/04/2023 Encounter Details Date Type Department Care Team ([facility] Contact Info) Description 03/04/2023 Telephone [facility] 230 [place], [place] [phone] Quiana Giron MD 230 [place], [place] [phone] PT 1 Social History Tobacco Use Types [...] 12:20 PM EDT Tc from Maria from [facility] on [facility] the healthcare facility administrator requesting script for PT 1. *Please call Maria at [phone] or at documented in this encounter Plan of Treatment Upcoming Encounters Date Type Department Care Team (Late st Contact Info) Description 06/03/2025 11:00 AM EST Telemedicine [facility] [address] [place] [address] [phone] Jackelin Nam RN 06/24/2025 11:15 AM EST Office Visit [facility] [address] [place] [address] Quiana Giron MD [address] [place] [address] 06/29/2025 10:15 AM EST Office Visit [facility] [address] [place] [address] Quiana Giron MD [address] [place] [address] documented as of this encounter Visit Diagnoses Not on filedocumented in this encounter Care Teams Electrical Technician Relationship Specialty Start Date End Date Quiana Giron MD [address] [place] [address] 87[address] PCP - General Family Medicine 11/09/18 Jackelin Perez Feed Manager 03/25/23 06/25/23 Erasmo Martinez 02/03/23 documented as of this encounter
--- OUTSIDE RECORDS SUMMARY | 2025-05-06 14:58 | XMS_ITS | Encounter Summary ---
Author Organization [employer] Address 75 [facility] 7t [place] [address] Care Team Providers Care Edge Inker Name Role Phone Quiana Giron MD Primary Care Provider + Encounter Details Date Type Department Care Team ([facility] st Contact Info) Description 05/08/[address] [facility] 230 [place], [place] [phone] Quiana Giron MD 230 [place], [place] [phone] Social History Tobacco Use Types Packs/Day Years [...] Info) Description 06/03/2025 11:00 AM EST Telemedicine [facility] [address] [place] [address] Jackelin Nam RN 06/24/2025 11:15 AM EST Office Visit [facility] [address] [place] [address] Quiana Giron MD [address] [place] [address] 06/29/2025 10:15 AM EST Office Visit [address] [address] Quiana Giron MD [address] [place] [address] documented as of this encounter Visit Diagnoses Not on filedocumented in this encounter Care Teams Edge Inker Relationship Specialty Start Date End Date Quiana Giron MD [address] [place] [address] PCP - General Family Medicine 11/09/18 Jackelin Perez Senior Graphic Designer 03/25/23 06/25/23 Erasmo Martinez 02/03/23 documented as of this encounter
--- OUTSIDE RECORDS SUMMARY | 2025-05-06 14:58 | XMS_ITS | Encounter Summary ---
Author Organization [employer] Address 75 [facility] 7t [place] [address] Care Team Providers Care Photoengraving Sketch Maker Name Role Phone Quiana Giron MD Primary Care Provider + Reason for Visit * Reason Onset Date Comments Med Refill 07/28/2023 Encounter Details Date Type Department Care Team ([facility] st Contact Info) Description 07/28/2023 Telephone [facility] 230 [place], [place] [phone] Quiana Giron MD 230 [place], [place] [phone] Med Refill Social History Tobacco Use Types [...] 07/28/2023 1:35 PM EDT Medication sent to [facility] #[id number] today. * Telephone Encounter - Annel Cruz - 07/28/2023 12:04 PM EDT TC from pt requesting medication refill. Medications needing refill : nicotine (Nicoderm CQ) 14 MG/24HR patch To be sent to: [facility]/pharmacy #[id number] - [place] - [address] [facility] documented in this encounter Plan of Treatment Upcoming Encounters Date Type Department Care Team (Late st Contact Info) Description 06/03/2025 11:00 AM EST Telemedicine [facility] [address] [place] [address] [phone] Jackelin Nam RN 06/24/2025 11:15 AM EST Office Visit [facility] [address] [place] [address] Quiana Giron MD 230 [place] [address] 06/29/2025 10:15 AM EST Office Visit [facility] 230 [place] [address] Quiana Giron MD 230 [place] [address] documented as of this encounter Visit Diagnoses Not on filedocumented in this encounter Additional Health Concerns Assessment Noted Time PHQ-9 Depression Total Score: 9 07/23/19 24 10:38 AM EDT documented as of this encounter Care Teams Photoengraving Sketch Maker Relationship Specialty Start Date End Date Quiana Giron MD 230 [place] [address] PCP - General Family Medicine 11/09/18 Erasmo Martinez 02/03/23 documented as of this encounter
--- OUTSIDE RECORDS SUMMARY | 2025-05-06 14:58 | XMS_ITS | Encounter Summary ---
Author Organization [employer] Address 75 [facility] 7t [place] [address] Care Team Providers Care Gang Supervisor Name Role Phone Quiana Giron MD Primary Care Provider + Reason for Visit * Reason Onset Date Comments Med Refill 05/07/2023 Encounter Details Date Type Department Care Team ([facility] st Contact Info) Description 05/07/2023 Telephone [facility] 230 [place], [place] [phone] Quiana Giron MD 230 [place], [place] [phone] Med Refill Social History Tobacco Use Types [...] MG/ML concentrated solution To be sent to: [facility]1230 [place] - [address] [facility] documented in this encounter Plan of Treatment Upcoming Encounters Date Type Department Care Team (Late st Contact Info) Description 06/03/2025 11:00 AM EST Telemedicine [facility] [address] [place] [address] [phone] Jackelin Nam RN 06/24/2025 11:15 AM EST Office Visit [facility] [address] [place] [address] Quiana Giron MD 230 [place], [place] [phone] 06/29/2025 10:15 AM EST Office Visit [facility] [address] [place] [address] [phone] Quiana Giron MD [address] [place] [address] [phone] documented as of this encounter Visit Diagnoses Not on filedocumented in this encounter Care Teams Gang Supervisor Relationship Specialty Start Date End Date Quiana Giron MD [address] [place] [address] [phone] PCP - General Family Medicine 11/09/18 Jackelin Perez Dental Internship 03/25/23 06/25/23 Erasmo Martinez 02/03/23 documented as of this encounter
--- OUTSIDE RECORDS SUMMARY | 2025-05-06 14:58 | XMS_ITS | Encounter Summary ---
Author Organization [employer] Address [address] [facility] [address] 7t [place] [address] Care Team Providers Care Integrated Marketing Manager Name Role Phone Quiana Giron MD Primary Care Provider + Encounter Details Date Type Department Care Team ([facility] st Contact Info) Description 02/24/2025 Telephone [facility] 230 [place], [place] [phone] Steve Temple Social History Tobacco Use Types Packs/Day Years [...] encounter Miscellaneous Notes * Telephone Encounter - Steve Temple - 02/24/2025 4:45 PM EDT Patient picked up initial fill of Epclusa on 02/24/2025. The following was discussed with the patient: - Adherence, important to take medication on time & what to do when a dose is missed. - How to properly take the medication. - Storage conditions (cool, dry place away from children) - Potential side effects - What to do do when starting a new medication. - Potential drug interactions (Famotidine) - Medication is curative. - To call the pharmacy roughly 5-7 days prior to running out if they have not already heard from the pharmacy. Patient demonstrated knowledge of counseling through teach back method. Next fill is scheduled for 03/18/25 & should be picked up no later than 03/24/25. Justin Franco documented in this encounter Plan of Treatment Upcoming Encounters Date Type Department Care Team (Late st Contact Info) Description 06/03/2025 11:00 AM EST Telemedicine [facility] [address] [place] [address] Jackelin Nam RN 06/24/2025 11:15 AM EST Office Visit [facility] [address] [place] [address] Quiana Giron MD 230 [place], [place] [phone] 06/29/2025 10:15 AM EST Office Visit [facility] [address] [place] [address] [phone] Quiana Giron MD 230 [place] [address] documented as of this encounter Visit Diagnoses Not on filedocumented in this encounter Additional Health Concerns Assessment Noted Time PHQ-9 Depression Total Score: 9 07/23/19 24 10:38 AM EDT documented as of this encounter Care Teams Integrated Marketing Manager Relationship Specialty Start Date End Date Quiana Giron MD [address] [place] [address] [phone] PCP - General Family Medicine 11/09/18 Erasmo Martinez 02/03/23 documented as of this encounter
--- OUTSIDE RECORDS SUMMARY | 2025-05-06 14:58 | XMS_ITS | Encounter Summary ---
Author Organization [employer] Address 75 [facility] 7t [place] [address] Care Team Providers Care Floor Covering Printer Name Role Phone Quiana Giron MD Primary Care Provider + Reason for Visit * Reason Comments Med Refill Encounter Details Date Type Department Care Team ([facility] st Contact Info) Description 05/17/2024 Refill [facility] 230 [place], [place] [phone] Quiana Giron MD 230 [place], [place] [phone] Multilevel degenerative joint disease of spine Social [...] 06/03/2025 11:00 AM EST Telemedicine [facility] [address] [place] [address] Jackelin Nam RN 06/24/2025 11:15 AM EST Office Visit [facility] [address] [place] [address] Quiana Giron MD [address] [place] [address] 06/29/2025 10:15 AM EST Office Visit [address] [address] Quiana Giron MD [address] [place] [address] documented as of this encounter Visit Diagnoses Diagnosis Multilevel degenerative joint disease of spine documented in this encounter Additional Health Concerns Assessment Noted Time PHQ-9 Depression Total Score: 9 07/23/19 24 10:38 AM EDT documented as of this encounter Care Teams Floor Covering Printer Relationship Specialty Start Date End Date Quiana Giron MD [address] [place] [address] PCP - General Family Medicine 11/09/18 Erasmo Martinez 02/03/23 documented as of this encounter
--- OUTSIDE RECORDS SUMMARY | 2025-05-06 14:58 | XMS_ITS | Encounter Summary ---
Author Organization [employer] Address 75 [facility] 7t [place] [address] Care Team Providers Care Refrigeration Tech Name Role Phone Quiana Giron MD Primary Care Provider + Reason for Visit * Reason Comments Med Refill Encounter Details Date Type Department Care Team ([facility] Contact Info) Description 05/07/2024 Refill [facility] 230 [place], [place] [phone] Quiana Giron MD 230 [place], [place] [phone] Generalized anxiety disorder Social History Tobacco Use [...] Info) Description 06/03/2025 11:00 AM EST Telemedicine [facility] [address] [place] [address] Jackelin Nam RN 06/24/2025 11:15 AM EST Office Visit [facility] [address] [place] [address] Quiana Giron MD [address] [place] [address] 06/29/2025 10:15 AM EST Office Visit [facility] [address] [place] [address] Quiana Giron MD [address] [place] [address] 388[address] documented as of this encounter Visit Diagnoses Diagnosis Generalized anxiety disorder documented in this encounter Additional Health Concerns Assessment Noted Time PHQ-9 Depression Total Score: 9 07/23/19 24 10:38 AM EDT documented as of this encounter Care Teams Refrigeration Tech Relationship Specialty Start Date End Date Quiana Giron MD [address] [place] [address] 43796 PCP - General Family Medicine 11/09/18 Erasmo Martinez 02/03/23 documented as of this encounter
--- OUTSIDE RECORDS SUMMARY | 2025-05-06 14:58 | XMS_ITS | Encounter Summary ---
Author Organization [employer] Address 75 [facility] 7t [place] [address] Care Team Providers Care Laborer Bituminous Paving Name Role Phone Quiana Giron MD Primary Care Provider + Encounter Details Date Type Department Care Team ([facility] st Contact Info) Description 05/17/2024 Orders Only [facility] 230 [place], [place] [phone] Quiana Giron MD 230 [place], [place] [phone] Social History Tobacco Use Types Packs/Day Years [...] Info) Description 06/03/2025 11:00 AM EST Telemedicine [facility] [address] [place] [address] Jackelin Nam RN 06/24/2025 11:15 AM EST Office Visit [address] [address] Quiana Giron MD [address] [place] [address] 06/29/2025 10:15 AM EST Office Visit [address] [address] Quiana Giron MD [address] [place] [address] documented as of this encounter Visit Diagnoses Not on filedocumented in this encounter Additional Health Concerns Assessment Noted Time PHQ-9 Depression Total Score: 9 07/23/19 24 10:38 AM EDT documented as of this encounter Care Teams Laborer Bituminous Paving Relationship Specialty Start Date End Date Quiana Giron MD [address] [place] [address] PCP - General Family Medicine 11/09/18 Erasmo Martinez 02/03/23 documented as of this encounter
--- OUTSIDE RECORDS SUMMARY | 2025-05-06 14:58 | XMS_ITS | Encounter Summary ---
Author Organization [employer] Address 75 [facility] 7t [place] [address] Care Team Providers Care Tooling Engineering Tech Name Role Phone Quiana Giron MD Primary Care Provider + Reason for Visit * Reason Comments Med Refill Encounter Details Date Type Department Care Team ([facility] st Contact Info) Description 04/18/[address] [facility] 230 [place], [place] [phone] Quiana Giron MD 230 [place], [place] [phone] Cigarette nicotine dependence in remission Social History [...] [facility] [address] [place] [address] Jackelin Nam RN 06/24/2025 11:15 AM EST Office Visit [facility] [address] [place] [address] Quiana Giron MD [address] [place] [address] 06/29/2025 10:15 AM EST Office Visit [address] [address] Quiana Giron MD [address] [place] [address] documented as of this encounter Visit Diagnoses Diagnosis Cigarette nicotine dependence in remission documented in this encounter Care Teams Tooling Engineering Tech Relationship Specialty Start Date End Date Quiana Giron MD [address] [place] [address] PCP - General Family Medicine 11/09/18 Jackelin Perez Lithographer Apprentice 03/25/23 06/25/23 Erasmo Martinez 02/03/23 documented as of this encounter
--- OUTSIDE RECORDS SUMMARY | 2025-05-06 14:58 | XMS_ITS | Encounter Summary ---
Author Organization [employer] Address 75 [facility] 7t [place] [address] Care Team Providers Care Tower Truck Driver Name Role Phone Quiana Giron MD Primary Care Provider + Reason for Visit * Reason Onset Date Comments Call Back Request 03/26/2023 Encounter Details Date Type Department Care Team ([facility] Contact Info) Description 03/26/2023 Telephone [facility] 230 [place], [place] [phone] Quiana Giron MD 230 [place], [place] [phone] Call Back Request Social History Tobacco Use [...] Info) Description 06/03/2025 11:00 AM EST Telemedicine [facility] [address] [place] [address] Jackelin Nam RN 06/24/2025 11:15 AM EST Office Visit [facility] [address] [place] [address] Quiana Giron MD [address] [place] [address] 06/29/2025 10:15 AM EST Office Visit [facility] [address] [place] [address] Quiana Giron MD [address] [place] [address] documented as of this encounter Visit Diagnoses Not on filedocumented in this encounter Care Teams Tower Truck Driver Relationship Specialty Start Date End Date Quiana Giron MD [address] [place] [address] PCP - General Family Medicine 11/09/18 Jackelin Perez Outside Sales Advertising Executive 03/25/23 06/25/23 Erasmo [facility] 02/03/23 documented as of this encounter
--- OUTSIDE RECORDS SUMMARY | 2025-05-06 14:58 | XMS_ITS | Encounter Summary ---
Author Organization [employer] Address 75 [facility] 7t [place] [address] Care Team Providers Care Solution Maker Name Role Phone Quiana Giron MD Primary Care Provider + Encounter Details Date Type Department Care Team ([facility] st Contact Info) Description 03/07/2023 Telephone [facility] 230 [place], [place] [phone] Quiana Giron MD 230 [place], [place] [phone] Social History Tobacco Use Types Packs/Day Years [...] Description 06/03/2025 11:00 AM EST Telemedicine [facility] [address] [place] [address] Jackelin Nam RN 06/24/2025 11:15 AM EST Office Visit [facility] [address] [place] [address] Quiana Giron MD [address] [place] [address] 06/29/2025 10:15 AM EST Office Visit [address] [address] Quiana Giron MD [address] [place] [address] documented as of this encounter Visit Diagnoses Not on filedocumented in this encounter Care Teams Solution Maker Relationship Specialty Start Date End Date Quiana Giron MD [address] [place] [address] PCP - General Family Medicine 11/09/18 Jackelin Perez Pro Shop Attendant 03/25/23 06/25/23 Erasmo Martinez 02/03/23 documented as of this encounter
--- OUTSIDE RECORDS SUMMARY | 2025-05-06 14:58 | XMS_ITS | Encounter Summary ---
Author Organization [employer] Address [address] [facility] 7t [place] [address] Care Team Providers Care Check Examiner Name Role Phone Quiana Giron MD Primary Care Provider + Encounter Details Date Type Department Care Team ([facility] st Contact Info) Description 02/21/2025 Orders Only [facility] [address] [place], [place] [phone] Margo Mclaughlin RN [address] [place] [address] Social History Tobacco Use Types Packs/Day Years [...] Info) Description 06/03/2025 11:00 AM EST Telemedicine [facility] [address] [place] [phone] Jackelin Nam RN 06/24/2025 11:15 AM EST Office Visit [address] [address] Quiana Giron MD [address] [place] [phone] 06/29/2025 10:15 AM EST Office Visit [address] [address] Quiana Giron MD [address] [place] [phone] documented as of this encounter Visit Diagnoses Not on filedocumented in this encounter Additional Health Concerns Assessment Noted Time PHQ-9 Depression Total Score: 9 07/23/19 24 10:38 AM EDT documented as of this encounter Care Teams Check Examiner Relationship Specialty Start Date End Date Quiana Giron MD [address] [place] [phone] PCP - General Family Medicine 11/09/18 Erasmo Martinez 02/03/23 documented as of this encounter
--- OUTSIDE RECORDS SUMMARY | 2025-05-06 14:58 | XMS_ITS | Encounter Summary ---
Author Organization [employer] Address [address] [facility] 7t [place] [address] Care Team Providers Care Molder Wax Ball Name Role Phone Quiana Giron MD Primary Care Provider + Reason for Visit * Reason Onset Date Comments Medication Question 09/01/2023 Encounter Details Date Type Department Care Team ([facility] Contact Info) Description 09/01/2023 Telephone [facility] [address] [place], [place] [phone] Quiana Giron MD [address] [place], [place] [phone] Medication Question Social History Tobacco Use Types [...] Friday regarding Dilaudid RX being sent to [facility]. Notified that the pharmacy has Dilaudid RX [...] lapse In medication. Please contact Rhiannon at [phone]. documented in this encounter Plan of Treatment Upcoming Encounters Date Type Department Care Team (Late st Contact Info) Description 06/03/2025 11:00 AM EST Telemedicine [address] [address] Jackelin Nam RN 06/24/2025 11:15 AM EST Office Visit [address] [address] Quiana Giron MD [address] [place] [phone] 06/29/2025 10:15 AM EST Office Visit [address] [address] Quiana Giron MD [address] [place] [phone] documented as of this encounter Visit Diagnoses Not on filedocumented in this encounter Additional Health Concerns Assessment Noted Time PHQ-9 Depression Total Score: 9 07/23/19 24 10:38 AM EDT documented as of this encounter Care Teams Molder Wax Ball Relationship Specialty Start Date End Date Quiana Giron MD [address] [place] [phone] PCP - General Family Medicine 11/09/18 Erasmo Martinez 02/03/23 documented as of this encounter
--- OUTSIDE RECORDS SUMMARY | 2025-05-06 14:58 | XMS_ITS | Encounter Summary ---
Author Organization [employer] Address [address] [facility] 7t [place] [address] Care Team Providers Care Administrative Underwriter Name Role Phone Quiana Giron MD Primary Care Provider + Reason for Visit * Reason Comments Med Refill Encounter Details Date Type Department Care Team ([facility] st Contact Info) Description 05/13/2024 Refill [facility] [address] [place], [place] [phone] Quiana Giron MD [address] [place], [place] [phone] Multilevel degenerative joint disease of spine Social [...] 06/03/2025 11:00 AM EST Telemedicine [facility] [address] [place] [phone] Jackelin Nam RN 06/24/2025 11:15 AM EST Office Visit [facility] [address] [place] [address] Quiana Giron MD [address] [place] [phone] 06/29/2025 10:15 AM EST Office Visit [address] [address] Quiana Giron MD [address] [place] [phone] documented as of this encounter Visit Diagnoses Diagnosis Multilevel degenerative joint disease of spine documented in this encounter Additional Health Concerns Assessment Noted Time PHQ-9 Depression Total Score: 9 07/23/19 24 10:38 AM EDT documented as of this encounter Care Teams Administrative Underwriter Relationship Specialty Start Date End Date Quiana Giron MD [address] [place] [address] PCP - General Family Medicine 11/09/18 Erasmo Martinez 02/03/23 documented as of this encounter
--- OUTSIDE RECORDS SUMMARY | 2025-05-06 14:58 | XMS_ITS | Encounter Summary ---
Author Organization [employer] Address [address] [facility] 7t [place] [address] Care Team Providers Care Veterinary Parasitologist Name Role Phone Quiana Giron MD Primary Care Provider + Reason for Visit * Reason Comments Med Refill Encounter Details Date Type Department Care Team ([facility] Contact Info) Description 04/26/2024 Refill [facility] [address] [place], [place] [phone] Quiana Giron MD [address] [place], [place] [phone] Generalized anxiety disorder Social History Tobacco Use [...] Info) Description 06/03/2025 11:00 AM EST Telemedicine [facility] [address] [place] [phone] Jackelin Nam RN 06/24/2025 11:15 AM EST Office Visit [facility] [address] [place] [address] Quiana Giron MD [address] [place] [phone] 06/29/2025 10:15 AM EST Office Visit [facility] [address] [place] [phone] Quiana Giron MD [address] [place] [phone] documented as of this encounter Visit Diagnoses Diagnosis Generalized anxiety disorder documented in this encounter Additional Health Concerns Assessment Noted Time PHQ-9 Depression Total Score: 9 07/23/19 24 10:38 AM EDT documented as of this encounter Care Teams Veterinary Parasitologist Relationship Specialty Start Date End Date Quiana Giron MD [address] [place] [phone] PCP - General Family Medicine 11/09/18 Erasmo Martinez 02/03/23 documented as of this encounter
--- OUTSIDE RECORDS SUMMARY | 2025-05-21 19:00 | XMS_ITS | Clinical Summary ---
Author Organization Unknown Care Team Providers Care Transitions Manager Name Role Phone LUIS CARLOS MCCORD, ROBERTA Unavailable Unavailable ALSYE WOLF, GI Unavailable Unavailable TISH WOLF, RISHI Unavailable Unavailable Payers Payer Name Policy Type Policy Number Effective Date Expira tion Date MEDICAID [facility] [id number] Problems Condition Name Condition Details Condition Category [...] 00:00: 00 11-04 15:03 :21.2 73 No [id number] 2 capsule 4 TIMES A WEEK 2 capsule 4 TIMES A WEEK (route: oral) Med Classific ation: Analgesic , Anti-infl ammatory or Antipyret ic acetylcyste ine 200 mg/mL (20 %) solution 02-03 00:00: 00 07-01 23:59 :00 No [id number] 3 mL DAILY 3 mL DAILY (route: miscellane ous) Alternate Route: NEBULIZER . Med Classific ation: Respirato ry Therapy Agents albuterol sulfate 0.63 mg/3 mL solution for nebulizatio n 02-03 00:00: 00 09-14 23:59 :00 No [id number] 3 mL EVERY 4 HOURS 3 mL EVERY 4 HOURS (route: inhalation ) Alternate Route: NEBULIZER . Med Classific ation: Respirato ry Therapy Agents amlodipine 5 mg tablet 02-03 00:00: 00 03-24 23:59 :00 No [id number] 5 mg DAILY 5 mg DAILY (route: oral) Med Classific ation: Cardiovas cular Therapy Agents bisacodyl 10 mg rectal suppository 02-03 00:00: 00 09-14 23:59 :00 No [id number] 1 supposi tory, rectal DAILY 1 suppositor y, rectal DAILY (route: rectal) Med Classific ation: Gastroint estinal Therapy Agents clonidine HCl 0.1 mg tablet 02-03 00:00: 00 03-24 23:59 :00 No [id number] 0.1 mg 2 TIMES DAILY 0.1 mg 2 TIMES DAILY (route: oral) Med Classific ation: Cardiovas cular Therapy Agents Dilaudid 2 mg tablet 02-03 00:00: 00 04-30 23:59 :00 No [id number] 2 mg DAILY 2 mg DAILY (route: oral) Med Classific ation: Analgesic , Anti-infl ammatory or Antipyret ic Dilaudid 2 mg tablet 02-03 00:00: 00 04-30 23:59 :00 No [id number] 2 mg 2 TIMES DAILY 2 mg 2 TIMES DAILY (route: oral) Med Classific ation: Analgesic , Anti-infl ammatory or Antipyret ic Dulera 200 mcg-5 mcg/actuati on HFA aerosol inhaler 02-03 00:00: 00 07-27 23:59 :00 No [id number] 2 puff EVERY 12 HOURS 2 puff EVERY 12 HOURS (route: inhalation ) Med Classific ation: Respirato ry Therapy Agents famotidine 20 mg tablet 02-03 00:00: 00 03-24 23:59 :00 No [id number] 20 mg DAILY 20 mg DAILY (route: oral) Med Classific ation: Gastroint estinal Therapy Agents Fleet Enema 19 gram-7 gram/118 mL 02-03 00:00: 09-14 23:59 :00 No [id number] Per instruc tions DAILY Per instructio ns DAILY (route: rectal) Med Classific ation: Gastroint estinal Therapy Agents guaifenesin 400 mg tablet 02-03 00:00: 00 03-03 23:59 :00 No [id number] 400 mg 4 TIMES DAILY 400 mg 4 TIMES DAILY (route: oral) Med Classific ation: Respirato ry Therapy Agents ipratropium 0.5 mg-albutero l 3 mg (2.5 mg base)/3 mL nebulizatio n soln 02-03 00:00: 00 03-24 23:59 :00 No [id number] 3 mL EVERY 6 HOURS 3 mL EVERY 6 HOURS (route: inhalation ) Med Classific ation: Respirato ry Therapy Agents lorazepam 0.5 mg tablet 02-03 00:00: 00 03-09 23:59 :00 No [id number] 0.5 mg DAILY 0.5 mg DAILY (route: oral) Med Classific ation: Central Nervous System Agents Methadose 10 mg/mL oral concentrate 02-03 00:00: 00 03-24 23:59 :00 No [id number] 110 mg DAILY 110 mg DAILY (route: oral) Med Classific ation: Analgesic , Anti-infl ammatory or Antipyret ic naloxone 4 mg/actuatio n nasal spray 02-03 00:00: 00 03-24 23:59 :00 No [id number] Per instruc tions NEEDED Per instructio ns NEEDED (route: nasal) Med Classific ation: Antidotes and other Reversal Agents Nicoderm CQ 21 mg/24 hr daily transdermal patch 02-03 00:00: 00 07-27 23:59 :00 No [id number] 1 patch, transde rmal 24 hours DAILY 1 patch, transderma l 24 hours DAILY (route: transderma l) Med Classific ation: Chemical Dependenc y, Agents to Treat Nicotrol 10 mg inhalation cartridge 02-03 00:00: 00 09-25 23:59 :00 No [id number] 10 mg EVERY 4 HOURS 10 mg EVERY 4 HOURS (route: inhalation ) Med Classific ation: Chemical Dependenc y, Agents to Treat sertraline 100 mg tablet 02-03 00:00: 00 03-11 14:40 :08 No [id number] 150 mg DAILY 150 mg DAILY (route: oral) Med Classific ation: Central Nervous System Agents trazodone 150 mg tablet 02-03 00:00: 00 04-30 23:59 :00 No [id number] 75 mg BEDTIME 75 mg BEDTIME (route: oral) Med Classific ation: Central Nervous System Agents trazodone 50 mg tablet 02-03 00:00: 00 03-24 23:59 :00 No [id number] 25 mg 2 TIMES DAILY 25 mg 2 TIMES DAILY (route: oral) Med Classific ation: Central Nervous System Agents O2 - OXYGEN 02-03 00:00: 00 03-01 00:00 :00 No [id number] 5-6 Liter DAILY 5-6 Liter DAILY (route: Oxygen) Med Classific ation: Medical Oxygen lorazepam 0.5 mg tablet 01-10 00:00: 00 07-27 23:59 :00 No [id number] 0.5 mg 4 TIMES DAILY 0.5 mg 4 TIMES DAILY (route: oral) Med Classific ation: Central Nervous System Agents sertraline 20 mg/mL oral concentrate 01-29 00:00: 04-18 00:00 :00 No [id number] 7.5 mg DAILY 7.5 mg DAILY (route: oral) Med Classific ation: Central Nervous System Agents clotrimazol e-betametha sone 1 %-0.05 % topical cream 2022-05 00:00: 00 03-24 23:59 :00 No [id number] Per instruc tions 2 TIMES DAILY Per instructio ns 2 TIMES DAILY (route: topical) Med Classific ation: Dermatolo gical triamcinolo ne acetonide 0.1 % topical cream 2023-1 1-29 00:00: 00 03-24 23:59 :00 No [id number] Per instruc tions 2 TIMES DAILY Per instructio ns 2 TIMES DAILY (route: topical) Med Classific ation: Dermatolo gical Dilaudid 4 mg tablet 2022-05 2-20 00:00: 00 09-04 23:59 :00 No [id number] 2 tablet 2 TIMES DAILY 2 tablet 2 TIMES DAILY (route: oral) Med Classific ation: Analgesic , Anti-infl ammatory or Antipyret ic Dilaudid 4 mg tablet 2022-05 2-20 00:00: 00 09-04 23:59 :00 No [id number] 2 tablet DAILY 2 tablet DAILY (route: oral) Med Classific ation: Analgesic , Anti-infl ammatory or Antipyret ic trazodone 150 mg tablet 2022-05 2 00:00: 00 Yes [id number] 1 tablet BEDTIME 1 tablet BEDTIME (route: oral) Med Classific ation: Central Nervous System Agents Ventolin HFA 90 mcg/actuati on aerosol inhaler 1-30 00:00: 00 03-24 23:59 :00 No [id number] 2 puff EVERY 4 HOURS 2 puff EVERY 4 HOURS (route: inhalation ) Med Classific ation: Respirato ry Therapy Agents fluticasone propionate 50 mcg/actuati on nasal spray,suspe nsion 2-05 00:00: 00 03-24 23:59 :00 No [id number] 1 spray EVERY AM 1 spray EVERY AM (route: nasal) Med Classific ation: Respirato ry Therapy Agents acetylcyste ine 200 mg/mL (20 %) solution 2-20 00:00: 00 03-24 23:59 :00 No [id number] 3 mL DAILY 3 mL DAILY (route: miscellane ous) Alternate Route: NEBULIZER . Med Classific ation: Respirato ry Therapy Agents Breo Ellipta 200 mcg-25 mcg/dose powder for inhalation 3-18 00:00: 00 03-24 23:59 :00 No [id number] 1 inhalat ion DAILY 1 inhalation DAILY (route: inhalation ) Med Classific ation: Respirato ry Therapy Agents Incruse Ellipta 62.5 mcg/actuati on powder for inhalation 3-18 00:00: 00 03-24 23:59 :00 No [id number] 1 inhalat ion DAILY 1 inhalation DAILY (route: inhalation ) Med Classific ation: Respirato ry Therapy Agents nicotine 14 mg/24 hr daily transdermal patch 3-18 00:00: 00 Yes [id number] 1 patch, transde rmal 24 hours DAILY 1 patch, transderma l 24 hours DAILY (route: transderma l) Med Classific ation: Chemical Dependenc y, Agents to Treat duloxetine 20 mg capsule,del ayed release 08-21 00:00: 00 09-04 23:59 :00 No [id number] 1 capsule DAILY 1 capsule DAILY (route: oral) Med Classific ation: Central Nervous System Agents fluocinolon e 0.01 % scalp oil and shower cap 08-13 00:00: 00 03-24 23:59 :00 No [id number] Per instruc tions DAILY Per instructio ns DAILY (route: scalp) Med Classific ation: Dermatolo gical ketoconazol e 2 % shampoo 08-13 00:00: 00 03-24 23:59 :00 No [id number] Per instruc tions 3 TIMES A WEEK Per instructio ns 3 TIMES A WEEK (route: topical) Med Classific ation: Dermatolo gical duloxetine 20 mg capsule,del ayed release 09-05 00:00: 00 11-03 23:59 :00 No [id number] 1 capsule 2 TIMES DAILY 1 capsule 2 TIMES DAILY (route: oral) Med Classific ation: Central Nervous System Agents hydromorpho ne 8 mg tablet 09-04 00:00: 00 10-02 23:59 :00 No [id number] 1 tablet 3 TIMES DAILY 1 tablet 3 TIMES DAILY (route: oral) Med Classific ation: Analgesic , Anti-infl ammatory or Antipyret ic methocarbam ol 750 mg tablet 2024-0 5-17 00:00: 00 03-24 23:59 :00 No [id number] 1 tablet EVERY 12 HOURS 1 tablet EVERY 12 HOURS (route: oral) Med Classific ation: Locomotor System ondansetron HCl 4 mg tablet 5-17 00:00: 00 04-18 00:00 :00 No [id number] 1 tablet EVERY 6 HOURS 1 tablet EVERY 6 HOURS (route: oral) Med Classific ation: Gastroint estinal Therapy Agents hydromorpho ne 4 mg tablet 5-24 00:00: 00 06-11 23:59 :00 No [id number] 0.5 tablet 2 TIMES DAILY 0.5 tablet 2 TIMES DAILY (route: oral) Med Classific ation: Analgesic , Anti-infl ammatory or Antipyret ic acetaminoph en 500 mg tablet 6-26 00:00: 00 03-24 23:59 :00 No [id number] for pain 2 tablet EVERY 8 HOURS 2 tablet EVERY 8 HOURS (route: oral) Med Classific ation: Analgesic , Anti-infl ammatory or Antipyret ic oxygen gas for inhalation 2023-05 0-21 00:00: 00 03-21 00:00 :00 No [id number] 6 Liter O2 - CONTINUOUS 6 Liter O2 - CONTINUOUS (route: inhalation ) Med Classific ation: Medical Supplies and Durable Medical Equipment (DME) hydromorpho ne 4 mg tablet 1-31 00:00: 00 03-24 23:59 :00 No [id number] 0.5 tablet EVERY 12 HOURS 0.5 tablet EVERY 12 HOURS (route: oral) Med Classific ation: Analgesic , Anti-infl ammatory or Antipyret ic lorazepam 0.5 mg tablet 3-18 00:00: 00 03-24 23:59 :00 No [id number] 1 tablet 3 TIMES DAILY 1 tablet 3 TIMES DAILY (route: oral) Med Classific ation: Central Nervous System Agents ferrous gluconate 324 mg (37.5 mg iron) tablet 8-04 00:00: 00 03-24 23:59 :00 No [id number] 1 tablet DAILY 1 tablet DAILY (route: oral) Med Classific ation: Electroly te Balance-N utritiona l Products Vitamin C 250 mg tablet 8-04 00:00: 00 03-24 23:59 :00 No [id number] 1 tablet DAILY 1 tablet DAILY (route: oral) Med Classific ation: Electroly te Balance-N utritiona l Products sofosbuvir 400 mg-velpatas vir 100 mg tablet 2024-05 0 00:00: 00 Yes [id number] Per instruc tions EVERY PM Per instructio ns EVERY PM (route: oral) Med Classific ation: Anti-Infe ctive Agents clotrimazol e 1 % topical cream 2024-05 00:00: 00 Yes [id number] Per instruc tions 2 TIMES DAILY Per instructio ns 2 TIMES DAILY (route: topical) Med Classific ation: Dermatolo gical oxygen gas for inhalation 2024-05 00:00: 00 Yes [id number] 6 Liter O2 - CONTINUOUS 6 Liter O2 - CONTINUOUS (route: inhalation ) Med Classific ation: Medical Supplies and Durable Medical Equipment (DME) acetaminoph en 500 mg tablet 2024-05 00:00: 00 Yes [id number] 2 tablet EVERY 8 HOURS 2 tablet EVERY 8 HOURS (route: oral) Med Classific ation: Analgesic , Anti-infl ammatory or Antipyret ic acetylcyste ine 200 mg/mL (20 %) solution 2024-05 00:00: 00 Yes [id number] 3 mL DAILY 3 mL IAN Y (route: miscellane ous) Alternate Route: NEBULIZER . Med Classific ation: Respirato ry Therapy Agents amlodipine 5 mg tablet 2024-05 00:00: 00 Yes [id number] 1 tablet EVERY AM 1 tablet EVERY AM (route: oral) Med Classific ation: Cardiovas cular Therapy Agents Breo Ellipta 200 mcg-25 mcg/dose powder for inhalation 2024-05 00:00: 00 Yes [id number] 1 inhalat ion EVERY AM 1 inhalation EVERY AM (route: inhalation ) Med Classific ation: Respirato ry Therapy Agents clonidine HCl 0.1 mg tablet 2024-05 00:00: 00 Yes [id number] 0.1 mg 2 TIMES DAILY 0.1 mg 2 TIMES DAILY (route: oral) Med Classific ation: Cardiovas cular Therapy Agents famotidine 20 mg tablet 2024-05 00:00: 00 Yes [id number] 1 tablet EVERY AM 1 tablet EVERY AM (route: oral) Med Classific ation: Gastroint estinal Therapy Agents ferrous gluconate 324 mg (37.5 mg iron) tablet 2024-05 00:00: 00 Yes [id number] 1 tablet EVERY AM 1 tablet EVERY AM (route: oral) Med Classific ation: Electroly te Balance-N utritiona l Products fluocinolon e 0.01 % scalp oil and shower cap 2024-05 00:00: 00 Yes [id number] Per instruc tions NEEDED Per instructio ns NEEDED (route: scalp) Med Classific ation: Dermatolo gical fluticasone propionate 50 mcg/actuati on nasal spray,suspe nsion 2024-05 00:00: 00 Yes [id number] 1 spray EVERY AM 1 spray EVERY AM (route: nasal) Med Classific ation: Respirato ry Therapy Agents hydromorpho ne 4 mg tablet 2024-05 00:00: 00 Yes [id number] 0.5 tablet EVERY 12 HOURS 0.5 tablet EVERY 12 HOURS (route: oral) Med Classific ation: Analgesic , Anti-infl ammatory or Antipyret ic Incruse Ellipta 62.5 mcg/actuati on powder for inhalation 2024-05 00:00: 00 Yes [id number] 1 inhalat ion EVERY AM 1 inhalation EVERY AM (route: inhalation ) Med Classific ation: Respirato ry Therapy Agents ipratropium 0.5 mg-albutero l 3 mg (2.5 mg base)/3 mL nebulizatio n soln 2024-05 00:00: 00 Yes [id number] 3 mL EVERY 6 HOURS 3 mL EVERY 6 HOURS (route: inhalation ) Med Classific ation: Respirato ry Therapy Agents ketoconazol e 2 % shampoo 2024-05 00:00: 00 Yes [id number] Per instruc tions NEEDED Per instructio ns NEEDED (route: topical) Med Classific ation: Dermatolo gical lorazepam 0.5 mg tablet 2024-05 00:00: 00 Yes [id number] 1 tablet 3 TIMES DAILY 1 tablet 3 TIMES DAILY (route: oral) Med Classific ation: Central Nervous System Agents Methadose 10 mg/mL oral concentrate 2024-05 00:00: 00 Yes [id number] 110 mg EVERY AM 110 mg EVERY AM (route: oral) Med Classific ation: Analgesic , Anti-infl ammatory or Antipyret ic methocarbam ol 750 mg tablet 2024-05 00:00: 00 Yes [id number] 1 tablet EVERY 12 HOURS 1 tablet EVERY 12 HOURS (route: oral) Med Classific ation: Locomotor System naloxone 4 mg/actuatio n nasal spray 2024-05 00:00: 00 Yes [id number] Per instruc tions NEEDED Per instructio ns NEEDED (route: nasal) Med Classific ation: Antidotes and other Reversal Agents NEOMYCIN AND POLYMYXIN B SULFATES AND HYDROCORTIS ONE OTIC SUSP 1 2024-05 00:00: 00 Yes [id number] 1 drop EVERY AM 1 drop EVERY AM (route: EAR-BOTH) Med Classific ation: ANTIBIOTI CS/ANTIBA CTERIAL ondansetron HCl 4 mg tablet 2024-05 00:00: 00 Yes [id number] 1 tablet EVERY 6 HOURS 1 tablet EVERY 6 HOURS (route: oral) Med Classific ation: Gastroint estinal Therapy Agents sertraline 20 mg/mL oral concentrate 2024-05 00:00: 00 Yes [id number] 7.5 mg EVERY AM 7.5 mg EVERY AM (route: oral) Med Classific ation: Central Nervous System Agents trazodone 50 mg tablet 2024-05 00:00: 00 Yes [id number] 0.5 tablet 2 TIMES DAILY 0.5 tablet 2 TIMES DAILY (route: oral) Med Classific ation: Central Nervous System Agents Ventolin HFA 90 mcg/actuati on aerosol inhaler 2024-05 00:00: 00 Yes [id number] 2 puff EVERY 4-6 HOURS NEEDED 2 puff EVERY 4-6 HOURS NEEDED (route: inhalation ) Med Classific ation: Respirato ry Therapy Agents Vitamin C 250 mg tablet 2024-05 00:00: 00 Yes [id number] 1 tablet EVERY AM 1 tablet EVERY AM (route: oral) Med Classific ation: Electroly te Balance-N utritiona l Products Vital Signs Vital Name Observation Time Observation Value Commen ts Pulse 2025-05-02 12:53:00.000 72 /min Pulse 2025-04-29 11:57:00.000 68 /min Pulse 2025-04-25 12:34:00.000 76 /min Pulse 2025-04-22 12:25:00.000 61 /min Pulse 2025-04-18 12:33:00.000 84 /min Pulse 2025-04-15 11:50:00.000 81 /min Pulse 2025-04-11 11:53:00.000 76 /min Pulse 2025-04-08 13:20:00.000 68 /min Pulse 2025-04-04 12:14:00.000 71 /min Pulse 2025-04-01 13:04:00.000 68 /min Pulse 2025-03-28 12:22:00.000 65 /min Pulse 2025-03-25 11:50:00.000 79 /min O2 Saturation (%) 2025-05-02 12:53:00.000 93 % O2 Saturation (%) 2025-04-29 11:57:00.000 92 % O2 Saturation (%) 2025-04-25 12:35:00.000 94 % O2 Saturation (%) 2025-04-22 12:25:00.000 92 % O2 Saturation (%) 2025-04-18 12:33:00.000 92 % O2 Saturation (%) 2025-04-15 11:51:00.000 92 % O2 Saturation (%) 2025-04-11 11:53:00.000 94 % O2 Saturation (%) 2025-04-08 13:20:00.000 92 % O2 Saturation (%) 2025-04-04 12:14:00.000 93 % O2 Saturation (%) 2025-03-28 12:25:00.000 92 % O2 Saturation (%) 2025-03-25 11:50:00.000 95 % Respirations 2025-05-02 12:53:00.000 14 /min Respirations 2025-03-28 12:22:00.000 16 /min Systolic Blood Pressure 2025-05-02 12:53:00.000 102 mm [Hg] Systolic Blood Pressure 2025-04-29 11:57:00.000 97 mm[ Hg] Systolic Blood Pressure 2025-04-25 12:35:00.000 107 mm [Hg] Systolic Blood Pressure 2025-04-22 12:25:00.000 100 mm [Hg] Systolic Blood Pressure 2025-04-18 12:33:00.000 100 mm [Hg] Systolic Blood Pressure 2025-04-15 11:50:00.000 114 mm [Hg] Systolic Blood Pressure 2025-04-11 11:53:00.000 105 mm [Hg] Systolic Blood Pressure 2025-04-08 13:20:00.000 105 mm [Hg] Systolic Blood Pressure 2025-04-04 12:14:00.000 102 mm [Hg] Systolic Blood Pressure 2025-04-01 13:04:00.000 118 mm [Hg] Systolic Blood Pressure 2025-03-28 12:22:00.000 111 mm [Hg] Systolic Blood Pressure 2025-03-25 11:50:00.000 98 mm[ Hg] Diastolic Blood Pressure 2025-05-02 12:53:00.000 85 mm [Hg] Diastolic Blood Pressure 2025-04-29 11:57:00.000 68 mm [Hg] Diastolic Blood Pressure 2025-04-25 12:35:00.000 81 mm [Hg] Diastolic Blood Pressure 2025-04-22 12:25:00.000 71 mm [Hg] Diastolic Blood Pressure 2025-04-18 12:33:00.000 82 mm [Hg] Diastolic Blood Pressure 2025-04-15 11:50:00.000 85 mm [Hg] Diastolic Blood Pressure 2025-04-11 11:53:00.000 85 mm [Hg] Diastolic Blood Pressure 2025-04-08 13:20:00.000 84 mm [Hg] Diastolic Blood Pressure 2025-04-04 12:14:00.000 76 mm [Hg] Diastolic Blood Pressure 2025-04-01 13:04:00.000 81 mm [Hg] Diastolic Blood Pressure 2025-03-28 12:22:00.000 82 mm [Hg] Diastolic Blood Pressure 2025-03-25 11:50:00.000 82 mm [Hg] Plan of Treatment Planned Activity Planned Date Details Comments Future Scheduled Test SKILLED NU RSE TO EVALUATE PATIENT, IDENTIFY PRIMARY AND CO-MORBID CONDITIONS CODED PER CODING GUIDELINES, AND DEVELOP PATIENT SPECIFIC PLAN OF CARE THAT INCLUDES PATIENT GOAL FOR HOME HEALTH. PLAN OF CARE TO INCLUDE 3 PRN VISIT(S) FOR OASIS DATA COLLECTION/COMPREHENSIVE ASSESSMENT AT TIMEPOINTS PER FEDERAL REGULATIONS. THIS INCLUDES VISITS FOR JUANA, RECERT, SCIC, AND/OR DC. [code = SKILLED NURSE TO EVALUATE PATIENT, IDENTIFY PRIMARY AND CO-MORBID CONDITIONS CODED PER CODING GUIDELINES, AND DEVELOP PATIENT SPECIFIC PLAN OF CARE THAT INCLUDES PATIENT GOAL FOR HOME HEALTH. PLAN OF CARE TO INCLUDE 3 PRN VISIT(S) FOR OASIS DATA COLLECTION/COMPREHENSIVE ASSESSMENT AT TIMEPOINTS PER FEDERAL REGULATIONS. THIS INCLUDES VISITS FOR JUANA, RECERT, SCIC, AND/OR DC.] Future Scheduled Test PATIENT MA Y HAVE [...] OF PATIENTS MENTAL/BEHAVIORAL STATUS, ASSESS VITAL SIGNS TWICE WEEKLY ALLOW 2 PRNS FOR MEDICATION MANAGEMENT. [code = SKILLED NURSE TO O/A OF PATIENTS MENTAL/BEHAVIORAL STATUS, ASSESS VITAL SIGNS TWICE WEEKLY ALLOW 2 PRNS FOR MEDICATION MANAGEMENT.] Future [...] ASSOCIATED WITH EXACERBATION FOR EARLY INTERVENTION OF COMPLICATIONS] Future Scheduled Test SKILLED NU RSE TO ADMINISTER MEDICATIONS NEEDED AND PRE-POUR MEDICATIONS FROM LOCKBOX PER MEDICATION LIST. MED COUNT REQUIRED FOR HYDROMORPHONE AND LORAZEPAM [code = SKILLED NURSE TO ADMINISTER MEDICATIONS NEEDED AND PRE-POUR MEDICATIONS FROM LOCKBOX PER MEDICATION LIST. MED COUNT REQUIRED FOR HYDROMORPHONE AND LORAZEPAM] Future Scheduled Test SKILLED NU RSE FOR [...] PROVIDER FOR EARLY INTERVENTION.] Future Scheduled Test SKILLED NU RSE FOR O/A OF SIGNS AND SYMPTOMS OF SUBSTANCE USE INCLUDING PARTICIPATION IN [facility]. NURSE TO COLLABORATE WITH PATIENT AND COMMUNITY PROVIDERS IN THE DEVELOPMENT AND IMPLEMENTATION OF A TARGETED RECOVERY PLAN. [code = SKILLED NURSE FOR O/A OF SIGNS AND SYMPTOMS OF SUBSTANCE USE INCLUDING PARTICIPATION IN [facility]. NURSE TO COLLABORATE WITH PATIENT [...] NU RSE FOR OBSERVATION AND ASSESSMENT OF PATIENT S PAIN LEVEL AND EFFECTIVENESS OF PAIN MANAGEMENT REGIMEN. SKILLED NURSE TO INSTRUCT PATIENT/CAREGIVER REGARDING PHARMACOLOGIC AND NON-PHARMACOLOGIC PAIN CONTROL MEASURES. SKILLED NURSE TO REPORT TO PHYSICIAN IF PAIN IS UNCONTROLLED WITH CURRENT PAIN MANAGEMENT REGIMEN. [code = SKILLED NURSE FOR OBSERVATION AND ASSESSMENT OF PATIENT S PAIN LEVEL AND EFFECTIVENESS OF PAIN MANAGEMENT [...] COMPLICATIONS.] Future Scheduled Test SKILLED NU RSE TO [...] Scheduled Test SKILLED NU RSE TO ASSESS PATIENT S PSYCHOSOCIAL STATUS TO IDENTIFY POTENTIAL ISSUES THAT MAY COMPLICATE THE PROVISION OF THE PLAN OF CARE INCLUDING THE PATIENT S ABILITY TO ACCESS COMMUNITY RESOURCES AND PSYCHOSOCIAL SUPPORT SERVICES. [code = SKILLED NURSE TO ASSESS PATIENT S PSYCHOSOCIAL STATUS TO IDENTIFY POTENTIAL ISSUES THAT MAY COMPLICATE THE PROVISION OF THE PLAN OF CARE INCLUDING THE PATIENT S ABILITY TO ACCESS COMMUNITY RESOURCES AND PSYCHOSOCIAL SUPPORT SERVICES.] Future Scheduled Test SKILLED NU RSE WILL MAINTAIN SITUATIONAL AWARENESS FOR SAFETY AND WILL NOTIFY CLINICAL COAL DRIER OPERATOR AND PHYSICIAN/PROVIDER WITH ANY CHANGE IN CONDITION. [code = SKILLED NURSE WILL MAINTAIN SITUATIONAL AWARENESS FOR SAFETY AND WILL NOTIFY CLINICAL COAL DRIER OPERATOR AND PHYSICIAN/PROVIDER WITH ANY CHANGE IN CONDITION.] Future Scheduled Test OXYGEN VIA NASAL CANNULA @ 6-8 LITERS CONTINUOUS. SKILLED NURSE FOR O/A AND SKILLED TEACHING OF SAFE OXYGEN USE IN THE HOME. [code = OXYGEN VIA NASAL CANNULA @ 6-8 LITERS CONTINUOUS. SKILLED NURSE FOR O/A AND SKILLED TEACHING OF SAFE OXYGEN USE IN THE HOME.] Goal 2023-03-31 Patient Goal - TO STAY [...] STAY RITA NG ON MY OWN Goal 2025-03-21 Patient Goal - TO STAY RITA NG ON MY OWN Goal 2025-01-21 Patient Goal - TO STAY RITA NG [...] CARE WILL BE ESTABLISHED THAT MEETS PATIENT'S LONGTERM NEEDS AND INCLUDES PATIENT GOAL FOR HOME HEALTH. Goal Provider Goal - MEDICATION WILL BE AVAILABLE DURING INCLEMENT WEATHER OR EMERGENT EVENT THROUGHOUT CERTIFICATION PERIOD. Goal Provider Goal - ALTERED MENTAL/BEHAVIORAL STATUS [...] END OF EPISODE. Goal Provider Goal - PATIENT/CAREGIVER WILL VERBALIZE UNDERSTANDING OF EDUCATION PROVIDED ON MEDICATIONS BY THE END OF THE CERTIFICATION PERIOD. Goal Provider Goal - PSYCHOSOCIAL NEEDS WILL BE IDENTIFIED AND PLAN IMPLEMENTED TO MINIMIZE RISK THROUGHOUT CERTIFICATION PERIOD. Goal Provider Goal - PATIENT WILL REMAIN SAFE IN THE COMMUNITY AND WILL BE FREE OF DANGER TO SELF AND OTHERS THROUGHOUT THE CERTIFICATION PERIOD. Goal Provider Goal - PATIENT/CAREGIVER WILL VERBALIZE/DEMONSTRATE UNDERSTANDING OF SAFE OXYGEN USE IN THE HOME THROUGHOUT THE EPISODE. Encounters Start Date/Time End Date/Time Encounter Type Admission Type Attending [facility] Care Department Encounter ID Discharge Date Discharge Status Discharge Condition Discharge Reason Percent Goals Met 2025-03-24 00:00:00 2025-05-22 00:00:00 Outpatient [facility] [id number]
== END ==
LOC: HO.CARD 14:54
PROVIDERS: PCP Internal Medicine; Visit Provider Nurse Practitioner Family
DX: R06.09 Other forms of dyspnea (principal); R91.1 Solitary pulmonary nodule
CPT/HCPCS: 71250; 93306

== ENCOUNTER → 2025-05-06 14:57 | Outpatient (BNV) | payer MEDICAID, SELFPAY | PROVIDERS: PCP Internal Medicine; Visit Provider Internal Medicine Cardiovascular Disease | DX: I51.7 Cardiomegaly (principal) | CPT/HCPCS: 93306 ==

== ENCOUNTER → 2025-05-06 15:41 | Outpatient (BNV) | payer MEDICAID, SELFPAY | PROVIDERS: PCP Internal Medicine; Visit Provider Radiology Diagnostic Radiology | DX: R91.8 Other nonspecific abnormal finding of lung field (principal) | CPT/HCPCS: 71250 ==